=== PATIENT | male | born 1980 | race Caucasian/White ===

== ENCOUNTER 2019-04-23 23:32 | Inpatient (IN) | payer MEDICARE ==
[~2019-04-23] VITALS: Ht 177.8 cm; Wt 60.8 kg
[2019-04-24 01:35] VITALS: BP 115/77
--- NOTE | 2019-04-24 01:35 | NUR ---
NURSE NOTES: Transferred from [facility], under Dr. Ibarra with diagnosis of colitis. Received report on the phone from LYNN Mirza. Patient complains of abdominal pain 11/14. No N/V at this time. Alert, awake, oriented x4, ambulatory. VSS. 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 Dr Ibarra will be called for admitting orders. Patient oriented to room, fall precaution in place, bed locked, in low position, side rails up x2, call light within reach. Patient instructed to call as needed for assistance. Belongings sheet signed, refused to send valuables for safekeeping. Patient also has medication with him which will be turned over to pharmacy.
[2019-04-24] MEDS ORDERED: REMICADE INFUSION (02:44)
[2019-04-24] MEDS ORDERED: OXYCODONE HCL5 MG ORAL (02:44)
[2019-04-24] MEDS ORDERED: OXYCONTIN20 MG ORAL (02:44)
[2019-04-24] MEDS ORDERED: CYMBALTA60 MG ORAL (02:44)
[2019-04-24] MEDS ORDERED: IMMURAN PO (02:44)
--- NOTE | 2019-04-24 02:50 | NUR ---
NURSE NOTES: Placed phone call to Dr Ibarra for admitting orders and pain medication.
--- NOTE | 2019-04-24 03:56 | NUR ---
NURSE NOTES: Received admitting orders from Dr Ibarra at this time. States he will see the patient in the morning.
[2019-04-24 04:00] VITALS: BP 115/79
[2019-04-24] MEDS ORDERED: Hydromorphone 0.5mg/0.5ml inj IVP PRN (04:00)
[2019-04-24] MEDS ORDERED: HYDROmorphone 1mg/ml Carpuject IVP PRN (04:00)
--- NOTE | 2019-04-24 04:20 | NUR ---
NURSE NOTES: Collected MRSA, VRE, CRE specimens due to hospital admission within the last month.
[2019-04-24] MEDS ORDERED: Zoysn 3.37gm in NS 100ML IVPB SCH (04:45)
--- NOTE | 2019-04-24 07:38 | NUR ---
HAND-OFF: Report given to LYNN Lara. Notified of new orders recently received from Dr Ibarra for labs and IVF.
--- NOTE | 2019-04-24 07:41 | NUR ---
NURSE NOTES: Pt awake and orientated stated that he remains in pain and is aware that his pain medication is q6 hours. Breakfast is at the bedside. Follow up will be made with MD in regards to intervals of pain mediation
[2019-04-24 08:00] VITALS: BP 122/74
[2019-04-24] MEDS: Solu-MEDROL 40mg Inj IVP SCH ×2 (08:39→16:50)
[2019-04-24] MEDS: HYDROmorphone 1mg/ml Carpuject IVP PRN ×4 (08:40→21:22)
[2019-04-24] MEDS: D5 1/2NS 1,000 ML IV SCH ×2 (08:41→17:45)
[2019-04-24 09:08] LABS: BASOPHILS % (AUTO) 0.8 % (0.0-2.0); EOSINOPHILS % (AUTO) 1.9 % (0.0-3.0); HEMATOCRIT 33.9 % (42.0-52.0); HEMOGLOBIN 11.5 G/DL (14.2-18.0); LYMPHOCYTES % (AUTO) 9.1 % (20.0-45.0); MEAN CORPUSCULAR VOLUME 83 FL (80-99); MONOCYTES % (AUTO) 5.1 % (1.0-10.0); NEUTROPHILS % (AUTO) 83.1 % (45.0-75.0); PLATELET COUNT 493 K/UL (150-450); RED CELL DISTRIBUTION WIDTH 13.8 % (11.6-14.8); WHITE BLOOD COUNT 13.8 K/UL (4.8-10.8)
[2019-04-24 09:40] LABS: ALANINE AMINOTRANSFERASE 13 U/L (12-78); ALBUMIN 3.1 G/DL (3.4-5.0); ALBUMIN/GLOBULIN RATIO 0.8 (1.0-2.7); ALKALINE PHOSPHATASE 77 U/L (46-116); ANION GAP 11 mmol/L (5-15); ASPARTATE AMINO TRANSFERASE 12 U/L (15-37); BILIRUBIN,TOTAL 0.3 MG/DL (0.2-1.0); BLOOD UREA NITROGEN 11 mg/dL (7-18); CALCIUM 8.8 MG/DL (8.5-10.1); CARBON DIOXIDE 24 MMOL/L (21-32); CHLORIDE 109 MMOL/L (98-107); POTASSIUM 3.9 MMOL/L (3.5-5.1); SODIUM 144 MMOL/L (136-145)
[2019-04-24 12:00] VITALS: BP 120/71
[2019-04-24] MEDS: Heparin 5000 units/ml inj SUBQ SCH (12:30)
[2019-04-24] MEDS: Piperacillin/Tazobactam 3.375 GM in NS 110 ML IVPB SCH ×2 (12:34→18:19)
--- NOTE | 2019-04-24 14:21 | Consultation ---
History of Present Illness General Date patient seen: Apr 24, 2019 Present Illness HPI 38-year-old male with history of Crohn disease, who presents to [facility] emergency room with a chief complaint of nausea, vomiting, and abdominal pain two days previously. The patient is transferred to [facility] for insurance purposes. The patient now has right lower quadrant pain and is admitted with acute exacerbation of colitis. Allergies: Coded Allergies: TRAMADOL (Unverified Allergy, Unknown, 04/24/19) seizure Medication History Scheduled Duloxetine Hcl* (Cymbalta*), 60 MG ORAL DAILY, (Reported) Oxycodone Hcl Er* (Oxycontin*), 20 MG ORAL EVERY 8 HOURS, (Reported) Oxycodone Hcl Ir* (Roxicodone Ir*), 10 MG ORAL FOUR TIMES A DAY, (Reported) [Immuran], 150 MG PO DAILY, (Reported) Miscellaneous Medications [remicade infusion], (Reported) Patient History Healthcare decision maker Resuscitation status Full Code Advanced Directive on File Past Medical/Surgical History Past Medical/Surgical History: (1) History of Crohn's disease Review of Systems All Other Systems: negative except mentioned in HPI Physical Exam General Appearance: thin Lines, tubes and drains: peripheral HEENT: normocephalic, anicteric Neck: non-tender, normal alignment Respiratory/Chest: lungs clear Cardiovascular/Chest: normal peripheral pulses Genitourinary/Rectal: normal genital exam Last 24 Hour Vital Signs Date Time Temp Pulse Resp B/P (MAP) Pulse Ox O2 Delivery O2 Flow Rate FiO2 04/24/19 12:00 98.2 92 21 120/71 (87) 04/24/19 09:00 Room Air 04/24/19 08:00 97.7 88 21 122/74 (90) 88 04/24/19 04:00 97.9 87 18 115/79 (91) 98 04/24/19 02:13 Room Air 04/24/19 01:45 Room Air 04/24/19 01:35 98.4 81 18 115/77 (90) 100 Intake and Output 04/23/19 04/24/19 19:00 07:00 Intake Total 120 ml Output Total 400 ml Balance -280 ml Intake Oral 120 ml Output Urine Total 400 ml # Voids 1 Laboratory Tests Test 04/24/19 09:00 White Blood Count 13.8 K/UL (4.8-10.8) H Red Blood Count 4.10 M/UL (4.70-6.10) L Hemoglobin 11.5 G/DL (14.2-18.0) L Hematocrit 33.9 % (42.0-52.0) L Mean Corpuscular Volume 83 FL (80-99) Mean Corpuscular Hemoglobin 28.1 PG (27.0-31.0) Mean Corpuscular Hemoglobin Concent 33.9 G/DL (32.0-36.0) Red Cell Distribution Width 13.8 % (11.6-14.8) Platelet Count 493 K/UL (150-450) H Mean Platelet Volume 5.4 FL (6.5-10.1) L Neutrophils (%) (Auto) 83.1 % (45.0-75.0) H Lymphocytes (%) (Auto) 9.1 % (20.0-45.0) L Monocytes (%) (Auto) 5.1 % (1.0-10.0) Eosinophils (%) (Auto) 1.9 % (0.0-3.0) Basophils (%) (Auto) 0.8 % (0.0-2.0) Erythrocyte Sedimentation Rate 25 MM/HR (0-15) H Sodium Level 144 MMOL/L (136-145) Potassium Level 3.9 MMOL/L (3.5-5.1) Chloride Level 109 MMOL/L (98-107) H Carbon Dioxide Level 24 MMOL/L (21-32) Anion Gap 11 mmol/L (5-15) Blood Urea Nitrogen 11 mg/dL (7-18) Creatinine 1.0 MG/DL (0.55-1.30) Estimat Glomerular Filtration Rate > 60 mL/min (>60) Glucose Level 99 MG/DL (74-106) Calcium Level 8.8 MG/DL (8.5-10.1) Phosphorus Level 4.0 MG/DL (2.5-4.9) Magnesium Level 1.8 MG/DL (1.8-2.4) Total Bilirubin 0.3 MG/DL (0.2-1.0) Aspartate Amino Transf (AST/SGOT) 12 U/L (15-37) L Alanine Aminotransferase (ALT/SGPT) 13 U/L (12-78) Alkaline Phosphatase 77 U/L (46-116) C-Reactive Protein, Quantitative < 0.4 mg/dL (0.00-0.90) Total Protein 7.0 G/DL (6.4-8.2) Albumin 3.1 G/DL (3.4-5.0) L Globulin 3.9 g/dL Albumin/Globulin Ratio 0.8 (1.0-2.7) L Height (Feet): 5 Height (Inches): 10.00 Weight (Pounds): 134 Medications Current Medications Medications (Trade) Dose Ordered Sig/Aguila Route PRN Reason Start Time Stop Time Status Last Admin Dose Admin Acetaminophen (Tylenol) 650 mg Q6H PRN ORAL Mild Pain/Temp > 100 04/24/19 04:00 05/24/19 03:59 Dextrose/Sodium Chloride 1,000 ml @ 100 mls/hr Q10H IV 04/24/19 07:45 05/24/19 07:44 04/24/19 08:41 Heparin Sodium (Porcine) (Heparin 5000 units/ml) 5,000 units DAILY SUBQ 04/24/19 12:30 05/24/19 12:29 Hydromorphone HCl (Dilaudid) 0.5 mg Q6H PRN IVP For Pain 04/24/19 04:00 05/01/19 03:59 Hydromorphone HCl (Dilaudid) 1 mg Q4H PRN IVP For Pain 04/24/19 08:30 05/01/19 08:29 04/24/19 12:34 Methylprednisolone Sodium Succinate (Solu-MEDROL) 40 mg Q8H IVP 04/24/19 09:00 05/24/19 08:59 04/24/19 08:39 Piperacillin Sod/ Tazobactam Sod 3.375 gm/Sodium Chloride 110 ml @ 27.5 mls/hr Q8H IVPB 04/24/19 10:00 05/01/19 09:59 04/24/19 12:34 Assessment/Plan Problem List: (1) Colitis ICD Codes: K52.9 - Noninfective gastroenteritis and colitis, unspecified SNOMED: 90524374 (2) History of Crohn's disease ICD Codes: Z87.19 - Personal history of other diseases of the digestive system SNOMED: 302924097720124 Assessment/Plan: NPO iv fluids pain management GI evaluation f/u inflammatory markers check electrolytes dvt prophylaxis Herrera Alcaraz MD Apr 24, 2019 14:21
[2019-04-24 16:00] VITALS: BP 120/72
--- NOTE | 2019-04-24 16:01 | NUR ---
NURSE NOTES: Pt is comfortable laying down watching television . Call light is in reach. Antibiotics given
--- NOTE | 2019-04-24 20:04 | NUR ---
NURSE NOTES: Pt given pain medication through out shift, states he is use to being in pain. Pleasant bx. Call light in reach
--- NOTE | 2019-04-24 20:04 | NUR ---
HAND-OFF: Report given to Emily BAILEY.
--- NOTE | 2019-04-24 20:08 | History & Physical ---
History and Physical History & Physicial dictated for Int Med-Dr Ibarra no. [id number] Atilio Hardin MD Apr 24, 2019 20:08
--- NOTE | 2019-04-24 20:16 | NUR ---
CASE MANAGEMENT: REVIEW 38 YEAR OLD MALE TRANSFERRED FROM [facility] CC: Hx CROHN'S DISEASE SI: COLITIS T 98.4 HR 81 RR 18 BP 115/77 SAT 100% ROOM AIR WBC 13.8 AST 12 ALBUMIN 3.1 IS: DILAUDID 1MG IV X1 ZOSYN IV X1 CLEAR LIQUID DIET PATIENT ADMITTED TO MED/SURG UNIT 04/24/2019 DCP: PATIENT IS FROM HOME
--- NOTE | 2019-04-24 20:51 | NUR ---
NURSES NOTE: Met pt in bed, A/O X4, pt states he has pain in abdominal region and would like next dose of Dilaudid as soon as its due. No outward s/s of distress noted. Breathing is even and unlabored on room air. IV,WESLEY, intact, patent. Fluids infusing according to eMAR. All due meds will be given. Call light within reach, bed at lowest level. Pt will continue to be monitored.
[2019-04-25] VITALS: BP 116/76
--- NOTE | 2019-04-25 00:30 | History and Physical Report ---
DATE OF ADMISSION: 04/24/2019 CHIEF COMPLAINT: The patient is a 38-year-old male with history of Crohn disease, who presents with a chief complaint of nausea, vomiting, and abdominal pain. HISTORY OF PRESENT ILLNESS: The patient has a history of Crohn disease. The patient began to experience nausea and vomiting two days previously. The patient now has right lower quadrant pain. The patient initially presented to [facility] emergency room. The patient is transferred to [facility] for insurance purposes. The patient was admitted with acute exacerbation of colitis. REVIEW OF SYSTEMS: CONSTITUTIONAL: The patient denies weight loss or weight gain. The patient denies fevers or chills. HEENT: The patient denies ear or throat pain. The patient denies headache. CARDIOVASCULAR: The patient denies palpitations or chest pain. CHEST: The patient denies wheeze or shortness of breath. ABDOMINAL: The patient denies constipation. The patient complains of nausea and vomiting as above. The patient complains of right lower quadrant pain as above. The patient denies diarrhea. GENITOURINARY: The patient denies dysuria or increased frequency of urination. NEUROMUSCULAR: The patient denies seizures or generalized weakness. PAST MEDICAL HISTORY: Significant for Crohn's disease. PAST SURGICAL HISTORY: Significant for, 1. Colon resection. 2. Perianal fistula. CURRENT MEDICATIONS: 1. Cymbalta 60 mg p.o. daily. 2. Oxycodone 20 mg p.o. q.8 hours p.r.n.. 3. Imuran 150 mg p.o. daily. 4. Remicade last dose 6 months ago. ALLERGIES: Tramadol. SOCIAL HISTORY: The patient is single. The patient denies tobacco or alcohol use. PHYSICAL EXAMINATION: VITAL SIGNS: Temperature 98.5, respirations 20, pulse 138, and blood pressure 118/75. GENERAL: The patient is well-developed and well-nourished thin-appearing male, in no apparent distress. HEENT: Eyes, pupils are equal and responsive to light and accommodation. Extraocular movements are intact. NECK: Supple without lymphadenopathy. CHEST: Lungs are clear to auscultation bilaterally without wheezes or rales. CARDIOVASCULAR: Regular rhythm and rate. S1, S2 are normal without murmurs, rubs, or gallops. ABDOMEN: Soft and tender to palpation in all 4 quadrants. No rebound or guarding. EXTREMITIES: Negative for clubbing, cyanosis, or edema. RECTAL/GENITAL: Not performed. NEUROLOGIC: Cranial nerves II through XII are grossly intact without focal deficits. Motor strength is 5/5 bilaterally. Deep tendon reflexes are 2+ plantar. LABORATORY AND DIAGNOSTIC DATA: A CT scan of the abdomen revealed thickening of the wall of the colon at the hepatic flexure and thickening of the rectosigmoid consistent with Crohn's disease. WBC 15.8, hemoglobin 11.5, hematocrit 36.2, and platelets 591,000. Sodium 144, potassium 5.0, chloride 106, CO2 25, BUN 13, and creatinine 0.89. ASSESSMENT: This is a 38-year-old male. 1. Colitis. 2. Nausea with vomiting. 3. Right lower quadrant abdominal pain. 4. Crohn's disease. TREATMENT: 1. Nausea/vomiting/Crohn's disease. A Gastroenterology consultation has been obtained with Dr. Romeo Valentine. The patient has been started empirically on intravenous Zosyn. We will follow recommendations of Gastroenterology. The patient has also been started on intravenous Solu-Medrol. 2. History of Crohn's disease. Continue Imuran as above. 3. Abdominal pain. The patient is currently receiving Dilaudid intravenously. Atilio Hardin M.D. DR: FIORDALIZA JOB#: [id number] CC:
[2019-04-25] MEDS: Solu-MEDROL 40mg Inj IVP SCH ×3 (01:24→17:40)
[2019-04-25] MEDS: HYDROmorphone 1mg/ml Carpuject IVP PRN ×3 (01:25→09:37)
[2019-04-25] MEDS: Piperacillin/Tazobactam 3.375 GM in NS 110 ML IVPB SCH ×3 (03:00→17:43)
[2019-04-25] MEDS: D5 1/2NS 1,000 ML IV SCH ×3 (03:10→23:55)
[2019-04-25 04:00] VITALS: BP 120/70
[2019-04-25 07:08] LABS: HEMATOCRIT 34.9 % (42.0-52.0); HEMOGLOBIN 12.1 G/DL (14.2-18.0); MEAN CORPUSCULAR VOLUME 82 FL (80-99); PLATELET COUNT 569 K/UL (150-450); RED BLOOD COUNT 4.23 M/UL (4.70-6.10); RED CELL DISTRIBUTION WIDTH 13.4 % (11.6-14.8); WHITE BLOOD COUNT 15.7 K/UL (4.8-10.8)
--- NOTE | 2019-04-25 07:15 | NUR ---
HAND OFF: Report given to Flor. Stalin angela.
[2019-04-25 07:19] LABS: ALANINE AMINOTRANSFERASE 14 U/L (12-78); ALBUMIN 3.4 G/DL (3.4-5.0); ALBUMIN/GLOBULIN RATIO 0.8 (1.0-2.7); ALKALINE PHOSPHATASE 84 U/L (46-116); ANION GAP 12 mmol/L (5-15); ASPARTATE AMINO TRANSFERASE 11 U/L (15-37); BILIRUBIN,TOTAL 0.4 MG/DL (0.2-1.0); BLOOD UREA NITROGEN 7 mg/dL (7-18); CALCIUM 9.4 MG/DL (8.5-10.1); CARBON DIOXIDE 25 MMOL/L (21-32); CHLORIDE 106 MMOL/L (98-107); CREATININE 0.9 MG/DL (0.55-1.30); PHOSPHORUS 5.3 MG/DL (2.5-4.9); POTASSIUM 3.9 MMOL/L (3.5-5.1); SODIUM 143 MMOL/L (136-145)
--- NOTE | 2019-04-25 07:41 | NUR ---
NURSE NOTES: AWAKE/ALERT.PAIN SCALE 8/10. IN NO DISTRESS.
[2019-04-25 08:00] VITALS: BP 121/78
[2019-04-25] MEDS: Heparin 5000 units/ml inj SUBQ SCH (08:27)
--- NOTE | 2019-04-25 11:29 | GI Initial Consult Note ---
History of Present Illness General Date patient seen: Apr 25, 2019 Time patient seen: 11:23 Reason for Hospitalization: CROHNS FLARE Referring physician: SALMA BRANNON Reason for Consultation: CROHNS Present Illness HPI The patient is a 38-year-old male with history of Crohn disease, who presents with a chief complaint of nausea, vomiting, and abdominal pain. The patient began to experience nausea and vomiting two days previously. The patient now has right lower quadrant pain. The patient initially presented to [facility] emergency room. The patient is transferred to [facility] for insurance purposes. The patient was admitted with acute exacerbation of colitis. GI consulted for reported Crohn's flare. Patient seen, awake alert oriented x4 no apparent distress. At the time of evaluation the patient presents no nausea vomiting but has complaint of severe abdominal generalized abdominal pain. The abdomen is soft, tenderness to all quadrants, nondistended with no rebounding nor peritoneal signs noted. 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 The patient states his last colonoscopy was approximately 1 year ago. Laboratory review noted most significant for WBC 15.7, hemoglobin 12.1, hematocrit 34.9, platelet count 569, ESR 56, C-reactive protein less than 0.4. Home Meds Reported Medications [remicade infusion] No Conflict Check, for given 6 months ago 04/24/19 Duloxetine Hcl* (CYMBALTA*) 60 Mg Capsule.dr, 60 MG ORAL DAILY for depression, CAP 04/24/19 Oxycodone Hcl Ir* (ROXICODONE IR*) 5 Mg Tablet, 10 MG ORAL FOUR TIMES A DAY for breakthrough pain, #10 TAB 0 Refills 04/24/19 Oxycodone Hcl Er* (OXYCONTIN*) 20 Mg Tab.er.12h, 20 MG ORAL EVERY 8 HOURS for pain, #10 TAB 0 Refills 04/24/19 [Immuran] No Conflict Check, 150 MG PO DAILY 04/24/19 Med list reviewed/reconciled: Yes Allergies: Coded Allergies: TRAMADOL (Unverified Allergy, Unknown, 04/24/19) seizure Patient History History Provided By: Patient, Medical Record Social History: Denies: smoking, alcohol use, drug use, other Review of Systems All Other Systems: negative except mentioned in HPI Physical Exam Vital Signs Date Time Temp Pulse Resp B/P (MAP) Pulse Ox O2 Delivery O2 Flow Rate FiO2 04/24/19 01:35 98.4 81 18 115/77 (90) 100 04/24/19 01:45 Room Air Sp02 EP Interpretation: reviewed, normal Labs Laboratory Tests Test 04/25/19 06:10 White Blood Count 15.7 K/UL (4.8-10.8) H Red Blood Count 4.23 M/UL (4.70-6.10) L Hemoglobin 12.1 G/DL (14.2-18.0) L Hematocrit 34.9 % (42.0-52.0) L Mean Corpuscular Volume 82 FL (80-99) Mean Corpuscular Hemoglobin 28.5 PG (27.0-31.0) Mean Corpuscular Hemoglobin Concent 34.6 G/DL (32.0-36.0) Red Cell Distribution Width 13.4 % (11.6-14.8) Platelet Count 569 K/UL (150-450) H Mean Platelet Volume 5.4 FL (6.5-10.1) L Neutrophils (%) (Auto) % (45.0-75.0) Lymphocytes (%) (Auto) % (20.0-45.0) Monocytes (%) (Auto) % (1.0-10.0) Eosinophils (%) (Auto) % (0.0-3.0) Basophils (%) (Auto) % (0.0-2.0) Differential Total Cells Counted 100 Neutrophils % (Manual) 90 % (45-75) H Lymphocytes % (Manual) 7 % (20-45) L Monocytes % (Manual) 3 % (1-10) Eosinophils % (Manual) 0 % (0-3) Basophils % (Manual) 0 % (0-2) Band Neutrophils 0 % (0-8) Platelet Estimate Increased H Platelet Morphology Normal Red Blood Cell Morphology Normal Erythrocyte Sedimentation Rate 46 MM/HR (0-15) H Sodium Level 143 MMOL/L (136-145) Potassium Level 3.9 MMOL/L (3.5-5.1) Chloride Level 106 MMOL/L (98-107) Carbon Dioxide Level 25 MMOL/L (21-32) Anion Gap 12 mmol/L (5-15) Blood Urea Nitrogen 7 mg/dL (7-18) Creatinine 0.9 MG/DL (0.55-1.30) Estimat Glomerular Filtration Rate > 60 mL/min (>60) Glucose Level 119 MG/DL (74-106) H Calcium Level 9.4 MG/DL (8.5-10.1) Phosphorus Level 5.3 MG/DL (2.5-4.9) H Magnesium Level 1.8 MG/DL (1.8-2.4) Total Bilirubin 0.4 MG/DL (0.2-1.0) Aspartate Amino Transf (AST/SGOT) 11 U/L (15-37) L Alanine Aminotransferase (ALT/SGPT) 14 U/L (12-78) Alkaline Phosphatase 84 U/L (46-116) C-Reactive Protein, Quantitative < 0.4 mg/dL (0.00-0.90) Total Protein 7.7 G/DL (6.4-8.2) Albumin 3.4 G/DL (3.4-5.0) Globulin 4.3 g/dL Albumin/Globulin Ratio 0.8 (1.0-2.7) L General Appearance: well appearing, no apparent distress, alert Head: normocephalic EENT: PERRL/EOMI, normal ENT inspection Neck: supple Respiratory: normal breath sounds, no respiratory distress Cardiovascular: normal rate Gastrointestinal: normal inspection, non tender, soft, normal bowel sounds, non -distended Rectal: deferred Genitourinary: deferred Musculoskeletal: normal inspection, back normal Neurologic: alert, oriented x3, responsive, normal inspection Psychiatric: normal inspection, judgement/insight normal, memory normal Skin: normal inspection, normal color, no rash, warm/dry, palpation normal, well hydrated Lymphatic: normal inspection, no adenopathy Current Medications Current Medications Medications (Trade) Dose Ordered Sig/Aguila Route PRN Reason Start Time Stop Time Status Last Admin Dose Admin Acetaminophen (Tylenol) 650 mg Q6H PRN ORAL Mild Pain/Temp > 100 04/24/19 04:00 05/24/19 03:59 Dextrose/Sodium Chloride 1,000 ml @ 100 mls/hr Q10H IV 04/24/19 07:45 05/24/19 07:44 04/25/19 03:10 Heparin Sodium (Porcine) (Heparin 5000 units/ml) 5,000 units DAILY SUBQ 04/24/19 12:30 05/24/19 12:29 Hydromorphone HCl (Dilaudid) 0.5 mg Q6H PRN IVP For Pain 04/24/19 04:00 05/01/19 03:59 Hydromorphone HCl (Dilaudid) 1 mg Q4H PRN IVP For Pain 04/24/19 08:30 05/01/19 08:29 04/25/19 09:37 Methylprednisolone Sodium Succinate (Solu-MEDROL) 40 mg Q8H IVP 04/24/19 09:00 05/24/19 08:59 04/25/19 08:26 Ondansetron HCl (Zofran) 4 mg Q6H PRN IVP Nausea & Vomiting 04/24/19 14:30 05/24/19 14:29 Piperacillin Sod/ Tazobactam Sod 3.375 gm/Sodium Chloride 110 ml @ 27.5 mls/hr Q8H IVPB 04/24/19 10:00 05/01/19 09:59 04/25/19 09:37 Temazepam (RestoriL) 7.5 mg HSPRN PRN ORAL Insomnia 04/24/19 14:30 05/01/19 14:29 GI: Plan Problems: (1) Colitis (2) History of Crohn's disease Plan Crohn's flare, elevated ESR and white count CT scan of the abdomen revealed thickening of the wall of the colon at the hepatic flexure and thickening of the rectosigmoid consistent with Crohn's disease. Bowel rest Clear liquid diet, advance as tolerated Pain management Continue Zosyn PPI Continue IV Solu-Medrol We will follow on a daily basis with any additional recommendations Discussed with Dr. Valentine. Thank you for this patient referral, we will follow. The patient was seen and examined at bedside and all new and available data was reviewed in the patients chart. I agree with the above findings, impression and plan. (Patient seen earlier today. Signature stamp does not reflect patient encounter time.). - MD Sandra Lamas,[facility] Apr 25, 2019 11:29
--- NOTE | 2019-04-25 11:57 | Consultation ---
History of Present Illness General Date patient seen: Apr 25, 2019 Referring physician: SALMA BRANNON Reason for Consultation: CROHNS Present Illness HPI 38 y/o M wtih hx of Crohn's disease (diagnosed as a teen) s/p colon resection on Imuran (previously on Remicade but held for ~1yr due to infection), perianal fistula, bacteremia early 2018 presented to ED on 04/24 with 2 weeks of nausea, vomiting, RLQ abd pain and bloody purulent output thru fistula. Symptoms worsened in the last 4 days. His GI and colorectal sx care is at [facility]. Denied fever, chills, headache, chest pain, dysuria, sick contacts. Allergies: Coded Allergies: TRAMADOL (Unverified Allergy, Unknown, 04/24/19) seizure Medication History Scheduled Duloxetine Hcl* (Cymbalta*), 60 MG ORAL DAILY, (Reported) Oxycodone Hcl Er* (Oxycontin*), 20 MG ORAL EVERY 8 HOURS, (Reported) Oxycodone Hcl Ir* (Roxicodone Ir*), 10 MG ORAL FOUR TIMES A DAY, (Reported) [Immuran], 150 MG PO DAILY, (Reported) Miscellaneous Medications [remicade infusion], (Reported) Patient History Healthcare decision maker Resuscitation status Full Code Advanced Directive on File Patient History Narrative Pmhx: as above Shx: The patient is single. The patient denies tobacco or alcohol use. Fhx: non contributory Review of Systems All Other Systems: negative except mentioned in HPI Physical Exam Physical Exam Narrative GENERAL: The patient is well-developed and well-nourished thin-appearing male, in no apparent distress. HEENT: Eyes, pupils are equal and responsive to light and accommodation. Extraocular movements are intact. NECK: Supple without lymphadenopathy. CHEST: Lungs are clear to auscultation bilaterally without wheezes or rales. CARDIOVASCULAR: Regular rhythm and rate. S1, S2 are normal without murmurs, rubs, or gallops. ABDOMEN: Soft and tender to palpation in all 4 quadrants. No rebound or guarding. EXTREMITIES: Negative for clubbing, cyanosis, or edema. Last 24 Hour Vital Signs Date Time Temp Pulse Resp B/P (MAP) Pulse Ox O2 Delivery O2 Flow Rate FiO2 04/25/19 10:07 98.0 2/19/20 09:00 Room Air 04/25/19 08:00 98.0 83 20 121/78 (92) 99 04/25/19 04:00 98.1 73 17 120/70 (87) 97 73 04/25/19 00:00 98.3 77 16 116/76 (89) 96 04/24/19 21:00 Room Air 04/24/19 16:00 97.1 20 120/72 (88) 98 04/24/19 12:00 98.2 92 21 120/71 (87) Intake and Output 04/24/19 04/25/19 19:00 07:00 Intake Total 890.0 ml 1360 ml Output Total 600 ml 800 ml Balance 290.0 ml 560 ml Intake Oral 480 ml 1260 ml IV Total 410.0 ml 100 ml Output Urine Total 600 ml 800 ml # Voids 1 4 Laboratory Tests Test 04/25/19 06:10 White Blood Count 15.7 K/UL (4.8-10.8) H Red Blood Count 4.23 M/UL (4.70-6.10) L Hemoglobin 12.1 G/DL (14.2-18.0) L Hematocrit 34.9 % (42.0-52.0) L Mean Corpuscular Volume 82 FL (80-99) Mean Corpuscular Hemoglobin 28.5 PG (27.0-31.0) Mean Corpuscular Hemoglobin Concent 34.6 G/DL (32.0-36.0) Red Cell Distribution Width 13.4 % (11.6-14.8) Platelet Count 569 K/UL (150-450) H Mean Platelet Volume 5.4 FL (6.5-10.1) L Neutrophils (%) (Auto) % (45.0-75.0) Lymphocytes (%) (Auto) % (20.0-45.0) Monocytes (%) (Auto) % (1.0-10.0) Eosinophils (%) (Auto) % (0.0-3.0) Basophils (%) (Auto) % (0.0-2.0) Differential Total Cells Counted 100 Neutrophils % (Manual) 90 % (45-75) H Lymphocytes % (Manual) 7 % (20-45) L Monocytes % (Manual) 3 % (1-10) Eosinophils % (Manual) 0 % (0-3) Basophils % (Manual) 0 % (0-2) Band Neutrophils 0 % (0-8) Platelet Estimate Increased H Platelet Morphology Normal Red Blood Cell Morphology Normal Erythrocyte Sedimentation Rate 46 MM/HR (0-15) H Sodium Level 143 MMOL/L (136-145) Potassium Level 3.9 MMOL/L (3.5-5.1) Chloride Level 106 MMOL/L (98-107) Carbon Dioxide Level 25 MMOL/L (21-32) Anion Gap 12 mmol/L (5-15) Blood Urea Nitrogen 7 mg/dL (7-18) Creatinine 0.9 MG/DL (0.55-1.30) Estimat Glomerular Filtration Rate > 60 mL/min (>60) Glucose Level 119 MG/DL (74-106) H Calcium Level 9.4 MG/DL (8.5-10.1) Phosphorus Level 5.3 MG/DL (2.5-4.9) H Magnesium Level 1.8 MG/DL (1.8-2.4) Total Bilirubin 0.4 MG/DL (0.2-1.0) Aspartate Amino Transf (AST/SGOT) 11 U/L (15-37) L Alanine Aminotransferase (ALT/SGPT) 14 U/L (12-78) Alkaline Phosphatase 84 U/L (46-116) C-Reactive Protein, Quantitative < 0.4 mg/dL (0.00-0.90) Total Protein 7.7 G/DL (6.4-8.2) Albumin 3.4 G/DL (3.4-5.0) Globulin 4.3 g/dL Albumin/Globulin Ratio 0.8 (1.0-2.7) L Height (Feet): 5 Height (Inches): 10.00 Weight (Pounds): 134 Medications Current Medications Medications (Trade) Dose Ordered Sig/Aguila Route PRN Reason Start Time Stop Time Status Last Admin Dose Admin Acetaminophen (Tylenol) 650 mg Q6H PRN ORAL Mild Pain/Temp > 100 04/24/19 04:00 05/24/19 03:59 Dextrose/Sodium Chloride 1,000 ml @ 100 mls/hr Q10H IV 04/24/19 07:45 05/24/19 07:44 04/25/19 03:10 Heparin Sodium (Porcine) (Heparin 5000 units/ml) 5,000 units DAILY SUBQ 2/18/20 12:30 05/24/19 12:29 Hydromorphone HCl (Dilaudid) 0.5 mg Q6H PRN IVP For Pain 04/24/19 04:00 05/01/19 03:59 Hydromorphone HCl (Dilaudid) 1 mg Q4H PRN IVP For Pain 04/24/19 08:30 05/01/19 08:29 04/25/19 09:37 Methylprednisolone Sodium Succinate (Solu-MEDROL) 20 mg Q8H IVP 04/25/19 17:00 05/24/19 08:59 Ondansetron HCl (Zofran) 4 mg Q6H PRN IVP Nausea & Vomiting 04/24/19 14:30 05/24/19 14:29 Piperacillin Sod/ Tazobactam Sod 3.375 gm/Sodium Chloride 110 ml @ 27.5 mls/hr Q8H IVPB 04/24/19 10:00 05/01/19 09:59 04/25/19 09:37 Temazepam (RestoriL) 7.5 mg HSPRN PRN ORAL Insomnia 04/24/19 14:30 05/01/19 14:29 Assessment/Plan Assessment/Plan: Abx: Zosyn 04/24- Assessment: Chron's flare Afebrile Leukocytosis, increased (on steroids) Crohn's disease (diagnosed as a teen) - s/p colon resection on Imuran -previously on Remicade but held for ~1yr due bacteremia -hx of perianal fistula -hx of bacteremia early 2018 Plan: -Continue Zosyn #2 -f/u cx -Monitor CBC/CMP, temperatures -GI f/u Thank you for this consultation. Will continue to follow along with you. Discussed with Rena Cooper M.D. Apr 25, 2019 11:57
[2019-04-25 12:00] VITALS: BP 114/71
--- NOTE | 2019-04-25 12:43 | Pulmonology Progress Note ---
Assessment/Plan Problems: (1) Colitis (2) History of Crohn's disease Assessment/Plan NPO iv fluids pain management, increase Dilaudid to 2 mg, pt is tolerant to lower doses b/o long standing pain management. GI evaluation f/u inflammatory markers check electrolytes dvt prophylaxis Subjective ROS Limited/Unobtainable: No Constitutional: Reports: no symptoms HEENT: Repors: no symptoms Allergies: Coded Allergies: TRAMADOL (Unverified Allergy, Unknown, 04/24/19) seizure Objective Last 24 Hour Vital Signs Date Time Temp Pulse Resp B/P (MAP) Pulse Ox O2 Delivery O2 Flow Rate FiO2 04/25/19 10:07 98.0 04/25/19 09:00 Room Air 04/25/19 08:00 98.0 83 20 121/78 (92) 99 04/25/19 04:00 98.1 73 17 120/70 (87) 97 73 04/25/19 00:00 98.3 77 16 116/76 (89) 96 04/24/19 21:00 Room Air 04/24/19 16:00 97.1 20 120/72 (88) 98 Intake and Output 04/24/19 04/25/19 19:00 07:00 Intake Total 890.0 ml 1360 ml Output Total 600 ml 800 ml Balance 290.0 ml 560 ml Intake Oral 480 ml 1260 ml IV Total 410.0 ml 100 ml Output Urine Total 600 ml 800 ml # Voids 1 4 General Appearance: WD/WN HEENT: normocephalic, atraumatic Respiratory/Chest: chest wall non-tender, lungs clear Cardiovascular: normal peripheral pulses, regular rhythm Abdomen: normal bowel sounds, soft, non tender Extremities: no cyanosis, no clubbing Skin: no rash Laboratory Tests 04/25/19 06:10: White Blood Count 15.7H, Red Blood Count 4.23L, Hemoglobin 12.1L, Hematocrit 34.9L, Mean Corpuscular Volume 82, Mean Corpuscular Hemoglobin 28.5, Mean Corpuscular Hemoglobin Concent 34.6, Red Cell Distribution Width 13.4, Platelet Count 569H, Mean Platelet Volume 5.4L, Neutrophils (%) (Auto) , Lymphocytes (%) (Auto) , Monocytes (%) (Auto) , Eosinophils (%) (Auto) , Basophils (%) (Auto) , Differential Total Cells Counted 100, Neutrophils % (Manual) 90H, Lymphocytes % (Manual) 7L, Monocytes % (Manual) 3, Eosinophils % (Manual) 0, Basophils % ( Manual) 0, Band Neutrophils 0, Platelet Estimate IncreasedH, Platelet Morphology Normal, Red Blood Cell Morphology Normal, Erythrocyte Sedimentation Rate 46H, Sodium Level 143, Potassium Level 3.9, Chloride Level 106, Carbon Dioxide Level 25, Anion Gap 12, Blood Urea Nitrogen 7, Creatinine 0.9, Estimat Glomerular Filtration Rate > 60, Glucose Level 119H, Calcium Level 9.4, Phosphorus Level 5.3H, Magnesium Level 1.8, Total Bilirubin 0.4, Aspartate Amino Transf (AST/SGOT) 11L, Alanine Aminotransferase (ALT/SGPT) 14, Alkaline Phosphatase 84, C-Reactive Protein, Quantitative < 0.4, Total Protein 7.7, Albumin 3.4, Globulin 4.3, Albumin/Globulin Ratio 0.8L Current Medications Medications (Trade) Dose Ordered Sig/Aguila Route PRN Reason Start Time Stop Time Status Last Admin Dose Admin Acetaminophen (Tylenol) 650 mg Q6H PRN ORAL Mild Pain/Temp > 100 04/24/19 04:00 05/24/19 03:59 Dextrose/Sodium Chloride 1,000 ml @ 100 mls/hr Q10H IV 04/24/19 07:45 05/24/19 07:44 04/25/19 03:10 Heparin Sodium (Porcine) (Heparin 5000 units/ml) 5,000 units DAILY SUBQ 04/24/19 12:30 05/24/19 12:29 Hydromorphone HCl (Dilaudid) 0.5 mg Q6H PRN IVP For Pain 04/24/19 04:00 05/01/19 03:59 Hydromorphone HCl (Dilaudid) 1 mg Q4H PRN IVP For Pain 04/24/19 08:30 05/01/19 08:29 04/25/19 09:37 Methylprednisolone Sodium Succinate (Solu-MEDROL) 20 mg Q8H IVP 04/25/19 17:00 05/24/19 08:59 Ondansetron HCl (Zofran) 4 mg Q6H PRN IVP Nausea & Vomiting 04/24/19 14:30 05/24/19 14:29 Piperacillin Sod/ Tazobactam Sod 3.375 gm/Sodium Chloride 110 ml @ 27.5 mls/hr Q8H IVPB 04/24/19 10:00 05/01/19 09:59 04/25/19 09:37 Temazepam (RestoriL) 7.5 mg HSPRN PRN ORAL Insomnia 04/24/19 14:30 05/01/19 14:29 Herrera Alcaraz MD Apr 25, 2019 12:43
[2019-04-25 16:00] VITALS: BP 124/67
--- NOTE | 2019-04-25 19:00 | NUR ---
NURSE NOTES: RESTING. IN NO ACUTE DISTRESS.
--- NOTE | 2019-04-25 19:31 | Internal Med Progress Note ---
Subjective Date of Service: Apr 25, 2019 Physician Name LahsawnAtilio Attending Physician Genaro Ibarra MD Current Medications Medications (Trade) Dose Ordered Sig/Aguila Route PRN Reason Start Time Stop Time Status Last Admin Dose Admin Acetaminophen (Tylenol) 650 mg Q6H PRN ORAL Mild Pain/Temp > 100 04/24/19 04:00 05/24/19 03:59 Dextrose/Sodium Chloride 1,000 ml @ 100 mls/hr Q10H IV 04/24/19 07:45 05/24/19 07:44 04/25/19 03:10 Heparin Sodium (Porcine) (Heparin 5000 units/ml) 5,000 units DAILY SUBQ 04/24/19 12:30 05/24/19 12:29 Hydromorphone HCl (Dilaudid) 0.5 mg Q6H PRN IVP For Pain 04/24/19 04:00 05/01/19 03:59 Hydromorphone HCl (Dilaudid) 2 mg Q3H PRN IVP For severe Pain 7-10 04/25/19 12:45 05/02/19 12:44 04/25/19 17:38 Methylprednisolone Sodium Succinate (Solu-MEDROL) 20 mg Q8H IVP 04/25/19 17:00 05/24/19 08:59 04/25/19 17:40 Ondansetron HCl (Zofran) 4 mg Q6H PRN IVP Nausea & Vomiting 04/24/19 14:30 05/24/19 14:29 Piperacillin Sod/ Tazobactam Sod 3.375 gm/Sodium Chloride 110 ml @ 27.5 mls/hr Q8H IVPB 04/24/19 10:00 05/01/19 09:59 04/25/19 17:43 Temazepam (RestoriL) 7.5 mg HSPRN PRN ORAL Insomnia 04/24/19 14:30 05/01/19 14:29 Allergies: Coded Allergies: TRAMADOL (Unverified Allergy, Unknown, 04/24/19) seizure ROS Limited/Unobtainable: No Constitutional: Reports: no symptoms HEENT: Reports: no symptoms Cardiovascular: Reports: no symptoms Respiratory: Reports: no symptoms Gastrointestinal/Abdominal: Reports: abdominal pain Genitourinary: Reports: no symptoms Neurologic/Psychiatric: Reports: no symptoms Subjective 38 YO M admitted with abdominal pain. Now crohn's colitis flare. Cover for Int Joshua-DR Ibarra Objective Last Vital Signs Date Time Temp Pulse Resp B/P (MAP) Pulse Ox O2 Delivery O2 Flow Rate FiO2 04/25/19 18:08 98.0 04/25/19 16:00 77 20 124/67 (86) 97 04/25/19 09:00 Room Air Laboratory Tests Test 04/25/19 06:10 White Blood Count 15.7 K/UL (4.8-10.8) H Red Blood Count 4.23 M/UL (4.70-6.10) L Hemoglobin 12.1 G/DL (14.2-18.0) L Hematocrit 34.9 % (42.0-52.0) L Mean Corpuscular Volume 82 FL (80-99) Mean Corpuscular Hemoglobin 28.5 PG (27.0-31.0) Mean Corpuscular Hemoglobin Concent 34.6 G/DL (32.0-36.0) Red Cell Distribution Width 13.4 % (11.6-14.8) Platelet Count 569 K/UL (150-450) H Mean Platelet Volume 5.4 FL (6.5-10.1) L Neutrophils (%) (Auto) % (45.0-75.0) Lymphocytes (%) (Auto) % (20.0-45.0) Monocytes (%) (Auto) % (1.0-10.0) Eosinophils (%) (Auto) % (0.0-3.0) Basophils (%) (Auto) % (0.0-2.0) Differential Total Cells Counted 100 Neutrophils % (Manual) 90 % (45-75) H Lymphocytes % (Manual) 7 % (20-45) L Monocytes % (Manual) 3 % (1-10) Eosinophils % (Manual) 0 % (0-3) Basophils % (Manual) 0 % (0-2) Band Neutrophils 0 % (0-8) Platelet Estimate Increased H Platelet Morphology Normal Red Blood Cell Morphology Normal Erythrocyte Sedimentation Rate 46 MM/HR (0-15) H Sodium Level 143 MMOL/L (136-145) Potassium Level 3.9 MMOL/L (3.5-5.1) Chloride Level 106 MMOL/L (98-107) Carbon Dioxide Level 25 MMOL/L (21-32) Anion Gap 12 mmol/L (5-15) Blood Urea Nitrogen 7 mg/dL (7-18) Creatinine 0.9 MG/DL (0.55-1.30) Estimat Glomerular Filtration Rate > 60 mL/min (>60) Glucose Level 119 MG/DL (74-106) H Calcium Level 9.4 MG/DL (8.5-10.1) Phosphorus Level 5.3 MG/DL (2.5-4.9) H Magnesium Level 1.8 MG/DL (1.8-2.4) Total Bilirubin 0.4 MG/DL (0.2-1.0) Aspartate Amino Transf (AST/SGOT) 11 U/L (15-37) L Alanine Aminotransferase (ALT/SGPT) 14 U/L (12-78) Alkaline Phosphatase 84 U/L (46-116) C-Reactive Protein, Quantitative < 0.4 mg/dL (0.00-0.90) Total Protein 7.7 G/DL (6.4-8.2) Albumin 3.4 G/DL (3.4-5.0) Globulin 4.3 g/dL Albumin/Globulin Ratio 0.8 (1.0-2.7) L Intake and Output 04/24/19 04/25/19 19:00 07:00 Intake Total 890.0 ml 1360 ml Output Total 600 ml 800 ml Balance 290.0 ml 560 ml Intake Oral 480 ml 1260 ml IV Total 410.0 ml 100 ml Output Urine Total 600 ml 800 ml # Voids 1 4 Objective PHYSICAL EXAMINATION: GENERAL: The patient is well-developed and well-nourished thin-appearing male, in no apparent distress. HEENT: Eyes, pupils are equal and responsive to light and accommodation. Extraocular movements are intact. NECK: Supple without lymphadenopathy. CHEST: Lungs are clear to auscultation bilaterally without wheezes or rales. CARDIOVASCULAR: Regular rhythm and rate. S1, S2 are normal without murmurs, rubs, or gallops. ABDOMEN: Soft and tender to palpation in all 4 quadrants. No rebound or guarding. EXTREMITIES: Negative for clubbing, cyanosis, or edema. RECTAL/GENITAL: Not performed. NEUROLOGIC: Cranial nerves II through XII are grossly intact without focal deficits. Motor strength is 5/5 bilaterally. Deep tendon reflexes are 2+ plantar. Assessment/Plan Assessment/Plan ASSESSMENT: This is a 38-year-old male. 1. Colitis. 2. Nausea with vomiting. 3. Right lower quadrant abdominal pain. 4. Crohn's disease flare. TREATMENT: 1. Nausea/vomiting/Crohn's disease. A Gastroenterology consultation has been obtained with Dr. Romeo Valentine. The patient has been started empirically on intravenous Zosyn. We will follow recommendations of Gastroenterology. The patient has also been started on intravenous Solu-Medrol. 2. History of Crohn's disease. Continue Imuran as above. 3. Abdominal pain. The patient is currently receiving Dilaudid intravenously. 4. Clear liquid diet Atilio Hardin MD Apr 25, 2019 19:31
--- NOTE | 2019-04-25 19:47 | NUR ---
HAND-OFF: Report given to Basia MOJICA RN.
--- NOTE | 2019-04-25 19:48 | NUR ---
NURSE NOTES: Received report & pt from LYNN Caldwell. Pt lying in bed, a&ox4, in room air. No s/s of acute distress & c/o 8/10 pain. IV site intact with IVF running as ordered. Bed in lowest position, call light within reach. Plan of care discussed. Will continue to monitor.
[2019-04-25 20:00] VITALS: BP 118/76
[2019-04-26] VITALS: BP 116/88
[2019-04-26] MEDS: Solu-MEDROL 40mg Inj IVP SCH ×3 (01:17→16:54)
[2019-04-26] MEDS: Piperacillin/Tazobactam 3.375 GM in NS 110 ML IVPB SCH ×3 (01:18→17:36)
[2019-04-26 04:00] VITALS: BP 115/69
[2019-04-26 06:38] LABS: HEMATOCRIT 33.8 % (42.0-52.0); HEMOGLOBIN 11.7 G/DL (14.2-18.0); MEAN CORPUSCULAR VOLUME 83 FL (80-99); PLATELET COUNT 507 K/UL (150-450); RED BLOOD COUNT 4.07 M/UL (4.70-6.10); RED CELL DISTRIBUTION WIDTH 13.5 % (11.6-14.8); WHITE BLOOD COUNT 14.2 K/UL (4.8-10.8)
[2019-04-26 07:14] LABS: ALANINE AMINOTRANSFERASE 12 U/L (12-78); ALBUMIN 3.2 G/DL (3.4-5.0); ALBUMIN/GLOBULIN RATIO 0.8 (1.0-2.7); ALKALINE PHOSPHATASE 76 U/L (46-116); ANION GAP 11 mmol/L (5-15); ASPARTATE AMINO TRANSFERASE 9 U/L (15-37); BILIRUBIN,TOTAL 0.3 MG/DL (0.2-1.0); BLOOD UREA NITROGEN 13 mg/dL (7-18); CALCIUM 9.1 MG/DL (8.5-10.1); CARBON DIOXIDE 27 MMOL/L (21-32); CHLORIDE 104 MMOL/L (98-107); CREATININE 1.1 MG/DL (0.55-1.30); POTASSIUM 3.9 MMOL/L (3.5-5.1); SODIUM 142 MMOL/L (136-145)
--- NOTE | 2019-04-26 07:20 | NUR ---
HAND-OFF: Report given to LYNN Caldwell. Pt in stable condition.
--- NOTE | 2019-04-26 07:24 | NUR ---
NURSE NOTES: AWAKE/ALERT.SITTING AT BEDSIDE EATING BREAKFAST. NO C/O HEADACHE. IN NO DISTRESS.
--- NOTE | 2019-04-26 07:34 | NUR ---
NURSE NOTES: AWAKE/ALERT. PAIN SCALE 7/10. NO DIARRHEA AT THIS TIME. IN NO DISTRESS.
[2019-04-26 08:00] VITALS: BP 117/69
[2019-04-26 08:05] LABS: PHOSPHORUS 4.1 MG/DL (2.5-4.9)
[2019-04-26] MEDS: Heparin 5000 units/ml inj SUBQ SCH (08:56)
[2019-04-26] MEDS: D5 1/2NS 1,000 ML IV SCH ×2 (09:45→13:54)
--- NOTE | 2019-04-26 10:35 | Infectious Diseases Prog Note ---
Assessment/Plan Assessment/Plan Abx: Zosyn 04/24- Assessment: Chron's flare Afebrile Leukocytosis, increased (on steroids), now improving -Cdiff neg Crohn's disease (diagnosed as a teen) - s/p colon resection on Imuran -previously on Remicade but held for ~1yr due bacteremia -hx of perianal fistula -hx of bacteremia early 2018 Plan: -Continue Zosyn #3 -f/u cx -Monitor CBC/CMP, temperatures -GI f/u Thank you for this consultation. Will continue to follow along with you. Discussed with RN Subjective Allergies: Coded Allergies: TRAMADOL (Unverified Allergy, Unknown, 04/24/19) seizure Subjective afebrile wbc improving Objective Vital Signs Last 24 Hour Vital Signs Date Time Temp Pulse Resp B/P (MAP) Pulse Ox O2 Delivery O2 Flow Rate FiO2 04/26/19 08:00 98.4 62 18 117/69 (85) 99 04/26/19 04:00 97.6 75 19 115/69 (84) 98 04/26/19 00:00 97.6 76 19 116/88 (97) 96 04/25/19 21:00 Room Air 04/25/19 20:00 97.9 77 20 118/76 (90) 97 04/25/19 18:08 98.0 04/25/19 16:00 98.0 77 20 124/67 (86) 97 04/25/19 12:00 98.0 87 20 114/71 (85) 97 Height (Feet): 5 Height (Inches): 10.00 Weight (Pounds): 134 Objective GENERAL: The patient is well-developed and well-nourished thin-appearing male, in no apparent distress. HEENT: Eyes, pupils are equal and responsive to light and accommodation. Extraocular movements are intact. NECK: Supple without lymphadenopathy. CHEST: Lungs are clear to auscultation bilaterally without wheezes or rales. CARDIOVASCULAR: Regular rhythm and rate. S1, S2 are normal without murmurs, rubs, or gallops. ABDOMEN: Soft and tender to palpation in all 4 quadrants. No rebound or guarding. EXTREMITIES: Negative for clubbing, cyanosis, or edema. Microbiology Date/Time Source Procedure Growth Status 04/25/19 13:40 Stool Clostridium difficile Toxin Assay - Final Complete 04/24/19 04:25 Rectal Mucosa VRE Culture - Final NO VANCOMYCIN RESISTANT ENTEROCOCCUS ... Complete 04/24/19 04:25 Rectal Mucosa - Final NO CARBAPENEM-RESISTANT ENTEROBACTERI... Complete Laboratory Tests Test 04/26/19 06:00 White Blood Count 14.2 K/UL (4.8-10.8) H Red Blood Count 4.07 M/UL (4.70-6.10) L Hemoglobin 11.7 G/DL (14.2-18.0) L Hematocrit 33.8 % (42.0-52.0) L Mean Corpuscular Volume 83 FL (80-99) Mean Corpuscular Hemoglobin 28.7 PG (27.0-31.0) Mean Corpuscular Hemoglobin Concent 34.6 G/DL (32.0-36.0) Red Cell Distribution Width 13.5 % (11.6-14.8) Platelet Count 507 K/UL (150-450) H Mean Platelet Volume 5.6 FL (6.5-10.1) L Neutrophils (%) (Auto) % (45.0-75.0) Lymphocytes (%) (Auto) % (20.0-45.0) Monocytes (%) (Auto) % (1.0-10.0) Eosinophils (%) (Auto) % (0.0-3.0) Basophils (%) (Auto) % (0.0-2.0) Differential Total Cells Counted 100 Neutrophils % (Manual) 91 % (45-75) H Lymphocytes % (Manual) 7 % (20-45) L Monocytes % (Manual) 2 % (1-10) Eosinophils % (Manual) 0 % (0-3) Basophils % (Manual) 0 % (0-2) Band Neutrophils 0 % (0-8) Platelet Estimate Adequate Platelet Morphology Normal Hypochromasia Erythrocyte Sedimentation Rate 42 MM/HR (0-15) H Sodium Level 142 MMOL/L (136-145) Potassium Level 3.9 MMOL/L (3.5-5.1) Chloride Level 104 MMOL/L (98-107) Carbon Dioxide Level 27 MMOL/L (21-32) Anion Gap 11 mmol/L (5-15) Blood Urea Nitrogen 13 mg/dL (7-18) Creatinine 1.1 MG/DL (0.55-1.30) Estimat Glomerular Filtration Rate > 60 mL/min (>60) Glucose Level 137 MG/DL (74-106) H Calcium Level 9.1 MG/DL (8.5-10.1) Phosphorus Level 4.1 MG/DL (2.5-4.9) Magnesium Level 1.9 MG/DL (1.8-2.4) Total Bilirubin 0.3 MG/DL (0.2-1.0) Aspartate Amino Transf (AST/SGOT) 9 U/L (15-37) L Alanine Aminotransferase (ALT/SGPT) 12 U/L (12-78) Alkaline Phosphatase 76 U/L (46-116) C-Reactive Protein, Quantitative < 0.4 mg/dL (0.00-0.90) Total Protein 7.3 G/DL (6.4-8.2) Albumin 3.2 G/DL (3.4-5.0) L Globulin 4.1 g/dL Albumin/Globulin Ratio 0.8 (1.0-2.7) L Cytomegalovirus IgG Antibody Pending Current Medications Medications (Trade) Dose Ordered Sig/Aguila Route PRN Reason Start Time Stop Time Status Last Admin Dose Admin Acetaminophen (Tylenol) 650 mg Q6H PRN ORAL Mild Pain/Temp > 100 04/24/19 04:00 05/24/19 03:59 Dextrose/Sodium Chloride 1,000 ml @ 100 mls/hr Q10H IV 04/24/19 07:45 05/24/19 07:44 04/25/19 23:55 Heparin Sodium (Porcine) (Heparin 5000 units/ml) 5,000 units DAILY SUBQ 04/24/19 12:30 05/24/19 12:29 Hydromorphone HCl (Dilaudid) 0.5 mg Q6H PRN IVP For Pain 04/24/19 04:00 05/01/19 03:59 Hydromorphone HCl (Dilaudid) 2 mg Q3H PRN IVP For severe Pain 7-10 04/25/19 12:45 05/02/19 12:44 04/26/19 09:46 Methylprednisolone Sodium Succinate (Solu-MEDROL) 20 mg Q8H IVP 04/25/19 17:00 05/24/19 08:59 04/26/19 08:54 Ondansetron HCl (Zofran) 4 mg Q6H PRN IVP Nausea & Vomiting 04/24/19 14:30 05/24/19 14:29 Piperacillin Sod/ Tazobactam Sod 3.375 gm/Sodium Chloride 110 ml @ 27.5 mls/hr Q8H IVPB 04/24/19 10:00 05/01/19 09:59 04/26/19 10:05 Temazepam (RestoriL) 7.5 mg HSPRN PRN ORAL Insomnia 04/24/19 14:30 05/01/19 14:29 Rena Wylie M.D. Apr 26, 2019 10:35
--- NOTE | 2019-04-26 10:45 | GI Progress Note ---
Assessment/Plan Problems: (1) History of Crohn's disease ICD Codes: Z87.19 - Personal history of other diseases of the digestive system SNOMED: 800638997396123 (2) Colitis ICD Codes: K52.9 - Noninfective gastroenteritis and colitis, unspecified SNOMED: 75087235 Status: stable, progressing Status Narrative Discussed with Dr. Valentine. Assessment/Plan Crohn's flare, elevated ESR and white count CT scan of the abdomen revealed thickening of the wall of the colon at the hepatic flexure and thickening of the rectosigmoid consistent with Crohn's disease. Bowel rest Clear liquid diet, advance as tolerated Pain management Continue Zosyn PPI Continue IV Solu-Medrol cdiff to r/o infectious colitis >> negative follow up CMV We will follow on a daily basis with any additional recommendations The patient was seen and examined at bedside and all new and available data was reviewed in the patients chart. I agree with the above findings, impression and plan. (Patient seen earlier today. Signature stamp does not reflect patient encounter time.). - Romeo Valentine MD Subjective Subjective abdominal pain still present, but improved no diarrhea Objective Last 24 Hour Vital Signs Date Time Temp Pulse Resp B/P (MAP) Pulse Ox O2 Delivery O2 Flow Rate FiO2 04/26/19 10:16 97.6 04/26/19 09:00 Room Air 04/26/19 08:00 98.4 62 18 117/69 (85) 99 04/26/19 04:00 97.6 75 19 115/69 (84) 98 04/26/19 00:00 97.6 76 19 116/88 (97) 96 04/25/19 21:00 Room Air 04/25/19 20:00 97.9 77 20 118/76 (90) 97 04/25/19 16:00 98.0 77 20 124/67 (86) 97 04/25/19 12:00 98.0 87 20 114/71 (85) 97 Intake and Output 04/25/19 04/26/19 19:00 07:00 Intake Total 1390 ml 600 ml Output Total 1000 ml Balance 1390 ml -400 ml Intake Oral 780 ml IV Total 610 ml 600 ml Output Urine Total 1000 ml # Voids 3 # Bowel Movements 1 2 Laboratory Tests Test 04/26/19 06:00 White Blood Count 14.2 K/UL (4.8-10.8) H Red Blood Count 4.07 M/UL (4.70-6.10) L Hemoglobin 11.7 G/DL (14.2-18.0) L Hematocrit 33.8 % (42.0-52.0) L Mean Corpuscular Volume 83 FL (80-99) Mean Corpuscular Hemoglobin 28.7 PG (27.0-31.0) Mean Corpuscular Hemoglobin Concent 34.6 G/DL (32.0-36.0) Red Cell Distribution Width 13.5 % (11.6-14.8) Platelet Count 507 K/UL (150-450) H Mean Platelet Volume 5.6 FL (6.5-10.1) L Neutrophils (%) (Auto) % (45.0-75.0) Lymphocytes (%) (Auto) % (20.0-45.0) Monocytes (%) (Auto) % (1.0-10.0) Eosinophils (%) (Auto) % (0.0-3.0) Basophils (%) (Auto) % (0.0-2.0) Differential Total Cells Counted 100 Neutrophils % (Manual) 91 % (45-75) H Lymphocytes % (Manual) 7 % (20-45) L Monocytes % (Manual) 2 % (1-10) Eosinophils % (Manual) 0 % (0-3) Basophils % (Manual) 0 % (0-2) Band Neutrophils 0 % (0-8) Platelet Estimate Adequate Platelet Morphology Normal Hypochromasia Erythrocyte Sedimentation Rate 42 MM/HR (0-15) H Sodium Level 142 MMOL/L (136-145) Potassium Level 3.9 MMOL/L (3.5-5.1) Chloride Level 104 MMOL/L (98-107) Carbon Dioxide Level 27 MMOL/L (21-32) Anion Gap 11 mmol/L (5-15) Blood Urea Nitrogen 13 mg/dL (7-18) Creatinine 1.1 MG/DL (0.55-1.30) Estimat Glomerular Filtration Rate > 60 mL/min (>60) Glucose Level 137 MG/DL (74-106) H Calcium Level 9.1 MG/DL (8.5-10.1) Phosphorus Level 4.1 MG/DL (2.5-4.9) Magnesium Level 1.9 MG/DL (1.8-2.4) Total Bilirubin 0.3 MG/DL (0.2-1.0) Aspartate Amino Transf (AST/SGOT) 9 U/L (15-37) L Alanine Aminotransferase (ALT/SGPT) 12 U/L (12-78) Alkaline Phosphatase 76 U/L (46-116) C-Reactive Protein, Quantitative < 0.4 mg/dL (0.00-0.90) Total Protein 7.3 G/DL (6.4-8.2) Albumin 3.2 G/DL (3.4-5.0) L Globulin 4.1 g/dL Albumin/Globulin Ratio 0.8 (1.0-2.7) L Cytomegalovirus IgG Antibody Pending Microbiology Date/Time Source Procedure Growth Status 04/25/19 13:40 Stool Clostridium difficile Toxin Assay - Final Complete Height (Feet): 5 Height (Inches): 10.00 Weight (Pounds): 134 General Appearance: WD/WN, no apparent distress, alert Cardiovascular: normal rate Respiratory/Chest: normal breath sounds, no respiratory distress Abdominal Exam: normal bowel sounds, non tender, soft Extremities: normal range of motion, non-tender Catalino Flores [facility] Apr 26, 2019 10:45
[2019-04-26 12:00] VITALS: BP 110/65
--- NOTE | 2019-04-26 12:33 | Pulmonology Progress Note ---
Assessment/Plan Problems: (1) Colitis (2) History of Crohn's disease Assessment/Plan clear liquid improving iv fluids pain management, increase Dilaudid to 2 mg, pt is tolerant to lower doses b/o long standing pain management. GI evaluation f/u inflammatory markers check electrolytes dvt prophylaxis Subjective ROS Limited/Unobtainable: No Constitutional: Reports: no symptoms HEENT: Repors: no symptoms Respiratory: Reports: no symptoms Allergies: Coded Allergies: TRAMADOL (Unverified Allergy, Unknown, 04/24/19) seizure Objective Last 24 Hour Vital Signs Date Time Temp Pulse Resp B/P (MAP) Pulse Ox O2 Delivery O2 Flow Rate FiO2 04/26/19 10:16 97.6 04/26/19 09:00 Room Air 04/26/19 08:00 98.4 62 18 117/69 (85) 99 04/26/19 04:00 97.6 75 19 115/69 (84) 98 04/26/19 00:00 97.6 76 19 116/88 (97) 96 04/25/19 21:00 Room Air 04/25/19 20:00 97.9 77 20 118/76 (90) 97 04/25/19 16:00 98.0 77 20 124/67 (86) 97 Intake and Output 04/25/19 04/26/19 19:00 07:00 Intake Total 1390 ml 600 ml Output Total 1000 ml Balance 1390 ml -400 ml Intake Oral 780 ml IV Total 610 ml 600 ml Output Urine Total 1000 ml # Voids 3 # Bowel Movements 1 2 General Appearance: WD/WN HEENT: normocephalic, atraumatic Respiratory/Chest: chest wall non-tender Cardiovascular: normal peripheral pulses, normal rate Abdomen: normal bowel sounds, soft, non tender Genitourinary: normal external genitalia Extremities: no clubbing Skin: no rash Neurologic/Psychiatric: hot braider II-XII grossly normal Lymphatic: no neck adenopathy Microbiology Date/Time Source Procedure Growth Status 04/24/19 04:25 Nasal Nares MRSA Culture - Final NO METHICILLIN RESISTANT STAPH AUREUS... Complete 04/25/19 13:40 Stool Clostridium difficile Toxin Assay - Final Complete 04/24/19 04:25 Rectal Mucosa VRE Culture - Final NO VANCOMYCIN RESISTANT ENTEROCOCCUS ... Complete 04/24/19 04:25 Rectal Mucosa - Final NO CARBAPENEM-RESISTANT ENTEROBACTERI... Complete Laboratory Tests 04/26/19 06:00: White Blood Count 14.2H, Red Blood Count 4.07L, Hemoglobin 11.7L, Hematocrit 33.8L, Mean Corpuscular Volume 83, Mean Corpuscular Hemoglobin 28.7, Mean Corpuscular Hemoglobin Concent 34.6, Red Cell Distribution Width 13.5, Platelet Count 507H, Mean Platelet Volume 5.6L, Neutrophils (%) (Auto) , Lymphocytes (%) (Auto) , Monocytes (%) (Auto) , Eosinophils (%) (Auto) , Basophils (%) (Auto) , Differential Total Cells Counted 100, Neutrophils % (Manual) 91H, Lymphocytes % (Manual) 7L, Monocytes % (Manual) 2, Eosinophils % (Manual) 0, Basophils % ( Manual) 0, Band Neutrophils 0, Platelet Estimate Adequate, Platelet Morphology Normal, Hypochromasia , Erythrocyte Sedimentation Rate 42H, Sodium Level 142, Potassium Level 3.9, Chloride Level 104, Carbon Dioxide Level 27, Anion Gap 11, Blood Urea Nitrogen 13, Creatinine 1.1, Estimat Glomerular Filtration Rate > 60 , Glucose Level 137H, Calcium Level 9.1, Phosphorus Level 4.1, Magnesium Level 1.9, Total Bilirubin 0.3, Aspartate Amino Transf (AST/SGOT) 9L, Alanine Aminotransferase (ALT/SGPT) 12, Alkaline Phosphatase 76, C-Reactive Protein, Quantitative < 0.4, Total Protein 7.3, Albumin 3.2L, Globulin 4.1, Albumin/ Globulin Ratio 0.8L, Cytomegalovirus IgG Antibody [Pending] Current Medications Medications (Trade) Dose Ordered Sig/Aguila Route PRN Reason Start Time Stop Time Status Last Admin Dose Admin Acetaminophen (Tylenol) 650 mg Q6H PRN ORAL Mild Pain/Temp > 100 04/24/19 04:00 05/24/19 03:59 Dextrose/Sodium Chloride 1,000 ml @ 100 mls/hr Q10H IV 04/24/19 07:45 05/24/19 07:44 04/25/19 23:55 Heparin Sodium (Porcine) (Heparin 5000 units/ml) 5,000 units DAILY SUBQ 04/24/19 12:30 05/24/19 12:29 Hydromorphone HCl (Dilaudid) 0.5 mg Q6H PRN IVP For Pain 04/24/19 04:00 05/01/19 03:59 Hydromorphone HCl (Dilaudid) 2 mg Q3H PRN IVP For severe Pain 7-10 04/25/19 12:45 05/02/19 12:44 04/26/19 09:46 Methylprednisolone Sodium Succinate (Solu-MEDROL) 20 mg Q8H IVP 04/25/19 17:00 05/24/19 08:59 04/26/19 08:54 Ondansetron HCl (Zofran) 4 mg Q6H PRN IVP Nausea & Vomiting 04/24/19 14:30 05/24/19 14:29 Piperacillin Sod/ Tazobactam Sod 3.375 gm/Sodium Chloride 110 ml @ 27.5 mls/hr Q8H IVPB 04/24/19 10:00 05/01/19 09:59 04/26/19 10:05 Temazepam (RestoriL) 7.5 mg HSPRN PRN ORAL Insomnia 04/24/19 14:30 05/01/19 14:29 Herrera Alcaraz MD Apr 26, 2019 12:33
[2019-04-26 16:00] VITALS: BP 121/75
--- NOTE | 2019-04-26 18:56 | NUR ---
NURSE NOTES: RESTING. IN NO ACUTE DISTRESS.
--- NOTE | 2019-04-26 19:10 | NUR ---
NURSE NOTES: Received report from Paulette RN, pt laying in bed , A/OX4 calm, no s/s distress on RA breaths even regular and unlabored .pt c/o pain level of 7/10, will provide medication as order pain. Denies any SOB or any NV. Pt has WESLEY 20G with i.v fluids running , patent and asymptomatic , pt able to verbalize needs . Call light with in reach, bed in low locked position, will continue to monitor.
--- NOTE | 2019-04-26 19:14 | NUR ---
HAND-OFF: Report given to Azar LEAHY RN.
--- NOTE | 2019-04-26 19:15 | Internal Med Progress Note ---
Subjective Date of Service: Apr 26, 2019 Physician Name LashawnAtilio Attending Physician Genaro Ibarra MD Current Medications Medications (Trade) Dose Ordered Sig/Aguila Route PRN Reason Start Time Stop Time Status Last Admin Dose Admin Acetaminophen (Tylenol) 650 mg Q6H PRN ORAL Mild Pain/Temp > 100 04/24/19 04:00 05/24/19 03:59 Dextrose/Sodium Chloride 1,000 ml @ 100 mls/hr Q10H IV 04/24/19 07:45 05/24/19 07:44 04/26/19 13:54 Heparin Sodium (Porcine) (Heparin 5000 units/ml) 5,000 units DAILY SUBQ 04/24/19 12:30 05/24/19 12:29 Hydromorphone HCl (Dilaudid) 0.5 mg Q6H PRN IVP For Pain 04/24/19 04:00 05/01/19 03:59 Hydromorphone HCl (Dilaudid) 2 mg Q3H PRN IVP For severe Pain 7-10 04/25/19 12:45 05/02/19 12:44 04/26/19 17:36 Methylprednisolone Sodium Succinate (Solu-MEDROL) 20 mg Q8H IVP 04/25/19 17:00 05/24/19 08:59 04/26/19 16:54 Ondansetron HCl (Zofran) 4 mg Q6H PRN IVP Nausea & Vomiting 04/24/19 14:30 05/24/19 14:29 Piperacillin Sod/ Tazobactam Sod 3.375 gm/Sodium Chloride 110 ml @ 27.5 mls/hr Q8H IVPB 04/24/19 10:00 05/01/19 09:59 04/26/19 17:36 Temazepam (RestoriL) 7.5 mg HSPRN PRN ORAL Insomnia 04/24/19 14:30 05/01/19 14:29 Allergies: Coded Allergies: TRAMADOL (Unverified Allergy, Unknown, 04/24/19) seizure ROS Limited/Unobtainable: No Constitutional: Reports: no symptoms HEENT: Reports: no symptoms Cardiovascular: Reports: no symptoms Respiratory: Reports: no symptoms Gastrointestinal/Abdominal: Reports: no symptoms Genitourinary: Reports: no symptoms Neurologic/Psychiatric: Reports: no symptoms Subjective 38 YO M admitted with abdominal pain. Now crohn's colitis flare. Cover for Int Joshua-DR Ibarra Objective Last Vital Signs Date Time Temp Pulse Resp B/P (MAP) Pulse Ox O2 Delivery O2 Flow Rate FiO2 04/26/19 18:06 98.7 04/26/19 16:00 63 17 121/75 (90) 99 04/26/19 09:00 Room Air Laboratory Tests Test 04/26/19 06:00 White Blood Count 14.2 K/UL (4.8-10.8) H Red Blood Count 4.07 M/UL (4.70-6.10) L Hemoglobin 11.7 G/DL (14.2-18.0) L Hematocrit 33.8 % (42.0-52.0) L Mean Corpuscular Volume 83 FL (80-99) Mean Corpuscular Hemoglobin 28.7 PG (27.0-31.0) Mean Corpuscular Hemoglobin Concent 34.6 G/DL (32.0-36.0) Red Cell Distribution Width 13.5 % (11.6-14.8) Platelet Count 507 K/UL (150-450) H Mean Platelet Volume 5.6 FL (6.5-10.1) L Neutrophils (%) (Auto) % (45.0-75.0) Lymphocytes (%) (Auto) % (20.0-45.0) Monocytes (%) (Auto) % (1.0-10.0) Eosinophils (%) (Auto) % (0.0-3.0) Basophils (%) (Auto) % (0.0-2.0) Differential Total Cells Counted 100 Neutrophils % (Manual) 91 % (45-75) H Lymphocytes % (Manual) 7 % (20-45) L Monocytes % (Manual) 2 % (1-10) Eosinophils % (Manual) 0 % (0-3) Basophils % (Manual) 0 % (0-2) Band Neutrophils 0 % (0-8) Platelet Estimate Adequate Platelet Morphology Normal Hypochromasia Erythrocyte Sedimentation Rate 42 MM/HR (0-15) H Sodium Level 142 MMOL/L (136-145) Potassium Level 3.9 MMOL/L (3.5-5.1) Chloride Level 104 MMOL/L (98-107) Carbon Dioxide Level 27 MMOL/L (21-32) Anion Gap 11 mmol/L (5-15) Blood Urea Nitrogen 13 mg/dL (7-18) Creatinine 1.1 MG/DL (0.55-1.30) Estimat Glomerular Filtration Rate > 60 mL/min (>60) Glucose Level 137 MG/DL (74-106) H Calcium Level 9.1 MG/DL (8.5-10.1) Phosphorus Level 4.1 MG/DL (2.5-4.9) Magnesium Level 1.9 MG/DL (1.8-2.4) Total Bilirubin 0.3 MG/DL (0.2-1.0) Aspartate Amino Transf (AST/SGOT) 9 U/L (15-37) L Alanine Aminotransferase (ALT/SGPT) 12 U/L (12-78) Alkaline Phosphatase 76 U/L (46-116) C-Reactive Protein, Quantitative < 0.4 mg/dL (0.00-0.90) Total Protein 7.3 G/DL (6.4-8.2) Albumin 3.2 G/DL (3.4-5.0) L Globulin 4.1 g/dL Albumin/Globulin Ratio 0.8 (1.0-2.7) L Cytomegalovirus IgG Antibody Pending Microbiology Date/Time Source Procedure Growth Status 04/24/19 04:25 Nasal Nares MRSA Culture - Final NO METHICILLIN RESISTANT STAPH AUREUS... Complete 04/25/19 13:40 Stool Clostridium difficile Toxin Assay - Final Complete 04/24/19 04:25 Rectal Mucosa VRE Culture - Final NO VANCOMYCIN RESISTANT ENTEROCOCCUS ... Complete 04/24/19 04:25 Rectal Mucosa - Final NO CARBAPENEM-RESISTANT ENTEROBACTERI... Complete Intake and Output 04/25/19 04/26/19 19:00 07:00 Intake Total 1390 ml 600 ml Output Total 1000 ml Balance 1390 ml -400 ml Intake Oral 780 ml IV Total 610 ml 600 ml Output Urine Total 1000 ml # Voids 3 # Bowel Movements 1 2 Objective PHYSICAL EXAMINATION: GENERAL: The patient is well-developed and well-nourished thin-appearing male, in no apparent distress. HEENT: Eyes, pupils are equal and responsive to light and accommodation. Extraocular movements are intact. NECK: Supple without lymphadenopathy. CHEST: Lungs are clear to auscultation bilaterally without wheezes or rales. CARDIOVASCULAR: Regular rhythm and rate. S1, S2 are normal without murmurs, rubs, or gallops. ABDOMEN: Soft and tender to palpation in all 4 quadrants. No rebound or guarding. EXTREMITIES: Negative for clubbing, cyanosis, or edema. RECTAL/GENITAL: Not performed. NEUROLOGIC: Cranial nerves II through XII are grossly intact without focal deficits. Motor strength is 5/5 bilaterally. Deep tendon reflexes are 2+ plantar. Assessment/Plan Assessment/Plan ASSESSMENT: This is a 38-year-old male. 1. Colitis. 2. Nausea with vomiting. 3. Right lower quadrant abdominal pain. 4. Crohn's disease flare. TREATMENT: 1. Nausea/vomiting/Crohn's disease. A Gastroenterology consultation has been obtained with Dr. Romeo Valentine. ABX= Zosyn. We will follow recommendations of Gastroenterology. Continue intravenous Solu- Medrol. 2. History of Crohn's disease. Continue Imuran as above. 3. Abdominal pain. The patient is currently receiving Dilaudid intravenously. 4. Clear liquid diet 5. ID=Atilio Casanova MD Apr 26, 2019 19:15
[2019-04-26 20:00] VITALS: BP 115/73
[2019-04-27] VITALS: BP 118/76
[2019-04-27] MEDS: D5 1/2NS 1,000 ML IV SCH ×5 (00:49→20:38)
[2019-04-27] MEDS: Solu-MEDROL 40mg Inj IVP SCH ×2 (00:50→08:47)
[2019-04-27] MEDS: Piperacillin/Tazobactam 3.375 GM in NS 110 ML IVPB SCH ×3 (02:27→17:25)
[2019-04-27 04:00] VITALS: BP 123/74
--- NOTE | 2019-04-27 07:08 | NUR ---
HAND-OFF: Report given to LYNN briones
[2019-04-27 07:11] LABS: HEMATOCRIT 36.2 % (42.0-52.0); HEMOGLOBIN 12.2 G/DL (14.2-18.0); MEAN CORPUSCULAR VOLUME 84 FL (80-99); PLATELET COUNT 446 K/UL (150-450); RED CELL DISTRIBUTION WIDTH 13.8 % (11.6-14.8); WHITE BLOOD COUNT 10.9 K/UL (4.8-10.8)
--- NOTE | 2019-04-27 07:25 | NUR ---
NURSE NOTES: AWAKE/ALERT. PAIN SCALE 7/10. IN NO ACUTE DISTRESS.
[2019-04-27 08:00] VITALS: BP 122/77
[2019-04-27 08:05] LABS: ANION GAP 17 mmol/L (5-15); BLOOD UREA NITROGEN 13 mg/dL (7-18); CALCIUM 9.2 MG/DL (8.5-10.1); CARBON DIOXIDE 22 MMOL/L (21-32); CHLORIDE 105 MMOL/L (98-107); POTASSIUM 3.7 MMOL/L (3.5-5.1); SODIUM 143 MMOL/L (136-145)
[2019-04-27] MEDS: Heparin 5000 units/ml inj SUBQ SCH (08:48)
--- NOTE | 2019-04-27 10:38 | NUR ---
RD ASSESSMENT & RECOMMENDATIONS SEE CARE ACTIVITY FOR COMPLETE ASSESSMENT DAILY ESTIMATED NEEDS: Needs based on GI 60.9 25-35 kcals/kg 6052-5083 total kcals 1-1.5 g protein/kg 61-91 g total protein 25-30 mL/kg 9498-5242 total fluid mLs NUTRITION DIAGNOSIS: Altered GI fxn r/t Crohn's as evidenced by pt adm w/ colitis flare up, adm w/ N/V, on CLD now day 3. CURRENT DIET: CLD PO DIET RECOMMENDATIONS: Advance as tolerated to Low Fiber/ Low Residue diet ADDITIONAL RECOMMENDATIONS: 1) Obtain a standing scale wt 2) Ensure Clear TID w/ meals 3) Monitor BG on solumedrol, need for niss 4) Monitor lytes w/ active diarrhea
--- NOTE | 2019-04-27 10:46 | GI Progress Note ---
Assessment/Plan Problems: (1) History of Crohn's disease ICD Codes: Z87.19 - Personal history of other diseases of the digestive system SNOMED: [id number] (2) Colitis ICD Codes: K52.9 - Noninfective gastroenteritis and colitis, unspecified SNOMED: [id number] Status: stable, progressing Status Narrative Discussed with Dr. Valentine. Assessment/Plan Crohn's flare, elevated ESR and white count CT scan of the abdomen revealed thickening of the wall of the colon at the hepatic flexure and thickening of the rectosigmoid consistent with Crohn's disease. white count normalizing Bowel rest advance to soft GI diet today Pain management Continue Zosyn PPI dc IV Solu-Medrol, start prednisone 40mg PO daily with 5mg weekly taper. cdiff to r/o infectious colitis >> negative follow up CMV We will follow on a daily basis with any additional recommendations The patient was seen and examined at bedside and all new and available data was reviewed in the patients chart. I agree with the above findings, impression and plan. (Patient seen earlier today. Signature stamp does not reflect patient encounter time.). - Romeo Valentine MD Subjective Subjective abdominal pain still present, but improved no diarrhea Objective Last 24 Hour Vital Signs Date Time Temp Pulse Resp B/P (MAP) Pulse Ox O2 Delivery O2 Flow Rate FiO2 04/27/19 09:30 Room Air 04/27/19 09:18 98.0 04/27/19 08:00 98.0 69 20 122/77 (92) 04/27/19 04:00 97.8 58 16 123/74 (90) 97 04/27/19 00:00 97.5 59 17 118/76 (90) 99 04/26/19 21:00 Room Air 04/26/19 20:00 98.1 65 18 115/73 (87) 99 04/26/19 16:00 98.7 63 17 121/75 (90) 99 04/26/19 12:00 98.6 62 17 110/65 (80) 92 Intake and Output 04/26/19 04/27/19 19:00 07:00 Intake Total 2470 ml 1545.2 ml Output Total 450 ml 1030 ml Balance 2020 ml 515.2 ml Intake Oral 1260 ml 237 ml IV Total 1210 ml 1308.2 ml Output Urine Total 450 ml 1030 ml # Voids 1 3 Laboratory Tests Test 04/27/19 05:35 White Blood Count 10.9 K/UL (4.8-10.8) H Red Blood Count 4.30 M/UL (4.70-6.10) L Hemoglobin 12.2 G/DL (14.2-18.0) L Hematocrit 36.2 % (42.0-52.0) L Mean Corpuscular Volume 84 FL (80-99) Mean Corpuscular Hemoglobin 28.3 PG (27.0-31.0) Mean Corpuscular Hemoglobin Concent 33.6 G/DL (32.0-36.0) Red Cell Distribution Width 13.8 % (11.6-14.8) Platelet Count 446 K/UL (150-450) Mean Platelet Volume 5.3 FL (6.5-10.1) L Neutrophils (%) (Auto) % (45.0-75.0) Lymphocytes (%) (Auto) % (20.0-45.0) Monocytes (%) (Auto) % (1.0-10.0) Eosinophils (%) (Auto) % (0.0-3.0) Basophils (%) (Auto) % (0.0-2.0) Differential Total Cells Counted 100 Neutrophils % (Manual) 94 % (45-75) H Lymphocytes % (Manual) 4 % (20-45) L Monocytes % (Manual) 2 % (1-10) Eosinophils % (Manual) 0 % (0-3) Basophils % (Manual) 0 % (0-2) Band Neutrophils 0 % (0-8) Platelet Estimate Adequate Platelet Morphology Normal Red Blood Cell Morphology Normal Sodium Level 143 MMOL/L (136-145) Potassium Level 3.7 MMOL/L (3.5-5.1) Chloride Level 105 MMOL/L (98-107) Carbon Dioxide Level 22 MMOL/L (21-32) Anion Gap 17 mmol/L (5-15) H Blood Urea Nitrogen 13 mg/dL (7-18) Creatinine 1.0 MG/DL (0.55-1.30) Estimat Glomerular Filtration Rate > 60 mL/min (>60) Glucose Level 158 MG/DL (74-106) H Calcium Level 9.2 MG/DL (8.5-10.1) Height (Feet): 5 Height (Inches): 10.00 Weight (Pounds): 134 General Appearance: WD/WN, no apparent distress, alert Cardiovascular: normal rate Respiratory/Chest: normal breath sounds, no respiratory distress Abdominal Exam: normal bowel sounds, non tender, soft Extremities: normal range of motion, non-tender Catalino Flores NP Apr 27, 2019 10:46
[2019-04-27 12:00] VITALS: BP 119/76
--- NOTE | 2019-04-27 12:05 | Infectious Diseases Prog Note ---
Assessment/Plan Assessment/Plan Abx: Zosyn 04/24- Assessment: Chron's flare -CT abd/p (OSH): thickening of the wall of the colon at the hepatic flexure and thickening of the rectosigmoid consistent with Crohn's disease. Afebrile Leukocytosis, increased (on steroids), now improving -Cdiff neg Crohn's disease (diagnosed as a teen) - s/p colon resection on Imuran -previously on Remicade but held for ~1yr due bacteremia -hx of perianal fistula -hx of bacteremia early 2018 Plan: -Continue Zosyn #4/7 -f/u cx -Monitor CBC/CMP, temperatures -GI f/u Thank you for this consultation. Will continue to follow along with you. Discussed with RN Subjective Allergies: Coded Allergies: TRAMADOL (Unverified Allergy, Unknown, 04/24/19) seizure Subjective afebrile wbc improving diet advanced to soft Objective Vital Signs Last 24 Hour Vital Signs Date Time Temp Pulse Resp B/P (MAP) Pulse Ox O2 Delivery O2 Flow Rate FiO2 04/27/19 09:30 Room Air 04/27/19 09:18 98.0 04/27/19 08:00 98.0 69 20 122/77 (92) 04/27/19 04:00 97.8 58 16 123/74 (90) 97 04/27/19 00:00 97.5 59 17 118/76 (90) 99 04/26/19 21:00 Room Air 04/26/19 20:00 98.1 65 18 115/73 (87) 99 04/26/19 16:00 98.7 63 17 121/75 (90) 99 Height (Feet): 5 Height (Inches): 10.00 Weight (Pounds): 134 Objective GENERAL: no apparent distress. HEENT: Eyes, pupils are equal and responsive to light and accommodation. Extraocular movements are intact. NECK: Supple CHEST: Lungs are clear to auscultation bilaterally without wheezes or rales. CARDIOVASCULAR: Regular rhythm and rate. S1, S2 are normal without murmurs, rubs, or gallops. ABDOMEN: Soft and tender to palpation in all 4 quadrants. No rebound or guarding. EXTREMITIES: Negative for clubbing, cyanosis, or edema. Microbiology Date/Time Source Procedure Growth Status 04/25/19 13:40 Stool Clostridium difficile Toxin Assay - Final Complete Laboratory Tests Test 04/27/19 05:35 White Blood Count 10.9 K/UL (4.8-10.8) H Red Blood Count 4.30 M/UL (4.70-6.10) L Hemoglobin 12.2 G/DL (14.2-18.0) L Hematocrit 36.2 % (42.0-52.0) L Mean Corpuscular Volume 84 FL (80-99) Mean Corpuscular Hemoglobin 28.3 PG (27.0-31.0) Mean Corpuscular Hemoglobin Concent 33.6 G/DL (32.0-36.0) Red Cell Distribution Width 13.8 % (11.6-14.8) Platelet Count 446 K/UL (150-450) Mean Platelet Volume 5.3 FL (6.5-10.1) L Neutrophils (%) (Auto) % (45.0-75.0) Lymphocytes (%) (Auto) % (20.0-45.0) Monocytes (%) (Auto) % (1.0-10.0) Eosinophils (%) (Auto) % (0.0-3.0) Basophils (%) (Auto) % (0.0-2.0) Differential Total Cells Counted 100 Neutrophils % (Manual) 94 % (45-75) H Lymphocytes % (Manual) 4 % (20-45) L Monocytes % (Manual) 2 % (1-10) Eosinophils % (Manual) 0 % (0-3) Basophils % (Manual) 0 % (0-2) Band Neutrophils 0 % (0-8) Platelet Estimate Adequate Platelet Morphology Normal Red Blood Cell Morphology Normal Sodium Level 143 MMOL/L (136-145) Potassium Level 3.7 MMOL/L (3.5-5.1) Chloride Level 105 MMOL/L (98-107) Carbon Dioxide Level 22 MMOL/L (21-32) Anion Gap 17 mmol/L (5-15) H Blood Urea Nitrogen 13 mg/dL (7-18) Creatinine 1.0 MG/DL (0.55-1.30) Estimat Glomerular Filtration Rate > 60 mL/min (>60) Glucose Level 158 MG/DL (74-106) H Calcium Level 9.2 MG/DL (8.5-10.1) Current Medications Medications (Trade) Dose Ordered Sig/Aguila Route PRN Reason Start Time Stop Time Status Last Admin Dose Admin Acetaminophen (Tylenol) 650 mg Q6H PRN ORAL Mild Pain/Temp > 100 04/24/19 04:00 05/24/19 03:59 Dextrose/Sodium Chloride 1,000 ml @ 100 mls/hr Q10H IV 04/24/19 07:45 05/24/19 07:44 04/27/19 09:44 Heparin Sodium (Porcine) (Heparin 5000 units/ml) 5,000 units DAILY SUBQ 04/24/19 12:30 05/24/19 12:29 Hydromorphone HCl (Dilaudid) 0.5 mg Q6H PRN IVP For Pain 04/24/19 04:00 05/01/19 03:59 Hydromorphone HCl (Dilaudid) 2 mg Q3H PRN IVP For severe Pain 7-10 04/25/19 12:45 05/02/19 12:44 04/27/19 08:48 Ondansetron HCl (Zofran) 4 mg Q6H PRN IVP Nausea & Vomiting 04/24/19 14:30 05/24/19 14:29 Piperacillin Sod/ Tazobactam Sod 3.375 gm/Sodium Chloride 110 ml @ 27.5 mls/hr Q8H IVPB 04/24/19 10:00 05/01/19 09:59 04/27/19 09:42 Prednisone (predniSONE) 40 mg DAILY ORAL 04/28/19 09:00 05/28/19 08:59 Temazepam (RestoriL) 7.5 mg HSPRN PRN ORAL Insomnia 04/24/19 14:30 05/01/19 14:29 Rena Wylie M.D. Apr 27, 2019 12:05
--- NOTE | 2019-04-27 14:40 | Pulmonology Progress Note ---
Assessment/Plan Problems: (1) Colitis (2) History of Crohn's disease Assessment/Plan advance diet as tolerated improving iv fluids pain management, increase Dilaudid to 2 mg, pt is tolerant to lower doses b/o long standing pain management. GI evaluation and f/u appreciated f/u inflammatory markers check electrolytes dvt prophylaxis Subjective ROS Limited/Unobtainable: No Constitutional: Reports: no symptoms HEENT: Repors: no symptoms Respiratory: Reports: no symptoms Allergies: Coded Allergies: TRAMADOL (Unverified Allergy, Unknown, 04/24/19) seizure Objective Last 24 Hour Vital Signs Date Time Temp Pulse Resp B/P (MAP) Pulse Ox O2 Delivery O2 Flow Rate FiO2 04/27/19 13:16 98.0 04/27/19 12:00 97.8 58 18 119/76 (90) 98 04/27/19 09:30 Room Air 04/27/19 08:00 98.0 69 20 122/77 (92) 99 04/27/19 04:00 97.8 58 16 123/74 (90) 97 04/27/19 00:00 97.5 59 17 118/76 (90) 99 04/26/19 21:00 Room Air 04/26/19 20:00 98.1 65 18 115/73 (87) 99 04/26/19 16:00 98.7 63 17 121/75 (90) 99 Intake and Output 04/26/19 04/27/19 19:00 07:00 Intake Total 2470 ml 1545.2 ml Output Total 450 ml 1030 ml Balance 2020 ml 515.2 ml Intake Oral 1260 ml 237 ml IV Total 1210 ml 1308.2 ml Output Urine Total 450 ml 1030 ml # Voids 1 3 General Appearance: WD/WN HEENT: normocephalic, atraumatic Cardiovascular: normal peripheral pulses, normal rate, no JVD Abdomen: soft, non tender, no scars Extremities: no clubbing Skin: no lesions Microbiology Date/Time Source Procedure Growth Status 04/25/19 13:40 Stool Clostridium difficile Toxin Assay - Final Complete Laboratory Tests 04/27/19 05:35: White Blood Count 10.9H, Red Blood Count 4.30L, Hemoglobin 12.2L, Hematocrit 36.2L, Mean Corpuscular Volume 84, Mean Corpuscular Hemoglobin 28.3, Mean Corpuscular Hemoglobin Concent 33.6, Red Cell Distribution Width 13.8, Platelet Count 446, Mean Platelet Volume 5.3L, Neutrophils (%) (Auto) , Lymphocytes (%) ( Auto) , Monocytes (%) (Auto) , Eosinophils (%) (Auto) , Basophils (%) (Auto) , Differential Total Cells Counted 100, Neutrophils % (Manual) 94H, Lymphocytes % (Manual) 4L, Monocytes % (Manual) 2, Eosinophils % (Manual) 0, Basophils % ( Manual) 0, Band Neutrophils 0, Platelet Estimate Adequate, Platelet Morphology Normal, Red Blood Cell Morphology Normal, Sodium Level 143, Potassium Level 3.7 , Chloride Level 105, Carbon Dioxide Level 22, Anion Gap 17H, Blood Urea Nitrogen 13, Creatinine 1.0, Estimat Glomerular Filtration Rate > 60, Glucose Level 158H, Calcium Level 9.2 Current Medications Medications (Trade) Dose Ordered Sig/Aguila Route PRN Reason Start Time Stop Time Status Last Admin Dose Admin Acetaminophen (Tylenol) 650 mg Q6H PRN ORAL Mild Pain/Temp > 100 04/24/19 04:00 05/24/19 03:59 Dextrose/Sodium Chloride 1,000 ml @ 100 mls/hr Q10H IV 04/24/19 07:45 05/24/19 07:44 04/27/19 09:44 Heparin Sodium (Porcine) (Heparin 5000 units/ml) 5,000 units DAILY SUBQ 04/24/19 12:30 05/24/19 12:29 Hydromorphone HCl (Dilaudid) 0.5 mg Q6H PRN IVP For Pain 04/24/19 04:00 05/01/19 03:59 Hydromorphone HCl (Dilaudid) 2 mg Q3H PRN IVP For severe Pain 7-10 04/25/19 12:45 05/02/19 12:44 04/27/19 12:46 Ondansetron HCl (Zofran) 4 mg Q6H PRN IVP Nausea & Vomiting 04/24/19 14:30 05/24/19 14:29 Piperacillin Sod/ Tazobactam Sod 3.375 gm/Sodium Chloride 110 ml @ 27.5 mls/hr Q8H IVPB 04/24/19 10:00 05/01/19 09:59 04/27/19 09:42 Prednisone (predniSONE) 40 mg DAILY ORAL 04/28/19 09:00 05/28/19 08:59 Temazepam (RestoriL) 7.5 mg HSPRN PRN ORAL Insomnia 04/24/19 14:30 05/01/19 14:29 Herrera Alcaraz MD Apr 27, 2019 14:39
[2019-04-27 16:00] VITALS: BP 122/75
--- NOTE | 2019-04-27 16:14 | NUR ---
CASE MANAGEMENT: REVIEW 04/27/19 SI: COLITIS 97.7 58 18 119/76 98% ROOM AIR WBC 10.9 H/H 12.2/36.2 BG 158 ANION GAP 17 IS: IV ZOSYN TID IV DILAUDID Q3HR/PRN \: 3E MED/SURG UNIT DCP: PATIENT IS FROM HOME PLAN: POSS DC IN AM PAIN CONTROL IMPROVING
[2019-04-27] MEDS ORDERED: D5 1/2NS 1000ml IV ONE (18:33)
--- NOTE | 2019-04-27 19:00 | NUR ---
NURSE NOTES: resting. in no distress.
--- NOTE | 2019-04-27 19:20 | Internal Med Progress Note ---
Subjective Date of Service: Apr 27, 2019 Physician Name Atilio Hardin Attending Physician Genaro Ibarra MD Current Medications Medications (Trade) Dose Ordered Sig/Aguila Route PRN Reason Start Time Stop Time Status Last Admin Dose Admin Acetaminophen (Tylenol) 650 mg Q6H PRN ORAL Mild Pain/Temp > 100 04/24/19 04:00 05/24/19 03:59 Dextrose/Sodium Chloride 1,000 ml @ 100 mls/hr Q10H IV 04/24/19 07:45 05/24/19 07:44 04/27/19 09:44 Heparin Sodium (Porcine) (Heparin 5000 units/ml) 5,000 units DAILY SUBQ 04/24/19 12:30 05/24/19 12:29 Hydromorphone HCl (Dilaudid) 0.5 mg Q6H PRN IVP For Pain 04/24/19 04:00 05/01/19 03:59 Hydromorphone HCl (Dilaudid) 2 mg Q3H PRN IVP For severe Pain 7-10 04/25/19 12:45 05/02/19 12:44 04/27/19 16:52 Ondansetron HCl (Zofran) 4 mg Q6H PRN IVP Nausea & Vomiting 04/24/19 14:30 05/24/19 14:29 Piperacillin Sod/ Tazobactam Sod 3.375 gm/Sodium Chloride 110 ml @ 27.5 mls/hr Q8H IVPB 04/24/19 10:00 05/01/19 09:59 04/27/19 17:25 Prednisone (predniSONE) 40 mg DAILY ORAL 04/28/19 09:00 05/28/19 08:59 Temazepam (RestoriL) 7.5 mg HSPRN PRN ORAL Insomnia 04/24/19 14:30 05/01/19 14:29 Allergies: Coded Allergies: TRAMADOL (Unverified Allergy, Unknown, 04/24/19) seizure ROS Limited/Unobtainable: No Constitutional: Reports: no symptoms HEENT: Reports: no symptoms Cardiovascular: Reports: no symptoms Respiratory: Reports: no symptoms Gastrointestinal/Abdominal: Reports: abdominal pain Genitourinary: Reports: no symptoms Neurologic/Psychiatric: Reports: no symptoms Subjective 38 YO M admitted with abdominal pain. Now crohn's colitis flare. Cover for Int Med-DR Ibarra Objective Last Vital Signs Date Time Temp Pulse Resp B/P (MAP) Pulse Ox O2 Delivery O2 Flow Rate FiO2 04/27/19 17:22 98.0 04/27/19 16:00 63 20 122/75 (91) 99 04/27/19 09:30 Room Air Laboratory Tests Test 04/27/19 05:35 White Blood Count 10.9 K/UL (4.8-10.8) H Red Blood Count 4.30 M/UL (4.70-6.10) L Hemoglobin 12.2 G/DL (14.2-18.0) L Hematocrit 36.2 % (42.0-52.0) L Mean Corpuscular Volume 84 FL (80-99) Mean Corpuscular Hemoglobin 28.3 PG (27.0-31.0) Mean Corpuscular Hemoglobin Concent 33.6 G/DL (32.0-36.0) Red Cell Distribution Width 13.8 % (11.6-14.8) Platelet Count 446 K/UL (150-450) Mean Platelet Volume 5.3 FL (6.5-10.1) L Neutrophils (%) (Auto) % (45.0-75.0) Lymphocytes (%) (Auto) % (20.0-45.0) Monocytes (%) (Auto) % (1.0-10.0) Eosinophils (%) (Auto) % (0.0-3.0) Basophils (%) (Auto) % (0.0-2.0) Differential Total Cells Counted 100 Neutrophils % (Manual) 94 % (45-75) H Lymphocytes % (Manual) 4 % (20-45) L Monocytes % (Manual) 2 % (1-10) Eosinophils % (Manual) 0 % (0-3) Basophils % (Manual) 0 % (0-2) Band Neutrophils 0 % (0-8) Platelet Estimate Adequate Platelet Morphology Normal Red Blood Cell Morphology Normal Sodium Level 143 MMOL/L (136-145) Potassium Level 3.7 MMOL/L (3.5-5.1) Chloride Level 105 MMOL/L (98-107) Carbon Dioxide Level 22 MMOL/L (21-32) Anion Gap 17 mmol/L (5-15) H Blood Urea Nitrogen 13 mg/dL (7-18) Creatinine 1.0 MG/DL (0.55-1.30) Estimat Glomerular Filtration Rate > 60 mL/min (>60) Glucose Level 158 MG/DL (74-106) H Calcium Level 9.2 MG/DL (8.5-10.1) Microbiology Date/Time Source Procedure Growth Status 04/25/19 13:40 Stool Clostridium difficile Toxin Assay - Final Complete Intake and Output 04/26/19 04/27/19 19:00 07:00 Intake Total 2470 ml 1545.2 ml Output Total 450 ml 1030 ml Balance 2020 ml 515.2 ml Intake Oral 1260 ml 237 ml IV Total 1210 ml 1308.2 ml Output Urine Total 450 ml 1030 ml # Voids 1 3 Objective PHYSICAL EXAMINATION: GENERAL: The patient is well-developed and well-nourished thin-appearing male, in no apparent distress. HEENT: Eyes, pupils are equal and responsive to light and accommodation. Extraocular movements are intact. NECK: Supple without lymphadenopathy. CHEST: Lungs are clear to auscultation bilaterally without wheezes or rales. CARDIOVASCULAR: Regular rhythm and rate. S1, S2 are normal without murmurs, rubs, or gallops. ABDOMEN: Soft and tender to palpation in all 4 quadrants. No rebound or guarding. EXTREMITIES: Negative for clubbing, cyanosis, or edema. RECTAL/GENITAL: Not performed. NEUROLOGIC: Cranial nerves II through XII are grossly intact without focal deficits. Motor strength is 5/5 bilaterally. Deep tendon reflexes are 2+ plantar. Assessment/Plan Assessment/Plan ASSESSMENT: This is a 38-year-old male. 1. Colitis. 2. Nausea with vomiting. 3. Right lower quadrant abdominal pain. 4. Crohn's disease flare. TREATMENT: 1. Nausea/vomiting/Crohn's disease. A Gastroenterology consultation has been obtained with Dr. Romeo Valentine. ABX= Zosyn. We will follow recommendations of Gastroenterology. Continue intravenous Solu- Medrol. 2. History of Crohn's disease. Continue Imuran as above. 3. Abdominal pain. The patient is currently receiving Dilaudid intravenously. 4. Soft diet 5. ID=Atilio Casanova MD Apr 27, 2019 19:20
--- NOTE | 2019-04-27 19:32 | NUR ---
HAND-OFF: Report given to angela diggs rn.
--- NOTE | 2019-04-27 19:43 | NUR ---
NURSE NOTES: Received report from Paulette RN, pt laying in bed , A/OX4 calm, no s/s distress on RA breaths even regular and unlabored .pt c/o pain level of 6/10, will provide medication as ordered when due . Denies any SOB or any NV. Pt has WESLEY 20G with i.v fluids running , patent and asymptomatic , pt able to verbalize needs, pt continues i.v atb with no adverse effects . Call light with in reach, bed in low locked position, will continue to monitor.
[2019-04-27 20:00] VITALS: BP 121/71
[2019-04-28] VITALS: BP 115/65
[2019-04-28] MEDS: Piperacillin/Tazobactam 3.375 GM in NS 110 ML IVPB SCH ×3 (02:42→17:08)
[2019-04-28 04:00] VITALS: BP 109/79
[2019-04-28 06:07] LABS: BASOPHILS % (AUTO) 1.4 % (0.0-2.0); EOSINOPHILS % (AUTO) 1.8 % (0.0-3.0); HEMATOCRIT 36.1 % (42.0-52.0); HEMOGLOBIN 12.4 G/DL (14.2-18.0); LYMPHOCYTES % (AUTO) 20.2 % (20.0-45.0); MEAN CORPUSCULAR VOLUME 83 FL (80-99); MONOCYTES % (AUTO) 12.4 % (1.0-10.0); NEUTROPHILS % (AUTO) 64.3 % (45.0-75.0); PLATELET COUNT 490 K/UL (150-450); RED BLOOD COUNT 4.32 M/UL (4.70-6.10); RED CELL DISTRIBUTION WIDTH 13.4 % (11.6-14.8); WHITE BLOOD COUNT 9.9 K/UL (4.8-10.8)
[2019-04-28 06:37] LABS: ANION GAP 12 mmol/L (5-15); BLOOD UREA NITROGEN 14 mg/dL (7-18); CALCIUM 8.6 MG/DL (8.5-10.1); CARBON DIOXIDE 26 MMOL/L (21-32); CHLORIDE 106 MMOL/L (98-107); POTASSIUM 3.1 MMOL/L (3.5-5.1); SODIUM 144 MMOL/L (136-145)
--- NOTE | 2019-04-28 07:04 | General Progress Note ---
Assessment/Plan Problem List: (1) Colitis ICD Codes: K52.9 - Noninfective gastroenteritis and colitis, unspecified SNOMED: 74241942 (2) History of Crohn's disease ICD Codes: Z87.19 - Personal history of other diseases of the digestive system SNOMED: 772447286880068 Status: stable, progressing Assessment/Plan: on prednisone po 40 mg add Asacol fu labs needs out patient fu for Teresa Subjective ROS Limited/Unobtainable: Yes Allergies: Coded Allergies: TRAMADOL (Unverified Allergy, Unknown, 04/24/19) seizure Objective Last 24 Hour Vital Signs Date Time Temp Pulse Resp B/P (MAP) Pulse Ox O2 Delivery O2 Flow Rate FiO2 04/28/19 04:00 98.3 69 16 109/79 (89) 99 04/28/19 00:00 97.9 79 16 115/65 (82) 98 04/27/19 21:00 Room Air 04/27/19 20:00 97.9 67 17 121/71 (88) 98 04/27/19 17:22 98.0 04/27/19 16:00 98.0 63 20 122/75 (91) 99 04/27/19 12:00 97.8 58 18 119/76 (90) 98 04/27/19 09:30 Room Air 04/27/19 08:00 98.0 69 20 122/77 (92) 99 Intake and Output 04/27/19 04/28/19 19:00 07:00 Intake Total 2265 ml 900 ml Output Total 700 ml 1100 ml Balance 1565 ml -200 ml Intake Oral 1165 ml IV Total 1100 ml 900 ml Output Urine Total 700 ml 1100 ml # Voids 1 Laboratory Tests 04/28/19 04:35: White Blood Count 9.9, Red Blood Count 4.32L, Hemoglobin 12.4L, Hematocrit 36.1L , Mean Corpuscular Volume 83, Mean Corpuscular Hemoglobin 28.6, Mean Corpuscular Hemoglobin Concent 34.3, Red Cell Distribution Width 13.4, Platelet Count 490H, Mean Platelet Volume 5.9L, Neutrophils (%) (Auto) 64.3, Lymphocytes (%) (Auto) 20.2, Monocytes (%) (Auto) 12.4H, Eosinophils (%) (Auto) 1.8, Basophils (%) (Auto) 1.4, Sodium Level 144, Potassium Level 3.1L, Chloride Level 106, Carbon Dioxide Level 26, Anion Gap 12, Blood Urea Nitrogen 14, Creatinine 1.0, Estimat Glomerular Filtration Rate > 60, Glucose Level 79, Calcium Level 8.6 Height (Feet): 5 Height (Inches): 10.00 Weight (Pounds): 134 General Appearance: alert EENT: normal ENT inspection Neck: supple Cardiovascular: normal rate Respiratory/Chest: lungs clear Abdomen: normal bowel sounds, non tender, soft Extremities: non-tender Romeo Valentine MD Apr 28, 2019 07:04
--- NOTE | 2019-04-28 07:30 | NUR ---
HAND-OFF: Report given to Leonidas BAILEY.
--- NOTE | 2019-04-28 07:34 | NUR ---
NURSE NOTES: Received patient in bed awake. No SOB or acute distress. IV line intact and patent. HOB elevated. Bed locked in lowest position. Call light within reach. Will continue plan of care.
[2019-04-28] MEDS: D5 1/2NS 1,000 ML IV SCH ×2 (07:37→20:05)
[2019-04-28 08:00] VITALS: BP 121/72
[2019-04-28] MEDS: Mesalamine 400mg cap ORAL SCH ×3 (08:39→17:08)
[2019-04-28] MEDS: Heparin 5000 units/ml inj SUBQ SCH (08:40)
--- NOTE | 2019-04-28 09:03 | NUR ---
NURSE NOTES: Patient feeling abdominal discomfort and mild nausea with current soft diet, requesting to be placed on previous clear liquid diet. Dr Ibarra made aware, awaiting orders.
--- NOTE | 2019-04-28 11:05 | Infectious Diseases Prog Note ---
Assessment/Plan Assessment/Plan Abx: Zosyn 04/24- Assessment: Chron's flare -CT abd/p (OSH): thickening of the wall of the colon at the hepatic flexure and thickening of the rectosigmoid consistent with Crohn's disease. Afebrile Leukocytosis, increased (on steroids), now improving -Cdiff neg Crohn's disease (diagnosed as a teen) - s/p colon resection on Imuran -previously on Remicade but held for ~1yr due bacteremia -hx of perianal fistula -hx of bacteremia early 2018 Plan: -Continue Zosyn #5/7 -f/u cx -Monitor CBC/CMP, temperatures -GI f/u Thank you for this consultation. Will continue to follow along with you. Discussed with RN Subjective Allergies: Coded Allergies: TRAMADOL (Unverified Allergy, Unknown, 04/24/19) seizure Subjective Afebrile RA No Leukocytosis Objective Vital Signs Last 24 Hour Vital Signs Date Time Temp Pulse Resp B/P (MAP) Pulse Ox O2 Delivery O2 Flow Rate FiO2 04/28/19 09:00 Room Air 04/28/19 08:00 97.9 74 22 121/72 (88) 98 04/28/19 04:00 98.3 69 16 109/79 (89) 99 04/28/19 00:00 97.9 79 16 115/65 (82) 98 04/27/19 21:00 Room Air 04/27/19 20:00 97.9 67 17 121/71 (88) 98 04/27/19 17:22 98.0 04/27/19 16:00 98.0 63 20 122/75 (91) 99 04/27/19 12:00 97.8 58 18 119/76 (90) 98 Height (Feet): 5 Height (Inches): 10.00 Weight (Pounds): 134 Objective GENERAL: no apparent distress. HEENT: Eyes, pupils are equal and responsive to light and accommodation. Extraocular movements are intact. CHEST: Lungs are clear to auscultation bilaterally without wheezes or rales. CARDIOVASCULAR: Regular rhythm and rate. S1, S2 are normal ABDOMEN: Soft and tender to palpation in all 4 quadrants. Microbiology Date/Time Source Procedure Growth Status 04/25/19 13:40 Stool Clostridium difficile Toxin Assay - Final Complete Laboratory Tests Test 04/28/19 04:35 White Blood Count 9.9 K/UL (4.8-10.8) Red Blood Count 4.32 M/UL (4.70-6.10) L Hemoglobin 12.4 G/DL (14.2-18.0) L Hematocrit 36.1 % (42.0-52.0) L Mean Corpuscular Volume 83 FL (80-99) Mean Corpuscular Hemoglobin 28.6 PG (27.0-31.0) Mean Corpuscular Hemoglobin Concent 34.3 G/DL (32.0-36.0) Red Cell Distribution Width 13.4 % (11.6-14.8) Platelet Count 490 K/UL (150-450) H Mean Platelet Volume 5.9 FL (6.5-10.1) L Neutrophils (%) (Auto) 64.3 % (45.0-75.0) Lymphocytes (%) (Auto) 20.2 % (20.0-45.0) Monocytes (%) (Auto) 12.4 % (1.0-10.0) H Eosinophils (%) (Auto) 1.8 % (0.0-3.0) Basophils (%) (Auto) 1.4 % (0.0-2.0) Sodium Level 144 MMOL/L (136-145) Potassium Level 3.1 MMOL/L (3.5-5.1) L Chloride Level 106 MMOL/L (98-107) Carbon Dioxide Level 26 MMOL/L (21-32) Anion Gap 12 mmol/L (5-15) Blood Urea Nitrogen 14 mg/dL (7-18) Creatinine 1.0 MG/DL (0.55-1.30) Estimat Glomerular Filtration Rate > 60 mL/min (>60) Glucose Level 79 MG/DL (74-106) Calcium Level 8.6 MG/DL (8.5-10.1) Current Medications Medications (Trade) Dose Ordered Sig/Aguila Route PRN Reason Start Time Stop Time Status Last Admin Dose Admin Acetaminophen (Tylenol) 650 mg Q6H PRN ORAL Mild Pain/Temp > 100 04/24/19 04:00 05/24/19 03:59 Dextrose/Sodium Chloride 1,000 ml @ 100 mls/hr Q10H IV 04/24/19 07:45 05/24/19 07:44 04/28/19 07:37 Heparin Sodium (Porcine) (Heparin 5000 units/ml) 5,000 units DAILY SUBQ 04/24/19 12:30 05/24/19 12:29 Hydromorphone HCl (Dilaudid) 0.5 mg Q6H PRN IVP For Pain 04/24/19 04:00 05/01/19 03:59 Hydromorphone HCl (Dilaudid) 2 mg Q3H PRN IVP For severe Pain 7-10 04/25/19 12:45 05/02/19 12:44 04/28/19 08:39 Mesalamine (Asacol) 800 mg THREE TIMES A DAY ORAL 04/28/19 09:00 05/28/19 08:59 04/28/19 08:39 Ondansetron HCl (Zofran) 4 mg Q6H PRN IVP Nausea & Vomiting 04/24/19 14:30 05/24/19 14:29 Piperacillin Sod/ Tazobactam Sod 3.375 gm/Sodium Chloride 110 ml @ 27.5 mls/hr Q8H IVPB 04/24/19 10:00 05/01/19 09:59 04/28/19 02:42 Prednisone (predniSONE) 40 mg DAILY ORAL 04/28/19 09:00 05/28/19 08:59 04/28/19 08:39 Temazepam (RestoriL) 7.5 mg HSPRN PRN ORAL Insomnia 04/24/19 14:30 05/01/19 14:29 Earle Melchor MD Apr 28, 2019 11:05
--- NOTE | 2019-04-28 11:57 | NUR ---
NURSE NOTES: Diet changed to clear liquid as per Dr Valentine
[2019-04-28 12:00] VITALS: BP 119/75
--- NOTE | 2019-04-28 12:04 | Pulmonology Progress Note ---
Assessment/Plan Assessment/Plan ASSESSMENT Crohn disease flare Colitis Protein calorie malnutrition Leukocytosis Mild anemia History of perianal fistula PLAN of CARE MS floor IVF, CL diet and advance as tolerated steroids changed to p.o. Asacol added as per Gi DVT and GI prophylaxis empiric antibiotic/Zosyn stool C. difficile negative fup with CMV monitor H&H with goal to keep Hgb > 7 credit analyst recommendation implemented in plan of care per GI need outpt fup to start Humira case discussed and evaluated by supervising physician Subjective Allergies: Coded Allergies: TRAMADOL (Unverified Allergy, Unknown, 04/24/19) seizure Subjective leuk resolved afebrile still c/o R sided abd pain nausea, tolerates CL diet Objective Last 24 Hour Vital Signs Date Time Temp Pulse Resp B/P (MAP) Pulse Ox O2 Delivery O2 Flow Rate FiO2 04/28/19 09:00 Room Air 04/28/19 08:00 97.9 74 22 121/72 (88) 98 04/28/19 04:00 98.3 69 16 109/79 (89) 99 04/28/19 00:00 97.9 79 16 115/65 (82) 98 04/27/19 21:00 Room Air 04/27/19 20:00 97.9 67 17 121/71 (88) 98 04/27/19 17:22 98.0 04/27/19 16:00 98.0 63 20 122/75 (91) 99 04/27/19 12:00 97.8 58 18 119/76 (90) 98 Intake and Output 04/27/19 04/28/19 19:00 07:00 Intake Total 2265 ml 900 ml Output Total 700 ml 1100 ml Balance 1565 ml -200 ml Intake Oral 1165 ml IV Total 1100 ml 900 ml Output Urine Total 700 ml 1100 ml # Voids 1 General Appearance: no acute distress HEENT: normocephalic, atraumatic, anicteric, mucous membranes moist Respiratory/Chest: chest wall non-tender, lungs clear, normal breath sounds, no respiratory distress, no accessory muscle use Cardiovascular: normal peripheral pulses, normal rate, regular rhythm Abdomen: normal bowel sounds, non distended, other - abdomen soft, some diffuse tenderness R side, no rebound, no guarding Extremities: no edema, pedal pulses normal Neurologic/Psychiatric: sub acute care nurse II-XII grossly normal, no motor/sensory deficits, alert, oriented x 3, responsive Musculoskeletal: normal muscle bulk Microbiology Date/Time Source Procedure Growth Status 04/25/19 13:40 Stool Clostridium difficile Toxin Assay - Final Complete Laboratory Tests 04/28/19 04:35: White Blood Count 9.9, Red Blood Count 4.32L, Hemoglobin 12.4L, Hematocrit 36.1L , Mean Corpuscular Volume 83, Mean Corpuscular Hemoglobin 28.6, Mean Corpuscular Hemoglobin Concent 34.3, Red Cell Distribution Width 13.4, Platelet Count 490H, Mean Platelet Volume 5.9L, Neutrophils (%) (Auto) 64.3, Lymphocytes (%) (Auto) 20.2, Monocytes (%) (Auto) 12.4H, Eosinophils (%) (Auto) 1.8, Basophils (%) (Auto) 1.4, Sodium Level 144, Potassium Level 3.1L, Chloride Level 106, Carbon Dioxide Level 26, Anion Gap 12, Blood Urea Nitrogen 14, Creatinine 1.0, Estimat Glomerular Filtration Rate > 60, Glucose Level 79, Calcium Level 8.6 Current Medications Medications (Trade) Dose Ordered Sig/Aguila Route PRN Reason Start Time Stop Time Status Last Admin Dose Admin Acetaminophen (Tylenol) 650 mg Q6H PRN ORAL Mild Pain/Temp > 100 04/24/19 04:00 05/24/19 03:59 Dextrose/Sodium Chloride 1,000 ml @ 100 mls/hr Q10H IV 04/24/19 07:45 05/24/19 07:44 04/28/19 07:37 Heparin Sodium (Porcine) (Heparin 5000 units/ml) 5,000 units DAILY SUBQ 04/24/19 12:30 05/24/19 12:29 Hydromorphone HCl (Dilaudid) 0.5 mg Q6H PRN IVP For Pain 04/24/19 04:00 05/01/19 03:59 Hydromorphone HCl (Dilaudid) 2 mg Q3H PRN IVP For severe Pain 7-10 04/25/19 12:45 05/02/19 12:44 04/28/19 08:39 Mesalamine (Asacol) 800 mg THREE TIMES A DAY ORAL 04/28/19 09:00 05/28/19 08:59 04/28/19 08:39 Ondansetron HCl (Zofran) 4 mg Q6H PRN IVP Nausea & Vomiting 04/24/19 14:30 05/24/19 14:29 Piperacillin Sod/ Tazobactam Sod 3.375 gm/Sodium Chloride 110 ml @ 27.5 mls/hr Q8H IVPB 04/24/19 10:00 05/01/19 09:59 04/28/19 11:05 Prednisone (predniSONE) 40 mg DAILY ORAL 04/28/19 09:00 05/28/19 08:59 04/28/19 08:39 Temazepam (RestoriL) 7.5 mg HSPRN PRN ORAL Insomnia 04/24/19 14:30 05/01/19 14:29 Susan Easley MUSHROOM PICKER Apr 28, 2019 12:04
--- NOTE | 2019-04-28 14:46 | Internal Med Progress Note ---
Subjective Date of Service: Apr 28, 2019 Physician Name LashawnAtilio Attending Physician Genaro Ibarra MD Current Medications Medications (Trade) Dose Ordered Sig/Aguila Route PRN Reason Start Time Stop Time Status Last Admin Dose Admin Acetaminophen (Tylenol) 650 mg Q6H PRN ORAL Mild Pain/Temp > 100 04/24/19 04:00 05/24/19 03:59 Dextrose/Sodium Chloride 1,000 ml @ 100 mls/hr Q10H IV 04/24/19 07:45 05/24/19 07:44 04/28/19 07:37 Heparin Sodium (Porcine) (Heparin 5000 units/ml) 5,000 units DAILY SUBQ 04/24/19 12:30 05/24/19 12:29 Hydromorphone HCl (Dilaudid) 0.5 mg Q6H PRN IVP For Pain 04/24/19 04:00 05/01/19 03:59 Hydromorphone HCl (Dilaudid) 2 mg Q3H PRN IVP For severe Pain 7-10 04/25/19 12:45 05/02/19 12:44 04/28/19 12:17 Mesalamine (Asacol) 800 mg THREE TIMES A DAY ORAL 04/28/19 09:00 05/28/19 08:59 04/28/19 12:17 Ondansetron HCl (Zofran) 4 mg Q6H PRN IVP Nausea & Vomiting 04/24/19 14:30 05/24/19 14:29 Piperacillin Sod/ Tazobactam Sod 3.375 gm/Sodium Chloride 110 ml @ 27.5 mls/hr Q8H IVPB 04/24/19 10:00 05/01/19 09:59 04/28/19 11:05 Prednisone (predniSONE) 40 mg DAILY ORAL 04/28/19 09:00 05/28/19 08:59 04/28/19 08:39 Temazepam (RestoriL) 7.5 mg HSPRN PRN ORAL Insomnia 04/24/19 14:30 05/01/19 14:29 Allergies: Coded Allergies: TRAMADOL (Unverified Allergy, Unknown, 04/24/19) seizure ROS Limited/Unobtainable: No Constitutional: Reports: no symptoms HEENT: Reports: no symptoms Cardiovascular: Reports: no symptoms Respiratory: Reports: no symptoms Gastrointestinal/Abdominal: Reports: no symptoms Genitourinary: Reports: no symptoms Neurologic/Psychiatric: Reports: no symptoms Subjective 38 YO M admitted with abdominal pain. Now crohn's colitis flare. Cover for Int Joshua-DR Ibarra Objective Last Vital Signs Date Time Temp Pulse Resp B/P (MAP) Pulse Ox O2 Delivery O2 Flow Rate FiO2 04/28/19 09:00 Room Air 04/28/19 08:00 97.9 74 22 121/72 (88) 98 Laboratory Tests Test 04/28/19 04:35 White Blood Count 9.9 K/UL (4.8-10.8) Red Blood Count 4.32 M/UL (4.70-6.10) L Hemoglobin 12.4 G/DL (14.2-18.0) L Hematocrit 36.1 % (42.0-52.0) L Mean Corpuscular Volume 83 FL (80-99) Mean Corpuscular Hemoglobin 28.6 PG (27.0-31.0) Mean Corpuscular Hemoglobin Concent 34.3 G/DL (32.0-36.0) Red Cell Distribution Width 13.4 % (11.6-14.8) Platelet Count 490 K/UL (150-450) H Mean Platelet Volume 5.9 FL (6.5-10.1) L Neutrophils (%) (Auto) 64.3 % (45.0-75.0) Lymphocytes (%) (Auto) 20.2 % (20.0-45.0) Monocytes (%) (Auto) 12.4 % (1.0-10.0) H Eosinophils (%) (Auto) 1.8 % (0.0-3.0) Basophils (%) (Auto) 1.4 % (0.0-2.0) Sodium Level 144 MMOL/L (136-145) Potassium Level 3.1 MMOL/L (3.5-5.1) L Chloride Level 106 MMOL/L (98-107) Carbon Dioxide Level 26 MMOL/L (21-32) Anion Gap 12 mmol/L (5-15) Blood Urea Nitrogen 14 mg/dL (7-18) Creatinine 1.0 MG/DL (0.55-1.30) Estimat Glomerular Filtration Rate > 60 mL/min (>60) Glucose Level 79 MG/DL (74-106) Calcium Level 8.6 MG/DL (8.5-10.1) Intake and Output 04/27/19 04/28/19 19:00 07:00 Intake Total 2265 ml 900 ml Output Total 700 ml 1100 ml Balance 1565 ml -200 ml Intake Oral 1165 ml IV Total 1100 ml 900 ml Output Urine Total 700 ml 1100 ml # Voids 1 Objective PHYSICAL EXAMINATION: GENERAL: The patient is well-developed and well-nourished thin-appearing male, in no apparent distress. HEENT: Eyes, pupils are equal and responsive to light and accommodation. Extraocular movements are intact. NECK: Supple without lymphadenopathy. CHEST: Lungs are clear to auscultation bilaterally without wheezes or rales. CARDIOVASCULAR: Regular rhythm and rate. S1, S2 are normal without murmurs, rubs, or gallops. ABDOMEN: Soft and tender to palpation in all 4 quadrants. No rebound or guarding. EXTREMITIES: Negative for clubbing, cyanosis, or edema. RECTAL/GENITAL: Not performed. NEUROLOGIC: Cranial nerves II through XII are grossly intact without focal deficits. Motor strength is 5/5 bilaterally. Deep tendon reflexes are 2+ plantar. Assessment/Plan Assessment/Plan ASSESSMENT: This is a 38-year-old male. 1. Colitis/gastroenteritis 2. Nausea with vomiting. 3. Right lower quadrant abdominal pain. 4. Crohn's disease flare. TREATMENT: 1. Nausea/vomiting/Crohn's disease. A Gastroenterology consultation has been obtained with Dr. Romeo Valentnie. ABX= Zosyn. We will follow recommendations of Gastroenterology. Continue intravenous Solu- Medrol. 2. History of Crohn's disease. Continue Imuran as above. 3. Abdominal pain. The patient is currently receiving Dilaudid intravenously. 4. Clear liquid diet 5. ID=Atilio Casanova MD Apr 28, 2019 14:46
[2019-04-28] MEDS ORDERED: NS 275ml ONE (15:04)
[2019-04-28] MEDS ORDERED: D5 1/2NS 1000ml IV ONE ×2 (15:04→16:01)
[2019-04-28 16:00] VITALS: BP 121/77
--- NOTE | 2019-04-28 19:15 | NUR ---
NURSE NOTES: Received report from Leonidas RN, pt laying in bed , A/OX4 calm, no s/s distress on RA breaths even regular and unlabored .pt c/o pain level of 7/10, will provide medication as ordered when due . Denies any SOB or any NV. Pt has WESLEY 20G with i.v fluids running , patent and asymptomatic , pt able to verbalize needs, pt continues i.v atb with no adverse effects . Call light with in reach, bed in low locked position, will continue to monitor.
--- NOTE | 2019-04-28 19:47 | NUR ---
HAND-OFF: Report given to tommie.
[2019-04-28 20:00] VITALS: BP 122/75
[2019-04-29] VITALS: BP 123/77
[2019-04-29] MEDS: Piperacillin/Tazobactam 3.375 GM in NS 110 ML IVPB SCH ×3 (02:51→17:26)
[2019-04-29 04:00] VITALS: BP 120/63
--- NOTE | 2019-04-29 06:34 | General Progress Note ---
Assessment/Plan Problem List: (1) Colitis ICD Codes: K52.9 - Noninfective gastroenteritis and colitis, unspecified SNOMED: [id number] (2) History of Crohn's disease ICD Codes: Z87.19 - Personal history of other diseases of the digestive system SNOMED: 835274959138499 Status: stable, progressing Assessment/Plan: IBD flair per patient not getting better C.Diff neg CMV neg change prednisone back to IV Asacol fu labs plan colonoscopy for tomorrow needs out patient fu for Humira Subjective ROS Limited/Unobtainable: Yes Allergies: Coded Allergies: TRAMADOL (Unverified Allergy, Unknown, 04/24/19) seizure Objective Last 24 Hour Vital Signs Date Time Temp Pulse Resp B/P (MAP) Pulse Ox O2 Delivery O2 Flow Rate FiO2 04/29/19 04:00 97.7 63 16 120/63 (82) 98 04/29/19 00:00 98.5 77 16 123/77 (92) 99 04/28/19 21:00 Room Air 04/28/19 20:00 98.0 72 17 122/75 (91) 99 04/28/19 16:00 98.1 77 20 121/77 (92) 99 04/28/19 12:00 98.3 65 20 119/75 (90) 99 04/28/19 09:00 Room Air 04/28/19 08:00 97.9 74 22 121/72 (88) 98 Intake and Output 04/28/19 04/29/19 19:00 07:00 Intake Total 1137.5 ml Output Total 900 ml Balance 237.5 ml IV Total 1137.5 ml Output Urine Total 900 ml Height (Feet): 5 Height (Inches): 10.00 Weight (Pounds): 134 General Appearance: alert EENT: normal ENT inspection Neck: supple Cardiovascular: normal rate Respiratory/Chest: lungs clear Abdomen: normal bowel sounds, non tender, soft Extremities: non-tender Romeo Valentine MD Apr 29, 2019 06:34
[2019-04-29] MEDS: D5 1/2NS 1,000 ML IV SCH (07:04)
--- NOTE | 2019-04-29 07:30 | NUR ---
HAND-OFF: Report given to LYNN Rader
--- NOTE | 2019-04-29 07:39 | NUR ---
NURSE NOTES: AWAKE/ALERT. PAIN SCALE 8/10. IN NO ACUTE DISTRESS.
[2019-04-29 08:00] VITALS: BP 102/67
[2019-04-29] MEDS: Mesalamine 400mg cap ORAL SCH ×3 (08:23→17:25)
[2019-04-29] MEDS: Heparin 5000 units/ml inj SUBQ SCH (08:23)
[2019-04-29 10:49] LABS: BASOPHILS % (AUTO) 2.3 % (0.0-2.0); EOSINOPHILS % (AUTO) 1.4 % (0.0-3.0); HEMATOCRIT 36.4 % (42.0-52.0); HEMOGLOBIN 12.1 G/DL (14.2-18.0); LYMPHOCYTES % (AUTO) 17.4 % (20.0-45.0); MEAN CORPUSCULAR VOLUME 83 FL (80-99); MONOCYTES % (AUTO) 9.1 % (1.0-10.0); NEUTROPHILS % (AUTO) 69.8 % (45.0-75.0); PLATELET COUNT 494 K/UL (150-450); RED BLOOD COUNT 4.39 M/UL (4.70-6.10); WHITE BLOOD COUNT 9.8 K/UL (4.8-10.8)
--- NOTE | 2019-04-29 11:14 | Pulmonology Progress Note ---
Assessment/Plan Assessment/Plan ASSESSMENT Crohn disease flare Colitis Protein calorie malnutrition Leukocytosis Mild anemia History of perianal fistula PLAN of CARE [facility] floor IVF, made NPO by GI colonoscopy in am steroids now back to IV Asacol added as per GI pain management DVT and GI prophylaxis empiric antibiotic/Zosyn stool C. 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 implemented in plan of care per GI need outpt fup to start Humira case discussed and evaluated by supervising physician Subjective Allergies: Coded Allergies: TRAMADOL (Unverified Allergy, Unknown, 04/24/19) seizure Subjective leuk resolved afebrile R sided abd pain worse seen earlier by GI nausea, Objective Last 24 Hour Vital Signs Date Time Temp Pulse Resp B/P (MAP) Pulse Ox O2 Delivery O2 Flow Rate FiO2 04/29/19 10:21 97.9 04/29/19 10:08 Room Air 04/29/19 08:00 97.9 60 20 102/67 (79) 98 04/29/19 04:00 97.7 63 16 120/63 (82) 98 04/29/19 00:00 98.5 77 16 123/77 (92) 99 04/28/19 21:00 Room Air 04/28/19 20:00 98.0 72 17 122/75 (91) 99 04/28/19 16:00 98.1 77 20 121/77 (92) 99 04/28/19 12:00 98.3 65 20 119/75 (90) 99 Intake and Output 04/28/19 04/29/19 19:00 07:00 Intake Total 1137.5 ml Output Total 900 ml 1700 ml Balance 237.5 ml -1700 ml IV Total 1137.5 ml Output Urine Total 900 ml 1700 ml Objective General Appearance: no acute distress HEENT: normocephalic, atraumatic, anicteric, mucous membranes moist Respiratory/Chest: chest wall non-tender, lungs clear, normal breath sounds, no respiratory distress, no accessory muscle use Cardiovascular: normal peripheral pulses, normal rate, regular rhythm Abdomen: normal bowel sounds, non distended, other - abdomen soft, some diffuse tenderness R side, no rebound, no guarding Extremities: no edema, pedal pulses normal 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 grossly normal, no motor/sensory deficits, alert, oriented x 3, responsive Musculoskeletal: normal muscle bulk Laboratory Tests 04/29/19 10:25: White Blood Count 9.8, Red Blood Count 4.39L, Hemoglobin 12.1L, Hematocrit 36.4L , Mean Corpuscular Volume 83, Mean Corpuscular Hemoglobin 27.6, Mean Corpuscular Hemoglobin Concent 33.3, Red Cell Distribution Width 15.0H, Platelet Count 494H, Mean Platelet Volume 6.6, Neutrophils (%) (Auto) 69.8, Lymphocytes (%) (Auto) 17.4L, Monocytes (%) (Auto) 9.1, Eosinophils (%) (Auto) 1.4, Basophils (%) (Auto) 2.3H, Erythrocyte Sedimentation Rate [Pending], Sodium Level [Pending], Potassium Level [Pending], Chloride Level [Pending], Carbon Dioxide Level [Pending], Blood Urea Nitrogen [Pending], Creatinine [ Pending], Estimat Glomerular Filtration Rate [Pending], Glucose Level [Pending] , Calcium Level [Pending], Magnesium Level 2.0, C-Reactive Protein, Quantitative [Pending] Current Medications Medications (Trade) Dose Ordered Sig/Aguila Route PRN Reason Start Time Stop Time Status Last Admin Dose Admin Acetaminophen (Tylenol) 650 mg Q6H PRN ORAL Mild Pain/Temp > 100 04/24/19 04:00 05/24/19 03:59 Dextrose/ Electrolytes 1,000 ml @ 75 mls/hr [id number] IV 04/29/19 16:00 05/29/19 15:59 Dextrose/Sodium Chloride 1,000 ml @ 100 mls/hr Q10H IV 04/24/19 07:45 05/24/19 07:44 04/29/19 07:04 Heparin Sodium (Porcine) (Heparin 5000 units/ml) 5,000 units DAILY SUBQ 04/24/19 12:30 05/24/19 12:29 Hydromorphone HCl (Dilaudid) 0.5 mg Q6H PRN IVP For Pain 04/24/19 04:00 05/01/19 03:59 Hydromorphone HCl (Dilaudid) 2 mg Q3H PRN IVP For severe Pain 7-10 04/25/19 12:45 05/02/19 12:44 04/29/19 09:51 Mesalamine (Asacol) 800 mg THREE TIMES A DAY ORAL 04/28/19 09:00 05/28/19 08:59 04/29/19 08:23 Methylprednisolone Sodium Succinate (Solu-MEDROL) 20 mg EVERY 8 HOURS IVP 04/29/19 14:00 05/29/19 13:59 Ondansetron HCl (Zofran) 4 mg Q6H PRN IVP Nausea & Vomiting 04/24/19 14:30 05/24/19 14:29 Piperacillin Sod/ Tazobactam Sod 3.375 gm/Sodium Chloride 110 ml @ 27.5 mls/hr Q8H IVPB 04/24/19 10:00 05/01/19 09:59 04/29/19 09:52 Polyethylene Glycol/ Electrolytes (Nulytely) 4,000 ml ONCE ORAL 04/29/19 14:00 04/29/19 23:59 Temazepam (RestoriL) 7.5 mg HSPRN PRN ORAL Insomnia 04/24/19 14:30 05/01/19 14:29 Susan Easley TRAVEL REGISTERED NURSE ONCOLOGY Apr 29, 2019 11:14
[2019-04-29 11:26] LABS: ANION GAP 11 mmol/L (5-15); BLOOD UREA NITROGEN 12 mg/dL (7-18); CALCIUM 8.7 MG/DL (8.5-10.1); CARBON DIOXIDE 25 MMOL/L (21-32); CHLORIDE 107 MMOL/L (98-107); CREATININE 0.8 MG/DL (0.55-1.30); POTASSIUM 3.6 MMOL/L (3.5-5.1); SODIUM 143 MMOL/L (136-145)
[2019-04-29 12:00] VITALS: BP 110/68
[2019-04-29] MEDS ORDERED: Tubing IV Secondary IV ONE (13:53)
[2019-04-29] MEDS ORDERED: NS 275ml ONE (13:53)
[2019-04-29] MEDS ORDERED: Nulytely 4L ORAL SCH (14:00)
[2019-04-29] MEDS: Solu-MEDROL 40mg Inj IVP SCH ×2 (14:12→22:04)
--- NOTE | 2019-04-29 14:48 | Internal Med Progress Note ---
Subjective Date of Service: Apr 29, 2019 Physician Name Atilio Hardin Attending Physician Genaro Ibarra MD Current Medications Medications (Trade) Dose Ordered Sig/Aguila Route PRN Reason Start Time Stop Time Status Last Admin Dose Admin Acetaminophen (Tylenol) 650 mg Q6H PRN ORAL Mild Pain/Temp > 100 04/24/19 04:00 05/24/19 03:59 Dextrose/ Electrolytes 1,000 ml @ 75 mls/hr [id number] IV 04/29/19 16:00 05/29/19 15:59 Dextrose/Sodium Chloride 1,000 ml @ 100 mls/hr Q10H IV 04/24/19 07:45 05/24/19 07:44 04/29/19 07:04 Heparin Sodium (Porcine) (Heparin 5000 units/ml) 5,000 units DAILY SUBQ 04/24/19 12:30 05/24/19 12:29 Hydromorphone HCl (Dilaudid) 0.5 mg Q6H PRN IVP For Pain 04/24/19 04:00 05/01/19 03:59 Hydromorphone HCl (Dilaudid) 2 mg Q3H PRN IVP For severe Pain 7-10 04/25/19 12:45 05/02/19 12:44 04/29/19 12:59 Mesalamine (Asacol) 800 mg THREE TIMES A DAY ORAL 04/28/19 09:00 05/28/19 08:59 04/29/19 12:59 Methylprednisolone Sodium Succinate (Solu-MEDROL) 20 mg EVERY 8 HOURS IVP 04/29/19 14:00 05/29/19 13:59 04/29/19 14:12 Ondansetron HCl (Zofran) 4 mg Q6H PRN IVP Nausea & Vomiting 04/24/19 14:30 05/24/19 14:29 Piperacillin Sod/ Tazobactam Sod 3.375 gm/Sodium Chloride 110 ml @ 27.5 mls/hr Q8H IVPB 04/24/19 10:00 05/01/19 09:59 04/29/19 09:52 Polyethylene Glycol/ Electrolytes (Nulytely) 4,000 ml ONCE ORAL 04/29/19 14:00 04/29/19 23:59 04/29/19 14:14 Temazepam (RestoriL) 7.5 mg HSPRN PRN ORAL Insomnia 04/24/19 14:30 05/01/19 14:29 Allergies: Coded Allergies: TRAMADOL (Unverified Allergy, Unknown, 04/24/19) seizure ROS Limited/Unobtainable: No Constitutional: Reports: no symptoms HEENT: Reports: no symptoms Cardiovascular: Reports: no symptoms Respiratory: Reports: no symptoms Gastrointestinal/Abdominal: Reports: abdominal pain Genitourinary: Reports: no symptoms Neurologic/Psychiatric: Reports: no symptoms Subjective 38 YO M admitted with abdominal pain. Now crohn's colitis flare. Cover for Int Med-DR Ibarra. Colonoscopy scheduled for 04/30/19. Objective Last Vital Signs Date Time Temp Pulse Resp B/P (MAP) Pulse Ox O2 Delivery O2 Flow Rate FiO2 04/29/19 13:29 97.8 04/29/19 12:00 68 20 110/68 (82) 98 04/29/19 10:08 Room Air Laboratory Tests Test 04/29/19 10:25 White Blood Count 9.8 K/UL (4.8-10.8) Red Blood Count 4.39 M/UL (4.70-6.10) L Hemoglobin 12.1 G/DL (14.2-18.0) L Hematocrit 36.4 % (42.0-52.0) L Mean Corpuscular Volume 83 FL (80-99) Mean Corpuscular Hemoglobin 27.6 PG (27.0-31.0) Mean Corpuscular Hemoglobin Concent 33.3 G/DL (32.0-36.0) Red Cell Distribution Width 15.0 % (11.6-14.8) H Platelet Count 494 K/UL (150-450) H Mean Platelet Volume 6.6 FL (6.5-10.1) Neutrophils (%) (Auto) 69.8 % (45.0-75.0) Lymphocytes (%) (Auto) 17.4 % (20.0-45.0) L Monocytes (%) (Auto) 9.1 % (1.0-10.0) Eosinophils (%) (Auto) 1.4 % (0.0-3.0) Basophils (%) (Auto) 2.3 % (0.0-2.0) H Erythrocyte Sedimentation Rate 11 MM/HR (0-15) Sodium Level 143 MMOL/L (136-145) Potassium Level 3.6 MMOL/L (3.5-5.1) Chloride Level 107 MMOL/L (98-107) Carbon Dioxide Level 25 MMOL/L (21-32) Anion Gap 11 mmol/L (5-15) Blood Urea Nitrogen 12 mg/dL (7-18) Creatinine 0.8 MG/DL (0.55-1.30) Estimat Glomerular Filtration Rate > 60 mL/min (>60) Glucose Level 75 MG/DL (74-106) Calcium Level 8.7 MG/DL (8.5-10.1) Magnesium Level 2.0 MG/DL (1.8-2.4) C-Reactive Protein, Quantitative < 0.4 mg/dL (0.00-0.90) Intake and Output 04/28/19 04/29/19 19:00 07:00 Intake Total 1137.5 ml Output Total 900 ml 1700 ml Balance 237.5 ml -1700 ml IV Total 1137.5 ml Output Urine Total 900 ml 1700 ml Objective PHYSICAL EXAMINATION: GENERAL: The patient is well-developed and well-nourished thin-appearing male, in no apparent distress. HEENT: Eyes, pupils are equal and responsive to light and accommodation. Extraocular movements are intact. NECK: Supple without lymphadenopathy. CHEST: Lungs are clear to auscultation bilaterally without wheezes or rales. CARDIOVASCULAR: Regular rhythm and rate. S1, S2 are normal without murmurs, rubs, or gallops. ABDOMEN: Soft and tender to palpation in all 4 quadrants. No rebound or guarding. EXTREMITIES: Negative for clubbing, cyanosis, or edema. RECTAL/GENITAL: Not performed. NEUROLOGIC: Cranial nerves II through XII are grossly intact without focal deficits. Motor strength is 5/5 bilaterally. Deep tendon reflexes are 2+ plantar. Assessment/Plan Assessment/Plan ASSESSMENT: This is a 38-year-old male. 1. Colitis/gastroenteritis 2. Nausea with vomiting. 3. Right lower quadrant abdominal pain. 4. Crohn's disease flare. TREATMENT: 1. Nausea/vomiting/Crohn's disease. A Gastroenterology consultation has been obtained with Dr. Romeo Valentine. ABX= Zosyn. Colonoscopy scheduled on 04/30/19. Continue intravenous Solu-Medrol. 2. History of Crohn's disease. Continue Imuran as above. 3. Abdominal pain. The patient is currently receiving Dilaudid intravenously. 4. Clear liquid diet 5. ID=Atilio Casanova MD Apr 29, 2019 14:48
[2019-04-29] MEDS: D5 1/2NS w/KCl 20mEq 1,000 ML IV SCH (15:59)
[2019-04-29 16:00] VITALS: BP 110/68
--- NOTE | 2019-04-29 19:00 | NUR ---
NURSE NOTES: AWAKE/IN NO ACUTE DISTRESS.
--- NOTE | 2019-04-29 19:39 | NUR ---
HAND-OFF: Report given to S MANDA RN.
--- NOTE | 2019-04-29 19:41 | NUR ---
NURSE NOTES: Received report from Paulette BAILEY. Rounding is done. Patient is in bed, awake, and a/o x4. Patient got pain medication at 1900. Will continue to monitor. No SOB noted. IV line is intact and patient. IV fluid is running. Bed is on alarm, locked, and lowest position. Call light within reach. Will continue to monitor.
[2019-04-29 20:00] VITALS: BP 117/75
[2019-04-30] VITALS (10 sets, daily range): BP systolic 102–131; BP diastolic 68–88
[2019-04-30] MEDS: Piperacillin/Tazobactam 3.375 GM in NS 110 ML IVPB SCH ×2 (01:03→11:58)
[2019-04-30] MEDS: D5 1/2NS w/KCl 20mEq 1,000 ML IV SCH ×2 (06:05→18:23)
[2019-04-30] MEDS: Solu-MEDROL 40mg Inj IVP SCH (06:05)
[2019-04-30 07:17] LABS: HEMATOCRIT 36.3 % (42.0-52.0); HEMOGLOBIN 12.9 G/DL (14.2-18.0); MEAN CORPUSCULAR VOLUME 81 FL (80-99); PLATELET COUNT 543 K/UL (150-450); RED CELL DISTRIBUTION WIDTH 13.6 % (11.6-14.8); WHITE BLOOD COUNT 10.4 K/UL (4.8-10.8)
[2019-04-30 07:33] LABS: ANION GAP 11 mmol/L (5-15); BLOOD UREA NITROGEN 11 mg/dL (7-18); CALCIUM 9.2 MG/DL (8.5-10.1); CARBON DIOXIDE 26 MMOL/L (21-32); CHLORIDE 106 MMOL/L (98-107); CREATININE 0.9 MG/DL (0.55-1.30); POTASSIUM 4.3 MMOL/L (3.5-5.1); SODIUM 143 MMOL/L (136-145)
--- NOTE | 2019-04-30 07:45 | NUR ---
NURSE NOTES: Pt lying in bed w/bed in lowest position and call light within reach. Pt A&Ox4, VSS, and in no apparent distress. IV site intact/asymptomatic w/IVF infusing and skin intact. Pt scheduled to go down for colonoscopy today; pt aware and is NPO in preparation for procedure. Will continue to monitor.
--- NOTE | 2019-04-30 07:52 | NUR ---
HAND-OFF: Report given to Ramiro BAILEY. Patient in stable condition.
[2019-04-30] MEDS: Heparin 5000 units/ml inj SUBQ SCH (09:00)
[2019-04-30] MEDS: Mesalamine 400mg cap ORAL SCH ×4 (09:00→18:23)
--- NOTE | 2019-04-30 09:00 | NUR ---
NURSE NOTES: Per LEORA Garzon, will hold Heparin SQ for this morning's colonoscopy. Will continue to monitor.
[2019-04-30] MEDS ORDERED: LR 1000ml 1,000 ML IVLG SCH (09:28)
--- NOTE | 2019-04-30 09:28 | Anethesia Preoperative Eval ---
Anesthesia Pre-op PMH/ROS General Date of Evaluation: Apr 30, 2019 Anesthesiologist: Lyndon ASA Score: ASA 2 Mallampati Score Class I : Soft palate, uvula, fauces, pillars visible Class II: Soft palate, uvula, fauces visible Class III: Soft palate, base of uvula visible Class IV: Only hard plate visible Mallampati Classification: Class II Surgeon: Meme Diagnosis: Colitis Surgical Procedure: Cololnoscopy Anesthesia History: none Family History: no anesthesia problems Allergies: Coded Allergies: TRAMADOL (Unverified Allergy, Unknown, 04/24/19) seizure Medications: see eMAR Patient NPO?: Yes NPO Date: Apr 30, 2019 NPO Time: 00:00 Past Medical History Cardiovascular: Denies: HTN, CAD, NC, valve dz, arrhythmia, other Pulmonary: Denies: asthma, COPD, ELVIS, other Gastrointestinal/Genitourinary: Reports: other - c hrons, colitis; Denies: GERD, CRI, ESRD Neurologic/Psychiatric: Reports: depression/anxiety, other - chronic pain- seeing pain management; Denies: dementia, CVA, TIA Endocrine: Denies: DM, hypothyroidism, steroids, other HEENT: Denies: cataract (L), cataract (R), glaucoma, [place] (L), [place] (R), other Hematology/Immune: Denies: anemia, DVT, bleeding disorder, other Musculoskeletal/Integumentary: Denies: OA, RA, DJD, DDD, edema, other PSxH Narrative: lap appy, bowel resection Anesthesia Pre-op Phys. Exam Physician Exam Last Vital Signs Date Time Temp Pulse Resp B/P (MAP) Pulse Ox O2 Delivery O2 Flow Rate FiO2 04/30/19 08:00 97.8 65 18 113/73 (86) 98 04/29/19 21:00 Room Air Constitutional: NAD, other - requesting pain meds Cardiovascular: RRR Respiratory: CTA Airway Exam Mallampati Score: Class II MO: full ROM: full Anesthesia Pre-op A/P Labs Hematology Test 04/29/19 10:25 04/30/19 05:25 White Blood Count 9.8 K/UL (4.8-10.8) 10.4 K/UL (4.8-10.8) Red Blood Count 4.39 M/UL (4.70-6.10) L 4.50 M/UL (4.70-6.10) L Hemoglobin 12.1 G/DL (14.2-18.0) L 12.9 G/DL (14.2-18.0) L Hematocrit 36.4 % (42.0-52.0) L 36.3 % (42.0-52.0) L Mean Corpuscular Volume 83 FL (80-99) 81 FL (80-99) Mean Corpuscular Hemoglobin 27.6 PG (27.0-31.0) 28.5 PG (27.0-31.0) Mean Corpuscular Hemoglobin Concent 33.3 G/DL (32.0-36.0) 35.4 G/DL (32.0-36.0) Red Cell Distribution Width 15.0 % (11.6-14.8) H 13.6 % (11.6-14.8) Platelet Count 494 K/UL (150-450) H 543 K/UL (150-450) H Mean Platelet Volume 6.6 FL (6.5-10.1) 5.7 FL (6.5-10.1) L Neutrophils (%) (Auto) 69.8 % (45.0-75.0) % (45.0-75.0) Lymphocytes (%) (Auto) 17.4 % (20.0-45.0) L % (20.0-45.0) Monocytes (%) (Auto) 9.1 % (1.0-10.0) % (1.0-10.0) Eosinophils (%) (Auto) 1.4 % (0.0-3.0) % (0.0-3.0) Basophils (%) (Auto) 2.3 % (0.0-2.0) H % (0.0-2.0) Erythrocyte Sedimentation Rate 11 MM/HR (0-15) Neutrophils % (Manual) Pending Lymphocytes % (Manual) Pending Platelet Estimate Pending Platelet Morphology Pending Chemistry Test 04/29/19 10:25 04/30/19 05:25 Sodium Level 143 MMOL/L (136-145) 143 MMOL/L (136-145) Potassium Level 3.6 MMOL/L (3.5-5.1) 4.3 MMOL/L (3.5-5.1) Chloride Level 107 MMOL/L (98-107) 106 MMOL/L (98-107) Carbon Dioxide Level 25 MMOL/L (21-32) 26 MMOL/L (21-32) Anion Gap 11 mmol/L (5-15) 11 mmol/L (5-15) Blood Urea Nitrogen 12 mg/dL (7-18) 11 mg/dL (7-18) Creatinine 0.8 MG/DL (0.55-1.30) 0.9 MG/DL (0.55-1.30) Estimat Glomerular Filtration Rate > 60 mL/min (>60) > 60 mL/min (>60) Glucose Level 75 MG/DL (74-106) 101 MG/DL (74-106) Calcium Level 8.7 MG/DL (8.5-10.1) 9.2 MG/DL (8.5-10.1) Magnesium Level 2.0 MG/DL (1.8-2.4) C-Reactive Protein, Quantitative < 0.4 mg/dL (0.00-0.90) Studies Pre-op Studies: EKG - sr Risk Assessment & Plan Assessment: ASA II Plan: MAC Status Change Before Surgery: No Pre-Antibiotics Drug: N/A Tia Vora MD Apr 30, 2019 09:28
--- NOTE | 2019-04-30 09:29 | NUR ---
NURSE NOTES: Pt taken down to GI lab for colonoscopy. Pt requesting pain med but Dilaudid 2 mg not yet due; offered to give 0.5 mg breakthrough pain med but pt refused.
[2019-04-30] MEDS ORDERED: DiphenhydrAMINE 50mg/ml Inj IVP PRN (09:30)
--- NOTE | 2019-04-30 09:34 | Pre-Procedure Note/Attestation ---
Pre-Procedure Note/Attestation Complete Prior to Procedure Planned Procedure: not applicable Procedure Narrative: colonoscopy Indications for Procedure Pre-Operative Diagnosis: colitis Attestation I attest that I discussed the nature of the procedure; its benefits; risks and complications; and alternatives (and the risks and benefits of such alternatives ), prior to the procedure, with the patient (or the patient's legal risk control representative). I attest that, if there was a reasonable possibility of needing a blood transfusion, the patient (or the patient's legal risk control representative) was given the [facility] standardized written summary, pursuant to the Trell Swati Blood Safety Act ([place] Health and Safety Code # 1645, as amended). I attest that I re-evaluated the patient just prior to the surgery and that there has been no change in the patient's H&P, except as documented below: Romeo Valentine MD Apr 30, 2019 09:34
[2019-04-30] MEDS ORDERED: Propofol 200mg/20ml IV ONE (11:00)
[2019-04-30] MEDS ORDERED: LR 1000ml ONE (11:00)
[2019-04-30] MEDS ORDERED: Lidocaine 1% MPF 10mg/ml 5ml ONE (11:00)
--- NOTE | 2019-04-30 11:13 | Endoscopy Procedure Note ---
Endoscopy Procedure Note General Indication for Procedure: colitis Procedures Performed: colonoscopy Operative Findings/Diagnosis: normal Specimen: none Pt Tolerated Procedure Well: Yes Estimated Blood Loss: none Anesthesia Anesthesiologist: kristina Anesthesia: MAC Inserted Devices Implant(s) used?: No GI Core Measures 50 yrs or older w/o bx or poly: Not Applicable 10yrs. F/U recommended: Not Applicable Romeo Valentine MD Apr 30, 2019 11:13
--- NOTE | 2019-04-30 11:18 | Immediate Post-Op Evaluation ---
Immediate Post-Op Evalulation Immediate Post-Op Evalulation Procedure: Colonoscopy Date of Evaluation: Apr 30, 2019 Time of Evaluation: 11:21 IV Fluids: 400 Blood Products: 0 Estimated Blood Loss: 0 Urinary Output: 0 Blood Pressure Systolic: 112 Blood Pressure Diastolic: 75 Pulse Rate: 88 Respiratory Rate: 16 O2 Sat by Pulse Oximetry: 100 Temperature (Fahrenheit): 97.2 Pain Score (1-10): 0 Nausea: No Vomiting: No Complications 0 Patient Status: awake, patent, none Hydration Status: adequate Drug: N/A Tia Vora MD Apr 30, 2019 11:18
--- NOTE | 2019-04-30 11:20 | 48 Hour Post Anesthesia Eval ---
Post Anesthesia Evaluation Procedure: Colonoscopy Date of Evaluation: Apr 30, 2019 Airway: patent Nausea: No Vomiting: No Pain Intensity: 0 Hydration Status: adequate Cardiopulmonary Status: at baseline Mental Status/LOC: patient returned to baseline Post-Anesthesia Complications: 0 Follow-up care needed: ready to discharge Tia Vora MD Apr 30, 2019 11:20
--- NOTE | 2019-04-30 13:12 | Pulmonology Progress Note ---
Assessment/Plan Problems: (1) Colitis (2) History of Crohn's disease Assessment/Plan had colonoscopy, results peding advance diet as tolerated improving iv fluids GI evaluation and f/u appreciated f/u inflammatory markers check electrolytes dvt prophylaxis Subjective ROS Limited/Unobtainable: No Constitutional: Reports: no symptoms HEENT: Repors: no symptoms Respiratory: Reports: no symptoms Allergies: Coded Allergies: TRAMADOL (Unverified Allergy, Unknown, 04/24/19) seizure Objective Last 24 Hour Vital Signs Date Time Temp Pulse Resp B/P (MAP) Pulse Ox O2 Delivery O2 Flow Rate FiO2 04/30/19 12:00 97.8 88 18 116/82 (93) 98 04/30/19 11:35 97.3 88 16 102/72 100 Room Air 04/30/19 11:25 88 16 111/73 100 Room Air 04/30/19 11:20 88 16 110/68 100 Room Air 04/30/19 11:18 88 16 100 04/30/19 11:16 97.3 88 16 112/75 100 Nasal Cannula 3 04/30/19 09:00 Room Air 04/30/19 08:00 97.8 65 18 113/73 (86) 98 04/30/19 04:00 97.7 73 18 120/78 (92) 97 04/30/19 00:00 97.9 77 18 131/88 (102) 97 04/29/19 21:00 Room Air 04/29/19 20:00 98.1 67 16 117/75 (89) 97 04/29/19 19:30 97.8 04/29/19 16:00 97.8 68 20 110/68 (82) 98 Intake and Output 04/29/19 04/30/19 19:00 07:00 Intake Total 4465 ml 675 ml Output Total 700 ml 550 ml Balance 3765 ml 125 ml Intake Oral 3330 ml IV Total 1135 ml 675 ml Output Urine Total 700 ml 550 ml # Voids 1 3 # Bowel Movements 3 General Appearance: WD/WN HEENT: normocephalic Respiratory/Chest: chest wall non-tender, lungs clear, normal breath sounds Cardiovascular: normal peripheral pulses, regular rhythm, no JVD Abdomen: normal bowel sounds, soft, non tender Genitourinary: normal external genitalia Skin: no rash Laboratory Tests 04/30/19 05:25: White Blood Count 10.4, Red Blood Count 4.50L, Hemoglobin 12.9L, Hematocrit 36.3L, Mean Corpuscular Volume 81, Mean Corpuscular Hemoglobin 28.5, Mean Corpuscular Hemoglobin Concent 35.4, Red Cell Distribution Width 13.6, Platelet Count 543H, Mean Platelet Volume 5.7L, Neutrophils (%) (Auto) , Lymphocytes (%) (Auto) , Monocytes (%) (Auto) , Eosinophils (%) (Auto) , Basophils (%) (Auto) , Differential Total Cells Counted 100, Neutrophils % (Manual) 84H, Lymphocytes % (Manual) 12L, Monocytes % (Manual) 4, Eosinophils % (Manual) 0, Basophils % ( Manual) 0, Band Neutrophils 0, Platelet Estimate Adequate, Platelet Morphology Normal, Red Blood Cell Morphology Normal, Sodium Level 143, Potassium Level 4.3 , Chloride Level 106, Carbon Dioxide Level 26, Anion Gap 11, Blood Urea Nitrogen 11, Creatinine 0.9, Estimat Glomerular Filtration Rate > 60, Glucose Level 101, Calcium Level 9.2 Current Medications Medications (Trade) Dose Ordered Sig/Aguila Route PRN Reason Start Time Stop Time Status Last Admin Dose Admin Acetaminophen (Tylenol) 650 mg Q4H PRN ORAL Mild Pain (Pain Scale 1-3) 04/30/19 09:30 04/30/19 20:00 Acetaminophen (Tylenol) 650 mg Q6H PRN ORAL Mild Pain/Temp > 100 04/24/19 04:00 05/24/19 03:59 Dextrose/ Electrolytes 1,000 ml @ 75 mls/hr [id number] IV 04/29/19 16:00 05/29/19 15:59 04/30/19 06:05 Diphenhydramine HCl (Benadryl) 25 mg Q15M PRN IVP Itching 04/30/19 09:30 04/30/19 20:00 Heparin Sodium (Porcine) (Heparin 5000 units/ml) 5,000 units DAILY SUBQ 04/24/19 12:30 05/24/19 12:29 Hydralazine HCl (Apresoline) 5 mg Q30M PRN IV SBP>160 OR___/DBP>90 OR___ 04/30/19 09:30 04/30/19 20:00 Hydromorphone HCl (Dilaudid) 0.5 mg Q6H PRN IVP For Pain 04/24/19 04:00 05/01/19 03:59 Hydromorphone HCl (Dilaudid) 2 mg Q3H PRN IVP For severe Pain 7-10 04/25/19 12:45 05/02/19 12:44 04/30/19 11:58 Lactated Ringer's 1,000 ml @ 10 mls/hr Q24H IVLG 04/30/19 09:28 04/30/19 20:00 Mesalamine (Asacol) 800 mg THREE TIMES A DAY ORAL 04/28/19 09:00 05/28/19 08:59 04/29/19 17:25 Ondansetron HCl (Zofran) 4 mg Q1H PRN IVP Nausea & Vomiting 04/30/19 09:30 04/30/19 20:00 Ondansetron HCl (Zofran) 4 mg Q6H PRN IVP Nausea & Vomiting 04/24/19 14:30 05/24/19 14:29 Piperacillin Sod/ Tazobactam Sod 3.375 gm/Sodium Chloride 110 ml @ 27.5 mls/hr Q8H IVPB 04/24/19 10:00 05/01/19 09:59 04/30/19 11:58 Temazepam (RestoriL) 7.5 mg HSPRN PRN ORAL Insomnia 04/24/19 14:30 05/01/19 14:29 Herrera Alcaraz MD Apr 30, 2019 13:11
--- NOTE | 2019-04-30 14:38 | Infectious Diseases Prog Note ---
Assessment/Plan Assessment/Plan Abx: Zosyn 04/24- Assessment: Crohn's flare -CT abd/p (OSH): thickening of the wall of the colon at the hepatic flexure and thickening of the rectosigmoid consistent with Crohn's disease. Afebrile Leukocytosis, SP (SP steroids) -Cdiff neg Crohn's disease (diagnosed as a teen) - s/p colon resection on Imuran -previously on Remicade but held for ~1yr due bacteremia -hx of perianal fistula -hx of bacteremia early 2018 Plan: -DC Zosyn # 7 -f/u cx -Monitor CBC/CMP, temperatures -GI f/u Thank you for this consultation. Will continue to follow along with you. Discussed with RN Subjective Allergies: Coded Allergies: TRAMADOL (Unverified Allergy, Unknown, 04/24/19) seizure Subjective afebrile nl WBC IV solu- medrol was DCed Objective Vital Signs Last 24 Hour Vital Signs Date Time Temp Pulse Resp B/P (MAP) Pulse Ox O2 Delivery O2 Flow Rate FiO2 04/30/19 12:00 97.8 88 18 116/82 (93) 98 04/30/19 11:35 97.3 88 16 102/72 100 Room Air 04/30/19 11:25 88 16 111/73 100 Room Air 04/30/19 11:20 88 16 110/68 100 Room Air 04/30/19 11:18 88 16 100 04/30/19 11:16 97.3 88 16 112/75 100 Nasal Cannula 3 04/30/19 09:00 Room Air 04/30/19 08:00 97.8 65 18 113/73 (86) 98 04/30/19 04:00 97.7 73 18 120/78 (92) 97 04/30/19 00:00 97.9 77 18 131/88 (102) 97 04/29/19 21:00 Room Air 04/29/19 20:00 98.1 67 16 117/75 (89) 97 04/29/19 19:30 97.8 04/29/19 16:00 97.8 68 20 110/68 (82) 98 Height (Feet): 5 Height (Inches): 10.00 Weight (Pounds): 134 Respiratory/Chest: lungs clear Cardiovascular: regular rhythm Abdomen: non distended Laboratory Tests Test 04/30/19 05:25 White Blood Count 10.4 K/UL (4.8-10.8) Red Blood Count 4.50 M/UL (4.70-6.10) L Hemoglobin 12.9 G/DL (14.2-18.0) L Hematocrit 36.3 % (42.0-52.0) L Mean Corpuscular Volume 81 FL (80-99) Mean Corpuscular Hemoglobin 28.5 PG (27.0-31.0) Mean Corpuscular Hemoglobin Concent 35.4 G/DL (32.0-36.0) Red Cell Distribution Width 13.6 % (11.6-14.8) Platelet Count 543 K/UL (150-450) H Mean Platelet Volume 5.7 FL (6.5-10.1) L Neutrophils (%) (Auto) % (45.0-75.0) Lymphocytes (%) (Auto) % (20.0-45.0) Monocytes (%) (Auto) % (1.0-10.0) Eosinophils (%) (Auto) % (0.0-3.0) Basophils (%) (Auto) % (0.0-2.0) Differential Total Cells Counted 100 Neutrophils % (Manual) 84 % (45-75) H Lymphocytes % (Manual) 12 % (20-45) L Monocytes % (Manual) 4 % (1-10) Eosinophils % (Manual) 0 % (0-3) Basophils % (Manual) 0 % (0-2) Band Neutrophils 0 % (0-8) Platelet Estimate Adequate Platelet Morphology Normal Red Blood Cell Morphology Normal Sodium Level 143 MMOL/L (136-145) Potassium Level 4.3 MMOL/L (3.5-5.1) Chloride Level 106 MMOL/L (98-107) Carbon Dioxide Level 26 MMOL/L (21-32) Anion Gap 11 mmol/L (5-15) Blood Urea Nitrogen 11 mg/dL (7-18) Creatinine 0.9 MG/DL (0.55-1.30) Estimat Glomerular Filtration Rate > 60 mL/min (>60) Glucose Level 101 MG/DL (74-106) Calcium Level 9.2 MG/DL (8.5-10.1) Current Medications Medications (Trade) Dose Ordered Sig/Aguila Route PRN Reason Start Time Stop Time Status Last Admin Dose Admin Acetaminophen (Tylenol) 650 mg Q4H PRN ORAL Mild Pain (Pain Scale 1-3) 04/30/19 09:30 04/30/19 20:00 Acetaminophen (Tylenol) 650 mg Q6H PRN ORAL Mild Pain/Temp > 100 04/24/19 04:00 05/24/19 03:59 Dextrose/ Electrolytes 1,000 ml @ 75 mls/hr [id number] IV 04/29/19 16:00 05/29/19 15:59 04/30/19 06:05 Diphenhydramine HCl (Benadryl) 25 mg Q15M PRN IVP Itching 04/30/19 09:30 04/30/19 20:00 Heparin Sodium (Porcine) (Heparin 5000 units/ml) 5,000 units DAILY SUBQ 04/24/19 12:30 05/24/19 12:29 Hydralazine HCl (Apresoline) 5 mg Q30M PRN IV SBP>160 OR___/DBP>90 OR___ 04/30/19 09:30 04/30/19 20:00 Hydromorphone HCl (Dilaudid) 0.5 mg Q6H PRN IVP For Pain 04/24/19 04:00 05/01/19 03:59 Hydromorphone HCl (Dilaudid) 2 mg Q3H PRN IVP For severe Pain 7-10 04/25/19 12:45 05/02/19 12:44 04/30/19 11:58 Lactated Ringer's 1,000 ml @ 10 mls/hr Q24H IVLG 04/30/19 09:28 04/30/19 20:00 Mesalamine (Asacol) 800 mg THREE TIMES A DAY ORAL 04/28/19 09:00 05/28/19 08:59 04/30/19 13:23 Ondansetron HCl (Zofran) 4 mg Q1H PRN IVP Nausea & Vomiting 04/30/19 09:30 04/30/19 20:00 Ondansetron HCl (Zofran) 4 mg Q6H PRN IVP Nausea & Vomiting 04/24/19 14:30 05/24/19 14:29 Piperacillin Sod/ Tazobactam Sod 3.375 gm/Sodium Chloride 110 ml @ 27.5 mls/hr Q8H IVPB 04/24/19 10:00 05/01/19 09:59 04/30/19 11:58 Temazepam (RestoriL) 7.5 mg HSPRN PRN ORAL Insomnia 04/24/19 14:30 05/01/19 14:29 Shemar Harding MD Apr 30, 2019 14:38
--- NOTE | 2019-04-30 16:47 | NUR ---
CASE MANAGEMENT: REVIEW 04/30/19 SI: COLITIS 98.1 91 20 108/73 96% ROOM AIR H/H 12.9/36.3 PLT 543 IS: IV D5@75ML/HR IV DILAUDID Q3HR/PRN ASACOL PO TID \: 3E MED/SURG UNIT DCP: PATIENT IS FROM HOME PLAN: COLONOSCOPY TODAY PAIN CONTROL IMPROVING
--- NOTE | 2019-04-30 18:45 | Procedure Note ---
DATE OF PROCEDURE: 04/30/2019 SURGEON: Romeo Valentine M.D. ANESTHESIOLOGIST: Michele Haney. PROCEDURE: Colonoscopy. INSTRUMENT: Olympus adult flexible colonoscope. INDICATION: Colitis. REASON FOR PROCEDURE: The procedure, risks, benefits, and possible consequences, including hemorrhage, aspiration, perforation and infection, and alternative treatments, were explained to the patient/legal guardian by Dr. Romeo Valentine and the patient/legal guardian understood and accepted these risks. DESCRIPTION OF PROCEDURE: After informed consent was obtained and the patient was adequately sedated, first rectal examination was performed, which was positive for internal hemorrhoids. Then, the scope was advanced from rectum into the anastomosis and then subsequently terminal ileum. There was no evidence of any active colitis in this endoscopic examination. Also, the terminal ileum and small intestine anastomosis looked clear. There is no evidence of any ulceration or bleeding. No active colitis in the colon. No diverticulosis. No polyp, no mass was seen. Retroflexion of rectum showed evidence of internal hemorrhoids. SUMMARY OF FINDINGS: The patient had partial colectomy, most probably right hemicolectomy with ileocolonic anastomosis without any active flare at this time. PLAN: We are going to taper off his steroids, taper of his pain medication. I am not sure exactly why the patient has pain at this time, most probably pain medication seeking behavior. We will recommend discharge and follow-up with his GI doctor as an outpatient. Romeo Valentine M.D. DR: Gardenia JOB#: [id number] CC:
--- NOTE | 2019-04-30 19:11 | NUR ---
HAND-OFF: Report given to LYNN Holbrook.
--- NOTE | 2019-04-30 19:40 | Internal Med Progress Note ---
Subjective Date of Service: Apr 30, 2019 Physician Name Atilio Hardin Attending Physician Genaro Ibarra MD Current Medications Medications (Trade) Dose Ordered Sig/Aguila Route PRN Reason Start Time Stop Time Status Last Admin Dose Admin Acetaminophen (Tylenol) 650 mg Q4H PRN ORAL Mild Pain (Pain Scale 1-3) 04/30/19 09:30 04/30/19 20:00 Acetaminophen (Tylenol) 650 mg Q6H PRN ORAL Mild Pain/Temp > 100 04/24/19 04:00 05/24/19 03:59 Dextrose/ Electrolytes 1,000 ml @ 75 mls/hr [id number] IV 04/29/19 16:00 05/29/19 15:59 04/30/19 18:23 Diphenhydramine HCl (Benadryl) 25 mg Q15M PRN IVP Itching 04/30/19 09:30 04/30/19 20:00 Heparin Sodium (Porcine) (Heparin 5000 units/ml) 5,000 units DAILY SUBQ 04/24/19 12:30 05/24/19 12:29 Hydralazine HCl (Apresoline) 5 mg Q30M PRN IV SBP>160 OR___/DBP>90 OR___ 04/30/19 09:30 04/30/19 20:00 Hydromorphone HCl (Dilaudid) 0.5 mg Q6H PRN IVP For Pain 04/24/19 04:00 05/01/19 03:59 Hydromorphone HCl (Dilaudid) 2 mg Q3H PRN IVP For severe Pain 7-10 04/25/19 12:45 05/02/19 12:44 04/30/19 18:23 Lactated Ringer's 1,000 ml @ 10 mls/hr Q24H IVLG 04/30/19 09:28 04/30/19 20:00 Mesalamine (Asacol) 800 mg THREE TIMES A DAY ORAL 04/28/19 09:00 05/28/19 08:59 04/30/19 18:23 Ondansetron HCl (Zofran) 4 mg Q1H PRN IVP Nausea & Vomiting 04/30/19 09:30 04/30/19 20:00 Ondansetron HCl (Zofran) 4 mg Q6H PRN IVP Nausea & Vomiting 04/24/19 14:30 05/24/19 14:29 Temazepam (RestoriL) 7.5 mg HSPRN PRN ORAL Insomnia 04/24/19 14:30 05/01/19 14:29 Allergies: Coded Allergies: TRAMADOL (Unverified Allergy, Unknown, 04/24/19) seizure ROS Limited/Unobtainable: No Constitutional: Reports: no symptoms HEENT: Reports: no symptoms Cardiovascular: Reports: no symptoms Respiratory: Reports: no symptoms Gastrointestinal/Abdominal: Reports: abdominal pain Genitourinary: Reports: no symptoms Neurologic/Psychiatric: Reports: no symptoms Subjective 38 YO M admitted with abdominal pain. Now crohn's colitis flare. Cover for Int Med-DR Ibarra. S/P Colonoscopy 04/30/19. Objective Last Vital Signs Date Time Temp Pulse Resp B/P (MAP) Pulse Ox O2 Delivery O2 Flow Rate FiO2 04/30/19 15:55 98.1 91 20 108/73 (85) 96 04/30/19 11:35 Room Air 04/30/19 11:16 3 Laboratory Tests Test 04/30/19 05:25 White Blood Count 10.4 K/UL (4.8-10.8) Red Blood Count 4.50 M/UL (4.70-6.10) L Hemoglobin 12.9 G/DL (14.2-18.0) L Hematocrit 36.3 % (42.0-52.0) L Mean Corpuscular Volume 81 FL (80-99) Mean Corpuscular Hemoglobin 28.5 PG (27.0-31.0) Mean Corpuscular Hemoglobin Concent 35.4 G/DL (32.0-36.0) Red Cell Distribution Width 13.6 % (11.6-14.8) Platelet Count 543 K/UL (150-450) H Mean Platelet Volume 5.7 FL (6.5-10.1) L Neutrophils (%) (Auto) % (45.0-75.0) Lymphocytes (%) (Auto) % (20.0-45.0) Monocytes (%) (Auto) % (1.0-10.0) Eosinophils (%) (Auto) % (0.0-3.0) Basophils (%) (Auto) % (0.0-2.0) Differential Total Cells Counted 100 Neutrophils % (Manual) 84 % (45-75) H Lymphocytes % (Manual) 12 % (20-45) L Monocytes % (Manual) 4 % (1-10) Eosinophils % (Manual) 0 % (0-3) Basophils % (Manual) 0 % (0-2) Band Neutrophils 0 % (0-8) Platelet Estimate Adequate Platelet Morphology Normal Red Blood Cell Morphology Normal Sodium Level 143 MMOL/L (136-145) Potassium Level 4.3 MMOL/L (3.5-5.1) Chloride Level 106 MMOL/L (98-107) Carbon Dioxide Level 26 MMOL/L (21-32) Anion Gap 11 mmol/L (5-15) Blood Urea Nitrogen 11 mg/dL (7-18) Creatinine 0.9 MG/DL (0.55-1.30) Estimat Glomerular Filtration Rate > 60 mL/min (>60) Glucose Level 101 MG/DL (74-106) Calcium Level 9.2 MG/DL (8.5-10.1) Intake and Output 04/29/19 04/30/19 19:00 07:00 Intake Total 4465 ml 675 ml Output Total 700 ml 550 ml Balance 3765 ml 125 ml Intake Oral 3330 ml IV Total 1135 ml 675 ml Output Urine Total 700 ml 550 ml # Voids 1 3 # Bowel Movements 3 Objective PHYSICAL EXAMINATION: GENERAL: The patient is well-developed and well-nourished thin-appearing male, in no apparent distress. HEENT: Eyes, pupils are equal and responsive to light and accommodation. Extraocular movements are intact. NECK: Supple without lymphadenopathy. CHEST: Lungs are clear to auscultation bilaterally without wheezes or rales. CARDIOVASCULAR: Regular rhythm and rate. S1, S2 are normal without murmurs, rubs, or gallops. ABDOMEN: Soft and tender to palpation in all 4 quadrants. No rebound or guarding. EXTREMITIES: Negative for clubbing, cyanosis, or edema. RECTAL/GENITAL: Not performed. NEUROLOGIC: Cranial nerves II through XII are grossly intact without focal deficits. Motor strength is 5/5 bilaterally. Deep tendon reflexes are 2+ plantar. Assessment/Plan Assessment/Plan ASSESSMENT: This is a 38-year-old male. 1. Colitis/gastroenteritis 2. Nausea with vomiting. 3. Right lower quadrant abdominal pain. 4. Crohn's disease flare. TREATMENT: 1. Nausea/vomiting/Crohn's disease. A Gastroenterology consultation has been obtained with Dr. Romeo Valentine. ABX= Zosyn. S/P Colonoscopy on 04/30/19=normal. Continue intravenous Solu-Medrol. 2. History of Crohn's disease. Continue Imuran as above. 3. Abdominal pain. The patient is currently receiving Dilaudid intravenously. 4. Clear liquid diet 5. ID=Atilio Casanova MD Apr 30, 2019 19:40
--- NOTE | 2019-04-30 20:32 | NUR ---
NURSE NOTES: Received report from Ramiro BAILEY. Rounding is done. Patient is in bed, and a/o x4. C/o pain 8/10 and will give medication as ordered and will continue to monitor. IV site is intact and iv fluid is running. Bed is on alarm, locked, and lowest position. Call light within reach. Will continue to monitor.
[2019-05-01] VITALS: BP 133/78
[2019-05-01 04:00] VITALS: BP 120/78
[2019-05-01] MEDS: D5 1/2NS w/KCl 20mEq 1,000 ML IV SCH (06:33)
--- NOTE | 2019-05-01 07:29 | NUR ---
HAND-OFF: Report given to Ramiro BAILEY. Patient in stable condition.
[2019-05-01 07:40] LABS: ANION GAP 8 mmol/L (5-15); BLOOD UREA NITROGEN 20 mg/dL (7-18); CALCIUM 8.6 MG/DL (8.5-10.1); CARBON DIOXIDE 29 MMOL/L (21-32); CHLORIDE 107 MMOL/L (98-107); CREATININE 0.9 MG/DL (0.55-1.30); POTASSIUM 3.6 MMOL/L (3.5-5.1); SODIUM 144 MMOL/L (136-145)
[2019-05-01 07:44] LABS: BASOPHILS % (AUTO) 1.1 % (0.0-2.0); HEMATOCRIT 36.7 % (42.0-52.0); HEMOGLOBIN 12.7 G/DL (14.2-18.0); LYMPHOCYTES % (AUTO) 19.1 % (20.0-45.0); MEAN CORPUSCULAR VOLUME 81 FL (80-99); MONOCYTES % (AUTO) 10.9 % (1.0-10.0); NEUTROPHILS % (AUTO) 66.9 % (45.0-75.0); PLATELET COUNT 524 K/UL (150-450); RED BLOOD COUNT 4.55 M/UL (4.70-6.10); WHITE BLOOD COUNT 10.8 K/UL (4.8-10.8)
--- NOTE | 2019-05-01 07:45 | NUR ---
NURSE NOTES: Pt lying in bed w/bed in lowest position and call light within reach. Pt A&Ox4, VSS, and in no apparent distress; pt c/o severe abdominal pain even after pain med given earlier by finance clerk RN. IV site intact/asymptomatic w/IVF infusing and skin intact. Pt has no other concerns or complaints at this time. Will continue to monitor.
[2019-05-01 08:00] VITALS: BP 125/76
[2019-05-01] MEDS: Heparin 5000 units/ml inj SUBQ SCH (09:00)
[2019-05-01] MEDS: Mesalamine 400mg cap ORAL SCH ×3 (09:26→18:35)
--- NOTE | 2019-05-01 10:41 | GI Progress Note ---
Assessment/Plan Problems: (1) History of Crohn's disease ICD Codes: Z87.19 - Personal history of other diseases of the digestive system SNOMED: [id number] (2) Colitis ICD Codes: K52.9 - Noninfective gastroenteritis and colitis, unspecified SNOMED: 88643366 Status: unchanged Status Narrative Discussed with Dr. Valentine. Assessment/Plan Crohn's flare, elevated ESR and white count CT scan of the abdomen revealed thickening of the wall of the colon at the hepatic flexure and thickening of the rectosigmoid consistent with Crohn's disease. white count normalizing cdiff to r/o infectious colitis >> negative follow up CMV >> negative s/p colonoscopy SUMMARY OF FINDINGS: The patient had partial colectomy, most probably right hemicolectomy with ileocolonic anastomosis without any active flare at this time. PLAN: dc planning advance to soft GI diet today Pain management PPI dc IV Solu-Medrol, start prednisone 40mg PO daily with 5mg weekly taper. patient to f/u with his GI doctor The patient was seen and examined at bedside and all new and available data was reviewed in the patients chart. I agree with the above findings, impression and plan. (Patient seen earlier today. Signature stamp does not reflect patient encounter time.). - Romeo Valentine MD Subjective Subjective abdominal pain still present, but improved no diarrhea Objective Last 24 Hour Vital Signs Date Time Temp Pulse Resp B/P (MAP) Pulse Ox O2 Delivery O2 Flow Rate FiO2 05/01/19 09:00 Room Air 05/01/19 08:00 98.0 104 18 125/76 (92) 97 05/01/19 04:00 98.0 91 18 120/78 (92) 98 05/01/19 00:00 98.0 84 18 133/78 (96) 98 04/30/19 21:00 Room Air 04/30/19 20:00 98.2 83 20 108/84 (92) 98 04/30/19 15:55 98.1 91 20 108/73 (85) 96 04/30/19 12:00 97.8 88 18 116/82 (93) 98 04/30/19 11:35 97.3 88 16 102/72 100 Room Air 04/30/19 11:25 88 16 111/73 100 Room Air 2/24/20 11:20 88 16 110/68 100 Room Air 04/30/19 11:18 88 16 100 04/30/19 11:16 97.3 88 16 112/75 100 Nasal Cannula 3 Intake and Output 04/30/19 05/01/19 19:00 07:00 Intake Total 1497.5 ml 925 ml Output Total 450 ml Balance 1497.5 ml 475 ml Intake Oral 500 ml 100 ml IV Total 997.5 ml 825 ml Output Urine Total 450 ml # Voids 2 1 Laboratory Tests Test 05/01/19 05:30 White Blood Count 10.8 K/UL (4.8-10.8) Red Blood Count 4.55 M/UL (4.70-6.10) L Hemoglobin 12.7 G/DL (14.2-18.0) L Hematocrit 36.7 % (42.0-52.0) L Mean Corpuscular Volume 81 FL (80-99) Mean Corpuscular Hemoglobin 28.0 PG (27.0-31.0) Mean Corpuscular Hemoglobin Concent 34.7 G/DL (32.0-36.0) Red Cell Distribution Width 14.0 % (11.6-14.8) Platelet Count 524 K/UL (150-450) H Mean Platelet Volume 6.1 FL (6.5-10.1) L Neutrophils (%) (Auto) 66.9 % (45.0-75.0) Lymphocytes (%) (Auto) 19.1 % (20.0-45.0) L Monocytes (%) (Auto) 10.9 % (1.0-10.0) H Eosinophils (%) (Auto) 2.0 % (0.0-3.0) Basophils (%) (Auto) 1.1 % (0.0-2.0) Sodium Level 144 MMOL/L (136-145) Potassium Level 3.6 MMOL/L (3.5-5.1) Chloride Level 107 MMOL/L (98-107) Carbon Dioxide Level 29 MMOL/L (21-32) Anion Gap 8 mmol/L (5-15) Blood Urea Nitrogen 20 mg/dL (7-18) H Creatinine 0.9 MG/DL (0.55-1.30) Estimat Glomerular Filtration Rate > 60 mL/min (>60) Glucose Level 74 MG/DL (74-106) Calcium Level 8.6 MG/DL (8.5-10.1) Height (Feet): 5 Height (Inches): 10.00 Weight (Pounds): 134 General Appearance: WD/WN, no apparent distress, alert Cardiovascular: normal rate Respiratory/Chest: normal breath sounds, no respiratory distress Abdominal Exam: normal bowel sounds, non tender, soft Extremities: normal range of motion, non-tender Catalino Flores MANAGER PRIMARY May 01, 2019 10:41
[2019-05-01 12:00] VITALS: BP 122/80
--- NOTE | 2019-05-01 12:01 | NUR ---
RD ASSESSMENT & RECOMMENDATIONS SEE CARE ACTIVITY FOR COMPLETE ASSESSMENT DAILY ESTIMATED NEEDS: Needs based on GI 60.9 25-35 kcals/kg 2110-6304 total kcals 1-1.5 g protein/kg 61-91 g total protein 25-30 mL/kg 0996-1645 total fluid mLs NUTRITION DIAGNOSIS: Altered GI fxn r/t Crohns as evidenced by pt adm w/ colitis flare up, adm w/ N/V, diet now advanced to soft. CURRENT DIET:regular/soft PO DIET RECOMMENDATIONS: SOFT diet ADDITIONAL RECOMMENDATIONS: 1) Obtain a standing scale wt 2) Ensure Enlive BID w/ meals 3) Monitor PO tolerance
--- NOTE | 2019-05-01 13:11 | Pulmonology Progress Note ---
Assessment/Plan Problems: (1) Intractable nausea and vomiting (2) Colitis (3) History of Crohn's disease Assessment/Plan had colonoscopy, results were negative down grade the diet since pt didn't tolerate regular diet improving dc iv fluids GI evaluation and f/u appreciated f/u inflammatory markers check electrolytes dvt prophylaxis Subjective ROS Limited/Unobtainable: No Interval Events: vomitted this morning Allergies: Coded Allergies: TRAMADOL (Unverified Allergy, Unknown, 04/24/19) seizure Objective Last 24 Hour Vital Signs Date Time Temp Pulse Resp B/P (MAP) Pulse Ox O2 Delivery O2 Flow Rate FiO2 05/01/19 12:00 98.7 96 18 122/80 (94) 95 05/01/19 09:00 Room Air 05/01/19 08:00 98.0 104 18 125/76 (92) 97 05/01/19 04:00 98.0 91 18 120/78 (92) 98 05/01/19 00:00 98.0 84 18 133/78 (96) 98 04/30/19 21:00 Room Air 04/30/19 20:00 98.2 83 20 108/84 (92) 98 04/30/19 15:55 98.1 91 20 108/73 (85) 96 Intake and Output 04/30/19 05/01/19 19:00 07:00 Intake Total 1497.5 ml 925 ml Output Total 450 ml Balance 1497.5 ml 475 ml Intake Oral 500 ml 100 ml IV Total 997.5 ml 825 ml Output Urine Total 450 ml # Voids 2 1 General Appearance: WD/WN HEENT: normocephalic, atraumatic Respiratory/Chest: chest wall non-tender, lungs clear Abdomen: normal bowel sounds, soft, non tender Genitourinary: normal external genitalia Laboratory Tests 05/01/19 05:30: White Blood Count 10.8, Red Blood Count 4.55L, Hemoglobin 12.7L, Hematocrit 36.7L, Mean Corpuscular Volume 81, Mean Corpuscular Hemoglobin 28.0, Mean Corpuscular Hemoglobin Concent 34.7, Red Cell Distribution Width 14.0, Platelet Count 524H, Mean Platelet Volume 6.1L, Neutrophils (%) (Auto) 66.9, Lymphocytes (%) (Auto) 19.1L, Monocytes (%) (Auto) 10.9H, Eosinophils (%) (Auto) 2.0, Basophils (%) (Auto) 1.1, Sodium Level 144, Potassium Level 3.6, Chloride Level 107, Carbon Dioxide Level 29, Anion Gap 8, Blood Urea Nitrogen 20H, Creatinine 0.9, Estimat Glomerular Filtration Rate > 60, Glucose Level 74, Calcium Level 8.6 Current Medications Medications (Trade) Dose Ordered Sig/Aguila Route PRN Reason Start Time Stop Time Status Last Admin Dose Admin Acetaminophen (Tylenol) 650 mg Q6H PRN ORAL Mild Pain/Temp > 100 04/24/19 04:00 05/24/19 03:59 Dextrose/ Electrolytes 1,000 ml @ 75 mls/hr [id number] IV 04/29/19 16:00 05/29/19 15:59 05/01/19 06:33 Heparin Sodium (Porcine) (Heparin 5000 units/ml) 5,000 units DAILY SUBQ 04/24/19 12:30 05/24/19 12:29 Hydromorphone HCl (Dilaudid) 2 mg Q3H PRN IVP For severe Pain 7-10 04/25/19 12:45 05/02/19 12:44 05/01/19 12:32 Mesalamine (Asacol) 800 mg THREE TIMES A DAY ORAL 04/28/19 09:00 05/28/19 08:59 05/01/19 12:33 Ondansetron HCl (Zofran) 4 mg Q6H PRN IVP Nausea & Vomiting 04/24/19 14:30 05/24/19 14:29 Temazepam (RestoriL) 7.5 mg HSPRN PRN ORAL Insomnia 04/24/19 14:30 05/01/19 14:29 Herrera Alcaraz MD May 01, 2019 13:11
[2019-05-01 16:00] VITALS: BP 117/80
--- NOTE | 2019-05-01 16:37 | Infectious Diseases Prog Note ---
Assessment/Plan Assessment/Plan Abx: Zosyn 04/24- Assessment: Crohn's flare -CT abd/p (OSH): thickening of the wall of the colon at the hepatic flexure and thickening of the rectosigmoid consistent with Crohn's disease. Afebrile Leukocytosis, SP (SP steroids) -Cdiff neg Crohn's disease (diagnosed as a teen) - s/p colon resection on Imuran -previously on Remicade but held for ~1yr due bacteremia -hx of perianal fistula -hx of bacteremia early 2018 Plan: cont to monitor pt off of AB Rx - 04/30 Sp Zosyn # 7 -f/u cx -Monitor CBC/CMP, temperatures -GI f/u advance to soft GI diet today Thank you for this consultation. Will continue to follow along with you. Discussed with RN Subjective Allergies: Coded Allergies: TRAMADOL (Unverified Allergy, Unknown, 04/24/19) seizure Subjective advanced diet today afebrile no acute event Objective Vital Signs Last 24 Hour Vital Signs Date Time Temp Pulse Resp B/P (MAP) Pulse Ox O2 Delivery O2 Flow Rate FiO2 05/01/19 16:00 98.5 99 20 117/80 (92) 97 05/01/19 12:00 98.7 96 18 122/80 (94) 95 05/01/19 09:00 Room Air 05/01/19 08:00 98.0 104 18 125/76 (92) 97 05/01/19 04:00 98.0 91 18 120/78 (92) 98 05/01/19 00:00 98.0 84 18 133/78 (96) 98 04/30/19 21:00 Room Air 04/30/19 20:00 98.2 83 20 108/84 (92) 98 Height (Feet): 5 Height (Inches): 10.00 Weight (Pounds): 134 Respiratory/Chest: no respiratory distress Cardiovascular: regular rhythm Abdomen: soft, non tender Laboratory Tests Test 05/01/19 05:30 White Blood Count 10.8 K/UL (4.8-10.8) Red Blood Count 4.55 M/UL (4.70-6.10) L Hemoglobin 12.7 G/DL (14.2-18.0) L Hematocrit 36.7 % (42.0-52.0) L Mean Corpuscular Volume 81 FL (80-99) Mean Corpuscular Hemoglobin 28.0 PG (27.0-31.0) Mean Corpuscular Hemoglobin Concent 34.7 G/DL (32.0-36.0) Red Cell Distribution Width 14.0 % (11.6-14.8) Platelet Count 524 K/UL (150-450) H Mean Platelet Volume 6.1 FL (6.5-10.1) L Neutrophils (%) (Auto) 66.9 % (45.0-75.0) Lymphocytes (%) (Auto) 19.1 % (20.0-45.0) L Monocytes (%) (Auto) 10.9 % (1.0-10.0) H Eosinophils (%) (Auto) 2.0 % (0.0-3.0) Basophils (%) (Auto) 1.1 % (0.0-2.0) Sodium Level 144 MMOL/L (136-145) Potassium Level 3.6 MMOL/L (3.5-5.1) Chloride Level 107 MMOL/L (98-107) Carbon Dioxide Level 29 MMOL/L (21-32) Anion Gap 8 mmol/L (5-15) Blood Urea Nitrogen 20 mg/dL (7-18) H Creatinine 0.9 MG/DL (0.55-1.30) Estimat Glomerular Filtration Rate > 60 mL/min (>60) Glucose Level 74 MG/DL (74-106) Calcium Level 8.6 MG/DL (8.5-10.1) Current Medications Medications (Trade) Dose Ordered Sig/Aguila Route PRN Reason Start Time Stop Time Status Last Admin Dose Admin Acetaminophen (Tylenol) 650 mg Q6H PRN ORAL Mild Pain/Temp > 100 04/24/19 04:00 05/24/19 03:59 Heparin Sodium (Porcine) (Heparin 5000 units/ml) 5,000 units DAILY SUBQ 04/24/19 12:30 05/24/19 12:29 Hydromorphone HCl (Dilaudid) 2 mg Q3H PRN IVP For severe Pain 7-10 04/25/19 12:45 05/02/19 12:44 05/01/19 15:37 Mesalamine (Asacol) 800 mg THREE TIMES A DAY ORAL 04/28/19 09:00 05/28/19 08:59 05/01/19 12:33 Ondansetron HCl (Zofran) 4 mg Q6H PRN IVP Nausea & Vomiting 04/24/19 14:30 05/24/19 14:29 Shemar Harding MD May 01, 2019 16:37
--- NOTE | 2019-05-01 17:57 | Internal Med Progress Note ---
Subjective Date of Service: May 01, 2019 Physician Name Atilio Hardin Attending Physician Genaro Ibarra MD Current Medications Medications (Trade) Dose Ordered Sig/Aguila Route PRN Reason Start Time Stop Time Status Last Admin Dose Admin Acetaminophen (Tylenol) 650 mg Q6H PRN ORAL Mild Pain/Temp > 100 04/24/19 04:00 05/24/19 03:59 Heparin Sodium (Porcine) (Heparin 5000 units/ml) 5,000 units DAILY SUBQ 04/24/19 12:30 05/24/19 12:29 Hydromorphone HCl (Dilaudid) 2 mg Q3H PRN IVP For severe Pain 7-10 04/25/19 12:45 05/02/19 12:44 05/01/19 15:37 Mesalamine (Asacol) 800 mg THREE TIMES A DAY ORAL 04/28/19 09:00 05/28/19 08:59 05/01/19 12:33 Ondansetron HCl (Zofran) 4 mg Q6H PRN IVP Nausea & Vomiting 04/24/19 14:30 05/24/19 14:29 Allergies: Coded Allergies: TRAMADOL (Unverified Allergy, Unknown, 04/24/19) seizure ROS Limited/Unobtainable: No Constitutional: Reports: no symptoms HEENT: Reports: no symptoms Cardiovascular: Reports: no symptoms Respiratory: Reports: no symptoms Gastrointestinal/Abdominal: Reports: abdominal pain Genitourinary: Reports: no symptoms Neurologic/Psychiatric: Reports: no symptoms Subjective 38 YO M admitted with abdominal pain. Now crohn's colitis flare. Cover for Int Med-DR Ibarra. S/P Colonoscopy 04/30/19. Objective Last Vital Signs Date Time Temp Pulse Resp B/P (MAP) Pulse Ox O2 Delivery O2 Flow Rate FiO2 05/01/19 16:00 98.5 99 20 117/80 (92) 97 05/01/19 09:00 Room Air 04/30/19 11:16 3 Laboratory Tests Test 05/01/19 05:30 White Blood Count 10.8 K/UL (4.8-10.8) Red Blood Count 4.55 M/UL (4.70-6.10) L Hemoglobin 12.7 G/DL (14.2-18.0) L Hematocrit 36.7 % (42.0-52.0) L Mean Corpuscular Volume 81 FL (80-99) Mean Corpuscular Hemoglobin 28.0 PG (27.0-31.0) Mean Corpuscular Hemoglobin Concent 34.7 G/DL (32.0-36.0) Red Cell Distribution Width 14.0 % (11.6-14.8) Platelet Count 524 K/UL (150-450) H Mean Platelet Volume 6.1 FL (6.5-10.1) L Neutrophils (%) (Auto) 66.9 % (45.0-75.0) Lymphocytes (%) (Auto) 19.1 % (20.0-45.0) L Monocytes (%) (Auto) 10.9 % (1.0-10.0) H Eosinophils (%) (Auto) 2.0 % (0.0-3.0) Basophils (%) (Auto) 1.1 % (0.0-2.0) Sodium Level 144 MMOL/L (136-145) Potassium Level 3.6 MMOL/L (3.5-5.1) Chloride Level 107 MMOL/L (98-107) Carbon Dioxide Level 29 MMOL/L (21-32) Anion Gap 8 mmol/L (5-15) Blood Urea Nitrogen 20 mg/dL (7-18) H Creatinine 0.9 MG/DL (0.55-1.30) Estimat Glomerular Filtration Rate > 60 mL/min (>60) Glucose Level 74 MG/DL (74-106) Calcium Level 8.6 MG/DL (8.5-10.1) Intake and Output 04/30/19 05/01/19 19:00 07:00 Intake Total 1497.5 ml 925 ml Output Total 450 ml Balance 1497.5 ml 475 ml Intake Oral 500 ml 100 ml IV Total 997.5 ml 825 ml Output Urine Total 450 ml # Voids 2 1 Objective PHYSICAL EXAMINATION: GENERAL: The patient is well-developed and well-nourished thin-appearing male, in no apparent distress. HEENT: Eyes, pupils are equal and responsive to light and accommodation. Extraocular movements are intact. NECK: Supple without lymphadenopathy. CHEST: Lungs are clear to auscultation bilaterally without wheezes or rales. CARDIOVASCULAR: Regular rhythm and rate. S1, S2 are normal without murmurs, rubs, or gallops. ABDOMEN: Soft and tender to palpation in all 4 quadrants. No rebound or guarding. EXTREMITIES: Negative for clubbing, cyanosis, or edema. RECTAL/GENITAL: Not performed. NEUROLOGIC: Cranial nerves II through XII are grossly intact without focal deficits. Motor strength is 5/5 bilaterally. Deep tendon reflexes are 2+ plantar. Assessment/Plan Assessment/Plan ASSESSMENT: This is a 38-year-old male. 1. Colitis/gastroenteritis 2. Nausea with vomiting. 3. Right lower quadrant abdominal pain. 4. Crohn's disease flare. TREATMENT: 1. Nausea/vomiting/Crohn's disease. A Gastroenterology consultation has been obtained with Dr. Romeo Valentine. ABX= Zosyn. S/P Colonoscopy on 04/30/19=normal. Continue intravenous Solu-Medrol. 2. History of Crohn's disease. Continue Imuran as above. 3. Abdominal pain. The patient is currently receiving Dilaudid intravenously. 4. Clear liquid diet 5. ID=Dr Wylie 6. Discharge planning possible 05/02/19 Atilio Hardin MD May 01, 2019 17:57
[2019-05-01] MEDS ORDERED: Mesalamine ORAL (18:13)
--- NOTE | 2019-05-01 19:31 | NUR ---
HAND-OFF: Report given to LYNN Simental.
--- NOTE | 2019-05-01 19:48 | NUR ---
NURSES NOTE: Pt in bed, A/OX4, no outward s/s of distress noted. Breathing pattern is even and unlabored on RA. Denies pain at this moment, however would like Dilaudid ATC for abdominal pain management. WESLEY IV line, 22 gauge, is intact, no S/S of infection. Fluids now D/C. All due meds will be given. Bed at lowest level, call light within reach. Pt will continue to be monitored.
[2019-05-01 20:00] VITALS: BP 109/76
[2019-05-02] VITALS: BP 114/68
[2019-05-02 04:00] VITALS: BP 125/72
--- NOTE | 2019-05-02 07:10 | NUR ---
HAND OFF: Report given to LYNN Caldwell. Patient stable.
--- NOTE | 2019-05-02 07:58 | NUR ---
NURSE NOTES: AWAKE/ALERT. PAIN SCALE 7/10. IN NO ACUTE DISTRESS.
[2019-05-02 08:00] VITALS: BP 108/74
--- NOTE | 2019-05-02 08:28 | Consultation ---
History of Present Illness General Date patient seen: May 02, 2019 Time patient seen: 07:30 - am Chief Complaint: Abdominal pian Referring physician: Lissa Reason for Consultation: Pain Management Present Illness HPI Patient is a 38 y/o male who has been admitted under the care of Dr. Ibarra due to abdominal pain with h/o Crohn's Disease. He has had chronic abdominal pain for the 3 years which has been constant and describes his pain as a severe 9/10 sharp pain increased with eating and reduced with medication. As an out patient had been seeing a pain management physician in [place] where he has been prescribed Oxycontin and Oxycodone. Now is on Dilaudid 2mg Iv Q4H PRN severe pain and it has been adequately reducing his pain. He is unable to change to oral medication due to nausea at this time. We were consulted so patient has adequate pain control while here in the hospital. Allergies: Coded Allergies: TRAMADOL (Unverified Allergy, Unknown, 04/24/19) seizure Medication History Scheduled Duloxetine Hcl* (Cymbalta*), 60 MG ORAL DAILY, (Reported) [Immuran], 150 MG PO DAILY, (Reported) [Mesalamine], 800 MG ORAL THREE TIMES A DAY Miscellaneous Medications [remicade infusion], (Reported) Discontinued Medications Oxycodone Hcl Er* (Oxycontin*), 20 MG ORAL EVERY 8 HOURS, (Reported) Discontinued Reason: Medication dose changed Oxycodone Hcl Ir* (Roxicodone Ir*), 10 MG ORAL FOUR TIMES A DAY, (Reported) Discontinued Reason: Medication dose changed Patient History Healthcare decision maker Resuscitation status Full Code Advanced Directive on File No Past Medical/Surgical History Past Medical/Surgical History: (1) History of Crohn's disease Review of Systems Constitutional: Reports: no symptoms Eye: Reports: no symptoms ENT: Reports: no symptoms Respiratory: Reports: no symptoms Cardiovascular: Reports: no symptoms Gastrointestinal: Reports: abdominal pain, nausea Genitourinary: Reports: no symptoms Musculoskeletal: Reports: no symptoms Skin: Reports: no symptoms Psychiatric: Reports: no symptoms Neurological: Reports: no symptoms Endocrine: Reports: no symptoms Hematologic/Lymphatic: Reports: no symptoms Physical Exam General Appearance: no apparent distress, alert HEENT: PERRL Neck: non-tender, normal alignment Respiratory/Chest: lungs clear, normal breath sounds Cardiovascular/Chest: normal rate, regular rhythm Abdomen: tender Neurologic: alert, oriented x 3 Last 24 Hour Vital Signs Date Time Temp Pulse Resp B/P (MAP) Pulse Ox O2 Delivery O2 Flow Rate FiO2 05/02/19 07:45 98.1 05/02/19 04:00 98.1 75 16 125/72 (89) 75 05/02/19 00:00 97.8 82 18 114/68 (83) 98 05/01/19 21:00 Room Air 05/01/19 20:00 98.1 86 20 109/76 (87) 98 05/01/19 16:00 98.5 99 20 117/80 (92) 97 05/01/19 12:00 98.7 96 18 122/80 (94) 95 05/01/19 09:00 Room Air Intake and Output 05/01/19 05/02/19 19:00 07:00 Intake Total 1485 ml 480 ml Output Total 800 ml Balance 685 ml 480 ml Intake Oral 960 ml 480 ml IV Total 525 ml Output Urine Total 800 ml # Voids 2 3 # Bowel Movements 1 Height (Feet): 5 Height (Inches): 10.00 Weight (Pounds): 134 Medications Current Medications Medications (Trade) Dose Ordered Sig/Aguila Route PRN Reason Start Time Stop Time Status Last Admin Dose Admin Acetaminophen (Tylenol) 650 mg Q6H PRN ORAL Mild Pain/Temp > 100 04/24/19 04:00 05/24/19 03:59 Heparin Sodium (Porcine) (Heparin 5000 units/ml) 5,000 units DAILY SUBQ 04/24/19 12:30 05/24/19 12:29 Hydromorphone HCl (Dilaudid) 2 mg Q3H PRN IVP For severe Pain 7-10 05/02/19 01:00 05/09/19 00:59 05/02/19 07:15 Mesalamine (Asacol) 800 mg THREE TIMES A DAY ORAL 04/28/19 09:00 05/28/19 08:59 05/01/19 18:35 Ondansetron HCl (Zofran) 4 mg Q6H PRN IVP Nausea & Vomiting 04/24/19 14:30 05/24/19 14:29 Assessment/Plan Assessment/Plan: (1) Abdominal pain (2) Crohn's Disease (3) Neuropathic pain Patient will be continued on the Dilaudid D/w Dr. Daily and he concurred. Thank you for consult. Gagandeep Saleem May 02, 2019 08:28
[2019-05-02] MEDS: Mesalamine 400mg cap ORAL SCH ×3 (08:55→17:34)
[2019-05-02] MEDS: Heparin 5000 units/ml inj SUBQ SCH (08:56)
[2019-05-02 08:59] LABS: ANION GAP 14 mmol/L (5-15); BLOOD UREA NITROGEN 14 mg/dL (7-18); CALCIUM 9.2 MG/DL (8.5-10.1); CARBON DIOXIDE 27 MMOL/L (21-32); CHLORIDE 103 MMOL/L (98-107); CREATININE 0.9 MG/DL (0.55-1.30); POTASSIUM 3.9 MMOL/L (3.5-5.1); SODIUM 144 MMOL/L (136-145)
[2019-05-02 09:14] LABS: BASOPHILS % (AUTO) 1.8 % (0.0-2.0); EOSINOPHILS % (AUTO) 3.2 % (0.0-3.0); HEMATOCRIT 43.6 % (42.0-52.0); HEMOGLOBIN 14.7 G/DL (14.2-18.0); LYMPHOCYTES % (AUTO) 19.2 % (20.0-45.0); MEAN CORPUSCULAR VOLUME 82 FL (80-99); MONOCYTES % (AUTO) 7.8 % (1.0-10.0); NEUTROPHILS % (AUTO) 67.9 % (45.0-75.0); PLATELET COUNT 602 K/UL (150-450); RED BLOOD COUNT 5.32 M/UL (4.70-6.10); RED CELL DISTRIBUTION WIDTH 13.6 % (11.6-14.8); WHITE BLOOD COUNT 11.9 K/UL (4.8-10.8)
--- NOTE | 2019-05-02 10:07 | GI Progress Note ---
Assessment/Plan Problems: (1) History of Crohn's disease ICD Codes: Z87.19 - Personal history of other diseases of the digestive system SNOMED: [id number] (2) Colitis ICD Codes: K52.9 - Noninfective gastroenteritis and colitis, unspecified SNOMED: 85890213 Status: stable Status Narrative Discussed with Dr. Valentine. Assessment/Plan Crohn's flare, elevated ESR and white count CT scan of the abdomen revealed thickening of the wall of the colon at the hepatic flexure and thickening of the rectosigmoid consistent with Crohn's disease. white count normalizing cdiff to r/o infectious colitis >> negative follow up CMV >> negative s/p colonoscopy SUMMARY OF FINDINGS: The patient had partial colectomy, most probably right hemicolectomy with ileocolonic anastomosis without any active flare at this time. PLAN: dc planning advance to soft GI diet today Pain management PPI dc IV Solu-Medrol, start prednisone 40mg PO daily with 5mg weekly taper. patient to f/u with his GI doctor The patient was seen and examined at bedside and all new and available data was reviewed in the patients chart. I agree with the above findings, impression and plan. (Patient seen earlier today. Signature stamp does not reflect patient encounter time.). - Romeo Valentine MD Subjective Subjective abdominal pain still present, but improved no diarrhea Objective Last 24 Hour Vital Signs Date Time Temp Pulse Resp B/P (MAP) Pulse Ox O2 Delivery O2 Flow Rate FiO2 05/02/19 09:42 Room Air 05/02/19 08:00 98.7 87 20 108/74 (85) 98 05/02/19 07:45 98.1 05/02/19 04:00 98.1 75 16 125/72 (89) 75 05/02/19 00:00 97.8 82 18 114/68 (83) 98 05/01/19 21:00 Room Air 05/01/19 20:00 98.1 86 20 109/76 (87) 98 05/01/19 16:00 98.5 99 20 117/80 (92) 97 05/01/19 12:00 98.7 96 18 122/80 (94) 95 Intake and Output 05/01/19 05/02/19 19:00 07:00 Intake Total 1485 ml 480 ml Output Total 800 ml Balance 685 ml 480 ml Intake Oral 960 ml 480 ml IV Total 525 ml Output Urine Total 800 ml # Voids 2 3 # Bowel Movements 1 Laboratory Tests Test 05/02/19 08:00 White Blood Count 11.9 K/UL (4.8-10.8) H Red Blood Count 5.32 M/UL (4.70-6.10) Hemoglobin 14.7 G/DL (14.2-18.0) Hematocrit 43.6 % (42.0-52.0) Mean Corpuscular Volume 82 FL (80-99) Mean Corpuscular Hemoglobin 27.7 PG (27.0-31.0) Mean Corpuscular Hemoglobin Concent 33.8 G/DL (32.0-36.0) Red Cell Distribution Width 13.6 % (11.6-14.8) Platelet Count 602 K/UL (150-450) H Mean Platelet Volume 6.4 FL (6.5-10.1) L Neutrophils (%) (Auto) 67.9 % (45.0-75.0) Lymphocytes (%) (Auto) 19.2 % (20.0-45.0) L Monocytes (%) (Auto) 7.8 % (1.0-10.0) Eosinophils (%) (Auto) 3.2 % (0.0-3.0) H Basophils (%) (Auto) 1.8 % (0.0-2.0) Sodium Level 144 MMOL/L (136-145) Potassium Level 3.9 MMOL/L (3.5-5.1) Chloride Level 103 MMOL/L (98-107) Carbon Dioxide Level 27 MMOL/L (21-32) Anion Gap 14 mmol/L (5-15) Blood Urea Nitrogen 14 mg/dL (7-18) Creatinine 0.9 MG/DL (0.55-1.30) Estimat Glomerular Filtration Rate > 60 mL/min (>60) Glucose Level 108 MG/DL (74-106) H Calcium Level 9.2 MG/DL (8.5-10.1) Height (Feet): 5 Height (Inches): 10.00 Weight (Pounds): 134 General Appearance: WD/WN, no apparent distress, alert Cardiovascular: normal rate Respiratory/Chest: normal breath sounds, no respiratory distress Abdominal Exam: normal bowel sounds, non tender, soft Extremities: normal range of motion, non-tender Catalino Flores NP May 02, 2019 10:07
--- NOTE | 2019-05-02 10:55 | Infectious Diseases Prog Note ---
Assessment/Plan Assessment/Plan Assessment: Crohn's flare -CT abd/p (OSH): thickening of the wall of the colon at the hepatic flexure and thickening of the rectosigmoid consistent with Crohn's disease. Afebrile Leukocytosis, mild ( 2/2 steroids) -Cdiff neg Crohn's disease (diagnosed as a teen) - s/p colon resection on Imuran -previously on Remicade but held for ~1yr due bacteremia -hx of perianal fistula -hx of bacteremia early 2018 Plan: cont to monitor pt off of AB Rx - 04/30 Sp Deysisyn # 7 -Monitor CBC/CMP, temperatures -GI f/u Thank you for this consultation. Will continue to follow along with you. Subjective Allergies: Coded Allergies: TRAMADOL (Unverified Allergy, Unknown, 04/24/19) seizure Subjective afebrile no new complain t Objective Vital Signs Last 24 Hour Vital Signs Date Time Temp Pulse Resp B/P (MAP) Pulse Ox O2 Delivery O2 Flow Rate FiO2 05/02/19 09:42 Room Air 05/02/19 08:00 98.7 87 20 108/74 (85) 98 05/02/19 07:45 98.1 05/02/19 04:00 98.1 75 16 125/72 (89) 75 05/02/19 00:00 97.8 82 18 114/68 (83) 98 05/01/19 21:00 Room Air 05/01/19 20:00 98.1 86 20 109/76 (87) 98 05/01/19 16:00 98.5 99 20 117/80 (92) 97 05/01/19 12:00 98.7 96 18 122/80 (94) 95 Height (Feet): 5 Height (Inches): 10.00 Weight (Pounds): 134 Respiratory/Chest: lungs clear Cardiovascular: normal rate Abdomen: no organomegaly, non distended, no mass Skin: no rash Laboratory Tests Test 05/02/19 08:00 White Blood Count 11.9 K/UL (4.8-10.8) H Red Blood Count 5.32 M/UL (4.70-6.10) Hemoglobin 14.7 G/DL (14.2-18.0) Hematocrit 43.6 % (42.0-52.0) Mean Corpuscular Volume 82 FL (80-99) Mean Corpuscular Hemoglobin 27.7 PG (27.0-31.0) Mean Corpuscular Hemoglobin Concent 33.8 G/DL (32.0-36.0) Red Cell Distribution Width 13.6 % (11.6-14.8) Platelet Count 602 K/UL (150-450) H Mean Platelet Volume 6.4 FL (6.5-10.1) L Neutrophils (%) (Auto) 67.9 % (45.0-75.0) Lymphocytes (%) (Auto) 19.2 % (20.0-45.0) L Monocytes (%) (Auto) 7.8 % (1.0-10.0) Eosinophils (%) (Auto) 3.2 % (0.0-3.0) H Basophils (%) (Auto) 1.8 % (0.0-2.0) Sodium Level 144 MMOL/L (136-145) Potassium Level 3.9 MMOL/L (3.5-5.1) Chloride Level 103 MMOL/L (98-107) Carbon Dioxide Level 27 MMOL/L (21-32) Anion Gap 14 mmol/L (5-15) Blood Urea Nitrogen 14 mg/dL (7-18) Creatinine 0.9 MG/DL (0.55-1.30) Estimat Glomerular Filtration Rate > 60 mL/min (>60) Glucose Level 108 MG/DL (74-106) H Calcium Level 9.2 MG/DL (8.5-10.1) Current Medications Medications (Trade) Dose Ordered Sig/Aguila Route PRN Reason Start Time Stop Time Status Last Admin Dose Admin Acetaminophen (Tylenol) 650 mg Q6H PRN ORAL Mild Pain/Temp > 100 04/24/19 04:00 05/24/19 03:59 Heparin Sodium (Porcine) (Heparin 5000 units/ml) 5,000 units DAILY SUBQ 04/24/19 12:30 05/24/19 12:29 Hydromorphone HCl (Dilaudid) 2 mg Q3H PRN IVP For severe Pain 7-10 05/02/19 01:00 05/09/19 00:59 05/02/19 10:08 Mesalamine (Asacol) 800 mg THREE TIMES A DAY ORAL 04/28/19 09:00 05/28/19 08:59 05/02/19 08:55 Ondansetron HCl (Zofran) 4 mg Q6H PRN IVP Nausea & Vomiting 04/24/19 14:30 05/24/19 14:29 Shemar Harding MD May 02, 2019 10:55
--- NOTE | 2019-05-02 11:20 | NUR ---
NURSE NOTES: DR MCCORMICK CALLED RE PT WANTS TO GO HOME TOMORROW. STATES STILL HAVING PAINS AND NOT TOLERATING DIET. PT STILL REQUESTING FOR HIS PAIN MEDICINES ON REGULAR BASIS. DR MCCORMICK CALLED. STATES WILL COME TO SEE PT.
[2019-05-02 12:00] VITALS: BP 110/77
--- NOTE | 2019-05-02 13:05 | Pulmonology Progress Note ---
Assessment/Plan Problems: (1) Intractable nausea and vomiting (2) Colitis (3) History of Crohn's disease Assessment/Plan still c/o nausea. improving dc iv fluids GI evaluation and f/u appreciated f/u inflammatory markers check electrolytes dvt prophylaxis Subjective ROS Limited/Unobtainable: No Constitutional: Reports: no symptoms HEENT: Repors: no symptoms Respiratory: Reports: no symptoms Allergies: Coded Allergies: TRAMADOL (Unverified Allergy, Unknown, 04/24/19) seizure Objective Last 24 Hour Vital Signs Date Time Temp Pulse Resp B/P (MAP) Pulse Ox O2 Delivery O2 Flow Rate FiO2 05/02/19 12:00 98.0 89 18 110/77 (88) 96 05/02/19 10:38 98.7 05/02/19 09:42 Room Air 05/02/19 08:00 98.7 87 20 108/74 (85) 98 05/02/19 04:00 98.1 75 16 125/72 (89) 75 05/02/19 00:00 97.8 82 18 114/68 (83) 98 05/01/19 21:00 Room Air 05/01/19 20:00 98.1 86 20 109/76 (87) 98 05/01/19 16:00 98.5 99 20 117/80 (92) 97 Intake and Output 05/01/19 05/02/19 19:00 07:00 Intake Total 1485 ml 480 ml Output Total 800 ml Balance 685 ml 480 ml Intake Oral 960 ml 480 ml IV Total 525 ml Output Urine Total 800 ml # Voids 2 3 # Bowel Movements 1 HEENT: normocephalic, anicteric Respiratory/Chest: chest wall non-tender, lungs clear Cardiovascular: normal peripheral pulses, normal rate Abdomen: normal bowel sounds, soft, non tender Genitourinary: normal external genitalia Extremities: no cyanosis 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 Laboratory Tests 05/02/19 08:00: White Blood Count 11.9H, Red Blood Count 5.32, Hemoglobin 14.7, Hematocrit 43.6 , Mean Corpuscular Volume 82, Mean Corpuscular Hemoglobin 27.7, Mean Corpuscular Hemoglobin Concent 33.8, Red Cell Distribution Width 13.6, Platelet Count 602H, Mean Platelet Volume 6.4L, Neutrophils (%) (Auto) 67.9, Lymphocytes (%) (Auto) 19.2L, Monocytes (%) (Auto) 7.8, Eosinophils (%) (Auto) 3.2H, Basophils (%) (Auto) 1.8, Sodium Level 144, Potassium Level 3.9, Chloride Level 103, Carbon Dioxide Level 27, Anion Gap 14, Blood Urea Nitrogen 14, Creatinine 0.9, Estimat Glomerular Filtration Rate > 60, Glucose Level 108H, Calcium Level 9.2 Current Medications Medications (Trade) Dose Ordered Sig/Aguila Route PRN Reason Start Time Stop Time Status Last Admin Dose Admin Acetaminophen (Tylenol) 650 mg Q6H PRN ORAL Mild Pain/Temp > 100 04/24/19 04:00 05/24/19 03:59 Heparin Sodium (Porcine) (Heparin 5000 units/ml) 5,000 units DAILY SUBQ 04/24/19 12:30 05/24/19 12:29 Hydromorphone HCl (Dilaudid) 2 mg Q4H PRN IVP Severe Pain (Pain Scale 7-10) 05/02/19 14:00 05/09/19 13:59 Mesalamine (Asacol) 800 mg THREE TIMES A DAY ORAL 04/28/19 09:00 05/28/19 08:59 05/02/19 12:46 Ondansetron HCl (Zofran) 4 mg Q6H PRN IVP Nausea & Vomiting 04/24/19 14:30 05/24/19 14:29 Herrera Alcaraz MD May 02, 2019 13:05
--- NOTE | 2019-05-02 13:09 | Internal Med Progress Note ---
Subjective Date of Service: May 02, 2019 Physician Name Atilio Hardin Attending Physician Genaro Ibarra MD Current Medications Medications (Trade) Dose Ordered Sig/Aguila Route PRN Reason Start Time Stop Time Status Last Admin Dose Admin Acetaminophen (Tylenol) 650 mg Q6H PRN ORAL Mild Pain/Temp > 100 04/24/19 04:00 05/24/19 03:59 Heparin Sodium (Porcine) (Heparin 5000 units/ml) 5,000 units DAILY SUBQ 04/24/19 12:30 05/24/19 12:29 Hydromorphone HCl (Dilaudid) 2 mg Q4H PRN IVP Severe Pain (Pain Scale 7-10) 05/02/19 14:00 05/09/19 13:59 Mesalamine (Asacol) 800 mg THREE TIMES A DAY ORAL 04/28/19 09:00 05/28/19 08:59 05/02/19 12:46 Ondansetron HCl (Zofran) 4 mg Q6H PRN IVP Nausea & Vomiting 04/24/19 14:30 05/24/19 14:29 Allergies: Coded Allergies: TRAMADOL (Unverified Allergy, Unknown, 04/24/19) seizure ROS Limited/Unobtainable: No Constitutional: Reports: no symptoms HEENT: Reports: no symptoms Cardiovascular: Reports: no symptoms Respiratory: Reports: no symptoms Gastrointestinal/Abdominal: Reports: abdominal pain Genitourinary: Reports: no symptoms Neurologic/Psychiatric: Reports: no symptoms Subjective 38 YO M admitted with abdominal pain. Now crohn's colitis flare. Cover for Int Med-DR Ibarra. S/P Colonoscopy 04/30/19. Refusing discharge today; wants to leave tomorrow Objective Last Vital Signs Date Time Temp Pulse Resp B/P (MAP) Pulse Ox O2 Delivery O2 Flow Rate FiO2 05/02/19 12:00 98.0 89 18 110/77 (88) 96 05/02/19 09:42 Room Air 04/30/19 11:16 3 Laboratory Tests Test 05/02/19 08:00 White Blood Count 11.9 K/UL (4.8-10.8) H Red Blood Count 5.32 M/UL (4.70-6.10) Hemoglobin 14.7 G/DL (14.2-18.0) Hematocrit 43.6 % (42.0-52.0) Mean Corpuscular Volume 82 FL (80-99) Mean Corpuscular Hemoglobin 27.7 PG (27.0-31.0) Mean Corpuscular Hemoglobin Concent 33.8 G/DL (32.0-36.0) Red Cell Distribution Width 13.6 % (11.6-14.8) Platelet Count 602 K/UL (150-450) H Mean Platelet Volume 6.4 FL (6.5-10.1) L Neutrophils (%) (Auto) 67.9 % (45.0-75.0) Lymphocytes (%) (Auto) 19.2 % (20.0-45.0) L Monocytes (%) (Auto) 7.8 % (1.0-10.0) Eosinophils (%) (Auto) 3.2 % (0.0-3.0) H Basophils (%) (Auto) 1.8 % (0.0-2.0) Sodium Level 144 MMOL/L (136-145) Potassium Level 3.9 MMOL/L (3.5-5.1) Chloride Level 103 MMOL/L (98-107) Carbon Dioxide Level 27 MMOL/L (21-32) Anion Gap 14 mmol/L (5-15) Blood Urea Nitrogen 14 mg/dL (7-18) Creatinine 0.9 MG/DL (0.55-1.30) Estimat Glomerular Filtration Rate > 60 mL/min (>60) Glucose Level 108 MG/DL (74-106) H Calcium Level 9.2 MG/DL (8.5-10.1) Intake and Output 05/01/19 05/02/19 19:00 07:00 Intake Total 1485 ml 480 ml Output Total 800 ml Balance 685 ml 480 ml Intake Oral 960 ml 480 ml IV Total 525 ml Output Urine Total 800 ml # Voids 2 3 # Bowel Movements 1 Objective PHYSICAL EXAMINATION: GENERAL: The patient is well-developed and well-nourished thin-appearing male, in no apparent distress. HEENT: Eyes, pupils are equal and responsive to light and accommodation. Extraocular movements are intact. NECK: Supple without lymphadenopathy. CHEST: Lungs are clear to auscultation bilaterally without wheezes or rales. CARDIOVASCULAR: Regular rhythm and rate. S1, S2 are normal without murmurs, rubs, or gallops. ABDOMEN: Soft and tender to palpation in all 4 quadrants. No rebound or guarding. EXTREMITIES: Negative for clubbing, cyanosis, or edema. RECTAL/GENITAL: Not performed. NEUROLOGIC: Cranial nerves II through XII are grossly intact without focal deficits. Motor strength is 5/5 bilaterally. Deep tendon reflexes are 2+ plantar. Assessment/Plan Assessment/Plan ASSESSMENT: This is a 38-year-old male. 1. Colitis/gastroenteritis 2. Nausea with vomiting. 3. Right lower quadrant abdominal pain. 4. Crohn's disease flare. TREATMENT: 1. Nausea/vomiting/Crohn's disease. A Gastroenterology consultation has been obtained with Dr. Romeo Valentine. ABX= Zosyn. S/P Colonoscopy on 04/30/19=normal. Continue intravenous Solu-Medrol. 2. History of Crohn's disease. Continue Imuran as above. 3. Abdominal pain. The patient is currently receiving Dilaudid intravenously. 4. Clear liquid diet 5. ID=Dr Wylie 6. Discharge home 05/03/19; med reconciliation completed; discharge prescriptions in chart Atilio Hardin MD May 02, 2019 13:09
[2019-05-02 16:00] VITALS: BP 128/80
--- NOTE | 2019-05-02 16:50 | NUR ---
CASE MANAGEMENT: REVIEW 05/02/19 SI: COLITIS 97.9 114 20 128/80 98% ROOM AIR WBC 11.9 PLT 602 BG 108 IS:IV DILAUDID Q3HR/PRN ASACOL PO TID \: 3E MED/SURG UNIT DCP: PATIENT IS FROM HOME PLAN: CONTROL NAUSEA C-DIFF (-) POSS DC IN AM
--- NOTE | 2019-05-02 18:55 | NUR ---
NURSE NOTES: resting. in no acute distress.
--- NOTE | 2019-05-02 19:18 | NUR ---
HAND-OFF: Report given to Cary DUBON RN.
[2019-05-02 20:00] VITALS: BP 128/81
--- NOTE | 2019-05-02 20:11 | NUR ---
NURSES NOTE: Pt A/OX4, requests pain medications ATC for abdominal pain. No acute distress noted. Breathing is even and unlabored on RA. Possible D/C tmrw. Iv patent, WESLEY, flushing without incident. All due meds will be given. Call light within reach. Bed at lowest level. Dr. Hardin to see patient tonight.
[2019-05-03 04:00] VITALS: BP 113/77
[2019-05-03 08:00] VITALS: BP 115/73
--- NOTE | 2019-05-03 08:05 | NUR ---
NURSE NOTES: Report received from Chandrika BAILEY, rounds made. Patient resting in high fowlers position in bed. AOX4, calm, no distress on RA. Pain 8/10 (right upper abdominal), will medicate as ordered. No SOB, NV. RAC heplock intact, site asymptomatic. Call light in reach, bed in lowest position, will continue to monitor.
--- NOTE | 2019-05-03 08:17 | NUR ---
HAND OFF: Report given to LYNN Albarran. Made aware of possible d/c today and to call Dr. Hardin for clarification and order.
[2019-05-03] MEDS: Heparin 5000 units/ml inj SUBQ SCH (09:00)
--- NOTE | 2019-05-03 09:19 | General Progress Note ---
Assessment/Plan Assessment/Plan: (1) Abdominal pain (2) Crohn's Disease (3) Neuropathic pain Patient will be continued on the Dilaudid D/w Dr. Daily and he concurred. Subjective Date patient seen: May 03, 2019 Time patient seen: 08:00 - am Allergies: Coded Allergies: TRAMADOL (Unverified Allergy, Unknown, 04/24/19) seizure Subjective Constitutional: Reports: no symptoms Eye: Reports: no symptoms ENT: Reports: no symptoms Respiratory: Reports: no symptoms Cardiovascular: Reports: no symptoms Gastrointestinal: Reports: abdominal pain, nausea Genitourinary: Reports: no symptoms Musculoskeletal: Reports: no symptoms Skin: Reports: no symptoms Psychiatric: Reports: no symptoms Neurological: Reports: no symptoms Endocrine: Reports: no symptoms Hematologic/Lymphatic: Reports: no symptoms Subjective Patient is in bed and continues to c/o severe pain which is worse with eating, has been tolerating the pain on the Dilaudid using 5 doses in the last 24hrs. He has no new complaints at this time and was advised to get out of bed and ambulate. Objective Last 24 Hour Vital Signs Date Time Temp Pulse Resp B/P (MAP) Pulse Ox O2 Delivery O2 Flow Rate FiO2 05/03/19 04:00 97.6 105 18 113/77 (89) 99 05/02/19 21:00 Room Air 05/02/19 20:00 97.9 110 19 128/81 (97) 97 05/02/19 18:43 97.9 05/02/19 16:00 97.9 114 20 128/80 (96) 98 05/02/19 12:00 98.0 89 18 110/77 (88) 96 05/02/19 10:38 98.7 05/02/19 09:42 Room Air Intake and Output 05/02/19 05/03/19 19:00 07:00 Intake Total 712 ml 1200 ml Balance 712 ml 1200 ml Intake Oral 712 ml 1200 ml # Voids 1 4 # Bowel Movements 1 1 Height (Feet): 5 Height (Inches): 10.00 Weight (Pounds): 134 Objective General Appearance: no apparent distress, alert HEENT: PERRL Neck: non-tender, normal alignment Respiratory/Chest: lungs clear, normal breath sounds Cardiovascular/Chest: normal rate, regular rhythm Abdomen: tender Neurologic: alert, oriented x 3 Zedner,Gagandeep N. PA May 03, 2019 09:18
[2019-05-03 10:16] LABS: BASOPHILS % (AUTO) 2.4 % (0.0-2.0); EOSINOPHILS % (AUTO) 3.5 % (0.0-3.0); HEMOGLOBIN 14.8 G/DL (14.2-18.0); LYMPHOCYTES % (AUTO) 14.8 % (20.0-45.0); MEAN CORPUSCULAR VOLUME 83 FL (80-99); MONOCYTES % (AUTO) 7.7 % (1.0-10.0); NEUTROPHILS % (AUTO) 71.7 % (45.0-75.0); PLATELET COUNT 609 K/UL (150-450); RED BLOOD COUNT 5.42 M/UL (4.70-6.10); WHITE BLOOD COUNT 11.6 K/UL (4.8-10.8)
[2019-05-03 10:19] LABS: ANION GAP 12 mmol/L (5-15); BLOOD UREA NITROGEN 21 mg/dL (7-18); CALCIUM 9.7 MG/DL (8.5-10.1); CARBON DIOXIDE 27 MMOL/L (21-32); CHLORIDE 103 MMOL/L (98-107); CREATININE 0.8 MG/DL (0.55-1.30); SODIUM 142 MMOL/L (136-145)
[2019-05-03] MEDS: Mesalamine 400mg cap ORAL SCH ×3 (10:21→18:54)
[2019-05-03 12:00] VITALS: BP 107/76
--- NOTE | 2019-05-03 14:48 | Pulmonology Progress Note ---
Assessment/Plan Problems: (1) Intractable nausea and vomiting (2) Colitis (3) History of Crohn's disease Assessment/Plan improving slowly dc iv fluids GI evaluation and f/u appreciated f/u inflammatory markers, they are all negative check electrolytes dvt prophylaxis Subjective ROS Limited/Unobtainable: No Constitutional: Reports: no symptoms HEENT: Repors: no symptoms Allergies: Coded Allergies: TRAMADOL (Unverified Allergy, Unknown, 04/24/19) seizure Objective Last 24 Hour Vital Signs Date Time Temp Pulse Resp B/P (MAP) Pulse Ox O2 Delivery O2 Flow Rate FiO2 05/03/19 12:00 98.1 82 20 107/76 (86) 98 05/03/19 09:00 Room Air 05/03/19 08:00 98.0 99 22 115/73 (87) 98 05/03/19 04:00 97.6 105 18 113/77 (89) 99 05/02/19 21:00 Room Air 05/02/19 20:00 97.9 110 19 128/81 (97) 97 05/02/19 18:43 97.9 05/02/19 16:00 97.9 114 20 128/80 (96) 98 Intake and Output 05/02/19 05/03/19 19:00 07:00 Intake Total 712 ml 1200 ml Balance 712 ml 1200 ml Intake Oral 712 ml 1200 ml # Voids 1 4 # Bowel Movements 1 1 General Appearance: WD/WN HEENT: normocephalic, atraumatic Respiratory/Chest: chest wall non-tender, lungs clear Cardiovascular: normal peripheral pulses, normal rate Genitourinary: normal external genitalia Extremities: no clubbing Neurologic/Psychiatric: oil mixer II-XII grossly normal Laboratory Tests 05/03/19 09:50: White Blood Count 11.6H, Red Blood Count 5.42, Hemoglobin 14.8, Hematocrit 45.0 , Mean Corpuscular Volume 83, Mean Corpuscular Hemoglobin 27.3, Mean Corpuscular Hemoglobin Concent 33.0, Red Cell Distribution Width 15.0H, Platelet Count 609H, Mean Platelet Volume 6.8, Neutrophils (%) (Auto) 71.7, Lymphocytes (%) (Auto) 14.8L, Monocytes (%) (Auto) 7.7, Eosinophils (%) (Auto) 3.5H, Basophils (%) (Auto) 2.4H, Sodium Level 142, Potassium Level 4.0, Chloride Level 103, Carbon Dioxide Level 27, Anion Gap 12, Blood Urea Nitrogen 21H, Creatinine 0.8, Estimat Glomerular Filtration Rate > 60, Glucose Level 101 , Calcium Level 9.7 Current Medications Medications (Trade) Dose Ordered Sig/Aguila Route PRN Reason Start Time Stop Time Status Last Admin Dose Admin Acetaminophen (Tylenol) 650 mg Q6H PRN ORAL Mild Pain/Temp > 100 04/24/19 04:00 05/24/19 03:59 Heparin Sodium (Porcine) (Heparin 5000 units/ml) 5,000 units DAILY SUBQ 04/24/19 12:30 05/24/19 12:29 Hydromorphone HCl (Dilaudid) 2 mg Q4H PRN IVP Severe Pain (Pain Scale 7-10) 05/02/19 14:00 05/09/19 13:59 05/03/19 10:38 Mesalamine (Asacol) 800 mg THREE TIMES A DAY ORAL 04/28/19 09:00 05/28/19 08:59 05/03/19 14:30 Ondansetron HCl (Zofran) 4 mg Q6H PRN IVP Nausea & Vomiting 04/24/19 14:30 05/24/19 14:29 Herrera Alcaraz MD May 03, 2019 14:48
--- NOTE | 2019-05-03 15:15 | Infectious Diseases Prog Note ---
Assessment/Plan Assessment/Plan Assessment: Crohn's flare -CT abd/p (OSH): thickening of the wall of the colon at the hepatic flexure and thickening of the rectosigmoid consistent with Crohn's disease. Afebrile Leukocytosis, mild -Cdiff neg Crohn's disease (diagnosed as a teen) - s/p colon resection on Imuran -previously on Remicade but held for ~1yr due bacteremia -hx of perianal fistula -hx of bacteremia early 2018 Plan: will monitor WBC cont to monitor pt off of AB Rx - 04/30 Sp Deysisyn # 7 -Monitor CBC/CMP, temperatures -GI f/u Thank you for this consultation. Will continue to follow along with you. Subjective Allergies: Coded Allergies: TRAMADOL (Unverified Allergy, Unknown, 04/24/19) seizure Subjective afebrile mild abd [pain Objective Vital Signs Last 24 Hour Vital Signs Date Time Temp Pulse Resp B/P (MAP) Pulse Ox O2 Delivery O2 Flow Rate FiO2 05/03/19 12:00 98.1 82 20 107/76 (86) 98 05/03/19 09:00 Room Air 05/03/19 08:00 98.0 99 22 115/73 (87) 98 05/03/19 04:00 97.6 105 18 113/77 (89) 99 05/02/19 21:00 Room Air 05/02/19 20:00 97.9 110 19 128/81 (97) 97 05/02/19 18:43 97.9 05/02/19 16:00 97.9 114 20 128/80 (96) 98 Height (Feet): 5 Height (Inches): 10.00 Weight (Pounds): 134 Respiratory/Chest: normal breath sounds Cardiovascular: normal rate Abdomen: normal bowel sounds, non distended Laboratory Tests Test 05/03/19 09:50 White Blood Count 11.6 K/UL (4.8-10.8) H Red Blood Count 5.42 M/UL (4.70-6.10) Hemoglobin 14.8 G/DL (14.2-18.0) Hematocrit 45.0 % (42.0-52.0) Mean Corpuscular Volume 83 FL (80-99) Mean Corpuscular Hemoglobin 27.3 PG (27.0-31.0) Mean Corpuscular Hemoglobin Concent 33.0 G/DL (32.0-36.0) Red Cell Distribution Width 15.0 % (11.6-14.8) H Platelet Count 609 K/UL (150-450) H Mean Platelet Volume 6.8 FL (6.5-10.1) Neutrophils (%) (Auto) 71.7 % (45.0-75.0) Lymphocytes (%) (Auto) 14.8 % (20.0-45.0) L Monocytes (%) (Auto) 7.7 % (1.0-10.0) Eosinophils (%) (Auto) 3.5 % (0.0-3.0) H Basophils (%) (Auto) 2.4 % (0.0-2.0) H Sodium Level 142 MMOL/L (136-145) Potassium Level 4.0 MMOL/L (3.5-5.1) Chloride Level 103 MMOL/L (98-107) Carbon Dioxide Level 27 MMOL/L (21-32) Anion Gap 12 mmol/L (5-15) Blood Urea Nitrogen 21 mg/dL (7-18) H Creatinine 0.8 MG/DL (0.55-1.30) Estimat Glomerular Filtration Rate > 60 mL/min (>60) Glucose Level 101 MG/DL (74-106) Calcium Level 9.7 MG/DL (8.5-10.1) Current Medications Medications (Trade) Dose Ordered Sig/Aguila Route PRN Reason Start Time Stop Time Status Last Admin Dose Admin Acetaminophen (Tylenol) 650 mg Q6H PRN ORAL Mild Pain/Temp > 100 04/24/19 04:00 05/24/19 03:59 Heparin Sodium (Porcine) (Heparin 5000 units/ml) 5,000 units DAILY SUBQ 04/24/19 12:30 05/24/19 12:29 Hydromorphone HCl (Dilaudid) 2 mg Q4H PRN IVP Severe Pain (Pain Scale 7-10) 05/02/19 14:00 05/09/19 13:59 05/03/19 15:07 Mesalamine (Asacol) 800 mg THREE TIMES A DAY ORAL 04/28/19 09:00 05/28/19 08:59 05/03/19 14:30 Ondansetron HCl (Zofran) 4 mg Q6H PRN IVP Nausea & Vomiting 04/24/19 14:30 05/24/19 14:29 Shemar Harding MD May 03, 2019 15:15
[2019-05-03 16:00] VITALS: BP 109/68
--- NOTE | 2019-05-03 17:52 | NUR ---
NURSE NOTES: Spoke to regarding discharge and ok to discharge patient today. Order noted and carried out.
--- NOTE | 2019-05-03 18:37 | Internal Med Progress Note ---
Subjective Date of Service: May 03, 2019 Physician Name Atilio Hardin Attending Physician Genaro Ibarra MD Current Medications Medications (Trade) Dose Ordered Sig/Aguila Route PRN Reason Start Time Stop Time Status Last Admin Dose Admin Acetaminophen (Tylenol) 650 mg Q6H PRN ORAL Mild Pain/Temp > 100 04/24/19 04:00 05/24/19 03:59 Heparin Sodium (Porcine) (Heparin 5000 units/ml) 5,000 units DAILY SUBQ 04/24/19 12:30 05/24/19 12:29 Hydromorphone HCl (Dilaudid) 2 mg Q4H PRN IVP Severe Pain (Pain Scale 7-10) 05/02/19 14:00 05/09/19 13:59 05/03/19 15:07 Mesalamine (Asacol) 800 mg THREE TIMES A DAY ORAL 04/28/19 09:00 05/28/19 08:59 05/03/19 14:30 Ondansetron HCl (Zofran) 4 mg Q6H PRN IVP Nausea & Vomiting 04/24/19 14:30 05/24/19 14:29 Allergies: Coded Allergies: TRAMADOL (Unverified Allergy, Unknown, 04/24/19) seizure ROS Limited/Unobtainable: No Constitutional: Reports: no symptoms HEENT: Reports: no symptoms Cardiovascular: Reports: no symptoms Respiratory: Reports: no symptoms Gastrointestinal/Abdominal: Reports: abdominal pain Genitourinary: Reports: no symptoms Neurologic/Psychiatric: Reports: no symptoms Subjective 38 YO M admitted with abdominal pain. Now crohn's colitis flare. Cover for Int Med-DR Ibarra. S/P Colonoscopy 04/30/19. Objective Last Vital Signs Date Time Temp Pulse Resp B/P (MAP) Pulse Ox O2 Delivery O2 Flow Rate FiO2 05/03/19 12:00 98.1 82 20 107/76 (86) 98 05/03/19 09:00 Room Air 04/30/19 11:16 3 Laboratory Tests Test 05/03/19 09:50 White Blood Count 11.6 K/UL (4.8-10.8) H Red Blood Count 5.42 M/UL (4.70-6.10) Hemoglobin 14.8 G/DL (14.2-18.0) Hematocrit 45.0 % (42.0-52.0) Mean Corpuscular Volume 83 FL (80-99) Mean Corpuscular Hemoglobin 27.3 PG (27.0-31.0) Mean Corpuscular Hemoglobin Concent 33.0 G/DL (32.0-36.0) Red Cell Distribution Width 15.0 % (11.6-14.8) H Platelet Count 609 K/UL (150-450) H Mean Platelet Volume 6.8 FL (6.5-10.1) Neutrophils (%) (Auto) 71.7 % (45.0-75.0) Lymphocytes (%) (Auto) 14.8 % (20.0-45.0) L Monocytes (%) (Auto) 7.7 % (1.0-10.0) Eosinophils (%) (Auto) 3.5 % (0.0-3.0) H Basophils (%) (Auto) 2.4 % (0.0-2.0) H Sodium Level 142 MMOL/L (136-145) Potassium Level 4.0 MMOL/L (3.5-5.1) Chloride Level 103 MMOL/L (98-107) Carbon Dioxide Level 27 MMOL/L (21-32) Anion Gap 12 mmol/L (5-15) Blood Urea Nitrogen 21 mg/dL (7-18) H Creatinine 0.8 MG/DL (0.55-1.30) Estimat Glomerular Filtration Rate > 60 mL/min (>60) Glucose Level 101 MG/DL (74-106) Calcium Level 9.7 MG/DL (8.5-10.1) Intake and Output 05/02/19 05/03/19 19:00 07:00 Intake Total 712 ml 1200 ml Balance 712 ml 1200 ml Intake Oral 712 ml 1200 ml # Voids 1 4 # Bowel Movements 1 1 Objective PHYSICAL EXAMINATION: GENERAL: The patient is well-developed and well-nourished thin-appearing male, in no apparent distress. HEENT: Eyes, pupils are equal and responsive to light and accommodation. Extraocular movements are intact. NECK: Supple without lymphadenopathy. CHEST: Lungs are clear to auscultation bilaterally without wheezes or rales. CARDIOVASCULAR: Regular rhythm and rate. S1, S2 are normal without murmurs, rubs, or gallops. ABDOMEN: Soft and tender to palpation in all 4 quadrants. No rebound or guarding. EXTREMITIES: Negative for clubbing, cyanosis, or edema. RECTAL/GENITAL: Not performed. NEUROLOGIC: Cranial nerves II through XII are grossly intact without focal deficits. Motor strength is 5/5 bilaterally. Deep tendon reflexes are 2+ plantar. Assessment/Plan Assessment/Plan ASSESSMENT: This is a 38-year-old male. 1. Colitis/gastroenteritis 2. Nausea with vomiting. 3. Right lower quadrant abdominal pain. 4. Crohn's disease flare. TREATMENT: 1. Nausea/vomiting/Crohn's disease. A Gastroenterology consultation has been obtained with Dr. Romeo Valentine. ABX= Zosyn. S/P Colonoscopy on 04/30/19=normal. Continue intravenous Solu-Medrol. 2. History of Crohn's disease. Continue Imuran as above. 3. Abdominal pain. The patient is currently receiving Dilaudid intravenously. 4. Clear liquid diet 5. ID=Dr Wylie 6. Discharge home 05/03/19; med reconciliation completed; discharge prescriptions in chart Atilio Hardin MD May 03, 2019 18:37
--- NOTE | 2019-05-03 19:23 | NUR ---
HAND-OFF: Report given to Meliza RN, rounds made. Endorsed discharge planning for tomorrow AM per patient request.
--- NOTE | 2019-05-03 19:24 | NUR ---
NURSE NOTES: Received report & pt from LYNN Albarran. Pt lying in bed, a&ox4, in room air. No s/s of acute distress & c/o 7/10 pain. IV site intact & S/L'd. Bed in lowest position, call light within reach. Plan of care discussed. Pt to be d/c'd home tomorrow at around 0900, will be picked up by friend. Will continue to monitor.
[2019-05-03 20:00] VITALS: BP 123/73
[2019-05-04] VITALS: BP 120/74
[2019-05-04 04:00] VITALS: BP 110/82
--- NOTE | 2019-05-04 07:22 | NUR ---
HAND-OFF: Written report given to AM charge nurse for LYNN Albarran.
[2019-05-04 08:00] VITALS: BP 133/83
--- NOTE | 2019-05-04 08:10 | NUR ---
NURSE NOTES: Written report received, rounds made. Patient resting in semi-fowlers position in bed. No distress on RA. No SOB, NV. Abdominal pain 08/14. WESLEY heplock intact. Call light in reach, bed in lowest position, will continue to monitor.
--- NOTE | 2019-05-04 08:51 | General Progress Note ---
Assessment/Plan Problem List: (1) Colitis ICD Codes: K52.9 - Noninfective gastroenteritis and colitis, unspecified SNOMED: 33021657 (2) History of Crohn's disease ICD Codes: Z87.19 - Personal history of other diseases of the digestive system SNOMED: 317573853073246 Assessment/Plan: IAssessment/Plan Problems: (1) History of Crohn's disease ICD Codes: Z87.19 - Personal history of other diseases of the digestive system SNOMED: 869193295590086 (2) Colitis ICD Codes: K52.9 - Noninfective gastroenteritis and colitis, unspecified SNOMED: 89571472 Status: stable Status Narrative Discussed with Dr. Valentine. Assessment/Plan Crohn's flare, elevated ESR and white count CT scan of the abdomen revealed thickening of the wall of the colon at the hepatic flexure and thickening of the rectosigmoid consistent with Crohn's disease. white count normalizing cdiff to r/o infectious colitis >> negative follow up CMV >> negative s/p colonoscopy SUMMARY OF FINDINGS: The patient had partial colectomy, most probably right hemicolectomy with ileocolonic anastomosis without any active flare at this time. PLAN: dc planning GI diet today Pain management PPI dc IV Solu-Medrol, start prednisone 40mg PO daily with 5mg weekly taper. patient to f/u with his GI doctor Subjective ROS Limited/Unobtainable: Yes Allergies: Coded Allergies: TRAMADOL (Unverified Allergy, Unknown, 04/24/19) seizure Objective Last 24 Hour Vital Signs Date Time Temp Pulse Resp B/P (MAP) Pulse Ox O2 Delivery O2 Flow Rate FiO2 05/04/19 04:00 98.1 105 18 110/82 (91) 97 05/04/19 00:00 97.9 88 17 120/74 (89) 97 05/03/19 21:00 Room Air 05/03/19 20:00 98.0 94 18 123/73 (90) 98 05/03/19 16:00 98.5 78 22 109/68 (82) 98 05/03/19 12:00 98.1 82 20 107/76 (86) 98 05/03/19 09:00 Room Air Intake and Output 05/03/19 05/04/19 19:00 07:00 Intake Total 620 ml Balance 620 ml Intake Oral 620 ml # Voids 3 Laboratory Tests 2/27/20 09:50: White Blood Count 11.6H, Red Blood Count 5.42, Hemoglobin 14.8, Hematocrit 45.0 , Mean Corpuscular Volume 83, Mean Corpuscular Hemoglobin 27.3, Mean Corpuscular Hemoglobin Concent 33.0, Red Cell Distribution Width 15.0H, Platelet Count 609H, Mean Platelet Volume 6.8, Neutrophils (%) (Auto) 71.7, Lymphocytes (%) (Auto) 14.8L, Monocytes (%) (Auto) 7.7, Eosinophils (%) (Auto) 3.5H, Basophils (%) (Auto) 2.4H, Sodium Level 142, Potassium Level 4.0, Chloride Level 103, Carbon Dioxide Level 27, Anion Gap 12, Blood Urea Nitrogen 21H, Creatinine 0.8, Estimat Glomerular Filtration Rate > 60, Glucose Level 101 , Calcium Level 9.7 Height (Feet): 5 Height (Inches): 10.00 Weight (Pounds): 134 General Appearance: alert EENT: normal ENT inspection Neck: supple Cardiovascular: normal rate Respiratory/Chest: decreased breath sounds Abdomen: normal bowel sounds, non tender, soft Extremities: non-tender Romeo Valentine MD May 04, 2019 08:51
[2019-05-04] MEDS: Heparin 5000 units/ml inj SUBQ SCH (09:00)
--- NOTE | 2019-05-04 09:00 | General Progress Note ---
Assessment/Plan Assessment/Plan: (1) Abdominal pain (2) Crohn's Disease (3) Neuropathic pain Patient will be continued on the Dilaudid D/w Dr. Daily and he concurred. Subjective Date patient seen: May 04, 2019 Time patient seen: 08:00 - am Allergies: Coded Allergies: TRAMADOL (Unverified Allergy, Unknown, 04/24/19) seizure Subjective Constitutional: Reports: no symptoms Eye: Reports: no symptoms ENT: Reports: no symptoms Respiratory: Reports: no symptoms Cardiovascular: Reports: no symptoms Gastrointestinal: Reports: abdominal pain, nausea Genitourinary: Reports: no symptoms Musculoskeletal: Reports: no symptoms Skin: Reports: no symptoms Psychiatric: Reports: no symptoms Neurological: Reports: no symptoms Endocrine: Reports: no symptoms Hematologic/Lymphatic: Reports: no symptoms Subjective Patient reports that he is feeling better and pain has been reducing 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 He has no new complaints at this time. Objective Last 24 Hour Vital Signs Date Time Temp Pulse Resp B/P (MAP) Pulse Ox O2 Delivery O2 Flow Rate FiO2 05/04/19 04:00 98.1 105 18 110/82 (91) 97 05/04/19 00:00 97.9 88 17 120/74 (89) 97 05/03/19 21:00 Room Air 05/03/19 20:00 98.0 94 18 123/73 (90) 98 05/03/19 16:00 98.5 78 22 109/68 (82) 98 05/03/19 12:00 98.1 82 20 107/76 (86) 98 05/03/19 09:00 Room Air Intake and Output 05/03/19 05/04/19 19:00 07:00 Intake Total 620 ml Balance 620 ml Intake Oral 620 ml # Voids 3 Laboratory Tests 05/03/19 09:50: White Blood Count 11.6H, Red Blood Count 5.42, Hemoglobin 14.8, Hematocrit 45.0 , Mean Corpuscular Volume 83, Mean Corpuscular Hemoglobin 27.3, Mean Corpuscular Hemoglobin Concent 33.0, Red Cell Distribution Width 15.0H, Platelet Count 609H, Mean Platelet Volume 6.8, Neutrophils (%) (Auto) 71.7, Lymphocytes (%) (Auto) 14.8L, Monocytes (%) (Auto) 7.7, Eosinophils (%) (Auto) 3.5H, Basophils (%) (Auto) 2.4H, Sodium Level 142, Potassium Level 4.0, Chloride Level 103, Carbon Dioxide Level 27, Anion Gap 12, Blood Urea Nitrogen 21H, Creatinine 0.8, Estimat Glomerular Filtration Rate > 60, Glucose Level 101 , Calcium Level 9.7 Height (Feet): 5 Height (Inches): 10.00 Weight (Pounds): 134 Objective General Appearance: no apparent distress, alert HEENT: PERRL Neck: non-tender, normal alignment Respiratory/Chest: lungs clear, normal breath sounds Cardiovascular/Chest: normal rate, regular rhythm Abdomen: tender Neurologic: alert, oriented x 3 Gagandeep Saleem May 04, 2019 09:00
[2019-05-04] MEDS: Mesalamine 400mg cap ORAL SCH ×2 (09:43→13:38)
--- NOTE | 2019-05-04 11:18 | Infectious Diseases Prog Note ---
Assessment/Plan Assessment/Plan Assessment: Crohn's flare -CT abd/p (OSH): thickening of the wall of the colon at the hepatic flexure and thickening of the rectosigmoid consistent with Crohn's disease. Afebrile Leukocytosis, mild -Cdiff neg Crohn's disease (diagnosed as a teen) - s/p colon resection on Imuran -previously on Remicade but held for ~1yr due bacteremia -hx of perianal fistula -hx of bacteremia early 2018 Plan: will monitor WBC cont to monitor pt off of AB Rx - 04/30 Sp Zosyn # 7 -Monitor CBC/CMP, temperatures -GI f/u Thank you for this consultation. Will continue to follow along with you. Subjective Allergies: Coded Allergies: TRAMADOL (Unverified Allergy, Unknown, 04/24/19) seizure Subjective afebrile possible DC today Objective Vital Signs Last 24 Hour Vital Signs Date Time Temp Pulse Resp B/P (MAP) Pulse Ox O2 Delivery O2 Flow Rate FiO2 05/04/19 08:00 97.8 98 18 133/83 (100) 98 05/04/19 04:00 98.1 105 18 110/82 (91) 97 05/04/19 00:00 97.9 88 17 120/74 (89) 97 05/03/19 21:00 Room Air 05/03/19 20:00 98.0 94 18 123/73 (90) 98 05/03/19 16:00 98.5 78 22 109/68 (82) 98 05/03/19 12:00 98.1 82 20 107/76 (86) 98 Height (Feet): 5 Height (Inches): 10.00 Weight (Pounds): 134 HEENT: anicteric Respiratory/Chest: normal breath sounds Cardiovascular: regular rhythm Abdomen: normal bowel sounds, no organomegaly, non distended, no mass Current Medications Medications (Trade) Dose Ordered Sig/Aguila Route PRN Reason Start Time Stop Time Status Last Admin Dose Admin Acetaminophen (Tylenol) 650 mg Q6H PRN ORAL Mild Pain/Temp > 100 04/24/19 04:00 05/24/19 03:59 Heparin Sodium (Porcine) (Heparin 5000 units/ml) 5,000 units DAILY SUBQ 04/24/19 12:30 05/24/19 12:29 Hydromorphone HCl (Dilaudid) 2 mg Q4H PRN IVP Severe Pain (Pain Scale 7-10) 05/02/19 14:00 05/09/19 13:59 05/04/19 07:00 Mesalamine (Asacol) 800 mg THREE TIMES A DAY ORAL 04/28/19 09:00 05/28/19 08:59 05/04/19 09:43 Ondansetron HCl (Zofran) 4 mg Q6H PRN IVP Nausea & Vomiting 04/24/19 14:30 05/24/19 14:29 Shemar Harding MD May 04, 2019 11:17
[2019-05-04 12:00] VITALS: BP 114/73
--- NOTE | 2019-05-04 14:40 | Pulmonology Progress Note ---
Assessment/Plan Problems: (1) Intractable nausea and vomiting (2) Colitis (3) History of Crohn's disease Assessment/Plan wants to go home d/w pharmacy about changing the medication GI evaluation and f/u appreciated f/u inflammatory markers, they are all negative Subjective ROS Limited/Unobtainable: No Constitutional: Reports: no symptoms HEENT: Repors: no symptoms Respiratory: Reports: no symptoms Allergies: Coded Allergies: TRAMADOL (Unverified Allergy, Unknown, 04/24/19) seizure Objective Last 24 Hour Vital Signs Date Time Temp Pulse Resp B/P (MAP) Pulse Ox O2 Delivery O2 Flow Rate FiO2 05/04/19 08:00 97.8 98 18 133/83 (100) 98 05/04/19 04:00 98.1 105 18 110/82 (91) 97 05/04/19 00:00 97.9 88 17 120/74 (89) 97 05/03/19 21:00 Room Air 05/03/19 20:00 98.0 94 18 123/73 (90) 98 05/03/19 16:00 98.5 78 22 109/68 (82) 98 Intake and Output 05/03/19 05/04/19 19:00 07:00 Intake Total 620 ml Balance 620 ml Intake Oral 620 ml # Voids 3 General Appearance: WD/WN Respiratory/Chest: chest wall non-tender, lungs clear Cardiovascular: normal peripheral pulses, normal rate Abdomen: normal bowel sounds, soft, non tender, no organomegaly Current Medications Medications (Trade) Dose Ordered Sig/Aguila Route PRN Reason Start Time Stop Time Status Last Admin Dose Admin Acetaminophen (Tylenol) 650 mg Q6H PRN ORAL Mild Pain/Temp > 100 04/24/19 04:00 05/24/19 03:59 Heparin Sodium (Porcine) (Heparin 5000 units/ml) 5,000 units DAILY SUBQ 04/24/19 12:30 05/24/19 12:29 Hydromorphone HCl (Dilaudid) 2 mg Q4H PRN IVP Severe Pain (Pain Scale 7-10) 05/02/19 14:00 05/09/19 13:59 05/04/19 11:35 Mesalamine (Asacol) 800 mg THREE TIMES A DAY ORAL 04/28/19 09:00 05/28/19 08:59 05/04/19 13:38 Ondansetron HCl (Zofran) 4 mg Q6H PRN IVP Nausea & Vomiting 04/24/19 14:30 05/24/19 14:29 Herrera Alcaraz MD May 04, 2019 14:40
--- NOTE | 2019-05-04 15:15 | NUR ---
NURSE NOTES: Discharge instructions reviewed with patient, verbalized understanding. Prescriptions filled and delivered from [facility] pharmacy, and home medication in pharmacy security given directly to patient. WESLEY IV discontinued, no active bleeding. Patient showered. All belongings, discharge instructions and medications given to patient. Ambulated down to [facility] with Misty OSORIO, in stable condition. Discharged home at 1515.
--- NOTE | 2019-05-06 17:16 | Discharge Summary ---
Discharge Summary Discharge Summary _ DATE OF ADMISSION: 04/24/2019 DATE OF DISCHARGE: 05/04/2019 DISCHARGED BY: Dr. Atilio Hardin CONSULTANTS: Dr. Herrera Daily BRIEF HOSPITAL COURSE: Patient is a 38-year-old male with history of Crohn's disease, presented with chief complaint of nausea, vomiting and abdominal pain x2 days. Patient initially presented to [facility] emergency room. Patient was transferred to [facility] for insurance purposes. He was admitted with acute exacerbation of colitis. He was started empirically on Zosyn. He was continued on Imuran. He was given IV Solu-Medrol. He was initially placed on bowel rest. Advanced on clear liquid diet. He was given pain management. He was given IV hydration. Initial ESR and white count elevated. CAT scan of the abdomen showed thickening of the wall of the colon at the hepatic flexure and thickening of the rectosigmoid consistent with Crohn's disease. Diet was advanced. IV Solu-Medrol discontinued and patient was given prednisone 40 mg daily with 5 mg weekly taper. C. difficile was negative. She was given Asacol. On 04/30/2019, he underwent colonoscopy. There was no evidence of active colitis in the endoscopic examination. Steroids were tapered. Pain medications were tapered. CMV negative. He was taken off antibiotics. Inflammatory markers negative. He was eventually cleared for discharge home. FINAL DIAGNOSES: Intractable nausea and vomiting, presumed to be secondary to colitis Crohn's disease with flare Abdominal pain Neuropathic pain DISPOSITION: Patient was discharged home. DISCHARGE MEDICATIONS: Refer to Discharge Medication List. DISCHARGE INSTRUCTIONS: Follow-up in a week. I have been assigned to complete a discharge summary on this account, I was not involved with the patient's management.--Hakeem Sellers NP 09/22/2019 Lisa Sellers NP May 06, 2019 17:16
== END 2019-05-04 15:35 | disposition home or self-care (01) | DRG 386 ==
LOC: 3E 04-24 01:21 → SDSOVERFLO 05-03 10:04 → 3E 05-03 10:05 → SDSOVERFLO 05-03 10:28 → 3E 05-03 10:29 → SDSOVERFLO 05-03 10:30 → 3E 05-03 10:32
PROC: 0DJD8ZZ Inspection of Lower Intestinal Tract, Via Natural or Artificial Opening Endoscopic (ICD-10-PCS; principal; 2019-04-30 11:03)
DX: K50.90 Crohn's disease, unspecified, without complications (principal); E46 Unspecified protein-calorie malnutrition; Z68.1 Body mass index [BMI] 19.9 or less, adult; Z88.6 Allergy status to analgesic agent; K52.9 Noninfective gastroenteritis and colitis, unspecified; D64.9 Anemia, unspecified; G62.9 Polyneuropathy, unspecified
CPT/HCPCS: 36415; 80048; 80053; 83735; 84100; 85007; 85025; 85651; 86140; 86644; 87081; 87324; 94003; 94150; J8499

== ENCOUNTER 2019-05-19 22:02 | Inpatient (IN) | payer MEDICARE ==
[~2019-05-19] VITALS: Ht 180.3 cm; Wt 68.0 kg
[~2019-05-19 22:02] MED LIST: CYMBALTA60 MG ORAL; IMMURAN PO; Mesalamine ORAL; OXYCODONE HCL5 MG ORAL; OXYCONTIN20 MG ORAL; REMICADE INFUSION
--- NOTE | 2019-05-19 22:30 | NUR ---
ED Nurse Note: Recieved pt from home, c/o having rectal bleeding, pt had rectal surgery done about 2 weeks ago in [place], states having severe pain and bleeding from rectum at 9/10, pt denies cp, no sob or labored breahting, pt has not had f/u from surgery, pt gowned and placed on cardiac monitoring, pt has many echymotic areas on both arms, appears to have many IV sticks, arms are very bruised, will resume care of pt as ordered and closely monitor.
[2019-05-19] MEDS ORDERED: HYDROmorphone 1mg/ml Carpuject IVP ONE (23:00)
[2019-05-19 23:31] LABS: BASOPHILS % (AUTO) 1.5 % (0.0-2.0); EOSINOPHILS % (AUTO) 1.7 % (0.0-3.0); HEMATOCRIT 36.7 % (42.0-52.0); HEMOGLOBIN 13.1 G/DL (14.2-18.0); LYMPHOCYTES % (AUTO) 13.7 % (20.0-45.0); MEAN CORPUSCULAR VOLUME 81 FL (80-99); MONOCYTES % (AUTO) 6.1 % (1.0-10.0); PLATELET COUNT 397 K/UL (150-450); RED BLOOD COUNT 4.55 M/UL (4.70-6.10); RED CELL DISTRIBUTION WIDTH 13.3 % (11.6-14.8); WHITE BLOOD COUNT 15.3 K/UL (4.8-10.8)
[2019-05-19 23:40] LABS: ANION GAP 18 mmol/L (5-15); BLOOD UREA NITROGEN 28 mg/dL (7-18); CALCIUM 9.2 MG/DL (8.5-10.1); CARBON DIOXIDE 21 MMOL/L (21-32); CHLORIDE 100 MMOL/L (98-107); CREATININE 1.1 MG/DL (0.55-1.30); POTASSIUM 4.1 MMOL/L (3.5-5.1); SODIUM 139 MMOL/L (136-145)
[2019-05-19 23:46] LABS: ALANINE AMINOTRANSFERASE 42 U/L (12-78); ALKALINE PHOSPHATASE 106 U/L (46-116); ASPARTATE AMINO TRANSFERASE 24 U/L (15-37); BILIRUBIN,TOTAL 0.2 MG/DL (0.2-1.0)
[2019-05-20] VITALS (8 sets, daily range): BP systolic 112–139; BP diastolic 71–91
[2019-05-20] MEDS ORDERED: Miralax 17gm pkt ORAL PRN
[2019-05-20] MEDS ORDERED: Nitroglycerin Subl 0.4mg tab SL PRN
[2019-05-20] MEDS ORDERED: DiphenhydrAMINE 25mg Tab ORAL PRN
[2019-05-20] MEDS ORDERED: HYDROmorphone 1mg/ml Carpuject IVP ONE
[2019-05-20] MEDS ORDERED: Piperacillin/Tazobactam 3.375 GM in NS 110 ML IVPB ONE (00:45)
--- NOTE | 2019-05-20 01:00 | NUR ---
ED Nurse Note: Pt continues to rest in bed, awake and alert, pt states meds not effective, also stating he needs a 4mg dose or higher due to his tolerance, MD informed and pt also that he will not be recieving that dose, pt in bed with hand tremors and restless agitation, pt is polite, IV site patent, v/s stable, will continue to monitor while waiting for room for admission.
[2019-05-20] MEDS ORDERED: OXYCONTIN10 MG ORAL (01:09)
[2019-05-20] MEDS ORDERED: CYMBALTA30 MG ORAL (01:09)
[2019-05-20] MEDS ORDERED: OXYCODONE IR15 MG ORAL (01:09)
[2019-05-20] MEDS: HYDROmorphone 2 MG in NS 50 ML IVPB PRN ×3 (01:15→08:54)
[2019-05-20 02:04] LABS: APPEARANCE,URINE CLEAR; BILIRUBIN, URINE NEGATIVE (NEGATIVE); COLOR,URINE PALE YELLOW; GLUCOSE, URINE (UA) NEGATIVE (NEGATIVE); KETONES,URINE NEGATIVE (NEGATIVE); LEUKOCYTE ESTERASE ,URINE NEGATIVE (NEGATIVE); NITRITE,URINE NEGATIVE (NEGATIVE); PH,URINE 7 (4.5-8.0); PROTEIN,URINE NEGATIVE (NEGATIVE); UROBILINOGEN,URINE NORMAL MG/DL (0.0-1.0)
--- NOTE | 2019-05-20 03:00 | NUR ---
ED Nurse Note: Pt continues to constantly ask for dilaudid pain medication, states his rectal pain is at 9/10, pt denies cp, sob, or any other complaints, pt given pain meds via IVPB and states it is less effective that way, informed that is MD order and can not give more, pt continues to rest quietly, no s/s of adverse reaction noted from antibiotics given, will continue to closely monitor.
--- NOTE | 2019-05-20 03:08 | Emergency Room Report ---
History of Present Illness General Chief Complaint: Gastrointestinal Bleed Source: Patient Present Illness HPI 38-year-old male presents ED for evaluation of rectal pain and bleeding. History of Crohn's disease. States that this week he had a seton drain and repair of a mariann-anal fistula. Repaired in [place]. States that he is here for work. States he was having starting today increased pain and some bleeding. Pain is dull, 10 out of 10, nonradiating. Denies fevers or chills. Denies any drainage or discharge. No other aggravating relieving factors. Denies any other associated symptoms COVID-19 risk:Travel to affect: No Allergies: Coded Allergies: TRAMADOL (Unverified Allergy, Unknown, 04/24/19) seizure Patient History Past Medical History: other - crohns Past Surgical History: other - seton drain Pertinent Family History: none Social History: Denies: smoking, alcohol use, drug use Immunizations: UTD Reviewed Nursing Documentation: PMH: Agreed; PSxH: Agreed Nursing Documentation-PMH Hx Cardiac Problems: No Hx Cancer: No Hx Gastrointestinal Problems: Yes - Crohns Hx Neurological Problems: No Review of Systems All Other Systems: negative except mentioned in HPI Physical Exam Vital Signs Date Time Temp Pulse Resp B/P (MAP) Pulse Ox O2 Delivery O2 Flow Rate FiO2 05/19/19 22:07 98.4 144 18 120/82 (95) 98 Room Air Sp02 EP Interpretation: reviewed, normal General Appearance: alert, GCS 15, non-toxic, mild distress Head: normocephalic, atraumatic Eyes: bilateral eye normal inspection, bilateral eye PERRL ENT: hearing grossly normal, normal pharynx, no angioedema, normal voice Neck: full range of motion, supple/symm/no masses Respiratory: chest non-tender, lungs clear, normal breath sounds, speaking full sentences Cardiovascular #1: regular rate, rhythm, no edema Cardiovascular #2: 2+ carotid (R), 2+ carotid (L), 2+ radial (R), 2+ radial (L) , 2+ dorsalis pedis (R), 2+ dorsalis pedis (L) Gastrointestinal: normal bowel sounds, non tender, soft, non-distended, no guarding, no rebound Rectal: other - seton drain intact, surrounding erythema. no discharge. no fluctuance Genitourinary: normal inspection, no CVA tenderness Musculoskeletal: back normal, normal range of motion, gait/station normal, non- tender Neurologic: alert, motor strength/tone normal, oriented x3, sensory intact, responsive, speech normal Psychiatric: judgement/insight normal, memory normal, mood/affect normal, no suicidal/homicidal ideation Reflexes: 3+ bicep (R), 3+ bicep (L), 3+ tricep (R), 3+ tricep (L), 3+ knee (R) , 3+ knee (L) Lymphatic: no adenopathy Procedures Critical Care Time Critical Care Time i. I feel this is a highly complex case requiring extensive working including EKG/Rhythm strip, Xray/CT/US, Blood/urine lab work, repeat exams while in ED, and administration of strong opiates/narcotics for pain control, admission to hospital or close patient follow up. Total time: 30 min bedside evaluation and treatment excludes procedures (EKG). Reason for critical care: tachycardia Possible complications: hypotension, hypertension, WI, shock, arrhythmias, metabolic acidosis, end organ damage, respiratory failure. Interventions: labs, IVFS, discussion with surgery, broad spectrum abx Course: Presenting with rectal pain. Status post seton drain and mariann-anal fistula repair. No bleeding. Seton drain intact. Erythema noted. Patient tachycardic. Patient has poor IV access. Full EJ line placed. Leukocytosis noted. Given multiple rounds of pain meds without improvement. Given 30 cc/kg fluid bolus. Given broad-spectrum antibiotics. Tachycardia resolved Consultations: nursing staff, EMS, family Performed by: Dr Walls Tolerated well condition = serious j. because of unstable vital signs this patient had a condition that could potentially threaten life or limb. I feel this is a critical patient who required my full attention while patient was considered critical. Total Critical Care Time excluding procedures was greater than 35 minutes Medical Decision Making Diagnostic Impression: Primary Impression: History of Crohn's disease Additional Impression: Postoperative pain ER Course Hospital Course 38-year-old male presents with rectal pain status post seton drain and perianal fistula repair Differential diagnoses include: wound dehiscence, sepsis, abscess Clinical course Patient placed on stretcher. On potline monitor with tachyardia. After initial history exam reveals male in mild distress. On rectal exam there is a seton drain intact. No discharge or drainage. Surrounding erythema. Patient notes intense pain on palpation. I ordered labs, IV fluids, pain meds patient has poor IV access. Peripheral EJ line placed Labs -noted leukocytosis. Hemoglobin/hematocrit stable, electrolytes okay Discussed with Dr. Melendez. Agrees that patient would benefit from observation and surgical reevaluation. patient given 30 cc/kg fluid bolus. Given broad-spectrum Abx. Tachycardia improving. Patient continues to have pain case discussed with Dr Ibarra and they agreed to admit patient to their service for further care and support I feel this is a highly complex case requiring extensive working including EKG/ Rhythm strip, Xray/CT/US, Blood/urine lab work, repeat exams while in ED, and administration of strong opiates/narcotics for pain control, admission to hospital or close patient follow up. Diagnosis - history of crohns disease, postoperative pain Patient admitted to floor in serious condition Labs Test 05/19/19 23:00 05/20/19 01:30 White Blood Count 15.3 K/UL (4.8-10.8) Red Blood Count 4.55 M/UL (4.70-6.10) Hemoglobin 13.1 G/DL (14.2-18.0) Hematocrit 36.7 % (42.0-52.0) Mean Corpuscular Volume 81 FL (80-99) Mean Corpuscular Hemoglobin 28.8 PG (27.0-31.0) Mean Corpuscular Hemoglobin Concent 35.7 G/DL (32.0-36.0) Red Cell Distribution Width 13.3 % (11.6-14.8) Platelet Count 397 K/UL (150-450) Mean Platelet Volume 5.8 FL (6.5-10.1) Neutrophils (%) (Auto) 77.0 % (45.0-75.0) Lymphocytes (%) (Auto) 13.7 % (20.0-45.0) Monocytes (%) (Auto) 6.1 % (1.0-10.0) Eosinophils (%) (Auto) 1.7 % (0.0-3.0) Basophils (%) (Auto) 1.5 % (0.0-2.0) Sodium Level 139 MMOL/L (136-145) Potassium Level 4.1 MMOL/L (3.5-5.1) Chloride Level 100 MMOL/L (98-107) Carbon Dioxide Level 21 MMOL/L (21-32) Anion Gap 18 mmol/L (5-15) Blood Urea Nitrogen 28 mg/dL (7-18) Creatinine 1.1 MG/DL (0.55-1.30) Estimat Glomerular Filtration Rate > 60 mL/min (>60) Glucose Level 101 MG/DL (74-106) Calcium Level 9.2 MG/DL (8.5-10.1) Total Bilirubin 0.2 MG/DL (0.2-1.0) Aspartate Amino Transf (AST/SGOT) 24 U/L (15-37) Alanine Aminotransferase (ALT/SGPT) 42 U/L (12-78) Alkaline Phosphatase 106 U/L (46-116) Total Protein 8.2 G/DL (6.4-8.2) Albumin 4.0 G/DL (3.4-5.0) Globulin 4.2 g/dL Albumin/Globulin Ratio 1.0 (1.0-2.7) Lipase 140 U/L (73-393) Urine Color Pale yellow Urine Appearance Clear Urine pH 7 (4.5-8.0) Urine Specific [place] 1.005 (1.005-1.035) Urine Protein Negative (NEGATIVE) Urine Glucose (UA) Negative (NEGATIVE) Urine Ketones Negative (NEGATIVE) Urine Blood Negative (NEGATIVE) Urine Nitrite Negative (NEGATIVE) Urine Bilirubin Negative (NEGATIVE) Urine Urobilinogen Normal MG/DL (0.0-1.0) Urine Leukocyte Esterase Negative (NEGATIVE) Last Vital Signs Date Time Temp Pulse Resp B/P (MAP) Pulse Ox O2 Delivery O2 Flow Rate FiO2 05/19/19 22:07 98.4 144 18 120/82 (95) 98 Room Air Status: improved Disposition: ADMITTED INPATIENT Condition: Serious Referrals: NOT CHOSEN IPA/,REFERRING (PCP) Pop Walls MD May 20, 2019 03:08
--- NOTE | 2019-05-20 04:00 | NUR ---
NURSE NOTES: Receive a report from LYNN Lopez, from ED.
[2019-05-20] MEDS: D5 1/2NS 1,000 ML IV SCH ×3 (04:11→16:31)
--- NOTE | 2019-05-20 04:25 | NUR ---
NURSE NOTES: Pt admitted from ED via gurney. Pt is awake and alert. Breathing is even and non labored but complain for abdominal pain and anal pain despite pain medication at ED. Pt says that it did not work much. Will check orders for pain medication. IV is running via right jugular vein intact.Given unit orientation and check belongings. Call light within reach. Will continue to monitor. Orders were given by Dr. Alcaraz.
--- NOTE | 2019-05-20 06:15 | NUR ---
NURSE NOTES: Given pain medication but pt says that pain medication did not work. Explain for interval of medication and S/E. Pt aware and verbalizes understanding. Will continue to monitor. No BM noted at this time.
--- NOTE | 2019-05-20 07:30 | NUR ---
NURSE NOTES: WALKING ROUNDS DONE WITH NIGHT RN. PATIENT ASLEEP IN BED BUT AROUSABLE. QUESTIONS ANSWERED NEED SMET. DISCUSSED PLAN OF CARE; VERBALIZED UNDERSTANDING.ASSESSED RECTAL AREA. NOTED "SETON DRAIN" IN PLACE. AREA C/D/I. NO DRAINAGE NOTED. PATIENT STATES AREA IS VERY PAINFUL. CURRENTLY LYING ON LEFT SIDE. BED IN LOW AND LOCKED POSITION. CALL LIGHT WITHIN REACH.
--- NOTE | 2019-05-20 07:45 | NUR ---
HAND-OFF: Report given to LYNN Lacey. Round is done.
--- NOTE | 2019-05-20 08:52 | Consultation ---
History of Present Illness General Date patient seen: May 20, 2019 Time patient seen: 08:00 Chief Complaint: Gastrointestinal Bleed Referring physician: Dr Ibarra Reason for Consultation: in[patient management Present Illness HPI 38 years old male with PMH of Crohn's disease presented to ED with rectal pain and bleeding. This week he had a seton drain and repair of perianal fistula , which was done in [place]. Patient reported increased pain and rectal bleeding. Pain reported as dull, 10 out of 10, nonradiating. He denies fever and chills. He denies drainage or discharge. Upon evaluation patient was tachycardic with heart rate 144. Laboratory work-up revealed WBC 15.3, hemoglobin 13.1, hematocrit 36.7. Platelet count 397. Stable electrolytes. BUN 28, creatinine 1.1. AST 24, ALT 42. Albumin 4.0. Lipase 140. Urinalysis revealed no evidence of urinary tract infection. Surgeon was consulted. Patient s received IV fluids and broad-spectrum antibiotics with improvement in tachycardia. Patient received analgesics and admitted for further management. Allergies: Coded Allergies: TRAMADOL (Unverified Allergy, Unknown, 04/24/19) seizure Medication History Scheduled Duloxetine Hcl* (Cymbalta*), 60 MG ORAL DAILY, (Reported) Duloxetine Hcl* (Cymbalta*), 30 MG ORAL DAILY, (Reported) Oxycodone Hcl Er* (Oxycontin*), 10 MG ORAL EVERY 12 HOURS, (Reported) [Immuran], 150 MG PO DAILY, (Reported) [Mesalamine], 800 MG ORAL THREE TIMES A DAY Scheduled PRN Oxycodone HCl (Oxycodone HCl), 15 MG ORAL Q4H PRN for For Pain, (Reported) Miscellaneous Medications [remicade infusion], (Reported) Patient History Healthcare decision maker Resuscitation status Full Code Advanced Directive on File Review of Systems Eye: Reports: no symptoms ENT: Reports: no symptoms Respiratory: Reports: no symptoms Cardiovascular: Reports: no symptoms Gastrointestinal: Reports: see HPI Genitourinary: Reports: no symptoms Skin: Reports: no symptoms Psychiatric: Reports: no symptoms Neurological: Reports: no symptoms Endocrine: Reports: no symptoms Hematologic/Lymphatic: Reports: no symptoms Physical Exam General Appearance: no apparent distress, alert Lines, tubes and drains: peripheral HEENT: normocephalic, atraumatic, anicteric Neck: non-tender, supple Respiratory/Chest: lungs clear, no respiratory distress, no accessory muscle use Cardiovascular/Chest: normal peripheral pulses, tachycardia Abdomen: normal bowel sounds, soft - diffused tenderness on palpation Genitourinary/Rectal: other - seton drain intact, surrounding erythema. no discharge. 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 grossly normal, alert, oriented x 3, responsive Last 24 Hour Vital Signs Date Time Temp Pulse Resp B/P (MAP) Pulse Ox O2 Delivery O2 Flow Rate FiO2 05/20/19 05:15 Room Air 05/20/19 04:40 98.2 21 124/77 (93) 100 05/20/19 04:00 98.4 81 18 139/79 98 Room Air 05/20/19 01:45 98.4 05/20/19 00:00 98.4 81 18 139/79 98 Room Air 05/19/19 23:31 98.4 05/19/19 23:31 98.4 05/19/19 22:30 144 18 Room Air 05/19/19 22:07 98.4 144 18 120/82 (95) 98 Room Air Intake and Output 05/19/19 05/20/19 19:00 07:00 Intake Total 150 ml Output Total 800 ml Balance -650 ml Intake IV Total 150 ml Output Urine Total 800 ml # Voids 2 Laboratory Tests Test 05/19/19 23:00 05/20/19 01:30 White Blood Count 15.3 K/UL (4.8-10.8) H Red Blood Count 4.55 M/UL (4.70-6.10) L Hemoglobin 13.1 G/DL (14.2-18.0) L Hematocrit 36.7 % (42.0-52.0) L Mean Corpuscular Volume 81 FL (80-99) Mean Corpuscular Hemoglobin 28.8 PG (27.0-31.0) Mean Corpuscular Hemoglobin Concent 35.7 G/DL (32.0-36.0) Red Cell Distribution Width 13.3 % (11.6-14.8) Platelet Count 397 K/UL (150-450) Mean Platelet Volume 5.8 FL (6.5-10.1) L Neutrophils (%) (Auto) 77.0 % (45.0-75.0) H Lymphocytes (%) (Auto) 13.7 % (20.0-45.0) L Monocytes (%) (Auto) 6.1 % (1.0-10.0) Eosinophils (%) (Auto) 1.7 % (0.0-3.0) Basophils (%) (Auto) 1.5 % (0.0-2.0) Sodium Level 139 MMOL/L (136-145) Potassium Level 4.1 MMOL/L (3.5-5.1) Chloride Level 100 MMOL/L (98-107) Carbon Dioxide Level 21 MMOL/L (21-32) Anion Gap 18 mmol/L (5-15) H Blood Urea Nitrogen 28 mg/dL (7-18) H Creatinine 1.1 MG/DL (0.55-1.30) Estimat Glomerular Filtration Rate > 60 mL/min (>60) Glucose Level 101 MG/DL (74-106) Calcium Level 9.2 MG/DL (8.5-10.1) Total Bilirubin 0.2 MG/DL (0.2-1.0) Aspartate Amino Transf (AST/SGOT) 24 U/L (15-37) Alanine Aminotransferase (ALT/SGPT) 42 U/L (12-78) Alkaline Phosphatase 106 U/L (46-116) Total Protein 8.2 G/DL (6.4-8.2) Albumin 4.0 G/DL (3.4-5.0) Globulin 4.2 g/dL Albumin/Globulin Ratio 1.0 (1.0-2.7) Lipase 140 U/L (73-393) Urine Color Pale yellow Urine Appearance Clear Urine pH 7 (4.5-8.0) Urine Specific [place] 1.005 (1.005-1.035) Urine Protein Negative (NEGATIVE) Urine Glucose (UA) Negative (NEGATIVE) Urine Ketones Negative (NEGATIVE) Urine Blood Negative (NEGATIVE) Urine Nitrite Negative (NEGATIVE) Urine Bilirubin Negative (NEGATIVE) Urine Urobilinogen Normal MG/DL (0.0-1.0) Urine Leukocyte Esterase Negative (NEGATIVE) Height (Feet): 5 Height (Inches): 11.00 Weight (Pounds): 150 Medications Current Medications Medications (Trade) Dose Ordered Sig/[place] Route PRN Reason Start Time Stop Time Status Last Admin Dose Admin Acetaminophen (Tylenol) 650 mg Q4H PRN ORAL fever 05/20/19 00:00 06/19/19 00:00 Dextrose (Dextrose 50%) 25 ml Q30M PRN IV Hypoglycemia 05/20/19 00:00 06/19/19 00:00 Dextrose (Dextrose 50%) 50 ml Q30M PRN IV Hypoglycemia 05/20/19 00:00 06/19/19 00:00 Dextrose/Sodium Chloride 1,000 ml @ 75 mls/hr [id number] IV 05/20/19 02:00 06/19/19 01:59 05/20/19 04:11 Diphenhydramine HCl (Benadryl) 25 mg Q6H PRN ORAL Itching/Pruritis 05/20/19 00:00 06/19/19 00:00 Duloxetine HCl (Cymbalta) 60 mg DAILY ORAL 05/20/19 09:00 06/19/19 08:59 Heparin Sodium (Porcine) (Heparin 5000 units/ml) 5,000 units EVERY 12 HOURS SUBQ 05/20/19 09:00 07/04/19 08:59 Hydromorphone HCl 2 mg/Sodium Chloride 51 ml @ 200 mls/hr EVERY 3 HOURS PRN IVPB pain 7-10 05/20/19 00:00 05/27/19 00:00 05/20/19 05:47 Nitroglycerin (Ntg) 0.4 mg Q5M X 3 DOSES PRN SL Prn Chest Pain 05/20/19 00:00 06/19/19 00:00 Ondansetron HCl (Zofran) 4 mg Q6H PRN IVP Nausea & Vomiting 05/20/19 00:00 06/19/19 00:00 Pantoprazole (Protonix) 40 mg DAILY IVP 05/20/19 09:00 06/19/19 08:59 Polyethylene Glycol (Miralax) 17 gm HSPRN PRN ORAL Constipation 05/20/19 00:00 06/19/19 00:00 Temazepam (Restoril) 15 mg HSPRN PRN ORAL Insomnia 05/20/19 00:00 05/27/19 00:00 Assessment/Plan Assessment/Plan: ASSESSMENT leukocytosis perirectal abscess, s/p recent repair of perianal fistula tachycardia Crohn disease rectal bleeding postop pain mild anemia ELIGIO probably due to dehydration PLAN OF CARE MS floor NPO IVF, increase rate to 100 monitor HR surgery , GI and ID eval empiric antibiotic for now pain management DVT/GI prophayxlis monitor HH with goal to keep Hgb above 7 case discussed and evaluated by supervising physician Susan Easley NP May 20, 2019 08:52
[2019-05-20] MEDS: Pantoprazole Inj IVP SCH (08:53)
[2019-05-20] MEDS: DULoxetine 30mg cap ORAL SCH (08:53)
[2019-05-20] MEDS: Heparin 5000 units/ml inj SUBQ SCH ×2 (08:55→20:50)
--- NOTE | 2019-05-20 09:30 | NUR ---
NURSE NOTES: PATIENT STATES PAIN NOT RELIEVED WITH DILAUDID GIVEN IVPB. NOTIFIED; NEW ORDERS RECEIVED. PATIENT AWARE.WILL ADMINISTER ONCE VERIFIED BY PHARMACY.
[2019-05-20] MEDS: Piperacillin/Tazobactam 3.375 GM in NS 110 ML IVPB SCH ×2 (10:11→18:37)
[2019-05-20 10:40] LABS: BASOPHILS % (AUTO) 0.9 % (0.0-2.0); EOSINOPHILS % (AUTO) 3.5 % (0.0-3.0); HEMATOCRIT 32.8 % (42.0-52.0); HEMOGLOBIN 11.3 G/DL (14.2-18.0); LYMPHOCYTES % (AUTO) 14.8 % (20.0-45.0); MEAN CORPUSCULAR VOLUME 82 FL (80-99); MONOCYTES % (AUTO) 6.3 % (1.0-10.0); NEUTROPHILS % (AUTO) 74.5 % (45.0-75.0); PLATELET COUNT 317 K/UL (150-450); RED BLOOD COUNT 4.03 M/UL (4.70-6.10); RED CELL DISTRIBUTION WIDTH 13.3 % (11.6-14.8); WHITE BLOOD COUNT 11.5 K/UL (4.8-10.8)
[2019-05-20 10:46] LABS: ALANINE AMINOTRANSFERASE 34 U/L (12-78); ALBUMIN 3.4 G/DL (3.4-5.0); ALKALINE PHOSPHATASE 94 U/L (46-116); AMYLASE 36 U/L (25-115); ANION GAP 13 mmol/L (5-15); ASPARTATE AMINO TRANSFERASE 23 U/L (15-37); BILIRUBIN,TOTAL 0.2 MG/DL (0.2-1.0); BLOOD UREA NITROGEN 16 mg/dL (7-18); CALCIUM 8.5 MG/DL (8.5-10.1); CARBON DIOXIDE 23 MMOL/L (21-32); CHLORIDE 107 MMOL/L (98-107); CREATININE 0.9 MG/DL (0.55-1.30); POTASSIUM 3.6 MMOL/L (3.5-5.1); SODIUM 143 MMOL/L (136-145)
--- NOTE | 2019-05-20 12:00 | NUR ---
NURSE NOTES: Performed reassessment for his pain after Dilaudid IVP given. Pt states that Dilaudid IVP is more helpful for his pain than Dilaudid IVPB. However Pt wants Q2hr frequency instead of Q3hr.
--- NOTE | 2019-05-20 12:49 | Consultation ---
History of Present Illness General Date patient seen: May 20, 2019 Reason for Hospitalization: Gastrointestinal Bleed Present Illness HPI This is a pleasant 38-year-old male with known history of Crohn's disease who presented to [facility] for evaluation of bleeding from the perirectal area as well as pain and discomfort. Patient had a seton placed for a perianal fistula recently by his surgeon Dr. Griffin in [place] but has since identified some bleeding recently and states he feels more discomfort and therefore came in for evaluation. Noted to have leukocytosis as well as mild oozing from around the fistula site admitted for further care and management. Surgery called to evaluate and assist with care. Patient seen, patient evaluated, chart reviewed. Patient states that he has had this in the past before and does not know that it can it was. He understands his open wound. Patient states that he has been on narcotics for the past 5 years and has a pain management doctor which controls his pain. Currently states pain is 8 out of 10 from the perirectal area. Has been receiving Remicade in the past. Currently on hold given potential infection. Allergies: Coded Allergies: TRAMADOL (Unverified Allergy, Unknown, 04/24/19) seizure Medication History Scheduled Duloxetine Hcl* (Cymbalta*), 60 MG ORAL DAILY, (Reported) Duloxetine Hcl* (Cymbalta*), 30 MG ORAL DAILY, (Reported) Oxycodone Hcl Er* (Oxycontin*), 10 MG ORAL EVERY 12 HOURS, (Reported) [Immuran], 150 MG PO DAILY, (Reported) [Mesalamine], 800 MG ORAL THREE TIMES A DAY Scheduled PRN Oxycodone HCl (Oxycodone HCl), 15 MG ORAL Q4H PRN for For Pain, (Reported) Miscellaneous Medications [remicade infusion], (Reported) Patient History History Provided By: Patient, Medical Record, PMD Healthcare decision maker Resuscitation status Full Code Advanced Directive on File Past Medical/Surgical History Past Medical/Surgical History: (1) Intractable nausea and vomiting (2) Postoperative pain (3) Colitis (4) History of Crohn's disease Review of Systems Review of Symptoms General ROS: no weight loss or fever Psychological ROS: no depression or mood changes, no memory loss Ophthalmic ROS: no visual changes or eye irritation ENT ROS: no nasal congestion, hearing loss, dizziness Allergy and Immunology ROS: no allergic symptoms or urticaria Hematological and Lymphatic ROS: no swollen glands, unusual bleeding or bruising Endocrine ROS: no polyuria, polydipsia, weight changes, temperature intolerance Respiratory ROS: no cough, shortness of breath, or wheezing Cardiovascular ROS: no chest pain or dyspnea on exertion Gastrointestinal ROS: denies abdominal pain, bright red blood in stool. Musculoskeletal ROS: no myalgias or arthralgias Neurological ROS: no TIA or stroke symptoms Dermatological ROS: no new or changing skin lesions, rashes or pruritis Physical Exam Physical Exam General appearance: alert, cooperative, no distress, appears stated age Head: Normocephalic, without obvious abnormality, atraumatic Eyes: conjunctivae/corneas clear. PERRL, EOM's intact. Fundi benign Throat: Lips, mucosa, and tongue normal. Teeth and gums normal Neck: supple, symmetrical, trachea midline, no adenopathy, thyroid: not enlarged, symmetric, no tenderness/mass/nodules, no carotid bruit and no JVD Lungs: clear to auscultation bilaterally Heart: regular rate and rhythm, S1, S2 normal, no murmur, click, rub or gallop Abdomen: soft, non-tender. Bowel sounds normal. No masses, no organomegaly Extremities: extremities normal, atraumatic, no cyanosis or edema Pulses: 2+ and symmetric Skin: Skin color, texture, turgor normal. No rashes or lesions Neurologic: Grossly normal Rectal white plastic seton identified with multiple sutures recently placed no signs of recurrent abscess no purulent drainage no significant erythema or induration mild oozing from open track no active bleeding Last 24 Hour Vital Signs Date Time Temp Pulse Resp B/P (MAP) Pulse Ox O2 Delivery O2 Flow Rate FiO2 05/20/19 11:42 98.2 05/20/19 09:24 98.2 05/20/19 09:00 Room Air 05/20/19 08:00 97.7 100 12 112/71 (85) 98 05/20/19 05:15 Room Air 05/20/19 04:40 98.2 21 124/77 (93) 100 05/20/19 04:00 98.4 81 18 139/79 98 Room Air 05/20/19 00:00 98.4 81 18 139/79 98 Room Air 05/19/19 23:31 98.4 05/19/19 23:31 98.4 05/19/19 22:30 144 18 Room Air 05/19/19 22:07 98.4 144 18 120/82 (95) 98 Room Air Intake and Output 05/19/19 05/20/19 19:00 07:00 Intake Total 150 ml Output Total 800 ml Balance -650 ml Intake IV Total 150 ml Output Urine Total 800 ml # Voids 2 Laboratory Tests Test 05/19/19 23:00 05/20/19 01:30 05/20/19 10:20 White Blood Count 15.3 K/UL (4.8-10.8) H 11.5 K/UL (4.8-10.8) H Red Blood Count 4.55 M/UL (4.70-6.10) L 4.03 M/UL (4.70-6.10) L Hemoglobin 13.1 G/DL (14.2-18.0) L 11.3 G/DL (14.2-18.0) L Hematocrit 36.7 % (42.0-52.0) L 32.8 % (42.0-52.0) L Mean Corpuscular Volume 81 FL (80-99) 82 FL (80-99) Mean Corpuscular Hemoglobin 28.8 PG (27.0-31.0) 28.1 PG (27.0-31.0) Mean Corpuscular Hemoglobin Concent 35.7 G/DL (32.0-36.0) 34.5 G/DL (32.0-36.0) Red Cell Distribution Width 13.3 % (11.6-14.8) 13.3 % (11.6-14.8) Platelet Count 397 K/UL (150-450) 317 K/UL (150-450) Mean Platelet Volume 5.8 FL (6.5-10.1) L 5.8 FL (6.5-10.1) L Neutrophils (%) (Auto) 77.0 % (45.0-75.0) H 74.5 % (45.0-75.0) Lymphocytes (%) (Auto) 13.7 % (20.0-45.0) L 14.8 % (20.0-45.0) L Monocytes (%) (Auto) 6.1 % (1.0-10.0) 6.3 % (1.0-10.0) Eosinophils (%) (Auto) 1.7 % (0.0-3.0) 3.5 % (0.0-3.0) H Basophils (%) (Auto) 1.5 % (0.0-2.0) 0.9 % (0.0-2.0) Sodium Level 139 MMOL/L (136-145) 143 MMOL/L (136-145) Potassium Level 4.1 MMOL/L (3.5-5.1) 3.6 MMOL/L (3.5-5.1) Chloride Level 100 MMOL/L (98-107) 107 MMOL/L (98-107) Carbon Dioxide Level 21 MMOL/L (21-32) 23 MMOL/L (21-32) Anion Gap 18 mmol/L (5-15) H 13 mmol/L (5-15) Blood Urea Nitrogen 28 mg/dL (7-18) H 16 mg/dL (7-18) Creatinine 1.1 MG/DL (0.55-1.30) 0.9 MG/DL (0.55-1.30) Estimat Glomerular Filtration Rate > 60 mL/min (>60) > 60 mL/min (>60) Glucose Level 101 MG/DL (74-106) 98 MG/DL (74-106) Calcium Level 9.2 MG/DL (8.5-10.1) 8.5 MG/DL (8.5-10.1) Total Bilirubin 0.2 MG/DL (0.2-1.0) 0.2 MG/DL (0.2-1.0) Aspartate Amino Transf (AST/SGOT) 24 U/L (15-37) 23 U/L (15-37) Alanine Aminotransferase (ALT/SGPT) 42 U/L (12-78) 34 U/L (12-78) Alkaline Phosphatase 106 U/L (46-116) 94 U/L (46-116) Total Protein 8.2 G/DL (6.4-8.2) 6.9 G/DL (6.4-8.2) Albumin 4.0 G/DL (3.4-5.0) 3.4 G/DL (3.4-5.0) Globulin 4.2 g/dL 3.5 g/dL Albumin/Globulin Ratio 1.0 (1.0-2.7) 1.0 (1.0-2.7) Lipase 140 U/L (73-393) 133 U/L (73-393) Urine Color Pale yellow Urine Appearance Clear Urine pH 7 (4.5-8.0) Urine Specific [place] 1.005 (1.005-1.035) Urine Protein Negative (NEGATIVE) Urine Glucose (UA) Negative (NEGATIVE) Urine Ketones Negative (NEGATIVE) Urine Blood Negative (NEGATIVE) Urine Nitrite Negative (NEGATIVE) Urine Bilirubin Negative (NEGATIVE) Urine Urobilinogen Normal MG/DL (0.0-1.0) Urine Leukocyte Esterase Negative (NEGATIVE) Activated Partial Thromboplast Time 26 SEC (23-33) Amylase Level 36 U/L (25-115) Height (Feet): 5 Height (Inches): 11.00 Weight (Pounds): 150 Medications Current Medications Medications (Trade) Dose Ordered Sig/[place] Route PRN Reason Start Time Stop Time Status Last Admin Dose Admin Acetaminophen (Tylenol) 650 mg Q4H PRN ORAL fever 05/20/19 00:00 06/19/19 00:00 Dextrose (Dextrose 50%) 25 ml Q30M PRN IV Hypoglycemia 05/20/19 00:00 06/19/19 00:00 Dextrose (Dextrose 50%) 50 ml Q30M PRN IV Hypoglycemia 05/20/19 00:00 06/19/19 00:00 Dextrose/Sodium Chloride 1,000 ml @ 75 mls/hr [id number] IV 05/20/19 02:00 06/19/19 01:59 05/20/19 04:11 Diphenhydramine HCl (Benadryl) 25 mg Q6H PRN ORAL Itching/Pruritis 05/20/19 00:00 06/19/19 00:00 Duloxetine HCl (Cymbalta) 60 mg DAILY ORAL 05/20/19 09:00 06/19/19 08:59 05/20/19 08:53 Heparin Sodium (Porcine) (Heparin 5000 units/ml) 5,000 units EVERY 12 HOURS SUBQ 05/20/19 09:00 07/04/19 08:59 05/20/19 08:55 Hydromorphone HCl (Dilaudid) 2 mg Q3H PRN IVP PAIN 4-10 05/20/19 10:30 05/27/19 10:29 05/20/19 11:12 Nitroglycerin (Ntg) 0.4 mg Q5M X 3 DOSES PRN SL Prn Chest Pain 05/20/19 00:00 06/19/19 00:00 Ondansetron HCl (Zofran) 4 mg Q6H PRN IVP Nausea & Vomiting 05/20/19 00:00 06/19/19 00:00 Pantoprazole (Protonix) 40 mg DAILY IVP 05/20/19 09:00 06/19/19 08:59 05/20/19 08:53 Piperacillin Sod/ Tazobactam Sod 3.375 gm/Sodium Chloride 110 ml @ 27.5 mls/hr Q8H IVPB 05/20/19 10:00 05/27/19 09:59 05/20/19 10:11 Polyethylene Glycol (Miralax) 17 gm HSPRN PRN ORAL Constipation 05/20/19 00:00 06/19/19 00:00 Temazepam (Restoril) 15 mg HSPRN PRN ORAL Insomnia 05/20/19 00:00 05/27/19 00:00 Assessment/Plan Problem List: (1) Postoperative pain ICD Codes: G89.18 - Other acute postprocedural pain SNOMED: 006264933 (2) Intractable nausea and vomiting ICD Codes: R11.2 - Nausea with vomiting, unspecified SNOMED: 633748360 (3) Colitis Assessment & Plan: Rectal white plastic seton identified with multiple sutures recently placed no signs of recurrent abscess no purulent drainage no significant erythema or induration mild oozing from open track no active bleeding Known history of Crohn's colitis under management of GI doctor. Known history of fistula and currently with seton placed by his surgeon. No recurrence of abscess fistula or other abnormality identified and currently under good management. Mild oozing normal given open wound. Seton appropriately placed. No acute surgical intervention indicated or necessary at this time. Pain management Antibiotics DC planning We will follow with recommendations thank you for let me participate in patient' s care ICD Codes: K52.9 - Noninfective gastroenteritis and colitis, unspecified SNOMED: 36603873 (4) History of Crohn's disease ICD Codes: Z87.19 - Personal history of other diseases of the digestive system SNOMED: 905315194372137 (5) Rectal bleeding Assessment & Plan: Mild bleeding from the fistula tract and seton in place anticipated given current condition and seton and open wound. No active bleeding noted. No active infection noted. Seton appropriate position. Patient states he is using sitz bath and recommend to continue doing so okay to shower. Dressings for mild oozing. Follow-up with patient's colorectal surgeon outpatient upon discharge. ICD Codes: K62.5 - Hemorrhage of anus and rectum SNOMED: 71090775 Brendan Melendez May 20, 2019 12:49
--- NOTE | 2019-05-20 16:42 | History & Physical ---
History and Physical History & Physicial Dictated for Int Med-DR Ibarra no. [id number] Atilio Hardin MD May 20, 2019 16:42
--- NOTE | 2019-05-20 17:45 | History and Physical Report ---
DATE OF ADMISSION: 05/20/2019 CHIEF COMPLAINT: The patient is a 38-year-old male with history of Crohn disease, status post seton placement for perirectal abscess, who presents with chief complaint of postoperative pain and hemorrhaging from the surgery site. HISTORY OF PRESENT ILLNESS: The patient was admitted to [facility] on April 24, 2019. The history and physical and discharge summary dictated at that time. The patient had surgery in [place] on Wednesday, May 15, 2019 by his surgeon, Dr. Griffin. The patient states the perirectal abscess surgical site has been bleeding. The patient also has had increased pain. The patient states that the pain is 10/10 in intensity. The patient presented to [facility]. The patient is admitted with intractable postop pain and postoperative bleeding at the surgical site. REVIEW OF SYSTEMS: CONSTITUTIONAL: The patient denies weight loss or weight gain. The patient denies fevers or chills. HEENT: The patient denies ear or throat pain. The patient denies headache. CARDIOVASCULAR: The patient denies palpitations or chest pain. CHEST: The patient denies wheeze or shortness of breath. ABDOMINAL: The patient denies nausea, vomiting, diarrhea, or constipation. GENITOURINARY: The patient denies dysuria or increased frequency of urination. NEUROMUSCULAR: The patient denies seizures or generalized weakness. INTEGUMENT: The patient complains of pain and hemorrhage from the perirectal abscess surgical site. PAST MEDICAL HISTORY: Significant for: 1. Crohn disease. 2. Perirectal abscess. PAST SURGICAL HISTORY: Significant for: 1. Colon resection. 2. Perianal fistula. CURRENT MEDICATIONS: 1. Ciprofloxacin 500 mg one tablet p.o. twice daily day #5. 2. Cymbalta 60 mg p.o. daily. 3. Oxycodone 40 mg p.o. q.4 h. ALLERGIES: Allergies to tramadol. SOCIAL HISTORY: The patient is single and lives alone. The patient denies tobacco or alcohol use. PHYSICAL EXAMINATION: VITAL SIGNS: Temperature 98.4 degrees, respirations 18, pulse 144, and blood pressure 120/82. GENERAL: The patient is thin-appearing male in moderate pain. HEENT: Eyes, pupils equal and responsive to light and accommodation. Extraocular movements are intact. NECK: Supple without lymphadenopathy. CHEST: Lungs are clear to auscultation bilaterally without wheezes or rales. CARDIOVASCULAR: Regular rate. S1 and S2 are normal without murmurs, rubs, or gallops. ABDOMEN: Soft, nontender, and nondistended. Positive bowel sounds. No evidence of hepatosplenomegaly. Currently, no rebound or guarding noted. EXTREMITIES: Negative for clubbing, cyanosis, or edema. RECTAL: Not performed. GENITAL: Not performed. NEUROLOGIC: Cranial nerves II through XII are grossly intact without focal deficits. Motor strength is 5/5 bilaterally intact. Deep tendon reflexes are 2+ plantar. LABORATORY STUDIES: WBC 15.3, hemoglobin 13.1, hematocrit 36.7, and platelets 397,000. Sodium 139, potassium 4.1, chloride 100, CO2 21, BUN 20, creatinine 1.1, and glucose 101. ASSESSMENT: This is a 38-year-old male with: 1. Perirectal abscess. 2. Postoperative pain. 3. Postoperative hemorrhage. 4. Crohn disease. TREATMENT: 1. Perirectal abscess/postop pain/postop hemorrhage. A General Surgery consultation has been obtained with Dr. Brendan Melendez. We will follow recommendations of Surgery. The patient has been started empirically on Zosyn for perirectal abscess. A Gastroenterology consultation is pending with Dr. Romeo Valentine. An Infectious Disease consultation was obtained with Dr. Harding. 2. Crohn disease. As above, a Gastroenterology consultation was obtained with Dr. Romeo Valentine. Atilio Hardin M.D. DR: Rachael JOB#: [id number] CC:
[2019-05-20] MEDS: Docusate 100mg cap ORAL SCH (18:00)
--- NOTE | 2019-05-20 18:18 | NUR ---
NURSE NOTES: Dilaudid dosage increased to 4mg IVP PRN Q3hr. Pt tolerated well and states that his pain got better 6/10. No respiration depression noted.
--- NOTE | 2019-05-20 19:09 | NUR ---
HAND-OFF: Report given to Meliza Chow.
--- NOTE | 2019-05-20 19:30 | NUR ---
NURSE NOTES: Received report & pt from LYNN Blount. Pt lying in bed, a&ox4, in room air. No s/s of acute distress & c/o 09/13 pain. Will give PRN pain med when due & pt verbalized understanding. IV site intact with IVF running as ordered. Plan of care discussed.
[2019-05-21] MEDS: D5 1/2NS 1,000 ML IV SCH ×3 (02:02→22:20)
[2019-05-21] MEDS: Piperacillin/Tazobactam 3.375 GM in NS 110 ML IVPB SCH ×3 (02:04→18:07)
[2019-05-21 04:00] VITALS: BP 116/80
[2019-05-21 06:34] LABS: ANION GAP 13 mmol/L (5-15); BLOOD UREA NITROGEN 10 mg/dL (7-18); CALCIUM 9.2 MG/DL (8.5-10.1); CARBON DIOXIDE 24 MMOL/L (21-32); CHLORIDE 106 MMOL/L (98-107); SODIUM 143 MMOL/L (136-145)
[2019-05-21 06:45] LABS: BASOPHILS % (AUTO) 1.3 % (0.0-2.0); EOSINOPHILS % (AUTO) 8.3 % (0.0-3.0); HEMATOCRIT 35.5 % (42.0-52.0); HEMOGLOBIN 12.2 G/DL (14.2-18.0); LYMPHOCYTES % (AUTO) 20.2 % (20.0-45.0); MEAN CORPUSCULAR VOLUME 82 FL (80-99); NEUTROPHILS % (AUTO) 64.2 % (45.0-75.0); PLATELET COUNT 369 K/UL (150-450); RED BLOOD COUNT 4.32 M/UL (4.70-6.10); RED CELL DISTRIBUTION WIDTH 13.5 % (11.6-14.8); WHITE BLOOD COUNT 9.7 K/UL (4.8-10.8)
--- NOTE | 2019-05-21 07:30 | NUR ---
HAND-OFF: Report given to Irvin/LYNN Sun. Rounds done.
--- NOTE | 2019-05-21 07:41 | NUR ---
NURSE NOTES: Handoff received from KIMI RN. Patient is sitting comfortably watching TV, no signs of distress noted. EJ is patent, so signs of infiltration. Bed is in low and locked position, call light within reach. Patient was informed of next pain medicine dose and time.
[2019-05-21 08:00] VITALS: BP 127/88
[2019-05-21] MEDS: Heparin 5000 units/ml inj SUBQ SCH ×2 (08:44→21:10)
[2019-05-21] MEDS: DULoxetine 30mg cap ORAL SCH (08:45)
[2019-05-21] MEDS: Pantoprazole Inj IVP SCH (08:45)
[2019-05-21] MEDS: Docusate 100mg cap ORAL SCH ×2 (09:00→18:00)
--- NOTE | 2019-05-21 09:51 | General Progress Note ---
Assessment/Plan Assessment/Plan: (1) Postoperative pain ICD Codes: G89.18 - Other acute postprocedural pain SNOMED: 021652674 (2) Intractable nausea and vomiting ICD Codes: R11.2 - Nausea with vomiting, unspecified SNOMED: 492246050 (3) Colitis (4) h/o CD s/p recent EGD and colonoscopy at [facility] ? pain med seeking mariann anal care fu surg bowel regimen Subjective ROS Limited/Unobtainable: Yes Allergies: Coded Allergies: TRAMADOL (Unverified Allergy, Unknown, 04/24/19) seizure Objective Last 24 Hour Vital Signs Date Time Temp Pulse Resp B/P (MAP) Pulse Ox O2 Delivery O2 Flow Rate FiO2 05/21/19 09:15 98.3 05/21/19 08:00 98.3 120 18 127/88 (101) 98 05/21/19 04:00 97.6 96 16 116/80 (92) 97 05/20/19 23:49 97.7 101 17 128/77 (94) 100 05/20/19 21:00 Room Air 05/20/19 20:00 98.0 115 16 124/82 (96) 99 05/20/19 15:53 97.7 118 20 124/85 (98) 98 05/20/19 15:00 97.7 100 16 130/91 (104) 98 05/20/19 14:50 97.8 05/20/19 12:00 97.8 120 16 135/91 (106) 98 Intake and Output 05/20/19 05/21/19 19:00 07:00 Intake Total 561.0 ml 2240 ml Output Total 1150 ml 2050 ml Balance -589.0 ml 190 ml Intake Oral 1440 ml IV Total 561.0 ml 800 ml Output Urine Total 1150 ml 2050 ml Laboratory Tests 05/20/19 10:20: White Blood Count 11.5H, Red Blood Count 4.03L, Hemoglobin 11.3L, Hematocrit 32.8L, Mean Corpuscular Volume 82, Mean Corpuscular Hemoglobin 28.1, Mean Corpuscular Hemoglobin Concent 34.5, Red Cell Distribution Width 13.3, Platelet Count 317, Mean Platelet Volume 5.8L, Neutrophils (%) (Auto) 74.5, Lymphocytes ( %) (Auto) 14.8L, Monocytes (%) (Auto) 6.3, Eosinophils (%) (Auto) 3.5H, Basophils (%) (Auto) 0.9, Activated Partial Thromboplast Time 26, Sodium Level 143, Potassium Level 3.6, Chloride Level 107, Carbon Dioxide Level 23, Anion Gap 13, Blood Urea Nitrogen 16, Creatinine 0.9, Estimat Glomerular Filtration Rate > 60, Glucose Level 98, Calcium Level 8.5, Total Bilirubin 0.2, Aspartate Amino Transf (AST/SGOT) 23, Alanine Aminotransferase (ALT/SGPT) 34, Alkaline Phosphatase 94, Total Protein 6.9, Albumin 3.4, Globulin 3.5, Albumin/Globulin Ratio 1.0, Amylase Level 36, Lipase 133 05/21/19 04:55: White Blood Count 9.7, Red Blood Count 4.32L, Hemoglobin 12.2L, Hematocrit 35.5L , Mean Corpuscular Volume 82, Mean Corpuscular Hemoglobin 28.1, Mean Corpuscular Hemoglobin Concent 34.3, Red Cell Distribution Width 13.5, Platelet Count 369, Mean Platelet Volume 5.9L, Neutrophils (%) (Auto) 64.2, Lymphocytes ( %) (Auto) 20.2, Monocytes (%) (Auto) 6.0, Eosinophils (%) (Auto) 8.3H, Basophils (%) (Auto) 1.3, Sodium Level 143, Potassium Level 4.0, Chloride Level 106, Carbon Dioxide Level 24, Anion Gap 13, Blood Urea Nitrogen 10, Creatinine 1.0, Estimat Glomerular Filtration Rate > 60, Glucose Level 97, Calcium Level 9.2 Height (Feet): 5 Height (Inches): 11.00 Weight (Pounds): 150 General Appearance: alert EENT: normal ENT inspection Neck: supple Cardiovascular: normal rate Respiratory/Chest: lungs clear Abdomen: normal bowel sounds, non tender, soft Extremities: non-tender Romeo Valentine MD May 21, 2019 09:51
[2019-05-21 12:00] VITALS: BP 120/82
--- NOTE | 2019-05-21 13:27 | Infectious Diseases Prog Note ---
Subjective Allergies: Coded Allergies: TRAMADOL (Unverified Allergy, Unknown, 04/24/19) seizure Subjective # [id number] Objective Vital Signs Last 24 Hour Vital Signs Date Time Temp Pulse Resp B/P (MAP) Pulse Ox O2 Delivery O2 Flow Rate FiO2 05/21/19 12:15 97.9 05/21/19 12:00 97.9 118 120/82 (95) 05/21/19 08:00 98.3 120 18 127/88 (101) 98 05/21/19 04:00 97.6 96 16 116/80 (92) 97 05/20/19 23:49 97.7 101 17 128/77 (94) 100 05/20/19 21:00 Room Air 05/20/19 20:00 98.0 115 16 124/82 (96) 99 05/20/19 15:53 97.7 118 20 124/85 (98) 98 05/20/19 15:00 97.7 100 16 130/91 (104) 98 05/20/19 14:50 97.8 Height (Feet): 5 Height (Inches): 11.00 Weight (Pounds): 150 Microbiology Date/Time Source Procedure Growth Status 05/19/19 23:05 Blood Blood Culture - Preliminary NO GROWTH AFTER 24 HOURS Resulted 05/19/19 23:00 Blood Blood Culture - Preliminary NO GROWTH AFTER 24 HOURS Resulted Laboratory Tests Test 05/21/19 04:55 White Blood Count 9.7 K/UL (4.8-10.8) Red Blood Count 4.32 M/UL (4.70-6.10) L Hemoglobin 12.2 G/DL (14.2-18.0) L Hematocrit 35.5 % (42.0-52.0) L Mean Corpuscular Volume 82 FL (80-99) Mean Corpuscular Hemoglobin 28.1 PG (27.0-31.0) Mean Corpuscular Hemoglobin Concent 34.3 G/DL (32.0-36.0) Red Cell Distribution Width 13.5 % (11.6-14.8) Platelet Count 369 K/UL (150-450) Mean Platelet Volume 5.9 FL (6.5-10.1) L Neutrophils (%) (Auto) 64.2 % (45.0-75.0) Lymphocytes (%) (Auto) 20.2 % (20.0-45.0) Monocytes (%) (Auto) 6.0 % (1.0-10.0) Eosinophils (%) (Auto) 8.3 % (0.0-3.0) H Basophils (%) (Auto) 1.3 % (0.0-2.0) Sodium Level 143 MMOL/L (136-145) Potassium Level 4.0 MMOL/L (3.5-5.1) Chloride Level 106 MMOL/L (98-107) Carbon Dioxide Level 24 MMOL/L (21-32) Anion Gap 13 mmol/L (5-15) Blood Urea Nitrogen 10 mg/dL (7-18) Creatinine 1.0 MG/DL (0.55-1.30) Estimat Glomerular Filtration Rate > 60 mL/min (>60) Glucose Level 97 MG/DL (74-106) Calcium Level 9.2 MG/DL (8.5-10.1) Current Medications Medications (Trade) Dose Ordered Sig/Aguila Route PRN Reason Start Time Stop Time Status Last Admin Dose Admin Acetaminophen (Tylenol) 650 mg Q4H PRN ORAL fever 05/20/19 00:00 06/19/19 00:00 Dextrose (Dextrose 50%) 25 ml Q30M PRN IV Hypoglycemia 05/20/19 00:00 06/19/19 00:00 Dextrose (Dextrose 50%) 50 ml Q30M PRN IV Hypoglycemia 05/20/19 00:00 06/19/19 00:00 Dextrose/Sodium Chloride 1,000 ml @ 100 mls/hr Q10H IV 05/20/19 16:20 06/19/19 16:19 05/21/19 12:25 Diphenhydramine HCl (Benadryl) 25 mg Q6H PRN ORAL Itching/Pruritis 05/20/19 00:00 06/19/19 00:00 Docusate Sodium (Colace) 100 mg TWICE A DAY ORAL 05/20/19 18:00 06/19/19 17:59 Duloxetine HCl (Cymbalta) 60 mg DAILY ORAL 05/20/19 09:00 06/19/19 08:59 05/21/19 08:45 Heparin Sodium (Porcine) (Heparin 5000 units/ml) 5,000 units EVERY 12 HOURS SUBQ 05/20/19 09:00 07/04/19 08:59 05/21/19 08:44 Hydromorphone HCl (Dilaudid) 2 mg Q3H PRN IVP PAIN 4-10 05/20/19 10:30 05/27/19 10:29 05/20/19 14:12 Hydromorphone HCl (Dilaudid) 4 mg Q3H PRN IVP Severe Pain (Pain Scale 7-10) 05/20/19 16:45 05/27/19 16:44 05/21/19 11:45 Nitroglycerin (Ntg) 0.4 mg Q5M X 3 DOSES PRN SL Prn Chest Pain 05/20/19 00:00 06/19/19 00:00 Ondansetron HCl (Zofran) 4 mg Q6H PRN IVP Nausea & Vomiting 05/20/19 00:00 06/19/19 00:00 Pantoprazole (Protonix) 40 mg DAILY IVP 05/20/19 09:00 06/19/19 08:59 05/21/19 08:45 Piperacillin Sod/ Tazobactam Sod 3.375 gm/Sodium Chloride 110 ml @ 27.5 mls/hr Q8H IVPB 05/20/19 10:00 05/27/19 09:59 05/21/19 10:27 Polyethylene Glycol (Miralax) 17 gm HSPRN PRN ORAL Constipation 05/20/19 00:00 06/19/19 00:00 Temazepam (Restoril) 15 mg HSPRN PRN ORAL Insomnia 05/20/19 00:00 05/27/19 00:00 Shemar Harding MD May 21, 2019 13:27
--- NOTE | 2019-05-21 13:29 | Internal Med Progress Note ---
Subjective Date of Service: May 21, 2019 Physician Name LashawnAtilio Attending Physician Genaro Ibarra MD Current Medications Medications (Trade) Dose Ordered Sig/Aguila Route PRN Reason Start Time Stop Time Status Last Admin Dose Admin Acetaminophen (Tylenol) 650 mg Q4H PRN ORAL fever 05/20/19 00:00 06/19/19 00:00 Dextrose (Dextrose 50%) 25 ml Q30M PRN IV Hypoglycemia 05/20/19 00:00 06/19/19 00:00 Dextrose (Dextrose 50%) 50 ml Q30M PRN IV Hypoglycemia 05/20/19 00:00 06/19/19 00:00 Dextrose/Sodium Chloride 1,000 ml @ 100 mls/hr Q10H IV 05/20/19 16:20 06/19/19 16:19 05/21/19 12:25 Diphenhydramine HCl (Benadryl) 25 mg Q6H PRN ORAL Itching/Pruritis 05/20/19 00:00 06/19/19 00:00 Docusate Sodium (Colace) 100 mg TWICE A DAY ORAL 05/20/19 18:00 06/19/19 17:59 Duloxetine HCl (Cymbalta) 60 mg DAILY ORAL 05/20/19 09:00 06/19/19 08:59 05/21/19 08:45 Heparin Sodium (Porcine) (Heparin 5000 units/ml) 5,000 units EVERY 12 HOURS SUBQ 05/20/19 09:00 07/04/19 08:59 05/21/19 08:44 Hydromorphone HCl (Dilaudid) 2 mg Q3H PRN IVP PAIN 4-10 05/20/19 10:30 05/27/19 10:29 05/20/19 14:12 Hydromorphone HCl (Dilaudid) 4 mg Q3H PRN IVP Severe Pain (Pain Scale 7-10) 05/20/19 16:45 05/27/19 16:44 05/21/19 11:45 Nitroglycerin (Ntg) 0.4 mg Q5M X 3 DOSES PRN SL Prn Chest Pain 05/20/19 00:00 06/19/19 00:00 Ondansetron HCl (Zofran) 4 mg Q6H PRN IVP Nausea & Vomiting 05/20/19 00:00 06/19/19 00:00 Pantoprazole (Protonix) 40 mg DAILY IVP 05/20/19 09:00 06/19/19 08:59 05/21/19 08:45 Piperacillin Sod/ Tazobactam Sod 3.375 gm/Sodium Chloride 110 ml @ 27.5 mls/hr Q8H IVPB 05/20/19 10:00 05/27/19 09:59 05/21/19 10:27 Polyethylene Glycol (Miralax) 17 gm HSPRN PRN ORAL Constipation 05/20/19 00:00 06/19/19 00:00 Temazepam (Restoril) 15 mg HSPRN PRN ORAL Insomnia 05/20/19 00:00 05/27/19 00:00 Allergies: Coded Allergies: TRAMADOL (Unverified Allergy, Unknown, 04/24/19) seizure ROS Limited/Unobtainable: No Constitutional: Reports: no symptoms HEENT: Reports: no symptoms Cardiovascular: Reports: no symptoms Respiratory: Reports: no symptoms Gastrointestinal/Abdominal: Reports: no symptoms Genitourinary: Reports: no symptoms Neurologic/Psychiatric: Reports: no symptoms Subjective 38 YO M admitted with postop hemoorhage from perirectal abscess. Cover for Int Med-DR Ibarra Objective Last Vital Signs Date Time Temp Pulse Resp B/P (MAP) Pulse Ox O2 Delivery O2 Flow Rate FiO2 05/21/19 12:15 97.9 05/21/19 12:00 118 120/82 (95) 05/21/19 08:00 18 98 05/20/19 21:00 Room Air Laboratory Tests Test 05/21/19 04:55 White Blood Count 9.7 K/UL (4.8-10.8) Red Blood Count 4.32 M/UL (4.70-6.10) L Hemoglobin 12.2 G/DL (14.2-18.0) L Hematocrit 35.5 % (42.0-52.0) L Mean Corpuscular Volume 82 FL (80-99) Mean Corpuscular Hemoglobin 28.1 PG (27.0-31.0) Mean Corpuscular Hemoglobin Concent 34.3 G/DL (32.0-36.0) Red Cell Distribution Width 13.5 % (11.6-14.8) Platelet Count 369 K/UL (150-450) Mean Platelet Volume 5.9 FL (6.5-10.1) L Neutrophils (%) (Auto) 64.2 % (45.0-75.0) Lymphocytes (%) (Auto) 20.2 % (20.0-45.0) Monocytes (%) (Auto) 6.0 % (1.0-10.0) Eosinophils (%) (Auto) 8.3 % (0.0-3.0) H Basophils (%) (Auto) 1.3 % (0.0-2.0) Sodium Level 143 MMOL/L (136-145) Potassium Level 4.0 MMOL/L (3.5-5.1) Chloride Level 106 MMOL/L (98-107) Carbon Dioxide Level 24 MMOL/L (21-32) Anion Gap 13 mmol/L (5-15) Blood Urea Nitrogen 10 mg/dL (7-18) Creatinine 1.0 MG/DL (0.55-1.30) Estimat Glomerular Filtration Rate > 60 mL/min (>60) Glucose Level 97 MG/DL (74-106) Calcium Level 9.2 MG/DL (8.5-10.1) Microbiology Date/Time Source Procedure Growth Status 05/19/19 23:05 Blood Blood Culture - Preliminary NO GROWTH AFTER 24 HOURS Resulted 05/19/19 23:00 Blood Blood Culture - Preliminary NO GROWTH AFTER 24 HOURS Resulted Intake and Output 05/20/19 05/21/19 19:00 07:00 Intake Total 561.0 ml 2240 ml Output Total 1150 ml 2050 ml Balance -589.0 ml 190 ml Intake Oral 1440 ml IV Total 561.0 ml 800 ml Output Urine Total 1150 ml 2050 ml Objective PHYSICAL EXAMINATION: GENERAL: The patient is thin-appearing male in moderate pain. HEENT: Eyes, pupils equal and responsive to light and accommodation. Extraocular movements are intact. NECK: Supple without lymphadenopathy. CHEST: Lungs are clear to auscultation bilaterally without wheezes or rales. CARDIOVASCULAR: Regular rate. S1 and S2 are normal without murmurs, rubs, or gallops. ABDOMEN: Soft, nontender, and nondistended. Positive bowel sounds. No evidence of hepatosplenomegaly. Currently, no rebound or guarding noted. EXTREMITIES: Negative for clubbing, cyanosis, or edema. RECTAL: Not performed. GENITAL: Not performed. NEUROLOGIC: Cranial nerves II through XII are grossly intact without focal deficits. Motor strength is 5/5 bilaterally intact. Deep tendon reflexes are 2+ plantar. Assessment/Plan Assessment/Plan ASSESSMENT: This is a 38-year-old male with: 1. Perirectal abscess. 2. Postoperative pain. 3. Postoperative hemorrhage. 4. Crohn disease. TREATMENT: 1. Perirectal abscess/postop pain/postop hemorrhage. A General Surgery consultation has been obtained with Dr. Brendan Melendez. We will follow recommendations of Surgery. The patient has been started empirically on Zosyn for perirectal abscess. A Gastroenterology consultation is pending with Dr. Romeo Valentine. An Infectious Disease consultation was obtained with Dr. Harding. 2. Crohn disease. As above, a Gastroenterology consultation was obtained with Dr. Romeo Valentine. Atilio Hardin MD May 21, 2019 13:29
--- NOTE | 2019-05-21 13:30 | NUR ---
NURSE NOTES: Notified Lissa SIERRA about patient's elevated heart rate. said to continue pain medicine regimen and to "continue to watch him." Will carry out per MD recommendation.
--- NOTE | 2019-05-21 14:09 | Pulmonology Progress Note ---
Assessment/Plan Problems: (1) Rectal bleeding (2) Postoperative pain (3) Intractable nausea and vomiting (4) Colitis (5) History of Crohn's disease Assessment/Plan wound care iv abx pain management zofran for nausea check electrolytes dvt prophylaxis. Subjective ROS Limited/Unobtainable: No Constitutional: Reports: no symptoms HEENT: Repors: no symptoms Respiratory: Reports: no symptoms Allergies: Coded Allergies: TRAMADOL (Unverified Allergy, Unknown, 04/24/19) seizure Objective Last 24 Hour Vital Signs Date Time Temp Pulse Resp B/P (MAP) Pulse Ox O2 Delivery O2 Flow Rate FiO2 05/21/19 12:15 97.9 05/21/19 12:00 97.9 118 120/82 (95) 05/21/19 08:00 98.3 120 18 127/88 (101) 98 05/21/19 04:00 97.6 96 16 116/80 (92) 97 05/20/19 23:49 97.7 101 17 128/77 (94) 100 05/20/19 21:00 Room Air 05/20/19 20:00 98.0 115 16 124/82 (96) 99 05/20/19 15:53 97.7 118 20 124/85 (98) 98 05/20/19 15:00 97.7 100 16 130/91 (104) 98 05/20/19 14:50 97.8 Intake and Output 05/20/19 05/21/19 19:00 07:00 Intake Total 561.0 ml 2240 ml Output Total 1150 ml 2050 ml Balance -589.0 ml 190 ml Intake Oral 1440 ml IV Total 561.0 ml 800 ml Output Urine Total 1150 ml 2050 ml General Appearance: WD/WN HEENT: atraumatic, anicteric Respiratory/Chest: chest wall non-tender, normal breath sounds Cardiovascular: normal peripheral pulses, normal rate Abdomen: normal bowel sounds, soft, non tender Genitourinary: normal external genitalia Extremities: no clubbing Skin: no rash Microbiology Date/Time Source Procedure Growth Status 05/19/19 23:05 Blood Blood Culture - Preliminary NO GROWTH AFTER 24 HOURS Resulted 05/19/19 23:00 Blood Blood Culture - Preliminary NO GROWTH AFTER 24 HOURS Resulted Laboratory Tests 05/21/19 04:55: White Blood Count 9.7, Red Blood Count 4.32L, Hemoglobin 12.2L, Hematocrit 35.5L , Mean Corpuscular Volume 82, Mean Corpuscular Hemoglobin 28.1, Mean Corpuscular Hemoglobin Concent 34.3, Red Cell Distribution Width 13.5, Platelet Count 369, Mean Platelet Volume 5.9L, Neutrophils (%) (Auto) 64.2, Lymphocytes ( %) (Auto) 20.2, Monocytes (%) (Auto) 6.0, Eosinophils (%) (Auto) 8.3H, Basophils (%) (Auto) 1.3, Sodium Level 143, Potassium Level 4.0, Chloride Level 106, Carbon Dioxide Level 24, Anion Gap 13, Blood Urea Nitrogen 10, Creatinine 1.0, Estimat Glomerular Filtration Rate > 60, Glucose Level 97, Calcium Level 9.2 Current Medications Medications (Trade) Dose Ordered Sig/Aguila Route PRN Reason Start Time Stop Time Status Last Admin Dose Admin Acetaminophen (Tylenol) 650 mg Q4H PRN ORAL fever 05/20/19 00:00 06/19/19 00:00 Dextrose (Dextrose 50%) 25 ml Q30M PRN IV Hypoglycemia 05/20/19 00:00 06/19/19 00:00 Dextrose (Dextrose 50%) 50 ml Q30M PRN IV Hypoglycemia 05/20/19 00:00 06/19/19 00:00 Dextrose/Sodium Chloride 1,000 ml @ 100 mls/hr Q10H IV 05/20/19 16:20 06/19/19 16:19 05/21/19 12:25 Diphenhydramine HCl (Benadryl) 25 mg Q6H PRN ORAL Itching/Pruritis 05/20/19 00:00 06/19/19 00:00 Docusate Sodium (Colace) 100 mg TWICE A DAY ORAL 05/20/19 18:00 06/19/19 17:59 Duloxetine HCl (Cymbalta) 60 mg DAILY ORAL 05/20/19 09:00 06/19/19 08:59 05/21/19 08:45 Heparin Sodium (Porcine) (Heparin 5000 units/ml) 5,000 units EVERY 12 HOURS SUBQ 05/20/19 09:00 07/04/19 08:59 05/21/19 08:44 Hydromorphone HCl (Dilaudid) 2 mg Q3H PRN IVP PAIN 4-10 05/20/19 10:30 05/27/19 10:29 05/20/19 14:12 Hydromorphone HCl (Dilaudid) 4 mg Q3H PRN IVP Severe Pain (Pain Scale 7-10) 05/20/19 16:45 05/27/19 16:44 05/21/19 11:45 Nitroglycerin (Ntg) 0.4 mg Q5M X 3 DOSES PRN SL Prn Chest Pain 05/20/19 00:00 06/19/19 00:00 Ondansetron HCl (Zofran) 4 mg Q6H PRN IVP Nausea & Vomiting 05/20/19 00:00 06/19/19 00:00 Pantoprazole (Protonix) 40 mg DAILY IVP 05/20/19 09:00 06/19/19 08:59 05/21/19 08:45 Piperacillin Sod/ Tazobactam Sod 3.375 gm/Sodium Chloride 110 ml @ 27.5 mls/hr Q8H IVPB 05/20/19 10:00 05/27/19 09:59 05/21/19 10:27 Polyethylene Glycol (Miralax) 17 gm HSPRN PRN ORAL Constipation 05/20/19 00:00 06/19/19 00:00 Temazepam (Restoril) 15 mg HSPRN PRN ORAL Insomnia 05/20/19 00:00 05/27/19 00:00 Herrera Alcaraz MD May 21, 2019 14:09
--- NOTE | 2019-05-21 15:16 | NUR ---
CASE MANAGEMENT: INITIAL REVIEW 38YR OLD MALE FROM HOME CC: GASTROINTESTINAL BLEED HX: CROHN'S DISEASE SI: POST OP PAIN/ INTRACTABLE PAIN 98.4 144 18 120/82 98% ON RA WBC 15.3 H/H 13.1/36.7 BUN 28 ANION GAP 18 IS:IV ZOSYN X1 IVF NS BOLUS X2 IV DILAUDID X3 \: 3E MED SURG UNIT CASE MANAGEMENT: REVIEW 05/21/19 SI: POST OP INTRACTABLE PAIN/ HEMORRHAGE . RECTAL BLEEDING . PERIRECTAL ABSCESS 98.3 120 18 127/88 98% ON RA H/H 12.2/35.5 IS:IV ZOSYN TID IV D5@100ML/HR IV PROTONIX QD HEPARIN SQ BID CYMBALTA PO QD IV DILAUDID Q3HR/PRN \: 3E MED SURG UNIT PLAN: WOUND CARE
--- NOTE | 2019-05-21 15:47 | Surgery Progress Note ---
Surgery Progress Note Subjective Symptoms: improved, tolerating diet, voiding well, passing flatus, BM Objective Last 24 Hour Vital Signs Date Time Temp Pulse Resp B/P (MAP) Pulse Ox O2 Delivery O2 Flow Rate FiO2 05/21/19 12:15 97.9 05/21/19 12:00 97.9 118 120/82 (95) 05/21/19 09:00 Room Air 05/21/19 08:00 98.3 120 18 127/88 (101) 98 05/21/19 04:00 97.6 96 16 116/80 (92) 97 05/20/19 23:49 97.7 101 17 128/77 (94) 100 05/20/19 21:00 Room Air 05/20/19 20:00 98.0 115 16 124/82 (96) 99 05/20/19 15:53 97.7 118 20 124/85 (98) 98 I&O Intake and Output 05/20/19 05/21/19 19:00 07:00 Intake Total 561.0 ml 2240 ml Output Total 1150 ml 2050 ml Balance -589.0 ml 190 ml Intake Oral 1440 ml IV Total 561.0 ml 800 ml Output Urine Total 1150 ml 2050 ml Dressing: saturated Wound: clean Drains: other Cardiovascular: RSR Respiratory: clear Abdomen: soft, non-tender, present bowel sounds Extremities: no edema, no tenderness, no cyanosis Laboratory Tests Test 05/21/19 04:55 White Blood Count 9.7 K/UL (4.8-10.8) Red Blood Count 4.32 M/UL (4.70-6.10) L Hemoglobin 12.2 G/DL (14.2-18.0) L Hematocrit 35.5 % (42.0-52.0) L Mean Corpuscular Volume 82 FL (80-99) Mean Corpuscular Hemoglobin 28.1 PG (27.0-31.0) Mean Corpuscular Hemoglobin Concent 34.3 G/DL (32.0-36.0) Red Cell Distribution Width 13.5 % (11.6-14.8) Platelet Count 369 K/UL (150-450) Mean Platelet Volume 5.9 FL (6.5-10.1) L Neutrophils (%) (Auto) 64.2 % (45.0-75.0) Lymphocytes (%) (Auto) 20.2 % (20.0-45.0) Monocytes (%) (Auto) 6.0 % (1.0-10.0) Eosinophils (%) (Auto) 8.3 % (0.0-3.0) H Basophils (%) (Auto) 1.3 % (0.0-2.0) Sodium Level 143 MMOL/L (136-145) Potassium Level 4.0 MMOL/L (3.5-5.1) Chloride Level 106 MMOL/L (98-107) Carbon Dioxide Level 24 MMOL/L (21-32) Anion Gap 13 mmol/L (5-15) Blood Urea Nitrogen 10 mg/dL (7-18) Creatinine 1.0 MG/DL (0.55-1.30) Estimat Glomerular Filtration Rate > 60 mL/min (>60) Glucose Level 97 MG/DL (74-106) Calcium Level 9.2 MG/DL (8.5-10.1) Plan Problems: (1) Postoperative pain (2) Intractable nausea and vomiting (3) Colitis Assessment & Plan: Rectal white plastic seton identified with multiple sutures recently placed no signs of recurrent abscess no purulent drainage no significant erythema or induration mild oozing from open track no active bleeding Known history of Crohn's colitis under management of GI doctor. Known history of fistula and currently with seton placed by his surgeon. No recurrence of abscess fistula or other abnormality identified and currently under good management. Mild oozing normal given open wound. Seton appropriately placed. No acute surgical intervention indicated or necessary at this time. Pain management Antibiotics DC planning We will follow with recommendations thank you for let me participate in patient' s care (4) History of Crohn's disease (5) Rectal bleeding Assessment & Plan: Mild bleeding from the fistula tract and seton in place anticipated given current condition and seton and open wound. No active bleeding noted. No active infection noted. Seton appropriate position. Patient states he is using sitz bath and recommend to continue doing so okay to shower. Dressings for mild oozing. Follow-up with patient's colorectal surgeon outpatient upon discharge. Additional Comments d/c planning Brendan Melendez May 21, 2019 15:47
[2019-05-21 16:00] VITALS: BP 149/85
--- NOTE | 2019-05-21 16:30 | Consultation ---
DATE OF CONSULTATION: 05/21/2019 INFECTIOUS DISEASES CONSULTATION CONSULTING PHYSICIAN: Shemar Harding M.D. REQUESTING PHYSICIAN: Atilio Hardin M.D. REASON FOR CONSULTATION: Evaluation of patient for perianal abscess and antibiotic management. HISTORY OF PRESENT ILLNESS: The patient is a 38-year-old male with multiple medical problems as listed below including history of Crohn disease, status post drain placement for rectal abscesses about a week ago in [place] who came to the hospital with a chief complaint of pain and bleeding from the area. Infectious Diseases consultation has been requested for further evaluation of the patient and antibiotic management. PAST MEDICAL HISTORY: 1. Ulcerative colitis. 2. History of perianal abscess/preanal fistula. 3. Depression. ALLERGIES: No allergies to antibiotics, just tramadol. FAMILY HISTORY: Noncontributory. SOCIAL HISTORY: No history of drug abuse. MEDICATIONS: The patient on IV Zosyn. PHYSICAL EXAMINATION: VITAL SIGNS: Temperature 97.9, blood pressure 120/82, pulse rate , respiratory rate 18. HEENT: No pale conjunctivae. No icterus. NECK: No lymphadenopathy. CHEST: Clear. HEART: S1-S2. ABDOMEN: Soft. In the perianal, the patient has drain placement. It is tender on the left perianal area. NEUROLOGIC: Awake and alert. SKIN: No rash. LABORATORY DATA: WBC is 15 at time of admission, today is 9.7, hemoglobin 12, platelet 369. UA unremarkable. BUN and creatinine are unremarkable. Blood culture is pending. ASSESSMENT: 1. History of ulcerative colitis. 2. Perianal abscess/fistula, status post drain placement. 3. Leukocytosis. 4. Afebrile. PLAN: 1. We will continue patient on IV Zosyn. 2. Monitor CBC. 3. Monitor BMP. 4. Monitor cultures. 5. Follow GI and General surgeon recommendations for perianal care. 6. Based on the patient's clinical course and labs, we will do further recommendations. Thank you, Dr. Hardin, for allowing me to participate in the care of this patient. I will follow the patient with you during this hospitalization. Shemar Harding M.D. DR: Willow JOB#: [id number] CC:
--- NOTE | 2019-05-21 19:32 | NUR ---
HAND-OFF: Report given to Sheron BAILEY.
--- NOTE | 2019-05-21 19:35 | NUR ---
NURSE NOTES: Received report from Renaldo RN. Rounding is done with outgoing nurse. Patient is in bed, A/O X4, and able to known his needs. IV site on EJ is intact and IV fluid is running. C/O pain 7/10 and will give medication as ordered. Bed is on alarm, locked, and lowest position. Call light within reach. Will continue to monitor.
[2019-05-21 20:00] VITALS: BP 137/79
[2019-05-22] VITALS: BP 128/82
[2019-05-22] MEDS: D5 1/2NS 1,000 ML IV SCH ×3 (00:25→18:20)
[2019-05-22] MEDS: Piperacillin/Tazobactam 3.375 GM in NS 110 ML IVPB SCH ×3 (03:12→18:45)
[2019-05-22 04:00] VITALS: BP 131/76
[2019-05-22 06:25] LABS: BASOPHILS % (AUTO) 1.5 % (0.0-2.0); EOSINOPHILS % (AUTO) 8.5 % (0.0-3.0); HEMATOCRIT 35.9 % (42.0-52.0); HEMOGLOBIN 12.5 G/DL (14.2-18.0); LYMPHOCYTES % (AUTO) 17.7 % (20.0-45.0); MEAN CORPUSCULAR VOLUME 81 FL (80-99); MONOCYTES % (AUTO) 7.1 % (1.0-10.0); NEUTROPHILS % (AUTO) 65.2 % (45.0-75.0); PLATELET COUNT 413 K/UL (150-450); RED BLOOD COUNT 4.42 M/UL (4.70-6.10); RED CELL DISTRIBUTION WIDTH 13.2 % (11.6-14.8); WHITE BLOOD COUNT 9.8 K/UL (4.8-10.8)
[2019-05-22 06:52] LABS: ANION GAP 10 mmol/L (5-15); BLOOD UREA NITROGEN 12 mg/dL (7-18); CALCIUM 9.2 MG/DL (8.5-10.1); CARBON DIOXIDE 25 MMOL/L (21-32); CHLORIDE 104 MMOL/L (98-107); SODIUM 138 MMOL/L (136-145)
--- NOTE | 2019-05-22 07:33 | NUR ---
HAND-OFF: Report given to Corinne BAILEY. Patient in stable condition.
--- NOTE | 2019-05-22 07:38 | NUR ---
NURSE NOTES: Received report from BRYANNA BAILEY. Patient is awake, AxO x4, and calm. Breathing is even and unlabored on room air. EJ is patent and asymptomatic. Patient was made aware of the next available dose of PRN pain medicine and verbalized understanding of pain relief regimen. Bed is in low and locked position, call light within reach.
[2019-05-22 08:00] VITALS: BP 117/75
[2019-05-22] MEDS: Docusate 100mg cap ORAL SCH ×2 (09:00→18:00)
--- NOTE | 2019-05-22 09:01 | General Progress Note ---
Assessment/Plan Assessment/Plan: (1) Postoperative pain ICD Codes: G89.18 - Other acute postprocedural pain SNOMED: 678251212 (2) Intractable nausea and vomiting ICD Codes: R11.2 - Nausea with vomiting, unspecified SNOMED: 334890654 (3) Colitis (4) h/o CD s/p recent EGD and colonoscopy at [facility] in last admission ? pain med seeking mariann anal care fu surg bowel regimen Subjective ROS Limited/Unobtainable: Yes Allergies: Coded Allergies: TRAMADOL (Unverified Allergy, Unknown, 04/24/19) seizure Objective Last 24 Hour Vital Signs Date Time Temp Pulse Resp B/P (MAP) Pulse Ox O2 Delivery O2 Flow Rate FiO2 05/22/19 08:00 98.6 109 16 117/75 (89) 98 05/22/19 04:00 98.2 104 18 131/76 (94) 98 05/22/19 00:00 98.4 102 17 128/82 (97) 99 05/21/19 21:00 Room Air 05/21/19 20:00 98.2 108 18 137/79 (98) 98 05/21/19 16:00 97.8 100 18 149/85 (106) 98 05/21/19 15:21 97.9 05/21/19 12:00 97.9 118 18 120/82 (95) 99 Intake and Output 05/21/19 05/22/19 19:00 07:00 Intake Total 1460 ml 1372.5 ml Output Total 1275 ml 1000 ml Balance 185 ml 372.5 ml Intake Oral 750 ml 780 ml IV Total 710 ml 592.5 ml Output Urine Total 1275 ml 1000 ml # Voids 4 Laboratory Tests 05/22/19 05:20: White Blood Count 9.8, Red Blood Count 4.42L, Hemoglobin 12.5L, Hematocrit 35.9L , Mean Corpuscular Volume 81, Mean Corpuscular Hemoglobin 28.2, Mean Corpuscular Hemoglobin Concent 34.7, Red Cell Distribution Width 13.2, Platelet Count 413, Mean Platelet Volume 5.5L, Neutrophils (%) (Auto) 65.2, Lymphocytes ( %) (Auto) 17.7L, Monocytes (%) (Auto) 7.1, Eosinophils (%) (Auto) 8.5H, Basophils (%) (Auto) 1.5, Sodium Level 138, Potassium Level 4.0, Chloride Level 104, Carbon Dioxide Level 25, Anion Gap 10, Blood Urea Nitrogen 12, Creatinine 1.0, Estimat Glomerular Filtration Rate > 60, Glucose Level 87, Calcium Level 9.2 Height (Feet): 5 Height (Inches): 11.00 Weight (Pounds): 150 General Appearance: alert EENT: PERRL/EOMI Neck: supple Cardiovascular: normal rate Respiratory/Chest: accessory muscle use Abdomen: normal bowel sounds, non tender, soft Extremities: non-tender Romeo Valentine MD May 22, 2019 09:01
[2019-05-22] MEDS: Pantoprazole Inj IVP SCH (09:20)
[2019-05-22] MEDS: DULoxetine 30mg cap ORAL SCH (09:20)
[2019-05-22] MEDS: Heparin 5000 units/ml inj SUBQ SCH ×2 (09:21→20:45)
--- NOTE | 2019-05-22 10:42 | Infectious Diseases Prog Note ---
Assessment/Plan Assessment/Plan ASSESSMENT: History of ulcerative colitis. Perianal abscess/fistula, status post drain placement. Leukocytosis. Afebrile. Ulcerative colitis. History of perianal abscess/preanal fistula. Depression. PLAN: continue patient on IV Zosyn # 3 Monitor CBC. Monitor BMP. Monitor cultures. GI and General surgeon recommendations for perianal care. Subjective Allergies: Coded Allergies: TRAMADOL (Unverified Allergy, Unknown, 04/24/19) seizure Subjective feeling better afebrile Objective Vital Signs Last 24 Hour Vital Signs Date Time Temp Pulse Resp B/P (MAP) Pulse Ox O2 Delivery O2 Flow Rate FiO2 05/22/19 09:50 98.6 05/22/19 08:00 98.6 109 16 117/75 (89) 98 05/22/19 04:00 98.2 104 18 131/76 (94) 98 05/22/19 00:00 98.4 102 17 128/82 (97) 99 05/21/19 21:00 Room Air 05/21/19 20:00 98.2 108 18 137/79 (98) 98 05/21/19 16:00 97.8 100 18 149/85 (106) 98 05/21/19 12:00 97.9 118 18 120/82 (95) 99 Height (Feet): 5 Height (Inches): 11.00 Weight (Pounds): 150 Respiratory/Chest: normal breath sounds Cardiovascular: regularly irregular Abdomen: no organomegaly Microbiology Date/Time Source Procedure Growth Status 05/19/19 23:05 Blood Blood Culture - Preliminary NO GROWTH AFTER 48 HOURS Resulted 05/19/19 23:00 Blood Blood Culture - Preliminary NO GROWTH AFTER 48 HOURS Resulted Laboratory Tests Test 05/22/19 05:20 White Blood Count 9.8 K/UL (4.8-10.8) Red Blood Count 4.42 M/UL (4.70-6.10) L Hemoglobin 12.5 G/DL (14.2-18.0) L Hematocrit 35.9 % (42.0-52.0) L Mean Corpuscular Volume 81 FL (80-99) Mean Corpuscular Hemoglobin 28.2 PG (27.0-31.0) Mean Corpuscular Hemoglobin Concent 34.7 G/DL (32.0-36.0) Red Cell Distribution Width 13.2 % (11.6-14.8) Platelet Count 413 K/UL (150-450) Mean Platelet Volume 5.5 FL (6.5-10.1) L Neutrophils (%) (Auto) 65.2 % (45.0-75.0) Lymphocytes (%) (Auto) 17.7 % (20.0-45.0) L Monocytes (%) (Auto) 7.1 % (1.0-10.0) Eosinophils (%) (Auto) 8.5 % (0.0-3.0) H Basophils (%) (Auto) 1.5 % (0.0-2.0) Sodium Level 138 MMOL/L (136-145) Potassium Level 4.0 MMOL/L (3.5-5.1) Chloride Level 104 MMOL/L (98-107) Carbon Dioxide Level 25 MMOL/L (21-32) Anion Gap 10 mmol/L (5-15) Blood Urea Nitrogen 12 mg/dL (7-18) Creatinine 1.0 MG/DL (0.55-1.30) Estimat Glomerular Filtration Rate > 60 mL/min (>60) Glucose Level 87 MG/DL (74-106) Calcium Level 9.2 MG/DL (8.5-10.1) Current Medications Medications (Trade) Dose Ordered Sig/[place] Route PRN Reason Start Time Stop Time Status Last Admin Dose Admin Acetaminophen (Tylenol) 650 mg Q4H PRN ORAL fever 05/20/19 00:00 06/19/19 00:00 Dextrose (Dextrose 50%) 25 ml Q30M PRN IV Hypoglycemia 05/20/19 00:00 06/19/19 00:00 Dextrose (Dextrose 50%) 50 ml Q30M PRN IV Hypoglycemia 05/20/19 00:00 06/19/19 00:00 Dextrose/Sodium Chloride 1,000 ml @ 100 mls/hr Q10H IV 05/20/19 16:20 06/19/19 16:19 05/22/19 09:21 Diphenhydramine HCl (Benadryl) 25 mg Q6H PRN ORAL Itching/Pruritis 05/20/19 00:00 06/19/19 00:00 Docusate Sodium (Colace) 100 mg TWICE A DAY ORAL 05/20/19 18:00 4/14/20 17:59 Duloxetine HCl (Cymbalta) 60 mg DAILY ORAL 05/20/19 09:00 06/19/19 08:59 05/22/19 09:20 Heparin Sodium (Porcine) (Heparin 5000 units/ml) 5,000 units EVERY 12 HOURS SUBQ 05/20/19 09:00 07/04/19 08:59 05/22/19 09:21 Hydromorphone HCl (Dilaudid) 2 mg Q3H PRN IVP PAIN 4-10 05/20/19 10:30 05/27/19 10:29 05/20/19 14:12 Hydromorphone HCl (Dilaudid) 4 mg Q3H PRN IVP Severe Pain (Pain Scale 7-10) 05/20/19 16:45 05/27/19 16:44 05/22/19 09:20 Nitroglycerin (Ntg) 0.4 mg Q5M X 3 DOSES PRN SL Prn Chest Pain 05/20/19 00:00 06/19/19 00:00 Ondansetron HCl (Zofran) 4 mg Q6H PRN IVP Nausea & Vomiting 05/20/19 00:00 06/19/19 00:00 05/22/19 08:15 Pantoprazole (Protonix) 40 mg DAILY IVP 05/20/19 09:00 06/19/19 08:59 05/22/19 09:20 Piperacillin Sod/ Tazobactam Sod 3.375 gm/Sodium Chloride 110 ml @ 27.5 mls/hr Q8H IVPB 05/20/19 10:00 05/27/19 09:59 05/22/19 10:16 Polyethylene Glycol (Miralax) 17 gm HSPRN PRN ORAL Constipation 05/20/19 00:00 06/19/19 00:00 Temazepam (Restoril) 15 mg HSPRN PRN ORAL Insomnia 05/20/19 00:00 05/27/19 00:00 Shemar Hardnig MD May 22, 2019 10:42
[2019-05-22 12:00] VITALS: BP 121/73
--- NOTE | 2019-05-22 13:03 | Surgery Progress Note ---
Surgery Progress Note Subjective Additional Comments no acute events Objective Last 24 Hour Vital Signs Date Time Temp Pulse Resp B/P (MAP) Pulse Ox O2 Delivery O2 Flow Rate FiO2 05/22/19 12:00 98.3 101 16 121/73 (89) 98 05/22/19 09:50 98.6 05/22/19 09:00 Room Air 05/22/19 08:00 98.6 109 16 117/75 (89) 98 05/22/19 04:00 98.2 104 18 131/76 (94) 98 05/22/19 00:00 98.4 102 17 128/82 (97) 99 05/21/19 21:00 Room Air 05/21/19 20:00 98.2 108 18 137/79 (98) 98 05/21/19 16:00 97.8 100 18 149/85 (106) 98 I&O Intake and Output 05/21/19 05/22/19 19:00 07:00 Intake Total 1460 ml 1372.5 ml Output Total 1275 ml 1000 ml Balance 185 ml 372.5 ml Intake Oral 750 ml 780 ml IV Total 710 ml 592.5 ml Output Urine Total 1275 ml 1000 ml # Voids 4 Dressing: saturated Wound: clean Cardiovascular: RSR Respiratory: clear Abdomen: soft, non-tender, present bowel sounds Extremities: no edema, no tenderness, no cyanosis Laboratory Tests Test 05/22/19 05:20 White Blood Count 9.8 K/UL (4.8-10.8) Red Blood Count 4.42 M/UL (4.70-6.10) L Hemoglobin 12.5 G/DL (14.2-18.0) L Hematocrit 35.9 % (42.0-52.0) L Mean Corpuscular Volume 81 FL (80-99) Mean Corpuscular Hemoglobin 28.2 PG (27.0-31.0) Mean Corpuscular Hemoglobin Concent 34.7 G/DL (32.0-36.0) Red Cell Distribution Width 13.2 % (11.6-14.8) Platelet Count 413 K/UL (150-450) Mean Platelet Volume 5.5 FL (6.5-10.1) L Neutrophils (%) (Auto) 65.2 % (45.0-75.0) Lymphocytes (%) (Auto) 17.7 % (20.0-45.0) L Monocytes (%) (Auto) 7.1 % (1.0-10.0) Eosinophils (%) (Auto) 8.5 % (0.0-3.0) H Basophils (%) (Auto) 1.5 % (0.0-2.0) Sodium Level 138 MMOL/L (136-145) Potassium Level 4.0 MMOL/L (3.5-5.1) Chloride Level 104 MMOL/L (98-107) Carbon Dioxide Level 25 MMOL/L (21-32) Anion Gap 10 mmol/L (5-15) Blood Urea Nitrogen 12 mg/dL (7-18) Creatinine 1.0 MG/DL (0.55-1.30) Estimat Glomerular Filtration Rate > 60 mL/min (>60) Glucose Level 87 MG/DL (74-106) Calcium Level 9.2 MG/DL (8.5-10.1) Plan Problems: (1) Postoperative pain (2) Intractable nausea and vomiting (3) Colitis Assessment & Plan: Rectal white plastic seton identified with multiple sutures recently placed no signs of recurrent abscess no purulent drainage no significant erythema or induration mild oozing from open track no active bleeding Known history of Crohn's colitis under management of GI doctor. Known history of fistula and currently with seton placed by his surgeon. No recurrence of abscess fistula or other abnormality identified and currently under good management. Mild oozing normal given open wound. Seton appropriately placed. No acute surgical intervention indicated or necessary at this time. Pain management Antibiotics DC planning We will follow with recommendations thank you for let me participate in patient' s care (4) History of Crohn's disease (5) Rectal bleeding Assessment & Plan: Mild bleeding from the fistula tract and seton in place anticipated given current condition and seton and open wound. No active bleeding noted. No active infection noted. Seton appropriate position. Patient states he is using sitz bath and recommend to continue doing so okay to shower. Dressings for mild oozing. Follow-up with patient's colorectal surgeon outpatient upon discharge. Brendan Melendez May 22, 2019 13:03
[2019-05-22] MEDS ORDERED: Promethazine HCl 25 MG in NS 55 ML IVPB PRN (14:45)
[2019-05-22 16:00] VITALS: BP 117/74
--- NOTE | 2019-05-22 18:29 | Internal Med Progress Note ---
Subjective Date of Service: May 22, 2019 Physician Name Hardin,Atilio Attending Physician Genaro Ibarra MD Current Medications Medications (Trade) Dose Ordered Sig/Aguila Route PRN Reason Start Time Stop Time Status Last Admin Dose Admin Acetaminophen (Tylenol) 650 mg Q4H PRN ORAL fever 05/20/19 00:00 06/19/19 00:00 Dextrose (Dextrose 50%) 25 ml Q30M PRN IV Hypoglycemia 05/20/19 00:00 06/19/19 00:00 Dextrose (Dextrose 50%) 50 ml Q30M PRN IV Hypoglycemia 05/20/19 00:00 06/19/19 00:00 Dextrose/Sodium Chloride 1,000 ml @ 100 mls/hr Q10H IV 05/20/19 16:20 06/19/19 16:19 05/22/19 09:21 Diphenhydramine HCl (Benadryl) 25 mg Q6H PRN ORAL Itching/Pruritis 05/20/19 00:00 06/19/19 00:00 Docusate Sodium (Colace) 100 mg TWICE A DAY ORAL 05/20/19 18:00 06/19/19 17:59 Duloxetine HCl (Cymbalta) 60 mg DAILY ORAL 05/20/19 09:00 06/19/19 08:59 05/22/19 09:20 Heparin Sodium (Porcine) (Heparin 5000 units/ml) 5,000 units EVERY 12 HOURS SUBQ 05/20/19 09:00 07/04/19 08:59 05/22/19 09:21 Hydromorphone HCl (Dilaudid) 2 mg Q3H PRN IVP PAIN 4-10 05/20/19 10:30 05/27/19 10:29 05/20/19 14:12 Hydromorphone HCl (Dilaudid) 4 mg Q3H PRN IVP Severe Pain (Pain Scale 7-10) 05/20/19 16:45 05/27/19 16:44 05/22/19 15:27 Nitroglycerin (Ntg) 0.4 mg Q5M X 3 DOSES PRN SL Prn Chest Pain 05/20/19 00:00 06/19/19 00:00 Ondansetron HCl (Zofran) 4 mg Q6H PRN IVP Nausea & Vomiting 05/20/19 00:00 06/19/19 00:00 05/22/19 08:15 Pantoprazole (Protonix) 40 mg DAILY IVP 05/20/19 09:00 06/19/19 08:59 05/22/19 09:20 Piperacillin Sod/ Tazobactam Sod 3.375 gm/Sodium Chloride 110 ml @ 27.5 mls/hr Q8H IVPB 05/20/19 10:00 05/27/19 09:59 05/22/19 10:16 Polyethylene Glycol (Miralax) 17 gm HSPRN PRN ORAL Constipation 05/20/19 00:00 06/19/19 00:00 Promethazine HCl 25 mg/Sodium Chloride 56 ml @ 112 mls/hr Q6H PRN IVPB nausea 05/22/19 14:45 06/21/19 14:44 Temazepam (Restoril) 15 mg HSPRN PRN ORAL Insomnia 05/20/19 00:00 05/27/19 00:00 Allergies: Coded Allergies: TRAMADOL (Unverified Allergy, Unknown, 04/24/19) seizure ROS Limited/Unobtainable: No Constitutional: Reports: no symptoms HEENT: Reports: no symptoms Cardiovascular: Reports: no symptoms Respiratory: Reports: no symptoms Gastrointestinal/Abdominal: Reports: abdominal pain Genitourinary: Reports: no symptoms Subjective 38 YO M admitted with postop hemoorhage from perirectal abscess. Cover for Int Joshua-DR Ibarra Objective Last Vital Signs Date Time Temp Pulse Resp B/P (MAP) Pulse Ox O2 Delivery O2 Flow Rate FiO2 05/22/19 16:00 97.6 112 20 117/74 (88) 98 05/22/19 09:00 Room Air Laboratory Tests Test 05/22/19 05:20 White Blood Count 9.8 K/UL (4.8-10.8) Red Blood Count 4.42 M/UL (4.70-6.10) L Hemoglobin 12.5 G/DL (14.2-18.0) L Hematocrit 35.9 % (42.0-52.0) L Mean Corpuscular Volume 81 FL (80-99) Mean Corpuscular Hemoglobin 28.2 PG (27.0-31.0) Mean Corpuscular Hemoglobin Concent 34.7 G/DL (32.0-36.0) Red Cell Distribution Width 13.2 % (11.6-14.8) Platelet Count 413 K/UL (150-450) Mean Platelet Volume 5.5 FL (6.5-10.1) L Neutrophils (%) (Auto) 65.2 % (45.0-75.0) Lymphocytes (%) (Auto) 17.7 % (20.0-45.0) L Monocytes (%) (Auto) 7.1 % (1.0-10.0) Eosinophils (%) (Auto) 8.5 % (0.0-3.0) H Basophils (%) (Auto) 1.5 % (0.0-2.0) Sodium Level 138 MMOL/L (136-145) Potassium Level 4.0 MMOL/L (3.5-5.1) Chloride Level 104 MMOL/L (98-107) Carbon Dioxide Level 25 MMOL/L (21-32) Anion Gap 10 mmol/L (5-15) Blood Urea Nitrogen 12 mg/dL (7-18) Creatinine 1.0 MG/DL (0.55-1.30) Estimat Glomerular Filtration Rate > 60 mL/min (>60) Glucose Level 87 MG/DL (74-106) Calcium Level 9.2 MG/DL (8.5-10.1) Microbiology Date/Time Source Procedure Growth Status 05/19/19 23:05 Blood Blood Culture - Preliminary NO GROWTH AFTER 48 HOURS Resulted 05/19/19 23:00 Blood Blood Culture - Preliminary NO GROWTH AFTER 48 HOURS Resulted Intake and Output 05/21/19 05/22/19 19:00 07:00 Intake Total 1460 ml 1372.5 ml Output Total 1275 ml 1000 ml Balance 185 ml 372.5 ml Intake Oral 750 ml 780 ml IV Total 710 ml 592.5 ml Output Urine Total 1275 ml 1000 ml # Voids 4 Objective PHYSICAL EXAMINATION: GENERAL: The patient is thin-appearing male in moderate pain. HEENT: Eyes, pupils equal and responsive to light and accommodation. Extraocular movements are intact. NECK: Supple without lymphadenopathy. CHEST: Lungs are clear to auscultation bilaterally without wheezes or rales. CARDIOVASCULAR: Regular rate. S1 and S2 are normal without murmurs, rubs, or gallops. ABDOMEN: Soft, nontender, and nondistended. Positive bowel sounds. No evidence of hepatosplenomegaly. Currently, no rebound or guarding noted. EXTREMITIES: Negative for clubbing, cyanosis, or edema. RECTAL: Not performed. GENITAL: Not performed. NEUROLOGIC: Cranial nerves II through XII are grossly intact without focal deficits. Motor strength is 5/5 bilaterally intact. Deep tendon reflexes are 2+ plantar. Assessment/Plan Assessment/Plan ASSESSMENT: This is a 38-year-old male with: 1. Perirectal abscess. 2. Postoperative pain. 3. Postoperative hemorrhage. 4. Crohn disease. TREATMENT: 1. Perirectal abscess/postop pain/postop hemorrhage. A General Surgery consultation has been obtained with Dr. Brendan Melendez. We will follow recommendations of Surgery. The patient has been started empirically on Zosyn for perirectal abscess. A Gastroenterology consultation= Dr. Romeo Valentine. An Infectious Disease consultation=with Dr. Harding. 2. Crohn disease. As above, a Gastroenterology consultation was obtained with Dr. Romeo Valentine. No GI procedures planned Atilio Hardin MD May 22, 2019 18:29
--- NOTE | 2019-05-22 19:35 | NUR ---
HAND-OFF: Report given to DONIS BAILEY.
[2019-05-22 20:00] VITALS: BP 116/69
[2019-05-23] VITALS: BP 126/74
[2019-05-23] MEDS: Piperacillin/Tazobactam 3.375 GM in NS 110 ML IVPB SCH ×3 (02:00→18:25)
[2019-05-23 04:00] VITALS: BP 122/71
[2019-05-23] MEDS: D5 1/2NS 1,000 ML IV SCH ×3 (04:20→23:36)
[2019-05-23 06:16] LABS: BASOPHILS % (AUTO) 1.2 % (0.0-2.0); EOSINOPHILS % (AUTO) 6.2 % (0.0-3.0); HEMATOCRIT 36.5 % (42.0-52.0); HEMOGLOBIN 12.7 G/DL (14.2-18.0); MEAN CORPUSCULAR VOLUME 81 FL (80-99); NEUTROPHILS % (AUTO) 70.6 % (45.0-75.0); PLATELET COUNT 443 K/UL (150-450); RED BLOOD COUNT 4.49 M/UL (4.70-6.10); RED CELL DISTRIBUTION WIDTH 12.8 % (11.6-14.8); WHITE BLOOD COUNT 10.8 K/UL (4.8-10.8)
[2019-05-23 06:51] LABS: ANION GAP 9 mmol/L (5-15); BLOOD UREA NITROGEN 14 mg/dL (7-18); CALCIUM 9.5 MG/DL (8.5-10.1); CARBON DIOXIDE 31 MMOL/L (21-32); CHLORIDE 106 MMOL/L (98-107); POTASSIUM 4.2 MMOL/L (3.5-5.1); SODIUM 146 MMOL/L (136-145)
--- NOTE | 2019-05-23 07:15 | NUR ---
HAND-OFF: Report given to LYNN Sun. Pt is awake and in stable condition. Plan of care endorsed.
--- NOTE | 2019-05-23 07:43 | NUR ---
NURSE NOTES: Handoff received from DONIS BAILEY. Patient is resting comfortably in bed, AxO x4, breaths even and unlabored on room air, EJ is patent and asymptomatic. Patient reports 7/10 pain and was reminded of next dose of PRN pain medicine. Call light is within reach, bed is low and locked, side rails up x2.
[2019-05-23 08:00] VITALS: BP 114/70
--- NOTE | 2019-05-23 08:26 | General Progress Note ---
Assessment/Plan Assessment/Plan: (1) Postoperative pain ICD Codes: G89.18 - Other acute postprocedural pain SNOMED: 514131839 (2) Intractable nausea and vomiting ICD Codes: R11.2 - Nausea with vomiting, unspecified SNOMED: 768502832 (3) Colitis (4) h/o CD s/p recent EGD and colonoscopy at [facility] in last admission ? pain med seeking mariann anal care fu surg bowel regimen Subjective ROS Limited/Unobtainable: Yes Allergies: Coded Allergies: TRAMADOL (Unverified Allergy, Unknown, 04/24/19) seizure Objective Last 24 Hour Vital Signs Date Time Temp Pulse Resp B/P (MAP) Pulse Ox O2 Delivery O2 Flow Rate FiO2 05/23/19 04:00 98.6 99 18 122/71 (88) 98 05/23/19 00:00 98.4 95 17 126/74 (91) 97 05/22/19 21:00 Room Air 05/22/19 20:00 97.9 115 16 116/69 (85) 97 05/22/19 19:16 97.6 05/22/19 16:00 97.6 112 20 117/74 (88) 98 05/22/19 12:00 98.3 101 16 121/73 (89) 98 05/22/19 09:00 Room Air Intake and Output 05/22/19 05/23/19 19:00 07:00 Intake Total 610 ml 780 ml Balance 610 ml 780 ml Intake Oral 780 ml IV Total 610 ml # Voids 3 3 Laboratory Tests 05/23/19 05:00: White Blood Count 10.8, Red Blood Count 4.49L, Hemoglobin 12.7L, Hematocrit 36.5L, Mean Corpuscular Volume 81, Mean Corpuscular Hemoglobin 28.3, Mean Corpuscular Hemoglobin Concent 34.8, Red Cell Distribution Width 12.8, Platelet Count 443, Mean Platelet Volume 5.2L, Neutrophils (%) (Auto) 70.6, Lymphocytes ( %) (Auto) 16.0L, Monocytes (%) (Auto) 6.0, Eosinophils (%) (Auto) 6.2H, Basophils (%) (Auto) 1.2, Erythrocyte Sedimentation Rate 24H, Sodium Level 146H , Potassium Level 4.2, Chloride Level 106, Carbon Dioxide Level 31, Anion Gap 9 , Blood Urea Nitrogen 14, Creatinine 1.0, Estimat Glomerular Filtration Rate > 60, Glucose Level 83, Calcium Level 9.5, C-Reactive Protein, Quantitative < 0.4 Height (Feet): 5 Height (Inches): 11.00 Weight (Pounds): 155 General Appearance: alert EENT: PERRL/EOMI Neck: supple Cardiovascular: normal rate Respiratory/Chest: decreased breath sounds Abdomen: normal bowel sounds, non tender, soft Extremities: non-tender Romeo Valentine MD May 23, 2019 08:26
[2019-05-23] MEDS: Docusate 100mg cap ORAL SCH ×2 (09:00→18:00)
[2019-05-23] MEDS: Pantoprazole Inj IVP SCH (09:57)
[2019-05-23] MEDS: DULoxetine 30mg cap ORAL SCH (09:57)
[2019-05-23] MEDS: Heparin 5000 units/ml inj SUBQ SCH ×2 (09:58→20:29)
[2019-05-23 12:00] VITALS: BP 113/78
--- NOTE | 2019-05-23 12:22 | Infectious Diseases Prog Note ---
Assessment/Plan Assessment/Plan ASSESSMENT: History of ulcerative colitis Perianal abscess/fistula, status post drain placement Leukocytosis, Sp Afebrile Ulcerative colitis History of perianal abscess/preanal fistula Depression. PLAN: continue patient on IV Zosyn # 4/10 , upon DC will change to oral Augmentin Monitor CBC. Monitor BMP. Monitor cultures. GI and General surgeon recommendations for perianal care. Subjective Allergies: Coded Allergies: TRAMADOL (Unverified Allergy, Unknown, 04/24/19) seizure Subjective afebrile Objective Vital Signs Last 24 Hour Vital Signs Date Time Temp Pulse Resp B/P (MAP) Pulse Ox O2 Delivery O2 Flow Rate FiO2 05/23/19 09:00 Room Air 05/23/19 08:00 97.1 109 16 114/70 (85) 95 05/23/19 04:00 98.6 99 18 122/71 (88) 98 05/23/19 00:00 98.4 95 17 126/74 (91) 97 05/22/19 21:00 Room Air 05/22/19 20:00 97.9 115 16 116/69 (85) 97 05/22/19 19:16 97.6 05/22/19 16:00 97.6 112 20 117/74 (88) 98 Height (Feet): 5 Height (Inches): 11.00 Weight (Pounds): 155 HEENT: anicteric Respiratory/Chest: no respiratory distress Cardiovascular: regularly irregular Abdomen: non distended Laboratory Tests Test 05/23/19 05:00 White Blood Count 10.8 K/UL (4.8-10.8) Red Blood Count 4.49 M/UL (4.70-6.10) L Hemoglobin 12.7 G/DL (14.2-18.0) L Hematocrit 36.5 % (42.0-52.0) L Mean Corpuscular Volume 81 FL (80-99) Mean Corpuscular Hemoglobin 28.3 PG (27.0-31.0) Mean Corpuscular Hemoglobin Concent 34.8 G/DL (32.0-36.0) Red Cell Distribution Width 12.8 % (11.6-14.8) Platelet Count 443 K/UL (150-450) Mean Platelet Volume 5.2 FL (6.5-10.1) L Neutrophils (%) (Auto) 70.6 % (45.0-75.0) Lymphocytes (%) (Auto) 16.0 % (20.0-45.0) L Monocytes (%) (Auto) 6.0 % (1.0-10.0) Eosinophils (%) (Auto) 6.2 % (0.0-3.0) H Basophils (%) (Auto) 1.2 % (0.0-2.0) Erythrocyte Sedimentation Rate 24 MM/HR (0-15) H Sodium Level 146 MMOL/L (136-145) H Potassium Level 4.2 MMOL/L (3.5-5.1) Chloride Level 106 MMOL/L (98-107) Carbon Dioxide Level 31 MMOL/L (21-32) Anion Gap 9 mmol/L (5-15) Blood Urea Nitrogen 14 mg/dL (7-18) Creatinine 1.0 MG/DL (0.55-1.30) Estimat Glomerular Filtration Rate > 60 mL/min (>60) Glucose Level 83 MG/DL (74-106) Calcium Level 9.5 MG/DL (8.5-10.1) C-Reactive Protein, Quantitative < 0.4 mg/dL (0.00-0.90) Current Medications Medications (Trade) Dose Ordered Sig/[place] Route PRN Reason Start Time Stop Time Status Last Admin Dose Admin Acetaminophen (Tylenol) 650 mg Q4H PRN ORAL fever 05/20/19 00:00 06/19/19 00:00 Dextrose (Dextrose 50%) 25 ml Q30M PRN IV Hypoglycemia 05/20/19 00:00 06/19/19 00:00 Dextrose (Dextrose 50%) 50 ml Q30M PRN IV Hypoglycemia 05/20/19 00:00 06/19/19 00:00 Dextrose/Sodium Chloride 1,000 ml @ 100 mls/hr Q10H IV 05/20/19 16:20 06/19/19 16:19 05/22/19 18:20 Diphenhydramine HCl (Benadryl) 25 mg Q6H PRN ORAL Itching/Pruritis 05/20/19 00:00 06/19/19 00:00 Docusate Sodium (Colace) 100 mg TWICE A DAY ORAL 05/20/19 18:00 06/19/19 17:59 Duloxetine HCl (Cymbalta) 60 mg DAILY ORAL 3/15/20 09:00 06/19/19 08:59 05/23/19 09:57 Heparin Sodium (Porcine) (Heparin 5000 units/ml) 5,000 units EVERY 12 HOURS SUBQ 05/20/19 09:00 07/04/19 08:59 05/23/19 09:58 Hydromorphone HCl (Dilaudid) 2 mg Q3H PRN IVP PAIN 4-10 05/20/19 10:30 05/27/19 10:29 05/20/19 14:12 Hydromorphone HCl (Dilaudid) 4 mg Q3H PRN IVP Severe Pain (Pain Scale 7-10) 05/20/19 16:45 05/27/19 16:44 05/23/19 09:56 Nitroglycerin (Ntg) 0.4 mg Q5M X 3 DOSES PRN SL Prn Chest Pain 05/20/19 00:00 06/19/19 00:00 Ondansetron HCl (Zofran) 4 mg Q6H PRN IVP Nausea & Vomiting 05/20/19 00:00 06/19/19 00:00 05/22/19 08:15 Pantoprazole (Protonix) 40 mg DAILY IVP 05/20/19 09:00 06/19/19 08:59 05/23/19 09:57 Piperacillin Sod/ Tazobactam Sod 3.375 gm/Sodium Chloride 110 ml @ 27.5 mls/hr Q8H IVPB 05/20/19 10:00 05/27/19 09:59 05/23/19 09:57 Polyethylene Glycol (Miralax) 17 gm HSPRN PRN ORAL Constipation 05/20/19 00:00 06/19/19 00:00 Promethazine HCl 25 mg/Sodium Chloride 56 ml @ 112 mls/hr Q6H PRN IVPB nausea 05/22/19 14:45 06/21/19 14:44 Temazepam (Restoril) 15 mg HSPRN PRN ORAL Insomnia 05/20/19 00:00 05/27/19 00:00 Shemar Harding MD May 23, 2019 12:22
--- NOTE | 2019-05-23 13:16 | Surgery Progress Note ---
Surgery Progress Note Subjective Additional Comments Patient seen and examined bedside. No acute events. Resting comfortably. New IV line peripheral placed. The right EJ removed by myself and pressure held no hemostasis noted. Line site okay. Mild infiltration noted will monitor. Still asking for pain medication. Nausea wanting anti-nausea medications with pain medications. Objective Last 24 Hour Vital Signs Date Time Temp Pulse Resp B/P (MAP) Pulse Ox O2 Delivery O2 Flow Rate FiO2 05/23/19 09:00 Room Air 05/23/19 08:00 97.1 109 16 114/70 (85) 95 05/23/19 04:00 98.6 99 18 122/71 (88) 98 05/23/19 00:00 98.4 95 17 126/74 (91) 97 05/22/19 21:00 Room Air 05/22/19 20:00 97.9 115 16 116/69 (85) 97 05/22/19 19:16 97.6 05/22/19 16:00 97.6 112 20 117/74 (88) 98 I&O Intake and Output 05/22/19 05/23/19 19:00 07:00 Intake Total 610 ml 780 ml Balance 610 ml 780 ml Intake Oral 780 ml IV Total 610 ml # Voids 3 3 Cardiovascular: RSR Respiratory: clear Abdomen: soft, flat, non-tender, present bowel sounds, non-distended Extremities: no edema, no tenderness, no cyanosis Laboratory Tests Test 05/23/19 05:00 White Blood Count 10.8 K/UL (4.8-10.8) Red Blood Count 4.49 M/UL (4.70-6.10) L Hemoglobin 12.7 G/DL (14.2-18.0) L Hematocrit 36.5 % (42.0-52.0) L Mean Corpuscular Volume 81 FL (80-99) Mean Corpuscular Hemoglobin 28.3 PG (27.0-31.0) Mean Corpuscular Hemoglobin Concent 34.8 G/DL (32.0-36.0) Red Cell Distribution Width 12.8 % (11.6-14.8) Platelet Count 443 K/UL (150-450) Mean Platelet Volume 5.2 FL (6.5-10.1) L Neutrophils (%) (Auto) 70.6 % (45.0-75.0) Lymphocytes (%) (Auto) 16.0 % (20.0-45.0) L Monocytes (%) (Auto) 6.0 % (1.0-10.0) Eosinophils (%) (Auto) 6.2 % (0.0-3.0) H Basophils (%) (Auto) 1.2 % (0.0-2.0) Erythrocyte Sedimentation Rate 24 MM/HR (0-15) H Sodium Level 146 MMOL/L (136-145) H Potassium Level 4.2 MMOL/L (3.5-5.1) Chloride Level 106 MMOL/L (98-107) Carbon Dioxide Level 31 MMOL/L (21-32) Anion Gap 9 mmol/L (5-15) Blood Urea Nitrogen 14 mg/dL (7-18) Creatinine 1.0 MG/DL (0.55-1.30) Estimat Glomerular Filtration Rate > 60 mL/min (>60) Glucose Level 83 MG/DL (74-106) Calcium Level 9.5 MG/DL (8.5-10.1) C-Reactive Protein, Quantitative < 0.4 mg/dL (0.00-0.90) Additional Comments Rectal exam stable. No bleeding. Mild dressing saturation anticipated. Seton in place. Plan Problems: (1) Postoperative pain (2) Intractable nausea and vomiting (3) Colitis Assessment & Plan: Rectal white plastic seton identified with multiple sutures recently placed no signs of recurrent abscess no purulent drainage no significant erythema or induration mild oozing from open track no active bleeding Known history of Crohn's colitis under management of GI doctor. Known history of fistula and currently with seton placed by his surgeon. No recurrence of abscess fistula or other abnormality identified and currently under good management. Mild oozing normal given open wound. Seton appropriately placed. No acute surgical intervention indicated or necessary at this time. Pain management Antibiotics DC planning We will follow with recommendations thank you for let me participate in patient' s care (4) History of Crohn's disease (5) Rectal bleeding Assessment & Plan: Mild bleeding from the fistula tract and seton in place anticipated given current condition and seton and open wound. No active bleeding noted. No active infection noted. Seton appropriate position. Patient states he is using sitz bath and recommend to continue doing so okay to shower. Dressings for mild oozing. Follow-up with patient's colorectal surgeon outpatient upon discharge. Additional Comments Pain control possible seeking behavior noted discussed with patient and medical teams discharge planning Brendan Melendez May 23, 2019 13:15
--- NOTE | 2019-05-23 14:09 | Pulmonology Progress Note ---
Assessment/Plan Problems: (1) Intractable nausea and vomiting (2) Rectal bleeding (3) Postoperative pain (4) Colitis (5) History of Crohn's disease Assessment/Plan wound care iv abx pain management phenergen for nausea check electrolytes dvt prophylaxis. Subjective ROS Limited/Unobtainable: No HEENT: Repors: no symptoms Respiratory: Reports: no symptoms Allergies: Coded Allergies: TRAMADOL (Unverified Allergy, Unknown, 04/24/19) seizure Objective Last 24 Hour Vital Signs Date Time Temp Pulse Resp B/P (MAP) Pulse Ox O2 Delivery O2 Flow Rate FiO2 05/23/19 13:35 97.1 05/23/19 12:00 97.5 112 18 113/78 (90) 97 05/23/19 09:00 Room Air 05/23/19 08:00 97.1 109 16 114/70 (85) 95 05/23/19 04:00 98.6 99 18 122/71 (88) 98 05/23/19 00:00 98.4 95 17 126/74 (91) 97 05/22/19 21:00 Room Air 05/22/19 20:00 97.9 115 16 116/69 (85) 97 05/22/19 16:00 97.6 112 20 117/74 (88) 98 Intake and Output 05/22/19 05/23/19 19:00 07:00 Intake Total 610 ml 780 ml Balance 610 ml 780 ml Intake Oral 780 ml IV Total 610 ml # Voids 3 3 General Appearance: WD/WN HEENT: normocephalic, atraumatic Respiratory/Chest: chest wall non-tender, lungs clear Cardiovascular: normal peripheral pulses, regular rhythm Abdomen: normal bowel sounds, soft, non tender Genitourinary: normal external genitalia Skin: no rash Laboratory Tests 05/23/19 05:00: White Blood Count 10.8, Red Blood Count 4.49L, Hemoglobin 12.7L, Hematocrit 36.5L, Mean Corpuscular Volume 81, Mean Corpuscular Hemoglobin 28.3, Mean Corpuscular Hemoglobin Concent 34.8, Red Cell Distribution Width 12.8, Platelet Count 443, Mean Platelet Volume 5.2L, Neutrophils (%) (Auto) 70.6, Lymphocytes ( %) (Auto) 16.0L, Monocytes (%) (Auto) 6.0, Eosinophils (%) (Auto) 6.2H, Basophils (%) (Auto) 1.2, Erythrocyte Sedimentation Rate 24H, Sodium Level 146H , Potassium Level 4.2, Chloride Level 106, Carbon Dioxide Level 31, Anion Gap 9 , Blood Urea Nitrogen 14, Creatinine 1.0, Estimat Glomerular Filtration Rate > 60, Glucose Level 83, Calcium Level 9.5, C-Reactive Protein, Quantitative < 0.4 Current Medications Medications (Trade) Dose Ordered Sig/Aguila Route PRN Reason Start Time Stop Time Status Last Admin Dose Admin Acetaminophen (Tylenol) 650 mg Q4H PRN ORAL fever 05/20/19 00:00 06/19/19 00:00 Dextrose (Dextrose 50%) 25 ml Q30M PRN IV Hypoglycemia 05/20/19 00:00 06/19/19 00:00 Dextrose (Dextrose 50%) 50 ml Q30M PRN IV Hypoglycemia 05/20/19 00:00 06/19/19 00:00 Dextrose/Sodium Chloride 1,000 ml @ 100 mls/hr Q10H IV 05/20/19 16:20 06/19/19 16:19 05/22/19 18:20 Diphenhydramine HCl (Benadryl) 25 mg Q6H PRN ORAL Itching/Pruritis 05/20/19 00:00 06/19/19 00:00 Docusate Sodium (Colace) 100 mg TWICE A DAY ORAL 05/20/19 18:00 06/19/19 17:59 Duloxetine HCl (Cymbalta) 60 mg DAILY ORAL 05/20/19 09:00 06/19/19 08:59 05/23/19 09:57 Heparin Sodium (Porcine) (Heparin 5000 units/ml) 5,000 units EVERY 12 HOURS SUBQ 05/20/19 09:00 07/04/19 08:59 05/23/19 09:58 Hydromorphone HCl (Dilaudid) 2 mg Q3H PRN IVP PAIN 4-10 05/20/19 10:30 05/27/19 10:29 05/20/19 14:12 Hydromorphone HCl (Dilaudid) 4 mg Q3H PRN IVP Severe Pain (Pain Scale 7-10) 05/20/19 16:45 05/27/19 16:44 05/23/19 13:05 Nitroglycerin (Ntg) 0.4 mg Q5M X 3 DOSES PRN SL Prn Chest Pain 05/20/19 00:00 06/19/19 00:00 Ondansetron HCl (Zofran) 4 mg Q6H PRN IVP Nausea & Vomiting 05/20/19 00:00 06/19/19 00:00 05/23/19 13:05 Pantoprazole (Protonix) 40 mg DAILY IVP 05/20/19 09:00 06/19/19 08:59 05/23/19 09:57 Piperacillin Sod/ Tazobactam Sod 3.375 gm/Sodium Chloride 110 ml @ 27.5 mls/hr Q8H IVPB 05/20/19 10:00 05/27/19 09:59 05/23/19 09:57 Polyethylene Glycol (Miralax) 17 gm HSPRN PRN ORAL Constipation 05/20/19 00:00 06/19/19 00:00 Promethazine HCl 25 mg/Sodium Chloride 56 ml @ 112 mls/hr Q6H PRN IVPB nausea 05/22/19 14:45 06/21/19 14:44 Temazepam (Restoril) 15 mg HSPRN PRN ORAL Insomnia 05/20/19 00:00 05/27/19 00:00 Herrera Alcaraz MD May 23, 2019 14:09
--- NOTE | 2019-05-23 14:13 | Pulmonology Progress Note ---
Assessment/Plan Problems: (1) Intractable nausea and vomiting (2) Rectal bleeding (3) Postoperative pain (4) Colitis (5) History of Crohn's disease Assessment/Plan wound care iv abx pain management phenergen for nausea check electrolytes dvt prophylaxis. Subjective Interval Events: late note for 05/21 Allergies: Coded Allergies: TRAMADOL (Unverified Allergy, Unknown, 04/24/19) seizure Objective Last 24 Hour Vital Signs Date Time Temp Pulse Resp B/P (MAP) Pulse Ox O2 Delivery O2 Flow Rate FiO2 05/23/19 13:35 97.1 05/23/19 12:00 97.5 112 18 113/78 (90) 97 05/23/19 09:00 Room Air 05/23/19 08:00 97.1 109 16 114/70 (85) 95 05/23/19 04:00 98.6 99 18 122/71 (88) 98 05/23/19 00:00 98.4 95 17 126/74 (91) 97 05/22/19 21:00 Room Air 05/22/19 20:00 97.9 115 16 116/69 (85) 97 05/22/19 16:00 97.6 112 20 117/74 (88) 98 Intake and Output 05/22/19 05/23/19 19:00 07:00 Intake Total 610 ml 780 ml Balance 610 ml 780 ml Intake Oral 780 ml IV Total 610 ml # Voids 3 3 Objective still bleeding slightly from rectum General Appearance: WD/WN HEENT: normocephalic, atraumatic Respiratory/Chest: chest wall non-tender, lungs clear Laboratory Tests 05/23/19 05:00: White Blood Count 10.8, Red Blood Count 4.49L, Hemoglobin 12.7L, Hematocrit 36.5L, Mean Corpuscular Volume 81, Mean Corpuscular Hemoglobin 28.3, Mean Corpuscular Hemoglobin Concent 34.8, Red Cell Distribution Width 12.8, Platelet Count 443, Mean Platelet Volume 5.2L, Neutrophils (%) (Auto) 70.6, Lymphocytes ( %) (Auto) 16.0L, Monocytes (%) (Auto) 6.0, Eosinophils (%) (Auto) 6.2H, Basophils (%) (Auto) 1.2, Erythrocyte Sedimentation Rate 24H, Sodium Level 146H , Potassium Level 4.2, Chloride Level 106, Carbon Dioxide Level 31, Anion Gap 9 , Blood Urea Nitrogen 14, Creatinine 1.0, Estimat Glomerular Filtration Rate > 60, Glucose Level 83, Calcium Level 9.5, C-Reactive Protein, Quantitative < 0.4 Current Medications Medications (Trade) Dose Ordered Sig/Aguila Route PRN Reason Start Time Stop Time Status Last Admin Dose Admin Acetaminophen (Tylenol) 650 mg Q4H PRN ORAL fever 05/20/19 00:00 06/19/19 00:00 Dextrose (Dextrose 50%) 25 ml Q30M PRN IV Hypoglycemia 05/20/19 00:00 06/19/19 00:00 Dextrose (Dextrose 50%) 50 ml Q30M PRN IV Hypoglycemia 05/20/19 00:00 06/19/19 00:00 Dextrose/Sodium Chloride 1,000 ml @ 100 mls/hr Q10H IV 05/20/19 16:20 06/19/19 16:19 05/22/19 18:20 Diphenhydramine HCl (Benadryl) 25 mg Q6H PRN ORAL Itching/Pruritis 05/20/19 00:00 06/19/19 00:00 Docusate Sodium (Colace) 100 mg TWICE A DAY ORAL 05/20/19 18:00 06/19/19 17:59 Duloxetine HCl (Cymbalta) 60 mg DAILY ORAL 05/20/19 09:00 06/19/19 08:59 05/23/19 09:57 Heparin Sodium (Porcine) (Heparin 5000 units/ml) 5,000 units EVERY 12 HOURS SUBQ 05/20/19 09:00 07/04/19 08:59 05/23/19 09:58 Hydromorphone HCl (Dilaudid) 2 mg Q3H PRN IVP PAIN 4-10 05/20/19 10:30 05/27/19 10:29 05/20/19 14:12 Hydromorphone HCl (Dilaudid) 4 mg Q3H PRN IVP Severe Pain (Pain Scale 7-10) 05/20/19 16:45 05/27/19 16:44 05/23/19 13:05 Nitroglycerin (Ntg) 0.4 mg Q5M X 3 DOSES PRN SL Prn Chest Pain 05/20/19 00:00 06/19/19 00:00 Ondansetron HCl (Zofran) 4 mg Q6H PRN IVP Nausea & Vomiting 05/20/19 00:00 06/19/19 00:00 05/23/19 13:05 Pantoprazole (Protonix) 40 mg DAILY IVP 05/20/19 09:00 06/19/19 08:59 05/23/19 09:57 Piperacillin Sod/ Tazobactam Sod 3.375 gm/Sodium Chloride 110 ml @ 27.5 mls/hr Q8H IVPB 05/20/19 10:00 05/27/19 09:59 05/23/19 09:57 Polyethylene Glycol (Miralax) 17 gm HSPRN PRN ORAL Constipation 05/20/19 00:00 06/19/19 00:00 Promethazine HCl 25 mg/Sodium Chloride 56 ml @ 112 mls/hr Q6H PRN IVPB nausea 05/22/19 14:45 06/21/19 14:44 Temazepam (Restoril) 15 mg HSPRN PRN ORAL Insomnia 05/20/19 00:00 05/27/19 00:00 Herrera Alcaraz MD May 23, 2019 14:13
--- NOTE | 2019-05-23 14:54 | NUR ---
CASE MANAGEMENT: REVIEW 05/23/19 SI: POST OP INTRACTABLE PAIN/ HEMORRHAGE . RECTAL BLEEDING . PERIRECTAL ABSCESS 97.5 112 18 113/78 97% ON RA H/H 12.7/36.5 NA+ 146 IS:IV ZOSYN TID IV D5@100ML/HR IV PROTONIX QD HEPARIN SQ BID CYMBALTA PO QD IV DILAUDID Q3HR/PRN \: 3E MED SURG UNIT PLAN: WOUND CARE PATIENT NAUSEATED UNABLE TO DISCHARGE TODAY
--- NOTE | 2019-05-23 15:00 | NUR ---
NURSE NOTES: EJ IV removed by DR CHOUDHARY.
[2019-05-23 16:00] VITALS: BP 119/80
--- NOTE | 2019-05-23 17:26 | Internal Med Progress Note ---
Subjective Date of Service: May 23, 2019 Physician Name Hardin,Atilio Attending Physician Genaro Ibarra MD Current Medications Medications (Trade) Dose Ordered Sig/Aguila Route PRN Reason Start Time Stop Time Status Last Admin Dose Admin Acetaminophen (Tylenol) 650 mg Q4H PRN ORAL fever 05/20/19 00:00 06/19/19 00:00 Dextrose (Dextrose 50%) 25 ml Q30M PRN IV Hypoglycemia 05/20/19 00:00 06/19/19 00:00 Dextrose (Dextrose 50%) 50 ml Q30M PRN IV Hypoglycemia 05/20/19 00:00 06/19/19 00:00 Dextrose/Sodium Chloride 1,000 ml @ 100 mls/hr Q10H IV 05/20/19 16:20 06/19/19 16:19 05/23/19 14:44 Diphenhydramine HCl (Benadryl) 25 mg Q6H PRN ORAL Itching/Pruritis 05/20/19 00:00 06/19/19 00:00 Docusate Sodium (Colace) 100 mg TWICE A DAY ORAL 05/20/19 18:00 06/19/19 17:59 Duloxetine HCl (Cymbalta) 60 mg DAILY ORAL 05/20/19 09:00 06/19/19 08:59 05/23/19 09:57 Heparin Sodium (Porcine) (Heparin 5000 units/ml) 5,000 units EVERY 12 HOURS SUBQ 05/20/19 09:00 07/04/19 08:59 05/23/19 09:58 Hydromorphone HCl (Dilaudid) 2 mg Q3H PRN IVP PAIN 4-10 05/20/19 10:30 05/27/19 10:29 05/20/19 14:12 Hydromorphone HCl (Dilaudid) 4 mg Q3H PRN IVP Severe Pain (Pain Scale 7-10) 05/20/19 16:45 05/27/19 16:44 05/23/19 17:20 Nitroglycerin (Ntg) 0.4 mg Q5M X 3 DOSES PRN SL Prn Chest Pain 05/20/19 00:00 06/19/19 00:00 Ondansetron HCl (Zofran) 4 mg Q6H PRN IVP Nausea & Vomiting 05/20/19 00:00 06/19/19 00:00 05/23/19 13:05 Pantoprazole (Protonix) 40 mg DAILY IVP 05/20/19 09:00 06/19/19 08:59 05/23/19 09:57 Piperacillin Sod/ Tazobactam Sod 3.375 gm/Sodium Chloride 110 ml @ 27.5 mls/hr Q8H IVPB 05/20/19 10:00 05/27/19 09:59 05/23/19 09:57 Polyethylene Glycol (Miralax) 17 gm HSPRN PRN ORAL Constipation 05/20/19 00:00 06/19/19 00:00 Promethazine HCl 25 mg/Sodium Chloride 56 ml @ 112 mls/hr Q6H PRN IVPB nausea 05/22/19 14:45 06/21/19 14:44 05/23/19 14:08 Temazepam (Restoril) 15 mg HSPRN PRN ORAL Insomnia 05/20/19 00:00 05/27/19 00:00 Allergies: Coded Allergies: TRAMADOL (Unverified Allergy, Unknown, 04/24/19) seizure ROS Limited/Unobtainable: No Constitutional: Reports: no symptoms HEENT: Reports: no symptoms Cardiovascular: Reports: no symptoms Respiratory: Reports: no symptoms Gastrointestinal/Abdominal: Reports: nausea Genitourinary: Reports: no symptoms Neurologic/Psychiatric: Reports: no symptoms Subjective 38 YO M admitted with postop hemoorhage from perirectal abscess. Cover for Int Med-DR Ibarra Objective Last Vital Signs Date Time Temp Pulse Resp B/P (MAP) Pulse Ox O2 Delivery O2 Flow Rate FiO2 05/23/19 16:00 97.7 95 20 119/80 (93) 99 05/23/19 09:00 Room Air Laboratory Tests Test 05/23/19 05:00 White Blood Count 10.8 K/UL (4.8-10.8) Red Blood Count 4.49 M/UL (4.70-6.10) L Hemoglobin 12.7 G/DL (14.2-18.0) L Hematocrit 36.5 % (42.0-52.0) L Mean Corpuscular Volume 81 FL (80-99) Mean Corpuscular Hemoglobin 28.3 PG (27.0-31.0) Mean Corpuscular Hemoglobin Concent 34.8 G/DL (32.0-36.0) Red Cell Distribution Width 12.8 % (11.6-14.8) Platelet Count 443 K/UL (150-450) Mean Platelet Volume 5.2 FL (6.5-10.1) L Neutrophils (%) (Auto) 70.6 % (45.0-75.0) Lymphocytes (%) (Auto) 16.0 % (20.0-45.0) L Monocytes (%) (Auto) 6.0 % (1.0-10.0) Eosinophils (%) (Auto) 6.2 % (0.0-3.0) H Basophils (%) (Auto) 1.2 % (0.0-2.0) Erythrocyte Sedimentation Rate 24 MM/HR (0-15) H Sodium Level 146 MMOL/L (136-145) H Potassium Level 4.2 MMOL/L (3.5-5.1) Chloride Level 106 MMOL/L (98-107) Carbon Dioxide Level 31 MMOL/L (21-32) Anion Gap 9 mmol/L (5-15) Blood Urea Nitrogen 14 mg/dL (7-18) Creatinine 1.0 MG/DL (0.55-1.30) Estimat Glomerular Filtration Rate > 60 mL/min (>60) Glucose Level 83 MG/DL (74-106) Calcium Level 9.5 MG/DL (8.5-10.1) C-Reactive Protein, Quantitative < 0.4 mg/dL (0.00-0.90) Intake and Output 05/22/19 05/23/19 19:00 07:00 Intake Total 610 ml 780 ml Balance 610 ml 780 ml Intake Oral 780 ml IV Total 610 ml # Voids 3 3 Objective PHYSICAL EXAMINATION: GENERAL: The patient is thin-appearing male in moderate pain. HEENT: Eyes, pupils equal and responsive to light and accommodation. Extraocular movements are intact. NECK: Supple without lymphadenopathy. CHEST: Lungs are clear to auscultation bilaterally without wheezes or rales. CARDIOVASCULAR: Regular rate. S1 and S2 are normal without murmurs, rubs, or gallops. ABDOMEN: Soft, nontender, and nondistended. Positive bowel sounds. No evidence of hepatosplenomegaly. Currently, no rebound or guarding noted. EXTREMITIES: Negative for clubbing, cyanosis, or edema. RECTAL: Not performed. GENITAL: Not performed. NEUROLOGIC: Cranial nerves II through XII are grossly intact without focal deficits. Motor strength is 5/5 bilaterally intact. Deep tendon reflexes are 2+ plantar. Assessment/Plan Assessment/Plan ASSESSMENT: This is a 38-year-old male with: 1. Perirectal abscess. 2. Postoperative pain. 3. Postoperative hemorrhage. 4. Crohn disease. TREATMENT: 1. Perirectal abscess/postop pain/postop hemorrhage. A General Surgery consultation has been obtained with Dr. Brendan Melendez. We will follow recommendations of Surgery. The patient has been started empirically on Zosyn for perirectal abscess. A Gastroenterology consultation= Dr. Romeo Valentine. An Infectious Disease consultation=with Dr. Harding. 2. Crohn disease. As above, a Gastroenterology consultation was obtained with Dr. Romeo Valentine. No GI procedures planned Atilio Hardin MD May 23, 2019 17:25
--- NOTE | 2019-05-23 19:18 | NUR ---
NURSE NOTES: Received report from LYNN Bryan. Pt is awake, lying high-gaytan's; comfortably resting. No signs of acute distress noted. Pt denies any pain at this time. AOx4; able to make needs known. Checked IV site, line, and rate; patent and running. No erythema, bleeding, or infiltration noted. Bed at lowest position. Brakes on. Siderails up x2. Call light within reach. Will continue to monitor.
--- NOTE | 2019-05-23 19:35 | NUR ---
HAND-OFF: Report given to DONIS BAILEY.
[2019-05-23 20:00] VITALS: BP 116/80
[2019-05-24] VITALS: BP 107/70
[2019-05-24] MEDS: Piperacillin/Tazobactam 3.375 GM in NS 110 ML IVPB SCH ×3 (02:36→17:31)
[2019-05-24 04:00] VITALS: BP 113/64
[2019-05-24 06:28] LABS: BASOPHILS % (AUTO) 2.2 % (0.0-2.0); EOSINOPHILS % (AUTO) 6.8 % (0.0-3.0); HEMATOCRIT 36.3 % (42.0-52.0); HEMOGLOBIN 12.4 G/DL (14.2-18.0); LYMPHOCYTES % (AUTO) 18.6 % (20.0-45.0); MEAN CORPUSCULAR VOLUME 81 FL (80-99); MONOCYTES % (AUTO) 8.2 % (1.0-10.0); NEUTROPHILS % (AUTO) 64.2 % (45.0-75.0); PLATELET COUNT 418 K/UL (150-450); RED BLOOD COUNT 4.45 M/UL (4.70-6.10); RED CELL DISTRIBUTION WIDTH 13.3 % (11.6-14.8); WHITE BLOOD COUNT 8.3 K/UL (4.8-10.8)
[2019-05-24 06:40] LABS: ANION GAP 10 mmol/L (5-15); BLOOD UREA NITROGEN 12 mg/dL (7-18); CALCIUM 9.3 MG/DL (8.5-10.1); CARBON DIOXIDE 30 MMOL/L (21-32); CHLORIDE 107 MMOL/L (98-107); CREATININE 1.1 MG/DL (0.55-1.30); POTASSIUM 4.1 MMOL/L (3.5-5.1); SODIUM 146 MMOL/L (136-145)
--- NOTE | 2019-05-24 07:19 | NUR ---
HAND-OFF: Report given LYNN Cloud. Pt is awake and in stable condition. Plan of care endorsed.
--- NOTE | 2019-05-24 07:30 | NUR ---
NURSE NOTES: Received patient in bed awake. No SOB or acute distress. IV line intact and patent. HOB elevated. Bed locked in lowest position. Call light within reach. Will continue plan of care.
[2019-05-24 08:00] VITALS: BP 113/74
--- NOTE | 2019-05-24 08:24 | General Progress Note ---
Assessment/Plan Assessment/Plan: (1) Postoperative pain ICD Codes: G89.18 - Other acute postprocedural pain SNOMED: 716143464 (2) Intractable nausea and vomiting ICD Codes: R11.2 - Nausea with vomiting, unspecified SNOMED: 077286600 (3) Colitis (4) h/o CD s/p recent EGD and colonoscopy at [place] in last admission ? pain med seeking mariann anal care fu surg bowel regimen dc planning per primary team Subjective ROS Limited/Unobtainable: Yes Allergies: Coded Allergies: TRAMADOL (Unverified Allergy, Unknown, 04/24/19) seizure Objective Last 24 Hour Vital Signs Date Time Temp Pulse Resp B/P (MAP) Pulse Ox O2 Delivery O2 Flow Rate FiO2 05/24/19 08:00 98.4 110 20 113/74 (87) 99 05/24/19 04:00 97.8 99 22 113/64 (80) 96 05/24/19 00:00 97.8 98 22 107/70 (82) 98 05/23/19 21:00 Room Air 05/23/19 20:00 98.5 111 21 116/80 (92) 100 05/23/19 16:00 97.7 95 20 119/80 (93) 99 05/23/19 13:35 97.1 05/23/19 12:00 97.5 112 18 113/78 (90) 97 05/23/19 09:00 Room Air Intake and Output 05/23/19 05/24/19 19:00 07:00 Intake Total 1166 ml Output Total 1100 ml 700 ml Balance 66 ml -700 ml Intake Oral 600 ml IV Total 566 ml Output Urine Total 1100 ml 700 ml Laboratory Tests 05/24/19 04:50: White Blood Count 8.3, Red Blood Count 4.45L, Hemoglobin 12.4L, Hematocrit 36.3L , Mean Corpuscular Volume 81, Mean Corpuscular Hemoglobin 27.8, Mean Corpuscular Hemoglobin Concent 34.1, Red Cell Distribution Width 13.3, Platelet Count 418, Mean Platelet Volume 5.2L, Neutrophils (%) (Auto) 64.2, Lymphocytes ( %) (Auto) 18.6L, Monocytes (%) (Auto) 8.2, Eosinophils (%) (Auto) 6.8H, Basophils (%) (Auto) 2.2H, Sodium Level 146H, Potassium Level 4.1, Chloride Level 107, Carbon Dioxide Level 30, Anion Gap 10, Blood Urea Nitrogen 12, Creatinine 1.1, Estimat Glomerular Filtration Rate > 60, Glucose Level 89, Calcium Level 9.3 Height (Feet): 5 Height (Inches): 11.00 Weight (Pounds): 155 General Appearance: alert EENT: normal ENT inspection Neck: supple Cardiovascular: normal rate Respiratory/Chest: decreased breath sounds Abdomen: normal bowel sounds, non tender, soft Extremities: non-tender Romeo Valentine MD May 24, 2019 08:24
[2019-05-24] MEDS: Pantoprazole Inj IVP SCH (08:27)
[2019-05-24] MEDS: Docusate 100mg cap ORAL SCH ×2 (08:27→17:34)
[2019-05-24] MEDS: DULoxetine 30mg cap ORAL SCH (08:27)
[2019-05-24] MEDS: Heparin 5000 units/ml inj SUBQ SCH ×3 (08:29→21:32)
[2019-05-24] MEDS ORDERED: D5 1/2NS 1000ml IV ONE (09:22)
[2019-05-24] MEDS ORDERED: Tubing IV Secondary IV ONE (09:22)
[2019-05-24] MEDS: D5 1/2NS 1,000 ML IV SCH ×2 (10:41→21:32)
--- NOTE | 2019-05-24 11:53 | Pulmonology Progress Note ---
Assessment/Plan Problems: (1) Intractable nausea and vomiting (2) Rectal bleeding (3) Postoperative pain (4) Colitis (5) History of Crohn's disease Assessment/Plan wound care iv abx, on zosyn pain management phenergen for nausea check electrolytes dvt prophylaxis. Subjective ROS Limited/Unobtainable: No Interval Events: still nauseous Allergies: Coded Allergies: TRAMADOL (Unverified Allergy, Unknown, 04/24/19) seizure Objective Last 24 Hour Vital Signs Date Time Temp Pulse Resp B/P (MAP) Pulse Ox O2 Delivery O2 Flow Rate FiO2 05/24/19 09:00 Room Air 05/24/19 08:00 98.4 110 20 113/74 (87) 99 05/24/19 04:00 97.8 99 22 113/64 (80) 96 05/24/19 00:00 97.8 98 22 107/70 (82) 98 05/23/19 21:00 Room Air 05/23/19 20:00 98.5 111 21 116/80 (92) 100 05/23/19 16:00 97.7 95 20 119/80 (93) 99 05/23/19 13:35 97.1 05/23/19 12:00 97.5 112 18 113/78 (90) 97 Intake and Output 05/23/19 05/24/19 19:00 07:00 Intake Total 1166 ml Output Total 1100 ml 700 ml Balance 66 ml -700 ml Intake Oral 600 ml IV Total 566 ml Output Urine Total 1100 ml 700 ml Objective bleeding less from rectum General Appearance: WD/WN HEENT: normocephalic, atraumatic Respiratory/Chest: chest wall non-tender, lungs clear Cardiovascular: normal peripheral pulses, normal rate Abdomen: normal bowel sounds, soft, non tender Genitourinary: normal external genitalia Extremities: no cyanosis Skin: no rash 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 Lymphatic: no neck adenopathy Laboratory Tests 05/24/19 04:50: White Blood Count 8.3, Red Blood Count 4.45L, Hemoglobin 12.4L, Hematocrit 36.3L , Mean Corpuscular Volume 81, Mean Corpuscular Hemoglobin 27.8, Mean Corpuscular Hemoglobin Concent 34.1, Red Cell Distribution Width 13.3, Platelet Count 418, Mean Platelet Volume 5.2L, Neutrophils (%) (Auto) 64.2, Lymphocytes ( %) (Auto) 18.6L, Monocytes (%) (Auto) 8.2, Eosinophils (%) (Auto) 6.8H, Basophils (%) (Auto) 2.2H, Sodium Level 146H, Potassium Level 4.1, Chloride Level 107, Carbon Dioxide Level 30, Anion Gap 10, Blood Urea Nitrogen 12, Creatinine 1.1, Estimat Glomerular Filtration Rate > 60, Glucose Level 89, Calcium Level 9.3 Current Medications Medications (Trade) Dose Ordered Sig/Aguila Route PRN Reason Start Time Stop Time Status Last Admin Dose Admin Acetaminophen (Tylenol) 650 mg Q4H PRN ORAL fever 05/20/19 00:00 06/19/19 00:00 Dextrose (Dextrose 50%) 25 ml Q30M PRN IV Hypoglycemia 05/20/19 00:00 06/19/19 00:00 Dextrose (Dextrose 50%) 50 ml Q30M PRN IV Hypoglycemia 05/20/19 00:00 06/19/19 00:00 Dextrose/Sodium Chloride 1,000 ml @ 100 mls/hr Q10H IV 05/20/19 16:20 06/19/19 16:19 05/24/19 10:41 Diphenhydramine HCl (Benadryl) 25 mg Q6H PRN ORAL Itching/Pruritis 05/20/19 00:00 06/19/19 00:00 Docusate Sodium (Colace) 100 mg TWICE A DAY ORAL 05/20/19 18:00 06/19/19 17:59 05/24/19 08:27 Duloxetine HCl (Cymbalta) 60 mg DAILY ORAL 05/25/19 09:00 08/23/19 08:59 Heparin Sodium (Porcine) (Heparin 5000 units/ml) 5,000 units EVERY 12 HOURS SUBQ 05/20/19 09:00 07/04/19 08:59 05/23/19 20:29 Hydromorphone HCl (Dilaudid) 2 mg Q3H PRN IVP 4-6 PAIN 05/24/19 09:15 05/27/19 10:29 Hydromorphone HCl (Dilaudid) 4 mg Q3H PRN IVP Severe Pain (Pain Scale 7-10) 05/20/19 16:45 3/22/20 16:44 05/24/19 09:02 Nitroglycerin (Ntg) 0.4 mg Q5M X 3 DOSES PRN SL Prn Chest Pain 05/20/19 00:00 06/19/19 00:00 Ondansetron HCl (Zofran) 4 mg Q6H PRN IVP Nausea & Vomiting 05/20/19 00:00 06/19/19 00:00 05/23/19 13:05 Pantoprazole (Protonix) 40 mg DAILY IVP 05/20/19 09:00 06/19/19 08:59 05/24/19 08:27 Piperacillin Sod/ Tazobactam Sod 3.375 gm/Sodium Chloride 110 ml @ 27.5 mls/hr Q8H IVPB 05/20/19 10:00 05/27/19 09:59 05/24/19 10:41 Polyethylene Glycol (Miralax) 17 gm HSPRN PRN ORAL Constipation 05/20/19 00:00 06/19/19 00:00 Promethazine HCl 25 mg/Sodium Chloride 56 ml @ 112 mls/hr Q6H PRN IVPB nausea 05/22/19 14:45 06/21/19 14:44 05/23/19 14:08 Temazepam (Restoril) 15 mg HSPRN PRN ORAL Insomnia 05/20/19 00:00 05/27/19 00:00 Herrera Alcaraz MD May 24, 2019 11:53
[2019-05-24 12:00] VITALS: BP 115/76
--- NOTE | 2019-05-24 12:19 | Surgery Progress Note ---
Surgery Progress Note Subjective Symptoms: improved, pain same Additional Comments nausea with meals otherwise well Objective Last 24 Hour Vital Signs Date Time Temp Pulse Resp B/P (MAP) Pulse Ox O2 Delivery O2 Flow Rate FiO2 05/24/19 09:00 Room Air 05/24/19 08:00 98.4 110 20 113/74 (87) 99 05/24/19 04:00 97.8 99 22 113/64 (80) 96 05/24/19 00:00 97.8 98 22 107/70 (82) 98 05/23/19 21:00 Room Air 05/23/19 20:00 98.5 111 21 116/80 (92) 100 05/23/19 16:00 97.7 95 20 119/80 (93) 99 05/23/19 13:35 97.1 I&O Intake and Output 05/23/19 05/24/19 19:00 07:00 Intake Total 1166 ml Output Total 1100 ml 700 ml Balance 66 ml -700 ml Intake Oral 600 ml IV Total 566 ml Output Urine Total 1100 ml 700 ml Dressing: dry Wound: clean Cardiovascular: RSR Respiratory: clear Abdomen: soft, non-tender, present bowel sounds Extremities: no edema, no tenderness, no cyanosis Laboratory Tests Test 05/24/19 04:50 White Blood Count 8.3 K/UL (4.8-10.8) Red Blood Count 4.45 M/UL (4.70-6.10) L Hemoglobin 12.4 G/DL (14.2-18.0) L Hematocrit 36.3 % (42.0-52.0) L Mean Corpuscular Volume 81 FL (80-99) Mean Corpuscular Hemoglobin 27.8 PG (27.0-31.0) Mean Corpuscular Hemoglobin Concent 34.1 G/DL (32.0-36.0) Red Cell Distribution Width 13.3 % (11.6-14.8) Platelet Count 418 K/UL (150-450) Mean Platelet Volume 5.2 FL (6.5-10.1) L Neutrophils (%) (Auto) 64.2 % (45.0-75.0) Lymphocytes (%) (Auto) 18.6 % (20.0-45.0) L Monocytes (%) (Auto) 8.2 % (1.0-10.0) Eosinophils (%) (Auto) 6.8 % (0.0-3.0) H Basophils (%) (Auto) 2.2 % (0.0-2.0) H Sodium Level 146 MMOL/L (136-145) H Potassium Level 4.1 MMOL/L (3.5-5.1) Chloride Level 107 MMOL/L (98-107) Carbon Dioxide Level 30 MMOL/L (21-32) Anion Gap 10 mmol/L (5-15) Blood Urea Nitrogen 12 mg/dL (7-18) Creatinine 1.1 MG/DL (0.55-1.30) Estimat Glomerular Filtration Rate > 60 mL/min (>60) Glucose Level 89 MG/DL (74-106) Calcium Level 9.3 MG/DL (8.5-10.1) Plan Problems: (1) Postoperative pain (2) Intractable nausea and vomiting (3) Colitis Assessment & Plan: Rectal white plastic seton identified with multiple sutures recently placed no signs of recurrent abscess no purulent drainage no significant erythema or induration mild oozing from open track no active bleeding Known history of Crohn's colitis under management of GI doctor. Known history of fistula and currently with seton placed by his surgeon. No recurrence of abscess fistula or other abnormality identified and currently under good management. Mild oozing normal given open wound. Seton appropriately placed. No acute surgical intervention indicated or necessary at this time. Pain management Antibiotics DC planning We will follow with recommendations thank you for let me participate in patient' s care (4) History of Crohn's disease (5) Rectal bleeding Assessment & Plan: Mild bleeding from the fistula tract and seton in place anticipated given current condition and seton and open wound. No active bleeding noted. No active infection noted. Seton appropriate position. Patient states he is using sitz bath and recommend to continue doing so okay to shower. Dressings for mild oozing. Follow-up with patient's colorectal surgeon outpatient upon discharge. local care with sitz bath, showers, and dressings prn keep seton in place d/c planning Brendan Melendez May 24, 2019 12:19
--- NOTE | 2019-05-24 13:40 | Consultation ---
History of Present Illness General Date patient seen: May 24, 2019 Time patient seen: 01:30 - pm Chief Complaint: Abdominal and rectal pain Referring physician: Dr Alcaraz Reason for Consultation: Pain Management Present Illness HPI Patient is a known patient from pervious admission and has been admitted under the care of Dr. Ibarra due to abdominal pain and s/p rectal fistula surgery. At this time he has been c/o severe pain which he was started on Dilaudid 2-4mg IV Q3H As needed for mod-severe pain. He has long history of opioid usage and due to this has built a tolerance to opioid and has been requesting the Dilaudid 4mgIV. I d/w him about reducing the medications at this time, however due to the severe level of pain is unable to reduce at this time. Once pain subsides we will try to reduce the Dilaudid. Patient seems to understand. Allergies: Coded Allergies: TRAMADOL (Unverified Allergy, Unknown, 04/24/19) seizure Medication History Scheduled Duloxetine Hcl* (Cymbalta*), 60 MG ORAL DAILY, (Reported) Duloxetine Hcl* (Cymbalta*), 30 MG ORAL DAILY, (Reported) Oxycodone Hcl Er* (Oxycontin*), 10 MG ORAL EVERY 12 HOURS, (Reported) [Immuran], 150 MG PO DAILY, (Reported) [Mesalamine], 800 MG ORAL THREE TIMES A DAY Scheduled PRN Oxycodone HCl (Oxycodone HCl), 15 MG ORAL Q4H PRN for For Pain, (Reported) Miscellaneous Medications [remicade infusion], (Reported) Patient History Healthcare decision maker Resuscitation status Full Code Advanced Directive on File Past Medical/Surgical History Past Medical/Surgical History: (1) History of Crohn's disease (2) Colitis Review of Systems ROS Narrative Constitutional: Reports: no symptoms Eye: Reports: no symptoms ENT: Reports: no symptoms Respiratory: Reports: no symptoms Cardiovascular: Reports: no symptoms Gastrointestinal: Reports: abdominal pain, nausea Genitourinary: Reports: no symptoms Musculoskeletal: Reports: no symptoms Skin: Reports: no symptoms Psychiatric: Reports: no symptoms Neurological: Reports: no symptoms Endocrine: Reports: no symptoms Hematologic/Lymphatic: Reports: no symptoms Physical Exam Physical Exam Narrative General Appearance: no apparent distress, alert HEENT: PERRL Neck: non-tender, normal alignment Respiratory/Chest: lungs clear, normal breath sounds Cardiovascular/Chest: normal rate, regular rhythm Abdomen: tender Neurologic: alert, oriented x 3 Last 24 Hour Vital Signs Date Time Temp Pulse Resp B/P (MAP) Pulse Ox O2 Delivery O2 Flow Rate FiO2 05/24/19 12:00 97.6 106 20 115/76 (89) 97 05/24/19 09:00 Room Air 05/24/19 08:00 98.4 110 20 113/74 (87) 99 05/24/19 04:00 97.8 99 22 113/64 (80) 96 05/24/19 00:00 97.8 98 22 107/70 (82) 98 05/23/19 21:00 Room Air 05/23/19 20:00 98.5 111 21 116/80 (92) 100 05/23/19 16:00 97.7 95 20 119/80 (93) 99 05/23/19 13:35 97.1 Intake and Output 05/23/19 05/24/19 19:00 07:00 Intake Total 1166 ml Output Total 1100 ml 700 ml Balance 66 ml -700 ml Intake Oral 600 ml IV Total 566 ml Output Urine Total 1100 ml 700 ml Laboratory Tests Test 05/24/19 04:50 White Blood Count 8.3 K/UL (4.8-10.8) Red Blood Count 4.45 M/UL (4.70-6.10) L Hemoglobin 12.4 G/DL (14.2-18.0) L Hematocrit 36.3 % (42.0-52.0) L Mean Corpuscular Volume 81 FL (80-99) Mean Corpuscular Hemoglobin 27.8 PG (27.0-31.0) Mean Corpuscular Hemoglobin Concent 34.1 G/DL (32.0-36.0) Red Cell Distribution Width 13.3 % (11.6-14.8) Platelet Count 418 K/UL (150-450) Mean Platelet Volume 5.2 FL (6.5-10.1) L Neutrophils (%) (Auto) 64.2 % (45.0-75.0) Lymphocytes (%) (Auto) 18.6 % (20.0-45.0) L Monocytes (%) (Auto) 8.2 % (1.0-10.0) Eosinophils (%) (Auto) 6.8 % (0.0-3.0) H Basophils (%) (Auto) 2.2 % (0.0-2.0) H Sodium Level 146 MMOL/L (136-145) H Potassium Level 4.1 MMOL/L (3.5-5.1) Chloride Level 107 MMOL/L (98-107) Carbon Dioxide Level 30 MMOL/L (21-32) Anion Gap 10 mmol/L (5-15) Blood Urea Nitrogen 12 mg/dL (7-18) Creatinine 1.1 MG/DL (0.55-1.30) Estimat Glomerular Filtration Rate > 60 mL/min (>60) Glucose Level 89 MG/DL (74-106) Calcium Level 9.3 MG/DL (8.5-10.1) Height (Feet): 5 Height (Inches): 11.00 Weight (Pounds): 155 Medications Current Medications Medications (Trade) Dose Ordered Sig/Aguila Route PRN Reason Start Time Stop Time Status Last Admin Dose Admin Acetaminophen (Tylenol) 650 mg Q4H PRN ORAL fever 05/20/19 00:00 06/19/19 00:00 Dextrose (Dextrose 50%) 25 ml Q30M PRN IV Hypoglycemia 05/20/19 00:00 06/19/19 00:00 Dextrose (Dextrose 50%) 50 ml Q30M PRN IV Hypoglycemia 05/20/19 00:00 06/19/19 00:00 Dextrose/Sodium Chloride 1,000 ml @ 100 mls/hr Q10H IV 05/20/19 16:20 06/19/19 16:19 05/24/19 10:41 Diphenhydramine HCl (Benadryl) 25 mg Q6H PRN ORAL Itching/Pruritis 05/20/19 00:00 06/19/19 00:00 Docusate Sodium (Colace) 100 mg TWICE A DAY ORAL 05/20/19 18:00 06/19/19 17:59 05/24/19 08:27 Duloxetine HCl (Cymbalta) 60 mg DAILY ORAL 05/25/19 09:00 08/23/19 08:59 Heparin Sodium (Porcine) (Heparin 5000 units/ml) 5,000 units EVERY 12 HOURS SUBQ 05/20/19 09:00 07/04/19 08:59 05/23/19 20:29 Hydromorphone HCl (Dilaudid) 2 mg Q3H PRN IVP 4-6 PAIN 05/24/19 09:15 05/27/19 10:29 Hydromorphone HCl (Dilaudid) 4 mg Q3H PRN IVP Severe Pain (Pain Scale 7-10) 05/20/19 16:45 05/27/19 16:44 05/24/19 12:07 Nitroglycerin (Ntg) 0.4 mg Q5M X 3 DOSES PRN SL Prn Chest Pain 05/20/19 00:00 06/19/19 00:00 Ondansetron HCl (Zofran) 4 mg Q6H PRN IVP Nausea & Vomiting 05/20/19 00:00 06/19/19 00:00 05/23/19 13:05 Pantoprazole (Protonix) 40 mg DAILY IVP 05/20/19 09:00 06/19/19 08:59 05/24/19 08:27 Piperacillin Sod/ Tazobactam Sod 3.375 gm/Sodium Chloride 110 ml @ 27.5 mls/hr Q8H IVPB 05/20/19 10:00 05/29/19 09:59 05/24/19 10:41 Polyethylene Glycol (Miralax) 17 gm HSPRN PRN ORAL Constipation 05/20/19 00:00 06/19/19 00:00 Promethazine HCl 25 mg/Sodium Chloride 56 ml @ 112 mls/hr Q6H PRN IVPB nausea 05/22/19 14:45 06/21/19 14:44 05/23/19 14:08 Temazepam (Restoril) 15 mg HSPRN PRN ORAL Insomnia 05/20/19 00:00 05/27/19 00:00 Assessment/Plan Assessment/Plan: (1) Abdominal pain (2) Crohn's Disease (3) Neuropathic pain Patient will be continued on the Dilaudid D/w Dr. Daily and he concurred. Gagandeep Saleem May 24, 2019 13:40
[2019-05-24] MEDS ORDERED: Naloxone 0.4mg/ml Inj IVP PRN (13:45)
--- NOTE | 2019-05-24 14:04 | Infectious Diseases Prog Note ---
Assessment/Plan Assessment/Plan ASSESSMENT: History of ulcerative colitis Perianal abscess/fistula, status post drain placement Leukocytosis, Sp Afebrile Ulcerative colitis History of perianal abscess/preanal fistula Depression. PLAN: continue patient on IV Zosyn # 5/10 , upon DC will change to oral Augmentin Monitor CBC. Monitor BMP. Monitor cultures. GI and General surgeon fup Subjective Allergies: Coded Allergies: TRAMADOL (Unverified Allergy, Unknown, 04/24/19) seizure Subjective mariann-rectal pain + Objective Vital Signs Last 24 Hour Vital Signs Date Time Temp Pulse Resp B/P (MAP) Pulse Ox O2 Delivery O2 Flow Rate FiO2 05/24/19 12:00 97.6 106 20 115/76 (89) 97 05/24/19 09:00 Room Air 05/24/19 08:00 98.4 110 20 113/74 (87) 99 05/24/19 04:00 97.8 99 22 113/64 (80) 96 05/24/19 00:00 97.8 98 22 107/70 (82) 98 05/23/19 21:00 Room Air 05/23/19 20:00 98.5 111 21 116/80 (92) 100 05/23/19 16:00 97.7 95 20 119/80 (93) 99 Height (Feet): 5 Height (Inches): 11.00 Weight (Pounds): 155 HEENT: anicteric Respiratory/Chest: no respiratory distress Cardiovascular: normal rate Abdomen: no organomegaly Laboratory Tests Test 05/24/19 04:50 White Blood Count 8.3 K/UL (4.8-10.8) Red Blood Count 4.45 M/UL (4.70-6.10) L Hemoglobin 12.4 G/DL (14.2-18.0) L Hematocrit 36.3 % (42.0-52.0) L Mean Corpuscular Volume 81 FL (80-99) Mean Corpuscular Hemoglobin 27.8 PG (27.0-31.0) Mean Corpuscular Hemoglobin Concent 34.1 G/DL (32.0-36.0) Red Cell Distribution Width 13.3 % (11.6-14.8) Platelet Count 418 K/UL (150-450) Mean Platelet Volume 5.2 FL (6.5-10.1) L Neutrophils (%) (Auto) 64.2 % (45.0-75.0) Lymphocytes (%) (Auto) 18.6 % (20.0-45.0) L Monocytes (%) (Auto) 8.2 % (1.0-10.0) Eosinophils (%) (Auto) 6.8 % (0.0-3.0) H Basophils (%) (Auto) 2.2 % (0.0-2.0) H Sodium Level 146 MMOL/L (136-145) H Potassium Level 4.1 MMOL/L (3.5-5.1) Chloride Level 107 MMOL/L (98-107) Carbon Dioxide Level 30 MMOL/L (21-32) Anion Gap 10 mmol/L (5-15) Blood Urea Nitrogen 12 mg/dL (7-18) Creatinine 1.1 MG/DL (0.55-1.30) Estimat Glomerular Filtration Rate > 60 mL/min (>60) Glucose Level 89 MG/DL (74-106) Calcium Level 9.3 MG/DL (8.5-10.1) Current Medications Medications (Trade) Dose Ordered Sig/Aguila Route PRN Reason Start Time Stop Time Status Last Admin Dose Admin Acetaminophen (Tylenol) 650 mg Q4H PRN ORAL fever 05/20/19 00:00 06/19/19 00:00 Dextrose (Dextrose 50%) 25 ml Q30M PRN IV Hypoglycemia 05/20/19 00:00 06/19/19 00:00 Dextrose (Dextrose 50%) 50 ml Q30M PRN IV Hypoglycemia 05/20/19 00:00 06/19/19 00:00 Dextrose/Sodium Chloride 1,000 ml @ 100 mls/hr Q10H IV 05/20/19 16:20 06/19/19 16:19 05/24/19 10:41 Diphenhydramine HCl (Benadryl) 25 mg Q6H PRN ORAL Itching/Pruritis 05/20/19 00:00 06/19/19 00:00 Docusate Sodium (Colace) 100 mg TWICE A DAY ORAL 05/20/19 18:00 06/19/19 17:59 05/24/19 08:27 Duloxetine HCl (Cymbalta) 60 mg DAILY ORAL 05/25/19 09:00 6/18/20 08:59 Heparin Sodium (Porcine) (Heparin 5000 units/ml) 5,000 units EVERY 12 HOURS SUBQ 05/20/19 09:00 07/04/19 08:59 05/23/19 20:29 Hydromorphone HCl (Dilaudid) 2 mg Q3H PRN IVP 4-6 PAIN 05/24/19 09:15 05/27/19 10:29 Hydromorphone HCl (Dilaudid) 4 mg Q3H PRN IVP Severe Pain (Pain Scale 7-10) 05/20/19 16:45 05/27/19 16:44 05/24/19 12:07 Naloxone HCl (Narcan) 0.2 mg Q2M PRN IVP respritory depression 05/24/19 13:45 08/22/19 13:44 Nitroglycerin (Ntg) 0.4 mg Q5M X 3 DOSES PRN SL Prn Chest Pain 05/20/19 00:00 06/19/19 00:00 Ondansetron HCl (Zofran) 4 mg Q6H PRN IVP Nausea & Vomiting 05/20/19 00:00 06/19/19 00:00 05/23/19 13:05 Pantoprazole (Protonix) 40 mg DAILY IVP 05/20/19 09:00 06/19/19 08:59 05/24/19 08:27 Piperacillin Sod/ Tazobactam Sod 3.375 gm/Sodium Chloride 110 ml @ 27.5 mls/hr Q8H IVPB 05/20/19 10:00 05/29/19 09:59 05/24/19 10:41 Polyethylene Glycol (Miralax) 17 gm HSPRN PRN ORAL Constipation 05/20/19 00:00 06/19/19 00:00 Promethazine HCl 25 mg/Sodium Chloride 56 ml @ 112 mls/hr Q6H PRN IVPB nausea 05/22/19 14:45 06/21/19 14:44 05/23/19 14:08 Temazepam (Restoril) 15 mg HSPRN PRN ORAL Insomnia 05/20/19 00:00 05/27/19 00:00 Shemar Harding MD May 24, 2019 14:04
[2019-05-24 16:00] VITALS: BP 115/73
--- NOTE | 2019-05-24 16:31 | Internal Med Progress Note ---
Subjective Date of Service: May 24, 2019 Physician Name LashawnAtilio Attending Physician Genaro Ibarra MD Current Medications Medications (Trade) Dose Ordered Sig/Aguila Route PRN Reason Start Time Stop Time Status Last Admin Dose Admin Acetaminophen (Tylenol) 650 mg Q4H PRN ORAL fever 05/20/19 00:00 06/19/19 00:00 Dextrose (Dextrose 50%) 25 ml Q30M PRN IV Hypoglycemia 05/20/19 00:00 06/19/19 00:00 Dextrose (Dextrose 50%) 50 ml Q30M PRN IV Hypoglycemia 05/20/19 00:00 06/19/19 00:00 Dextrose/Sodium Chloride 1,000 ml @ 100 mls/hr Q10H IV 05/20/19 16:20 06/19/19 16:19 05/24/19 10:41 Diphenhydramine HCl (Benadryl) 25 mg Q6H PRN ORAL Itching/Pruritis 05/20/19 00:00 06/19/19 00:00 Docusate Sodium (Colace) 100 mg TWICE A DAY ORAL 05/20/19 18:00 06/19/19 17:59 05/24/19 08:27 Duloxetine HCl (Cymbalta) 60 mg DAILY ORAL 05/25/19 09:00 08/23/19 08:59 Heparin Sodium (Porcine) (Heparin 5000 units/ml) 5,000 units EVERY 12 HOURS SUBQ 05/20/19 09:00 07/04/19 08:59 05/23/19 20:29 Hydromorphone HCl (Dilaudid) 2 mg Q3H PRN IVP 4-6 PAIN 05/24/19 09:15 05/27/19 10:29 Hydromorphone HCl (Dilaudid) 4 mg Q3H PRN IVP Severe Pain (Pain Scale 7-10) 05/20/19 16:45 05/27/19 16:44 05/24/19 15:01 Naloxone HCl (Narcan) 0.2 mg Q2M PRN IVP respritory depression 05/24/19 13:45 08/22/19 13:44 Nitroglycerin (Ntg) 0.4 mg Q5M X 3 DOSES PRN SL Prn Chest Pain 05/20/19 00:00 06/19/19 00:00 Ondansetron HCl (Zofran) 4 mg Q6H PRN IVP Nausea & Vomiting 05/20/19 00:00 06/19/19 00:00 05/23/19 13:05 Pantoprazole (Protonix) 40 mg DAILY ORAL 05/25/19 09:00 06/24/19 08:59 Piperacillin Sod/ Tazobactam Sod 3.375 gm/Sodium Chloride 110 ml @ 27.5 mls/hr Q8H IVPB 05/20/19 10:00 05/29/19 09:59 05/24/19 10:41 Polyethylene Glycol (Miralax) 17 gm HSPRN PRN ORAL Constipation 05/20/19 00:00 06/19/19 00:00 Promethazine HCl 25 mg/Sodium Chloride 56 ml @ 112 mls/hr Q6H PRN IVPB nausea 05/22/19 14:45 06/21/19 14:44 05/23/19 14:08 Temazepam (Restoril) 15 mg HSPRN PRN ORAL Insomnia 05/20/19 00:00 05/27/19 00:00 Allergies: Coded Allergies: TRAMADOL (Unverified Allergy, Unknown, 04/24/19) seizure ROS Limited/Unobtainable: No Constitutional: Reports: no symptoms HEENT: Reports: no symptoms Cardiovascular: Reports: no symptoms Respiratory: Reports: no symptoms Gastrointestinal/Abdominal: Reports: nausea Genitourinary: Reports: no symptoms Neurologic/Psychiatric: Reports: no symptoms Subjective 38 YO M admitted with postop hemoorhage from perirectal abscess. Cover for Int Joshua-DR Ibarra Objective Last Vital Signs Date Time Temp Pulse Resp B/P (MAP) Pulse Ox O2 Delivery O2 Flow Rate FiO2 05/24/19 12:00 97.6 106 20 115/76 (89) 97 05/24/19 09:00 Room Air Laboratory Tests Test 05/24/19 04:50 White Blood Count 8.3 K/UL (4.8-10.8) Red Blood Count 4.45 M/UL (4.70-6.10) L Hemoglobin 12.4 G/DL (14.2-18.0) L Hematocrit 36.3 % (42.0-52.0) L Mean Corpuscular Volume 81 FL (80-99) Mean Corpuscular Hemoglobin 27.8 PG (27.0-31.0) Mean Corpuscular Hemoglobin Concent 34.1 G/DL (32.0-36.0) Red Cell Distribution Width 13.3 % (11.6-14.8) Platelet Count 418 K/UL (150-450) Mean Platelet Volume 5.2 FL (6.5-10.1) L Neutrophils (%) (Auto) 64.2 % (45.0-75.0) Lymphocytes (%) (Auto) 18.6 % (20.0-45.0) L Monocytes (%) (Auto) 8.2 % (1.0-10.0) Eosinophils (%) (Auto) 6.8 % (0.0-3.0) H Basophils (%) (Auto) 2.2 % (0.0-2.0) H Sodium Level 146 MMOL/L (136-145) H Potassium Level 4.1 MMOL/L (3.5-5.1) Chloride Level 107 MMOL/L (98-107) Carbon Dioxide Level 30 MMOL/L (21-32) Anion Gap 10 mmol/L (5-15) Blood Urea Nitrogen 12 mg/dL (7-18) Creatinine 1.1 MG/DL (0.55-1.30) Estimat Glomerular Filtration Rate > 60 mL/min (>60) Glucose Level 89 MG/DL (74-106) Calcium Level 9.3 MG/DL (8.5-10.1) Intake and Output 05/23/19 05/24/19 19:00 07:00 Intake Total 1166 ml Output Total 1100 ml 700 ml Balance 66 ml -700 ml Intake Oral 600 ml IV Total 566 ml Output Urine Total 1100 ml 700 ml Objective PHYSICAL EXAMINATION: GENERAL: The patient is thin-appearing male in moderate pain. HEENT: Eyes, pupils equal and responsive to light and accommodation. Extraocular movements are intact. NECK: Supple without lymphadenopathy. CHEST: Lungs are clear to auscultation bilaterally without wheezes or rales. CARDIOVASCULAR: Regular rate. S1 and S2 are normal without murmurs, rubs, or gallops. ABDOMEN: Soft, nontender, and nondistended. Positive bowel sounds. No evidence of hepatosplenomegaly. Currently, no rebound or guarding noted. EXTREMITIES: Negative for clubbing, cyanosis, or edema. RECTAL: Not performed. GENITAL: Not performed. NEUROLOGIC: Cranial nerves II through XII are grossly intact without focal deficits. Motor strength is 5/5 bilaterally intact. Deep tendon reflexes are 2+ plantar. Assessment/Plan Assessment/Plan ASSESSMENT: This is a 38-year-old male with: 1. Perirectal abscess. 2. Postoperative pain. 3. Postoperative hemorrhage. 4. Crohn disease. TREATMENT: 1. Perirectal abscess/postop pain/postop hemorrhage. A General Surgery consultation has been obtained with Dr. Brendan Melendez. We will follow recommendations of Surgery. The patient has been started empirically on Zosyn for perirectal abscess. A Gastroenterology consultation= Dr. Romeo Valentine. An Infectious Disease consultation=with Dr. Harding. 2. Crohn disease. As above, a Gastroenterology consultation was obtained with Dr. Romeo Valentine. No GI procedures planned Atilio Hardin MD May 24, 2019 16:31
--- NOTE | 2019-05-24 19:31 | NUR ---
HAND-OFF: Report given to mikie.
--- NOTE | 2019-05-24 19:32 | NUR ---
NURSE NOTES: Patient is in bed awake. On room air with no signs of SOB or distress. IV intact and patent.Bed locked and in the lowest position. Call light within reach. Will continue plan of care.
[2019-05-24 20:00] VITALS: BP 113/75
[2019-05-25] VITALS: BP 111/66
[2019-05-25] MEDS: Piperacillin/Tazobactam 3.375 GM in NS 110 ML IVPB SCH ×3 (02:02→18:38)
[2019-05-25 03:46] VITALS: BP 122/78
[2019-05-25] MEDS: D5 1/2NS 1,000 ML IV SCH ×2 (06:34→16:20)
[2019-05-25 06:36] LABS: BASOPHILS % (AUTO) 1.6 % (0.0-2.0); EOSINOPHILS % (AUTO) 6.1 % (0.0-3.0); HEMATOCRIT 36.1 % (42.0-52.0); HEMOGLOBIN 12.5 G/DL (14.2-18.0); LYMPHOCYTES % (AUTO) 15.7 % (20.0-45.0); MEAN CORPUSCULAR VOLUME 81 FL (80-99); MONOCYTES % (AUTO) 7.6 % (1.0-10.0); PLATELET COUNT 470 K/UL (150-450); RED BLOOD COUNT 4.44 M/UL (4.70-6.10); WHITE BLOOD COUNT 8.6 K/UL (4.8-10.8)
[2019-05-25 06:58] LABS: ANION GAP 11 mmol/L (5-15); BLOOD UREA NITROGEN 15 mg/dL (7-18); CALCIUM 9.4 MG/DL (8.5-10.1); CARBON DIOXIDE 29 MMOL/L (21-32); CHLORIDE 107 MMOL/L (98-107); SODIUM 147 MMOL/L (136-145)
--- NOTE | 2019-05-25 07:30 | NUR ---
NURSE NOTES: Patient is in bed awake and able to verbalize needs. Stable. C/o constant pain, will continue with pain management. Patient instructed to use call light for assistance, verbalized understanding. Patient is in bed in locked and lowest position with call light within reach. All needs met at this time. Will continue to monitor.
--- NOTE | 2019-05-25 07:36 | NUR ---
HAND-OFF: Report given to LYNN Andrew.
--- NOTE | 2019-05-25 07:44 | General Progress Note ---
Assessment/Plan Assessment/Plan: (1) Postoperative pain ICD Codes: G89.18 - Other acute postprocedural pain SNOMED: 209566529 (2) Intractable nausea and vomiting ICD Codes: R11.2 - Nausea with vomiting, unspecified SNOMED: 521357305 (3) Colitis (4) h/o CD s/p recent EGD and colonoscopy at [place] in last admission ? pain med seeking mariann anal care fu surg bowel regimen dc planning per primary team patient to fu with his surgeon as out patient Subjective ROS Limited/Unobtainable: Yes Allergies: Coded Allergies: TRAMADOL (Unverified Allergy, Unknown, 04/24/19) seizure Objective Last 24 Hour Vital Signs Date Time Temp Pulse Resp B/P (MAP) Pulse Ox O2 Delivery O2 Flow Rate FiO2 05/25/19 03:46 98.1 94 18 122/78 (93) 97 05/25/19 00:00 98.1 110 18 111/66 (81) 98 05/24/19 20:29 Room Air 05/24/19 20:00 97.9 108 18 113/75 (88) 99 05/24/19 16:00 97.8 113 19 115/73 (87) 97 05/24/19 12:00 97.6 106 20 115/76 (89) 97 05/24/19 09:00 Room Air 05/24/19 08:00 98.4 110 20 113/74 (87) 99 Intake and Output 05/24/19 05/25/19 19:00 07:00 Intake Total 787.5 ml 600 ml Output Total 1000 ml Balance 787.5 ml -400 ml Intake Oral 450 ml 600 ml IV Total 337.5 ml Output Urine Total 1000 ml Laboratory Tests 05/25/19 04:50: White Blood Count 8.6, Red Blood Count 4.44L, Hemoglobin 12.5L, Hematocrit 36.1L , Mean Corpuscular Volume 81, Mean Corpuscular Hemoglobin 28.1, Mean Corpuscular Hemoglobin Concent 34.6, Red Cell Distribution Width 13.0, Platelet Count 470H, Mean Platelet Volume 5.3L, Neutrophils (%) (Auto) 69.0, Lymphocytes (%) (Auto) 15.7L, Monocytes (%) (Auto) 7.6, Eosinophils (%) (Auto) 6.1H, Basophils (%) (Auto) 1.6, Sodium Level 147H, Potassium Level 4.0, Chloride Level 107, Carbon Dioxide Level 29, Anion Gap 11, Blood Urea Nitrogen 15, Creatinine 1.0, Estimat Glomerular Filtration Rate > 60, Glucose Level 92, Calcium Level 9.4 Height (Feet): 5 Height (Inches): 11.00 Weight (Pounds): 155 General Appearance: alert EENT: normal ENT inspection Neck: supple Cardiovascular: normal rate Respiratory/Chest: decreased breath sounds Abdomen: normal bowel sounds, non tender, soft Extremities: non-tender Romeo Valentine MD May 25, 2019 07:44
[2019-05-25 08:00] VITALS: BP 111/75
[2019-05-25] MEDS: Heparin 5000 units/ml inj SUBQ SCH ×3 (09:00→21:04)
[2019-05-25] MEDS: Docusate 100mg cap ORAL SCH ×2 (09:00→18:00)
--- NOTE | 2019-05-25 09:24 | NUR ---
CASE MANAGEMENT: REVIEW 05/23/19 SI: POST OP INTRACTABLE PAIN/ HEMORRHAGE . RECTAL BLEEDING . PERIRECTAL ABSCESS 98.1 94 18 122/78 97% ON RA H/H 12.5/36.1 NA+ 147 IS:IV ZOSYN TID IV D5@100ML/HR HEPARIN SQ BID IV DILAUDID Q3HR/PRN IV ZOFRAN Q6HR/PRN \: 3E MED SURG UNIT PLAN: WOUND CARE PATIENT NAUSEATED
--- NOTE | 2019-05-25 10:03 | General Progress Note ---
Assessment/Plan Assessment/Plan: (1) Abdominal pain (2) Crohn's Disease (3) Neuropathic pain Patient will be continued on the Dilaudid D/w Dr. Daily and he concurred. Subjective Date patient seen: May 25, 2019 Time patient seen: 09:30 - am Constitutional: Reports: no symptoms HEENT: Reports: no symptoms Cardiovascular: Reports: no symptoms Respiratory: Reports: no symptoms Gastrointestinal/Abdominal: Reports: abdominal pain Genitourinary: Reports: no symptoms Neurologic/Psychiatric: Reports: no symptoms Endocrine: Reports: no symptoms Hematologic/Lymphatic: Reports: no symptoms Allergies: Coded Allergies: TRAMADOL (Unverified Allergy, Unknown, 04/24/19) seizure Subjective Patient is in bed and continues to c/o severe pain which has been tolerated on the Dilaudid. He has no new complaints at this time. Objective Last 24 Hour Vital Signs Date Time Temp Pulse Resp B/P (MAP) Pulse Ox O2 Delivery O2 Flow Rate FiO2 05/25/19 03:46 98.1 94 18 122/78 (93) 97 05/25/19 00:00 98.1 110 18 111/66 (81) 98 05/24/19 20:29 Room Air 05/24/19 20:00 97.9 108 18 113/75 (88) 99 05/24/19 16:00 97.8 113 19 115/73 (87) 97 05/24/19 12:00 97.6 106 20 115/76 (89) 97 Intake and Output 05/24/19 05/25/19 19:00 07:00 Intake Total 787.5 ml 600 ml Output Total 1000 ml Balance 787.5 ml -400 ml Intake Oral 450 ml 600 ml IV Total 337.5 ml Output Urine Total 1000 ml Laboratory Tests 05/25/19 04:50: White Blood Count 8.6, Red Blood Count 4.44L, Hemoglobin 12.5L, Hematocrit 36.1L , Mean Corpuscular Volume 81, Mean Corpuscular Hemoglobin 28.1, Mean Corpuscular Hemoglobin Concent 34.6, Red Cell Distribution Width 13.0, Platelet Count 470H, Mean Platelet Volume 5.3L, Neutrophils (%) (Auto) 69.0, Lymphocytes (%) (Auto) 15.7L, Monocytes (%) (Auto) 7.6, Eosinophils (%) (Auto) 6.1H, Basophils (%) (Auto) 1.6, Sodium Level 147H, Potassium Level 4.0, Chloride Level 107, Carbon Dioxide Level 29, Anion Gap 11, Blood Urea Nitrogen 15, Creatinine 1.0, Estimat Glomerular Filtration Rate > 60, Glucose Level 92, Calcium Level 9.4 Height (Feet): 5 Height (Inches): 11.00 Weight (Pounds): 155 General Appearance: no apparent distress, alert EENT: PERRL/EOMI, normal ENT inspection Neck: non-tender, normal alignment Cardiovascular: normal rate, regular rhythm Respiratory/Chest: lungs clear, normal breath sounds Abdomen: tender Extremities: non-tender Edema: no edema noted Generalized Neurologic: alert, oriented x 3 Gagandeep Saleem May 25, 2019 10:03
--- NOTE | 2019-05-25 10:39 | Infectious Diseases Prog Note ---
Assessment/Plan Assessment/Plan ASSESSMENT: History of ulcerative colitis Perianal abscess/fistula, status post drain placement Leukocytosis, Sp Afebrile Ulcerative colitis History of perianal abscess/preanal fistula Depression. PLAN: continue patient on IV Zosyn # 6/10 , upon DC will change to oral Augmentin Monitor CBC. Monitor BMP. Monitor cultures. GI and General surgeon fup Subjective Allergies: Coded Allergies: TRAMADOL (Unverified Allergy, Unknown, 04/24/19) seizure Subjective no new complain + Objective Vital Signs Last 24 Hour Vital Signs Date Time Temp Pulse Resp B/P (MAP) Pulse Ox O2 Delivery O2 Flow Rate FiO2 05/25/19 09:00 Room Air 05/25/19 08:00 97.7 101 22 111/75 (87) 96 05/25/19 03:46 98.1 94 18 122/78 (93) 97 05/25/19 00:00 98.1 110 18 111/66 (81) 98 05/24/19 20:29 Room Air 05/24/19 20:00 97.9 108 18 113/75 (88) 99 05/24/19 16:00 97.8 113 19 115/73 (87) 97 05/24/19 12:00 97.6 106 20 115/76 (89) 97 Height (Feet): 5 Height (Inches): 11.00 Weight (Pounds): 155 HEENT: anicteric Respiratory/Chest: normal breath sounds Cardiovascular: normal rate Abdomen: soft, non tender, no organomegaly Laboratory Tests Test 05/25/19 04:50 White Blood Count 8.6 K/UL (4.8-10.8) Red Blood Count 4.44 M/UL (4.70-6.10) L Hemoglobin 12.5 G/DL (14.2-18.0) L Hematocrit 36.1 % (42.0-52.0) L Mean Corpuscular Volume 81 FL (80-99) Mean Corpuscular Hemoglobin 28.1 PG (27.0-31.0) Mean Corpuscular Hemoglobin Concent 34.6 G/DL (32.0-36.0) Red Cell Distribution Width 13.0 % (11.6-14.8) Platelet Count 470 K/UL (150-450) H Mean Platelet Volume 5.3 FL (6.5-10.1) L Neutrophils (%) (Auto) 69.0 % (45.0-75.0) Lymphocytes (%) (Auto) 15.7 % (20.0-45.0) L Monocytes (%) (Auto) 7.6 % (1.0-10.0) Eosinophils (%) (Auto) 6.1 % (0.0-3.0) H Basophils (%) (Auto) 1.6 % (0.0-2.0) Sodium Level 147 MMOL/L (136-145) H Potassium Level 4.0 MMOL/L (3.5-5.1) Chloride Level 107 MMOL/L (98-107) Carbon Dioxide Level 29 MMOL/L (21-32) Anion Gap 11 mmol/L (5-15) Blood Urea Nitrogen 15 mg/dL (7-18) Creatinine 1.0 MG/DL (0.55-1.30) Estimat Glomerular Filtration Rate > 60 mL/min (>60) Glucose Level 92 MG/DL (74-106) Calcium Level 9.4 MG/DL (8.5-10.1) Current Medications Medications (Trade) Dose Ordered Sig/Aguila Route PRN Reason Start Time Stop Time Status Last Admin Dose Admin Acetaminophen (Tylenol) 650 mg Q4H PRN ORAL fever 05/20/19 00:00 06/19/19 00:00 Dextrose (Dextrose 50%) 25 ml Q30M PRN IV Hypoglycemia 05/20/19 00:00 06/19/19 00:00 Dextrose (Dextrose 50%) 50 ml Q30M PRN IV Hypoglycemia 05/20/19 00:00 06/19/19 00:00 Dextrose/Sodium Chloride 1,000 ml @ 100 mls/hr Q10H IV 05/20/19 16:20 06/19/19 16:19 05/25/19 06:34 Diphenhydramine HCl (Benadryl) 25 mg Q6H PRN ORAL Itching/Pruritis 05/20/19 00:00 06/19/19 00:00 Docusate Sodium (Colace) 100 mg TWICE A DAY ORAL 05/20/19 18:00 06/19/19 17:59 05/24/19 08:27 Duloxetine HCl (Cymbalta) 60 mg DAILY ORAL 05/25/19 09:00 08/23/19 08:59 05/25/19 09:32 Heparin Sodium (Porcine) (Heparin 5000 units/ml) 5,000 units EVERY 12 HOURS SUBQ 05/20/19 09:00 07/04/19 08:59 05/23/19 20:29 Hydromorphone HCl (Dilaudid) 2 mg Q3H PRN IVP 4-6 PAIN 05/24/19 09:15 05/27/19 10:29 Hydromorphone HCl (Dilaudid) 4 mg Q3H PRN IVP Severe Pain (Pain Scale 7-10) 05/20/19 16:45 05/27/19 16:44 05/25/19 09:35 Naloxone HCl (Narcan) 0.2 mg Q2M PRN IVP respritory depression 05/24/19 13:45 08/22/19 13:44 Nitroglycerin (Ntg) 0.4 mg Q5M X 3 DOSES PRN SL Prn Chest Pain 05/20/19 00:00 06/19/19 00:00 Ondansetron HCl (Zofran) 4 mg Q6H PRN IVP Nausea & Vomiting 05/20/19 00:00 06/19/19 00:00 05/25/19 07:04 Pantoprazole (Protonix) 40 mg DAILY ORAL 05/25/19 09:00 06/24/19 08:59 05/25/19 09:32 Piperacillin Sod/ Tazobactam Sod 3.375 gm/Sodium Chloride 110 ml @ 27.5 mls/hr Q8H IVPB 05/20/19 10:00 05/29/19 09:59 05/25/19 09:32 Polyethylene Glycol (Miralax) 17 gm HSPRN PRN ORAL Constipation 05/20/19 00:00 06/19/19 00:00 Promethazine HCl 25 mg/Sodium Chloride 56 ml @ 112 mls/hr Q6H PRN IVPB nausea 05/22/19 14:45 06/21/19 14:44 05/23/19 14:08 Temazepam (Restoril) 15 mg HSPRN PRN ORAL Insomnia 05/20/19 00:00 05/27/19 00:00 Shemar Harding MD May 25, 2019 10:39
[2019-05-25 12:00] VITALS: BP 102/78
--- NOTE | 2019-05-25 13:24 | NUR ---
CASE MANAGEMENT: NOTE ASK FOR DC FROM CARE TEAM: DR. CORTES; DR. RODNEY; OCTAVIA MCCORMICK
[2019-05-25] MEDS ORDERED: AUGMENTIN 875-1 EAC1 ORAL (13:26)
--- NOTE | 2019-05-25 13:29 | Pulmonology Progress Note ---
Assessment/Plan Problems: (1) Intractable nausea and vomiting (2) Rectal bleeding (3) Postoperative pain (4) Colitis (5) History of Crohn's disease Assessment/Plan wound care iv abx, on zosyn pain management phenergen for nausea check electrolytes dvt prophylaxis. wants to go home tomorrow prescription done4 Subjective ROS Limited/Unobtainable: No Constitutional: Reports: no symptoms HEENT: Repors: no symptoms Respiratory: Reports: no symptoms Allergies: Coded Allergies: TRAMADOL (Unverified Allergy, Unknown, 04/24/19) seizure Objective Last 24 Hour Vital Signs Date Time Temp Pulse Resp B/P (MAP) Pulse Ox O2 Delivery O2 Flow Rate FiO2 05/25/19 12:00 98.3 119 20 102/78 (86) 96 05/25/19 09:00 Room Air 05/25/19 08:00 97.7 101 22 111/75 (87) 96 05/25/19 03:46 98.1 94 18 122/78 (93) 97 05/25/19 00:00 98.1 110 18 111/66 (81) 98 05/24/19 20:29 Room Air 05/24/19 20:00 97.9 108 18 113/75 (88) 99 05/24/19 16:00 97.8 113 19 115/73 (87) 97 Intake and Output 05/24/19 05/25/19 19:00 07:00 Intake Total 787.5 ml 600 ml Output Total 1000 ml Balance 787.5 ml -400 ml Intake Oral 450 ml 600 ml IV Total 337.5 ml Output Urine Total 1000 ml Objective bleeding less from rectum General Appearance: WD/WN HEENT: normocephalic, atraumatic Respiratory/Chest: chest wall non-tender, lungs clear Cardiovascular: normal peripheral pulses, normal rate Abdomen: normal bowel sounds, soft, non tender Genitourinary: normal external genitalia Extremities: no clubbing Skin: no lesions Laboratory Tests 05/25/19 04:50: White Blood Count 8.6, Red Blood Count 4.44L, Hemoglobin 12.5L, Hematocrit 36.1L , Mean Corpuscular Volume 81, Mean Corpuscular Hemoglobin 28.1, Mean Corpuscular Hemoglobin Concent 34.6, Red Cell Distribution Width 13.0, Platelet Count 470H, Mean Platelet Volume 5.3L, Neutrophils (%) (Auto) 69.0, Lymphocytes (%) (Auto) 15.7L, Monocytes (%) (Auto) 7.6, Eosinophils (%) (Auto) 6.1H, Basophils (%) (Auto) 1.6, Sodium Level 147H, Potassium Level 4.0, Chloride Level 107, Carbon Dioxide Level 29, Anion Gap 11, Blood Urea Nitrogen 15, Creatinine 1.0, Estimat Glomerular Filtration Rate > 60, Glucose Level 92, Calcium Level 9.4 Current Medications Medications (Trade) Dose Ordered Sig/Aguila Route PRN Reason Start Time Stop Time Status Last Admin Dose Admin Acetaminophen (Tylenol) 650 mg Q4H PRN ORAL fever 05/20/19 00:00 06/19/19 00:00 Dextrose (Dextrose 50%) 25 ml Q30M PRN IV Hypoglycemia 05/20/19 00:00 06/19/19 00:00 Dextrose (Dextrose 50%) 50 ml Q30M PRN IV Hypoglycemia 05/20/19 00:00 06/19/19 00:00 Dextrose/Sodium Chloride 1,000 ml @ 100 mls/hr Q10H IV 05/20/19 16:20 06/19/19 16:19 05/25/19 06:34 Diphenhydramine HCl (Benadryl) 25 mg Q6H PRN ORAL Itching/Pruritis 05/20/19 00:00 06/19/19 00:00 Docusate Sodium (Colace) 100 mg TWICE A DAY ORAL 05/20/19 18:00 06/19/19 17:59 05/24/19 08:27 Duloxetine HCl (Cymbalta) 30 mg DAILY ORAL 05/26/19 09:00 08/24/19 08:59 Heparin Sodium (Porcine) (Heparin 5000 units/ml) 5,000 units EVERY 12 HOURS SUBQ 05/20/19 09:00 07/04/19 08:59 05/23/19 20:29 Hydromorphone HCl (Dilaudid) 2 mg Q3H PRN IVP 4-6 PAIN 05/24/19 09:15 05/27/19 10:29 Hydromorphone HCl (Dilaudid) 4 mg Q3H PRN IVP Severe Pain (Pain Scale 7-10) 05/20/19 16:45 05/27/19 16:44 05/25/19 12:45 Naloxone HCl (Narcan) 0.2 mg Q2M PRN IVP respritory depression 05/24/19 13:45 08/22/19 13:44 Nitroglycerin (Ntg) 0.4 mg Q5M X 3 DOSES PRN SL Prn Chest Pain 05/20/19 00:00 06/19/19 00:00 Ondansetron HCl (Zofran) 4 mg Q6H PRN IVP Nausea & Vomiting 05/20/19 00:00 06/19/19 00:00 05/25/19 07:04 Oxycodone HCl (OxyCONTIN) 10 mg EVERY 12 HOURS ORAL 05/25/19 21:00 06/01/19 20:59 Oxycodone HCl (Roxicodone) 15 mg Q4H PRN ORAL For Pain 05/25/19 13:30 06/01/19 13:29 Pantoprazole (Protonix) 40 mg DAILY ORAL 05/25/19 09:00 06/24/19 08:59 05/25/19 09:32 Piperacillin Sod/ Tazobactam Sod 3.375 gm/Sodium Chloride 110 ml @ 27.5 mls/hr Q8H IVPB 05/20/19 10:00 05/29/19 09:59 05/25/19 09:32 Polyethylene Glycol (Miralax) 17 gm HSPRN PRN ORAL Constipation 05/20/19 00:00 06/19/19 00:00 Promethazine HCl 25 mg/Sodium Chloride 56 ml @ 112 mls/hr Q6H PRN IVPB nausea 05/22/19 14:45 06/21/19 14:44 05/23/19 14:08 Temazepam (Restoril) 15 mg HSPRN PRN ORAL Insomnia 05/20/19 00:00 05/27/19 00:00 Herrera Alcaraz MD May 25, 2019 13:29
[2019-05-25] MEDS ORDERED: oxyCODONE 15mg IR tab ORAL PRN (13:30)
--- NOTE | 2019-05-25 15:20 | Surgery Progress Note ---
Surgery Progress Note Subjective Symptoms: improved, tolerating diet, voiding well, passing flatus, BM Objective Last 24 Hour Vital Signs Date Time Temp Pulse Resp B/P (MAP) Pulse Ox O2 Delivery O2 Flow Rate FiO2 05/25/19 12:00 98.3 119 20 102/78 (86) 96 05/25/19 09:00 Room Air 05/25/19 08:00 97.7 101 22 111/75 (87) 96 05/25/19 03:46 98.1 94 18 122/78 (93) 97 05/25/19 00:00 98.1 110 18 111/66 (81) 98 05/24/19 20:29 Room Air 05/24/19 20:00 97.9 108 18 113/75 (88) 99 05/24/19 16:00 97.8 113 19 115/73 (87) 97 I&O Intake and Output 05/24/19 05/25/19 19:00 07:00 Intake Total 787.5 ml 600 ml Output Total 1000 ml Balance 787.5 ml -400 ml Intake Oral 450 ml 600 ml IV Total 337.5 ml Output Urine Total 1000 ml Dressing: dry Wound: clean Cardiovascular: RSR Respiratory: clear Abdomen: soft, non-tender, present bowel sounds Extremities: no edema, no tenderness, no cyanosis Laboratory Tests Test 05/25/19 04:50 White Blood Count 8.6 K/UL (4.8-10.8) Red Blood Count 4.44 M/UL (4.70-6.10) L Hemoglobin 12.5 G/DL (14.2-18.0) L Hematocrit 36.1 % (42.0-52.0) L Mean Corpuscular Volume 81 FL (80-99) Mean Corpuscular Hemoglobin 28.1 PG (27.0-31.0) Mean Corpuscular Hemoglobin Concent 34.6 G/DL (32.0-36.0) Red Cell Distribution Width 13.0 % (11.6-14.8) Platelet Count 470 K/UL (150-450) H Mean Platelet Volume 5.3 FL (6.5-10.1) L Neutrophils (%) (Auto) 69.0 % (45.0-75.0) Lymphocytes (%) (Auto) 15.7 % (20.0-45.0) L Monocytes (%) (Auto) 7.6 % (1.0-10.0) Eosinophils (%) (Auto) 6.1 % (0.0-3.0) H Basophils (%) (Auto) 1.6 % (0.0-2.0) Sodium Level 147 MMOL/L (136-145) H Potassium Level 4.0 MMOL/L (3.5-5.1) Chloride Level 107 MMOL/L (98-107) Carbon Dioxide Level 29 MMOL/L (21-32) Anion Gap 11 mmol/L (5-15) Blood Urea Nitrogen 15 mg/dL (7-18) Creatinine 1.0 MG/DL (0.55-1.30) Estimat Glomerular Filtration Rate > 60 mL/min (>60) Glucose Level 92 MG/DL (74-106) Calcium Level 9.4 MG/DL (8.5-10.1) Plan Problems: (1) Postoperative pain (2) Intractable nausea and vomiting (3) Colitis Assessment & Plan: Rectal white plastic seton identified with multiple sutures recently placed no signs of recurrent abscess no purulent drainage no significant erythema or induration mild oozing from open track no active bleeding Known history of Crohn's colitis under management of GI doctor. Known history of fistula and currently with seton placed by his surgeon. No recurrence of abscess fistula or other abnormality identified and currently under good management. Mild oozing normal given open wound. Seton appropriately placed. No acute surgical intervention indicated or necessary at this time. Pain management Antibiotics DC planning We will follow with recommendations thank you for let me participate in patient' s care (4) History of Crohn's disease (5) Rectal bleeding Assessment & Plan: Mild bleeding from the fistula tract and seton in place anticipated given current condition and seton and open wound. No active bleeding noted. No active infection noted. Seton appropriate position. Patient states he is using sitz bath and recommend to continue doing so okay to shower. Dressings for mild oozing. Follow-up with patient's colorectal surgeon outpatient upon discharge. local care with sitz bath, showers, and dressings prn keep seton in place d/c planning Brendan Melendez May 25, 2019 15:20
[2019-05-25 16:00] VITALS: BP 115/77
--- NOTE | 2019-05-25 19:46 | NUR ---
HAND-OFF: Report given to Erica BAILEY. Patient is stable.
--- NOTE | 2019-05-25 19:53 | NUR ---
Nurse Notes Report received by Mary. Pt awake alert oriented x4. Pt on room air no acute respiratory distress noted. Pt able to make needs known. ambulate independently to restroom. Pt has left wrist IV running @D5 1/2 NS @ 100ml/hr patent intact. no c/o of pain at this time. bed in lowest position call light in reach will continue to mointior throughout the the shift
[2019-05-25 20:00] VITALS: BP 94/64
[2019-05-25] MEDS: oxyCONTIN 10mg tab ORAL SCH (21:02)
[2019-05-25] MEDS ORDERED: D5 1/2NS 1000ml IV ONE (22:33)
--- NOTE | 2019-05-25 23:02 | Internal Med Progress Note ---
Subjective Physician Name Genaro Ibarra Attending Physician Genaro Ibarra MD Current Medications Medications (Trade) Dose Ordered Sig/Aguila Route PRN Reason Start Time Stop Time Status Last Admin Dose Admin Acetaminophen (Tylenol) 650 mg Q4H PRN ORAL fever 05/20/19 00:00 06/19/19 00:00 Dextrose (Dextrose 50%) 25 ml Q30M PRN IV Hypoglycemia 05/20/19 00:00 06/19/19 00:00 Dextrose (Dextrose 50%) 50 ml Q30M PRN IV Hypoglycemia 05/20/19 00:00 06/19/19 00:00 Dextrose/Sodium Chloride 1,000 ml @ 100 mls/hr Q10H IV 05/20/19 16:20 06/19/19 16:19 05/25/19 06:34 Diphenhydramine HCl (Benadryl) 25 mg Q6H PRN ORAL Itching/Pruritis 05/20/19 00:00 06/19/19 00:00 Docusate Sodium (Colace) 100 mg TWICE A DAY ORAL 05/20/19 18:00 06/19/19 17:59 05/24/19 08:27 Duloxetine HCl (Cymbalta) 30 mg DAILY ORAL 05/26/19 09:00 08/24/19 08:59 Heparin Sodium (Porcine) (Heparin 5000 units/ml) 5,000 units EVERY 12 HOURS SUBQ 05/20/19 09:00 07/04/19 08:59 05/23/19 20:29 Hydromorphone HCl (Dilaudid) 2 mg Q3H PRN IVP 4-6 PAIN 05/24/19 09:15 05/27/19 10:29 Hydromorphone HCl (Dilaudid) 4 mg Q3H PRN IVP Severe Pain (Pain Scale 7-10) 05/20/19 16:45 05/27/19 16:44 05/25/19 22:12 Naloxone HCl (Narcan) 0.2 mg Q2M PRN IVP respritory depression 05/24/19 13:45 08/22/19 13:44 Nitroglycerin (Ntg) 0.4 mg Q5M X 3 DOSES PRN SL Prn Chest Pain 05/20/19 00:00 06/19/19 00:00 Ondansetron HCl (Zofran) 4 mg Q6H PRN IVP Nausea & Vomiting 05/20/19 00:00 06/19/19 00:00 05/25/19 07:04 Oxycodone HCl (OxyCONTIN) 10 mg EVERY 12 HOURS ORAL 05/25/19 21:00 06/01/19 20:59 05/25/19 21:02 Oxycodone HCl (Roxicodone) 15 mg Q4H PRN ORAL For Pain 05/25/19 13:30 06/01/19 13:29 Pantoprazole (Protonix) 40 mg DAILY ORAL 05/25/19 09:00 06/24/19 08:59 05/25/19 09:32 Piperacillin Sod/ Tazobactam Sod 3.375 gm/Sodium Chloride 110 ml @ 27.5 mls/hr Q8H IVPB 05/20/19 10:00 05/29/19 09:59 05/25/19 18:38 Polyethylene Glycol (Miralax) 17 gm HSPRN PRN ORAL Constipation 05/20/19 00:00 06/19/19 00:00 Promethazine HCl 25 mg/Sodium Chloride 56 ml @ 112 mls/hr Q6H PRN IVPB nausea 05/22/19 14:45 06/21/19 14:44 05/23/19 14:08 Temazepam (Restoril) 15 mg HSPRN PRN ORAL Insomnia 05/20/19 00:00 05/27/19 00:00 Allergies: Coded Allergies: TRAMADOL (Unverified Allergy, Unknown, 04/24/19) seizure Subjective Awake, alert, responsive, No SOB or chest pain. C/O RLQ abdominal pain and anal pain. Objective Last Vital Signs Date Time Temp Pulse Resp B/P (MAP) Pulse Ox O2 Delivery O2 Flow Rate FiO2 05/25/19 20:00 98.6 102 19 94/64 (74) 98 05/25/19 09:00 Room Air Laboratory Tests Test 05/25/19 04:50 White Blood Count 8.6 K/UL (4.8-10.8) Red Blood Count 4.44 M/UL (4.70-6.10) L Hemoglobin 12.5 G/DL (14.2-18.0) L Hematocrit 36.1 % (42.0-52.0) L Mean Corpuscular Volume 81 FL (80-99) Mean Corpuscular Hemoglobin 28.1 PG (27.0-31.0) Mean Corpuscular Hemoglobin Concent 34.6 G/DL (32.0-36.0) Red Cell Distribution Width 13.0 % (11.6-14.8) Platelet Count 470 K/UL (150-450) H Mean Platelet Volume 5.3 FL (6.5-10.1) L Neutrophils (%) (Auto) 69.0 % (45.0-75.0) Lymphocytes (%) (Auto) 15.7 % (20.0-45.0) L Monocytes (%) (Auto) 7.6 % (1.0-10.0) Eosinophils (%) (Auto) 6.1 % (0.0-3.0) H Basophils (%) (Auto) 1.6 % (0.0-2.0) Sodium Level 147 MMOL/L (136-145) H Potassium Level 4.0 MMOL/L (3.5-5.1) Chloride Level 107 MMOL/L (98-107) Carbon Dioxide Level 29 MMOL/L (21-32) Anion Gap 11 mmol/L (5-15) Blood Urea Nitrogen 15 mg/dL (7-18) Creatinine 1.0 MG/DL (0.55-1.30) Estimat Glomerular Filtration Rate > 60 mL/min (>60) Glucose Level 92 MG/DL (74-106) Calcium Level 9.4 MG/DL (8.5-10.1) Intake and Output 05/24/19 05/25/19 19:00 07:00 Intake Total 787.5 ml 600 ml Output Total 1000 ml Balance 787.5 ml -400 ml Intake Oral 450 ml 600 ml IV Total 337.5 ml Output Urine Total 1000 ml Objective General: No acute distress, awake and alert HEENT: NCAT, sclera anicteric, PERRL, EOMI. Neck: Supple, no significant jugular venous distention, Lungs: Good inspiratory effort, no Wheeze or Rales. Heart: Regular rate and rhythm, normal S1/S2, no murmurs/gallops Abdomen: soft, nontender, nondistended. Normoactive bowel sounds. Extremities: No Cyanosis , clubbing or edema. Neuro: A&O x 3, Able to move all extremities Skin: warm, no rashes or lesions Psych: Normal mood and affect Assessment/Plan Assessment/Plan ASSESSMENT: This is a 38-year-old male with: 1. Perirectal abscess. 2. Postoperative pain. 3. Postoperative hemorrhage. 4. Crohn disease. TREATMENT: 1. Perirectal abscess/postop pain/postop hemorrhage. A General Surgery consultation has been obtained with Dr. Brendan Melendez. We will follow recommendations of Surgery. The patient has been started empirically on Zosyn for perirectal abscess. A Gastroenterology consultation= Dr. Romeo Valentine. An Infectious Disease consultation=with Dr. Harding. 2. Crohn disease. As above, a Gastroenterology consultation was obtained with Dr. Romeo Valentine. No GI procedures planned IV Zosyn # 6/10 , upon DC will change to oral Augmentin DC home soon. Genaro Ibarra MD May 25, 2019 23:02
[2019-05-26] VITALS: BP 102/62
[2019-05-26] MEDS: Piperacillin/Tazobactam 3.375 GM in NS 110 ML IVPB SCH ×3 (01:32→17:48)
[2019-05-26] MEDS: D5 1/2NS 1,000 ML IV SCH ×3 (02:21→21:44)
[2019-05-26 04:00] VITALS: BP 110/68
--- NOTE | 2019-05-26 05:20 | NUR ---
NURSE NOTES: Received report from Erica BAILEY. Pt is a/o x4. Breathing is even and unlabored at this time on room air. IV is intact and patient and IV fluid is running. Bed in lowest position call light in reach. Will continue to mointior.
--- NOTE | 2019-05-26 07:15 | NUR ---
HAND-OFF: Report given to Paulette BAILEY. Patient in stable condition.
[2019-05-26 08:00] VITALS: BP 107/71
--- NOTE | 2019-05-26 08:20 | NUR ---
NURSE NOTES: AWAKE /ALERT. C/O PAIN. SCALE 9/10. GIVEN DILAUDID 4MG IV ORDERED. IN NO DISTRESS.
[2019-05-26] MEDS: Docusate 100mg cap ORAL SCH ×2 (08:26→17:56)
[2019-05-26] MEDS: oxyCONTIN 10mg tab ORAL SCH (08:26)
[2019-05-26] MEDS: DULoxetine 30mg cap ORAL SCH (08:27)
[2019-05-26] MEDS: Heparin 5000 units/ml inj SUBQ SCH ×2 (08:27→21:00)
--- NOTE | 2019-05-26 09:22 | General Progress Note ---
Assessment/Plan Assessment/Plan: (1) Postoperative pain ICD Codes: G89.18 - Other acute postprocedural pain SNOMED: 976335846 (2) Intractable nausea and vomiting ICD Codes: R11.2 - Nausea with vomiting, unspecified SNOMED: 484096661 (3) Colitis (4) h/o CD s/p recent EGD and colonoscopy at [facility] in last admission ? pain med seeking mariann anal care fu surg bowel regimen dc planning per primary team patient to fu with his surgeon as out patient Subjective Allergies: Coded Allergies: TRAMADOL (Unverified Allergy, Unknown, 04/24/19) seizure Objective Last 24 Hour Vital Signs Date Time Temp Pulse Resp B/P (MAP) Pulse Ox O2 Delivery O2 Flow Rate FiO2 05/26/19 08:00 98.0 122 21 107/71 (83) 90 05/26/19 04:00 97.8 101 18 110/68 (82) 98 05/26/19 00:00 98.0 99 19 102/62 (75) 97 05/25/19 21:00 Room Air 05/25/19 20:00 98.6 102 19 94/64 (74) 98 05/25/19 16:00 98.1 125 20 115/77 (90) 96 05/25/19 12:00 98.3 119 20 102/78 (86) 96 Intake and Output 05/25/19 05/26/19 19:00 07:00 Intake Total 400 ml Output Total 1000 ml Balance -1000 ml 400 ml Intake Oral 200 ml IV Total 200 ml Output Urine Total 1000 ml # Voids 3 2 Height (Feet): 5 Height (Inches): 11.00 Weight (Pounds): 155 General Appearance: alert EENT: normal ENT inspection Neck: supple Cardiovascular: normal rate Respiratory/Chest: decreased breath sounds Abdomen: normal bowel sounds, non tender, soft Extremities: non-tender Romeo Valentine MD May 26, 2019 09:22
--- NOTE | 2019-05-26 10:10 | Infectious Diseases Prog Note ---
Assessment/Plan Assessment/Plan ASSESSMENT: History of ulcerative colitis Perianal abscess/fistula, status post drain placement Leukocytosis, Sp Afebrile Ulcerative colitis History of perianal abscess/preanal fistula Depression. PLAN: continue patient on IV Zosyn # 6/10 , upon DC will change to oral Augmentin Monitor CBC. Monitor BMP. Monitor cultures. GI and General surgeon fup Subjective Allergies: Coded Allergies: TRAMADOL (Unverified Allergy, Unknown, 04/24/19) seizure Subjective Afebrile No Leukocytosis Satting well on RA Pain controlled Objective Vital Signs Last 24 Hour Vital Signs Date Time Temp Pulse Resp B/P (MAP) Pulse Ox O2 Delivery O2 Flow Rate FiO2 05/26/19 08:00 98.0 122 21 107/71 (83) 90 05/26/19 04:00 97.8 101 18 110/68 (82) 98 05/26/19 00:00 98.0 99 19 102/62 (75) 97 05/25/19 21:00 Room Air 05/25/19 20:00 98.6 102 19 94/64 (74) 98 05/25/19 16:00 98.1 125 20 115/77 (90) 96 05/25/19 12:00 98.3 119 20 102/78 (86) 96 Height (Feet): 5 Height (Inches): 11.00 Weight (Pounds): 155 Current Medications Medications (Trade) Dose Ordered Sig/Aguila Route PRN Reason Start Time Stop Time Status Last Admin Dose Admin Acetaminophen (Tylenol) 650 mg Q4H PRN ORAL fever 05/20/19 00:00 06/19/19 00:00 Dextrose (Dextrose 50%) 25 ml Q30M PRN IV Hypoglycemia 05/20/19 00:00 06/19/19 00:00 Dextrose (Dextrose 50%) 50 ml Q30M PRN IV Hypoglycemia 05/20/19 00:00 06/19/19 00:00 Dextrose/Sodium Chloride 1,000 ml @ 100 mls/hr Q10H IV 05/20/19 16:20 06/19/19 16:19 05/26/19 02:21 Diphenhydramine HCl (Benadryl) 25 mg Q6H PRN ORAL Itching/Pruritis 05/20/19 00:00 06/19/19 00:00 Docusate Sodium (Colace) 100 mg TWICE A DAY ORAL 05/20/19 18:00 06/19/19 17:59 05/26/19 08:26 Duloxetine HCl (Cymbalta) 30 mg DAILY ORAL 05/26/19 09:00 08/24/19 08:59 05/26/19 08:27 Heparin Sodium (Porcine) (Heparin 5000 units/ml) 5,000 units EVERY 12 HOURS SUBQ 05/20/19 09:00 07/04/19 08:59 05/23/19 20:29 Hydromorphone HCl (Dilaudid) 2 mg Q3H PRN IVP 4-6 PAIN 05/24/19 09:15 05/27/19 10:29 Hydromorphone HCl (Dilaudid) 4 mg Q3H PRN IVP Severe Pain (Pain Scale 7-10) 05/20/19 16:45 05/27/19 16:44 05/26/19 08:00 Naloxone HCl (Narcan) 0.2 mg Q2M PRN IVP respritory depression 05/24/19 13:45 08/22/19 13:44 Nitroglycerin (Ntg) 0.4 mg Q5M X 3 DOSES PRN SL Prn Chest Pain 05/20/19 00:00 06/19/19 00:00 Ondansetron HCl (Zofran) 4 mg Q6H PRN IVP Nausea & Vomiting 05/20/19 00:00 06/19/19 00:00 05/25/19 07:04 Oxycodone HCl (OxyCONTIN) 10 mg EVERY 12 HOURS ORAL 05/25/19 21:00 06/01/19 20:59 05/26/19 08:26 Oxycodone HCl (Roxicodone) 15 mg Q4H PRN ORAL For Pain 05/25/19 13:30 06/01/19 13:29 Pantoprazole (Protonix) 40 mg DAILY ORAL 05/25/19 09:00 06/24/19 08:59 05/26/19 08:26 Piperacillin Sod/ Tazobactam Sod 3.375 gm/Sodium Chloride 110 ml @ 27.5 mls/hr Q8H IVPB 05/20/19 10:00 05/29/19 09:59 05/26/19 01:32 Polyethylene Glycol (Miralax) 17 gm HSPRN PRN ORAL Constipation 05/20/19 00:00 06/19/19 00:00 Promethazine HCl 25 mg/Sodium Chloride 56 ml @ 112 mls/hr Q6H PRN IVPB nausea 05/22/19 14:45 06/21/19 14:44 05/23/19 14:08 Temazepam (Restoril) 15 mg HSPRN PRN ORAL Insomnia 05/20/19 00:00 05/27/19 00:00 Earle Melchor MD May 26, 2019 10:10
--- NOTE | 2019-05-26 10:13 | Pulmonology Progress Note ---
Assessment/Plan Assessment/Plan ASSESSMENT leukocytosis -resolved perirectal abscess, s/p recent repair of perianal fistula tachycardia -resolved colitis Crohn disease rectal bleeding postop pain mild anemia ELIGIO probably due to dehydration -resolved PLAN OF CARE [facility] floor IVF, abx leuk resolved per surgery no need fro acute surgical interventions perianal care bowel regimen; HH remains stable pain management as per pain specialist dc plan today script for analgesic in chart case discussed and evaluated by supervising physician Subjective Allergies: Coded Allergies: TRAMADOL (Unverified Allergy, Unknown, 04/24/19) seizure Subjective still in pain no leukocytosis HH stable dc order written yesterday Objective Last 24 Hour Vital Signs Date Time Temp Pulse Resp B/P (MAP) Pulse Ox O2 Delivery O2 Flow Rate FiO2 05/26/19 08:00 98.0 122 21 107/71 (83) 90 05/26/19 04:00 97.8 101 18 110/68 (82) 98 05/26/19 00:00 98.0 99 19 102/62 (75) 97 05/25/19 21:00 Room Air 05/25/19 20:00 98.6 102 19 94/64 (74) 98 05/25/19 16:00 98.1 125 20 115/77 (90) 96 05/25/19 12:00 98.3 119 20 102/78 (86) 96 Intake and Output 05/25/19 05/26/19 19:00 07:00 Intake Total 400 ml Output Total 1000 ml Balance -1000 ml 400 ml Intake Oral 200 ml IV Total 200 ml Output Urine Total 1000 ml # Voids 3 2 General Appearance: no acute distress HEENT: normocephalic, atraumatic, mucous membranes moist Respiratory/Chest: lungs clear, normal breath sounds, no respiratory distress, no accessory muscle use Cardiovascular: normal rate, regular rhythm Abdomen: normal bowel sounds, other - soft, mild difused tenderness Extremities: no edema, pedal pulses normal Neurologic/Psychiatric: no motor/sensory deficits, alert, oriented x 3, responsive Musculoskeletal: normal muscle bulk Current Medications Medications (Trade) Dose Ordered Sig/Aguila Route PRN Reason Start Time Stop Time Status Last Admin Dose Admin Acetaminophen (Tylenol) 650 mg Q4H PRN ORAL fever 05/20/19 00:00 06/19/19 00:00 Dextrose (Dextrose 50%) 25 ml Q30M PRN IV Hypoglycemia 05/20/19 00:00 06/19/19 00:00 Dextrose (Dextrose 50%) 50 ml Q30M PRN IV Hypoglycemia 05/20/19 00:00 06/19/19 00:00 Dextrose/Sodium Chloride 1,000 ml @ 100 mls/hr Q10H IV 05/20/19 16:20 06/19/19 16:19 05/26/19 02:21 Diphenhydramine HCl (Benadryl) 25 mg Q6H PRN ORAL Itching/Pruritis 05/20/19 00:00 06/19/19 00:00 Docusate Sodium (Colace) 100 mg TWICE A DAY ORAL 05/20/19 18:00 06/19/19 17:59 05/26/19 08:26 Duloxetine HCl (Cymbalta) 30 mg DAILY ORAL 05/26/19 09:00 08/24/19 08:59 05/26/19 08:27 Heparin Sodium (Porcine) (Heparin 5000 units/ml) 5,000 units EVERY 12 HOURS SUBQ 05/20/19 09:00 07/04/19 08:59 05/23/19 20:29 Hydromorphone HCl (Dilaudid) 2 mg Q3H PRN IVP 4-6 PAIN 05/24/19 09:15 05/27/19 10:29 Hydromorphone HCl (Dilaudid) 4 mg Q3H PRN IVP Severe Pain (Pain Scale 7-10) 05/20/19 16:45 05/27/19 16:44 05/26/19 08:00 Naloxone HCl (Narcan) 0.2 mg Q2M PRN IVP respritory depression 05/24/19 13:45 08/22/19 13:44 Nitroglycerin (Ntg) 0.4 mg Q5M X 3 DOSES PRN SL Prn Chest Pain 05/20/19 00:00 06/19/19 00:00 Ondansetron HCl (Zofran) 4 mg Q6H PRN IVP Nausea & Vomiting 05/20/19 00:00 06/19/19 00:00 05/25/19 07:04 Oxycodone HCl (OxyCONTIN) 10 mg EVERY 12 HOURS ORAL 05/25/19 21:00 06/01/19 20:59 05/26/19 08:26 Oxycodone HCl (Roxicodone) 15 mg Q4H PRN ORAL For Pain 05/25/19 13:30 06/01/19 13:29 Pantoprazole (Protonix) 40 mg DAILY ORAL 05/25/19 09:00 06/24/19 08:59 05/26/19 08:26 Piperacillin Sod/ Tazobactam Sod 3.375 gm/Sodium Chloride 110 ml @ 27.5 mls/hr Q8H IVPB 05/20/19 10:00 05/29/19 09:59 05/26/19 01:32 Polyethylene Glycol (Miralax) 17 gm HSPRN PRN ORAL Constipation 05/20/19 00:00 06/19/19 00:00 Promethazine HCl 25 mg/Sodium Chloride 56 ml @ 112 mls/hr Q6H PRN IVPB nausea 05/22/19 14:45 06/21/19 14:44 05/23/19 14:08 Temazepam (Restoril) 15 mg HSPRN PRN ORAL Insomnia 05/20/19 00:00 05/27/19 00:00 Susan Easlye NP May 26, 2019 10:13
--- NOTE | 2019-05-26 11:45 | NUR ---
NURSE NOTES: PT REFUSING TO GO HOME. STATES HE HAS NOT SEEN HIS DOCTOR TO TALK ABOUT HIS PAIN MEDICINES HE HAS TO TAKE AT HOME. SAID HE'S ALSO ON OXYCODONE ER AT HOME. DR BRANNON CALLED AND HAS PRESCRIPTION FOR OXYCODONE IR. NO FURTHER ORDERS FOR PAIN .
[2019-05-26 12:00] VITALS: BP 117/78
--- NOTE | 2019-05-26 12:52 | NUR ---
NURSE NOTES: Patient not comfortable to go home and patient appeal to medicare. Case # [id number]. aware.
--- NOTE | 2019-05-26 13:00 | NUR ---
NURSE NOTES: PT APPEALLED HIS DISCHARGE WITH MEDICARE CASE #[id number] AND REQUESTING FOR HIS PAIN MEDICINES. DR BRANNON CALLED AND DISCONTINUED ALL IV AND PO PAIN MEDICINES. ORDERED TYLENOL 650MG PO NEEDED FOR PAIN.
--- NOTE | 2019-05-26 14:30 | Internal Med Progress Note ---
Subjective Date of Service: May 26, 2019 Physician Name LashawnAtilio Attending Physician Genaro Ibarra MD Current Medications Medications (Trade) Dose Ordered Sig/Aguila Route PRN Reason Start Time Stop Time Status Last Admin Dose Admin Acetaminophen (Tylenol) 650 mg Q4H PRN ORAL fever 05/20/19 00:00 06/19/19 00:00 Acetaminophen (Tylenol) 650 mg Q6H PRN ORAL pain 05/26/19 12:30 06/25/19 12:29 Dextrose (Dextrose 50%) 25 ml Q30M PRN IV Hypoglycemia 05/20/19 00:00 06/19/19 00:00 Dextrose (Dextrose 50%) 50 ml Q30M PRN IV Hypoglycemia 05/20/19 00:00 06/19/19 00:00 Dextrose/Sodium Chloride 1,000 ml @ 100 mls/hr Q10H IV 05/20/19 16:20 06/19/19 16:19 05/26/19 02:21 Diphenhydramine HCl (Benadryl) 25 mg Q6H PRN ORAL Itching/Pruritis 05/20/19 00:00 06/19/19 00:00 Docusate Sodium (Colace) 100 mg TWICE A DAY ORAL 05/20/19 18:00 06/19/19 17:59 05/26/19 08:26 Duloxetine HCl (Cymbalta) 30 mg DAILY ORAL 05/26/19 09:00 08/24/19 08:59 05/26/19 08:27 Heparin Sodium (Porcine) (Heparin 5000 units/ml) 5,000 units EVERY 12 HOURS SUBQ 05/20/19 09:00 07/04/19 08:59 05/23/19 20:29 Naloxone HCl (Narcan) 0.2 mg Q2M PRN IVP respritory depression 05/24/19 13:45 08/22/19 13:44 Nitroglycerin (Ntg) 0.4 mg Q5M X 3 DOSES PRN SL Prn Chest Pain 05/20/19 00:00 06/19/19 00:00 Ondansetron HCl (Zofran) 4 mg Q6H PRN IVP Nausea & Vomiting 05/20/19 00:00 06/19/19 00:00 05/25/19 07:04 Pantoprazole (Protonix) 40 mg DAILY ORAL 05/25/19 09:00 06/24/19 08:59 05/26/19 08:26 Piperacillin Sod/ Tazobactam Sod 3.375 gm/Sodium Chloride 110 ml @ 27.5 mls/hr Q8H IVPB 05/20/19 10:00 05/29/19 09:59 05/26/19 10:39 Polyethylene Glycol (Miralax) 17 gm HSPRN PRN ORAL Constipation 05/20/19 00:00 06/19/19 00:00 Promethazine HCl 25 mg/Sodium Chloride 56 ml @ 112 mls/hr Q6H PRN IVPB nausea 05/22/19 14:45 06/21/19 14:44 05/23/19 14:08 Temazepam (Restoril) 15 mg HSPRN PRN ORAL Insomnia 05/20/19 00:00 05/27/19 00:00 Allergies: Coded Allergies: TRAMADOL (Unverified Allergy, Unknown, 04/24/19) seizure ROS Limited/Unobtainable: No Constitutional: Reports: no symptoms HEENT: Reports: no symptoms Cardiovascular: Reports: no symptoms Respiratory: Reports: no symptoms Gastrointestinal/Abdominal: Reports: no symptoms Genitourinary: Reports: no symptoms Neurologic/Psychiatric: Reports: no symptoms Subjective 38 YO M admitted with postop hemoorhage from perirectal abscess. [facility]-DR Ibarra Objective Last Vital Signs Date Time Temp Pulse Resp B/P (MAP) Pulse Ox O2 Delivery O2 Flow Rate FiO2 05/26/19 12:00 98.6 128 20 117/78 (91) 97 05/26/19 09:00 Room Air Intake and Output 05/25/19 05/26/19 19:00 07:00 Intake Total 400 ml Output Total 1000 ml Balance -1000 ml 400 ml Intake Oral 200 ml IV Total 200 ml Output Urine Total 1000 ml # Voids 3 2 Objective PHYSICAL EXAMINATION: GENERAL: The patient is thin-appearing male in moderate pain. HEENT: Eyes, pupils equal and responsive to light and accommodation. Extraocular movements are intact. NECK: Supple without lymphadenopathy. CHEST: Lungs are clear to auscultation bilaterally without wheezes or rales. CARDIOVASCULAR: Regular rate. S1 and S2 are normal without murmurs, rubs, or gallops. ABDOMEN: Soft, nontender, and nondistended. Positive bowel sounds. No evidence of hepatosplenomegaly. Currently, no rebound or guarding noted. EXTREMITIES: Negative for clubbing, cyanosis, or edema. RECTAL: Not performed. GENITAL: Not performed. NEUROLOGIC: Cranial nerves II through XII are grossly intact without focal deficits. Motor strength is 5/5 bilaterally intact. Deep tendon reflexes are 2+ plantar. Assessment/Plan Assessment/Plan ASSESSMENT: This is a 38-year-old male with: 1. Perirectal abscess. 2. Postoperative pain. 3. Postoperative hemorrhage. 4. Crohn disease. TREATMENT: 1. Perirectal abscess/postop pain/postop hemorrhage. A General Surgery consultation has been obtained with Dr. Brendan Melendez. We will follow recommendations of Surgery. The patient has been started empirically on Zosyn for perirectal abscess. A Gastroenterology consultation= Dr. Romeo Valentine. An Infectious Disease consultation=with Dr. Harding. 2. Crohn disease. As above, a Gastroenterology consultation was obtained with Dr. Romeo Valentine. No GI procedures planned 3. D/C home today with oral Atilio Peraza MD May 26, 2019 14:30
--- NOTE | 2019-05-26 14:54 | NUR ---
NURSE NOTES: NOTED MINIMAL BLEEDING ON RECTAL AREA. 4X4 DRESSING APPLIED.
[2019-05-26 16:00] VITALS: BP 132/86
--- NOTE | 2019-05-26 16:48 | NUR ---
NURSE NOTES: BP 132/86. P 149. TRIED TO RECHECK V/S BUT REFUSED. OFFERED TYLENOL FOR PAIN BUT ASLO REFUSED. DR BRANNON CALLED. LEFT MESSAGE TO RETURN CALL.
--- NOTE | 2019-05-26 18:53 | NUR ---
NURSE NOTES: ASLEEP. DID NOT EAT HIS DINNER. TRAY STILL AT BEDSIDE. REFUSED MEDS. IN NO DISTRESS.
--- NOTE | 2019-05-26 19:12 | NUR ---
HAND-OFF: Report given to Azar LEAHY RN.
--- NOTE | 2019-05-26 19:47 | Surgery Progress Note ---
Surgery Progress Note Subjective Additional Comments Patient was planned for discharge today but states he did not want to leave. No nausea vomiting fever chills. Labs okay. Exam stable and unchanged and benign. Objective Last 24 Hour Vital Signs Date Time Temp Pulse Resp B/P (MAP) Pulse Ox O2 Delivery O2 Flow Rate FiO2 05/26/19 16:00 98.0 149 132/86 (101) 05/26/19 12:00 98.6 128 20 117/78 (91) 97 05/26/19 09:00 Room Air 05/26/19 08:56 97.8 05/26/19 08:30 97.8 05/26/19 08:00 98.0 122 21 107/71 (83) 90 05/26/19 04:00 97.8 101 18 110/68 (82) 98 05/26/19 00:00 98.0 99 19 102/62 (75) 97 05/25/19 21:00 Room Air 05/25/19 20:00 98.6 102 19 94/64 (74) 98 I&O Intake and Output 05/25/19 05/26/19 19:00 07:00 Intake Total 400 ml Output Total 1000 ml Balance -1000 ml 400 ml Intake Oral 200 ml IV Total 200 ml Output Urine Total 1000 ml # Voids 3 2 Dressing: dry Wound: clean Cardiovascular: RSR Respiratory: clear Abdomen: soft, flat, non-tender, present bowel sounds Extremities: no edema, no tenderness, no cyanosis Plan Problems: (1) Postoperative pain (2) Intractable nausea and vomiting (3) Colitis Assessment & Plan: Rectal white plastic seton identified with multiple sutures recently placed no signs of recurrent abscess no purulent drainage no significant erythema or induration mild oozing from open track no active bleeding Known history of Crohn's colitis under management of GI doctor. Known history of fistula and currently with seton placed by his surgeon. No recurrence of abscess fistula or other abnormality identified and currently under good management. Mild oozing normal given open wound. Seton appropriately placed. No acute surgical intervention indicated or necessary at this time. Pain management Antibiotics DC planning We will follow with recommendations thank you for let me participate in patient' s care (4) History of Crohn's disease (5) Rectal bleeding Assessment & Plan: Mild bleeding from the fistula tract and seton in place anticipated given current condition and seton and open wound. No active bleeding noted. No active infection noted. Seton appropriate position. Patient states he is using sitz bath and recommend to continue doing so okay to shower. Dressings for mild oozing. Follow-up with patient's colorectal surgeon outpatient upon discharge. local care with sitz bath, showers, and dressings prn keep seton in place d/c planning Additional Comments Okay to discharge from surgical standpoint. Outpatient follow-up with his colorectal surgeon for seton removal. Brendan Melendez May 26, 2019 19:47
--- NOTE | 2019-05-26 19:49 | NUR ---
NURSE NOTES: Received Report from RN MARTINE, pt is sleeping with no s/s of respiratory distress, pt has Lt wrist 24G with i.v fluids running , patten and asymptomatic, bed in low locked position and call light with in reach
--- NOTE | 2019-05-26 21:00 | NUR ---
NURSE NOTES: Pt refused heparin, sq , risks and benefits explained
[2019-05-27] MEDS: Piperacillin/Tazobactam 3.375 GM in NS 110 ML IVPB SCH ×4 (02:00→17:28)
--- NOTE | 2019-05-27 07:23 | NUR ---
HAND-OFF: Report given to LYNN Sun /jacqui Bryan.
--- NOTE | 2019-05-27 07:26 | General Progress Note ---
Assessment/Plan Assessment/Plan: (1) Postoperative pain ICD Codes: G89.18 - Other acute postprocedural pain SNOMED: 321506241 (2) Intractable nausea and vomiting ICD Codes: R11.2 - Nausea with vomiting, unspecified SNOMED: 994798591 (3) Colitis (4) h/o CD s/p recent EGD and colonoscopy at [place] in last admission ? pain med seeking mariann anal care fu surg bowel regimen dc planning per primary team patient to fu with his surgeon as out patient Subjective Allergies: Coded Allergies: TRAMADOL (Unverified Allergy, Unknown, 04/24/19) seizure Objective Last 24 Hour Vital Signs Date Time Temp Pulse Resp B/P (MAP) Pulse Ox O2 Delivery O2 Flow Rate FiO2 05/26/19 21:00 Room Air 05/26/19 16:00 98.0 149 132/86 (101) 05/26/19 12:00 98.6 128 20 117/78 (91) 97 05/26/19 09:00 Room Air 05/26/19 08:56 97.8 05/26/19 08:30 97.8 05/26/19 08:00 98.0 122 21 107/71 (83) 90 Intake and Output 05/26/19 05/27/19 19:00 07:00 Intake Total 1310 ml Output Total 600 ml 1000 ml Balance 710 ml -1000 ml Intake Oral 750 ml IV Total 560 ml Output Urine Total 600 ml 1000 ml # Voids 1 Height (Feet): 5 Height (Inches): 11.00 Weight (Pounds): 155 General Appearance: alert EENT: normal ENT inspection Neck: supple Cardiovascular: normal rate Respiratory/Chest: decreased breath sounds Abdomen: normal bowel sounds, non tender, soft Extremities: non-tender Romeo Valentine MD May 27, 2019 07:26
--- NOTE | 2019-05-27 07:30 | NUR ---
NURSE NOTES: Received report from Gwyn BAILEY. Patient is asleep during rounds, no acute distress noted, RR even and unlabored. IVF not running, per fire coordinator report patient is refusing IVF and refused IV antibiotic. Side rails up2, bed low and locked, call light within reach.
[2019-05-27] MEDS: D5 1/2NS 1,000 ML IV SCH ×2 (08:20→17:27)
[2019-05-27] MEDS ORDERED: Tubing IV Secondary IV ONE (08:42)
[2019-05-27] MEDS ORDERED: D5 1/2NS 1000ml IV ONE (08:42)
[2019-05-27] MEDS: DULoxetine 30mg cap ORAL SCH (09:00)
[2019-05-27] MEDS: Heparin 5000 units/ml inj SUBQ SCH ×2 (09:00→20:42)
[2019-05-27] MEDS: Docusate 100mg cap ORAL SCH ×2 (09:00→17:28)
--- NOTE | 2019-05-27 10:14 | Pulmonology Progress Note ---
Assessment/Plan Assessment/Plan ASSESSMENT leukocytosis -resolved perirectal abscess, s/p recent repair of perianal fistula tachycardia -resolved colitis Crohn disease rectal bleeding postop pain mild anemia ELIGIO probably due to dehydration -resolved PLAN OF CARE [facility] floor IVF, abx leuk resolved per surgery no need fro acute surgical interventions perianal care bowel regimen; HH remains stable pain management as per pain specialist dc plan script for analgesic in chart patient appealed case discussed and evaluated by supervising physician Subjective Allergies: Coded Allergies: TRAMADOL (Unverified Allergy, Unknown, 04/24/19) seizure Subjective still in pain no leukocytosis HH stable dc order written pt declined to go and appealed Objective Last 24 Hour Vital Signs Date Time Temp Pulse Resp B/P (MAP) Pulse Ox O2 Delivery O2 Flow Rate FiO2 05/26/19 21:00 Room Air 05/26/19 16:00 98.0 149 132/86 (101) 05/26/19 12:00 98.6 128 20 117/78 (91) 97 Intake and Output 05/26/19 05/27/19 19:00 07:00 Intake Total 1310 ml Output Total 600 ml 1000 ml Balance 710 ml -1000 ml Intake Oral 750 ml IV Total 560 ml Output Urine Total 600 ml 1000 ml # Voids 1 Objective HEENT: normocephalic, atraumatic, mucous membranes moist Respiratory/Chest: lungs clear, normal breath sounds, no respiratory distress, no accessory muscle use Cardiovascular: normal rate, regular rhythm Abdomen: normal bowel sounds, other - soft, mild diffused tenderness Extremities: no edema, pedal pulses normal Neurologic/Psychiatric: no motor/sensory deficits, alert, oriented x 3, responsive Musculoskeletal: normal muscle bulk Current Medications Medications (Trade) Dose Ordered Sig/Aguila Route PRN Reason Start Time Stop Time Status Last Admin Dose Admin Acetaminophen (Tylenol) 650 mg Q4H PRN ORAL fever 05/20/19 00:00 06/19/19 00:00 Acetaminophen (Tylenol) 650 mg Q6H PRN ORAL pain 05/26/19 12:30 06/25/19 12:29 Dextrose (Dextrose 50%) 25 ml Q30M PRN IV Hypoglycemia 05/20/19 00:00 06/19/19 00:00 Dextrose (Dextrose 50%) 50 ml Q30M PRN IV Hypoglycemia 05/20/19 00:00 06/19/19 00:00 Dextrose/Sodium Chloride 1,000 ml @ 100 mls/hr Q10H IV 05/20/19 16:20 06/19/19 16:19 05/26/19 21:44 Diphenhydramine HCl (Benadryl) 25 mg Q6H PRN ORAL Itching/Pruritis 05/20/19 00:00 06/19/19 00:00 Docusate Sodium (Colace) 100 mg TWICE A DAY ORAL 05/20/19 18:00 06/19/19 17:59 05/26/19 08:26 Duloxetine HCl (Cymbalta) 30 mg DAILY ORAL 05/26/19 09:00 08/24/19 08:59 05/26/19 08:27 Heparin Sodium (Porcine) (Heparin 5000 units/ml) 5,000 units EVERY 12 HOURS SUBQ 05/20/19 09:00 07/04/19 08:59 05/23/19 20:29 Naloxone HCl (Narcan) 0.2 mg Q2M PRN IVP respritory depression 05/24/19 13:45 08/22/19 13:44 Nitroglycerin (Ntg) 0.4 mg Q5M X 3 DOSES PRN SL Prn Chest Pain 05/20/19 00:00 06/19/19 00:00 Ondansetron HCl (Zofran) 4 mg Q6H PRN IVP Nausea & Vomiting 05/20/19 00:00 06/19/19 00:00 05/25/19 07:04 Pantoprazole (Protonix) 40 mg DAILY ORAL 05/25/19 09:00 06/24/19 08:59 05/26/19 08:26 Piperacillin Sod/ Tazobactam Sod 3.375 gm/Sodium Chloride 110 ml @ 27.5 mls/hr Q8H IVPB 05/20/19 10:00 05/29/19 09:59 05/26/19 10:39 Polyethylene Glycol (Miralax) 17 gm HSPRN PRN ORAL Constipation 05/20/19 00:00 06/19/19 00:00 Promethazine HCl 25 mg/Sodium Chloride 56 ml @ 112 mls/hr Q6H PRN IVPB nausea 05/22/19 14:45 06/21/19 14:44 05/23/19 14:08 Susan Easley NP May 27, 2019 10:14
--- NOTE | 2019-05-27 10:15 | NUR ---
NURSE NOTES: Patient offered all 0900 and 1000 antibiotic, patient refused all medications, refusing VS.
--- NOTE | 2019-05-27 12:17 | Surgery Progress Note ---
Surgery Progress Note Subjective Additional Comments states he is very upset that he is not getting pain medication anymore refusing all care except pain medication Objective Last 24 Hour Vital Signs Date Time Temp Pulse Resp B/P (MAP) Pulse Ox O2 Delivery O2 Flow Rate FiO2 05/27/19 09:00 Room Air 05/26/19 21:00 Room Air 05/26/19 16:00 98.0 149 132/86 (101) I&O Intake and Output 05/26/19 05/27/19 19:00 07:00 Intake Total 1310 ml Output Total 600 ml 1000 ml Balance 710 ml -1000 ml Intake Oral 750 ml IV Total 560 ml Output Urine Total 600 ml 1000 ml # Voids 1 Cardiovascular: RSR Respiratory: clear Abdomen: soft, flat, non-tender, present bowel sounds Extremities: no edema, no tenderness, no cyanosis Plan Problems: (1) Postoperative pain (2) Intractable nausea and vomiting (3) Colitis Assessment & Plan: Rectal white plastic seton identified with multiple sutures recently placed no signs of recurrent abscess no purulent drainage no significant erythema or induration mild oozing from open track no active bleeding Known history of Crohn's colitis under management of GI doctor. Known history of fistula and currently with seton placed by his surgeon. No recurrence of abscess fistula or other abnormality identified and currently under good management. Mild oozing normal given open wound. Seton appropriately placed. No acute surgical intervention indicated or necessary at this time. Pain management Antibiotics DC planning We will follow with recommendations thank you for let me participate in patient' s care (4) History of Crohn's disease (5) Rectal bleeding Assessment & Plan: Mild bleeding from the fistula tract and seton in place anticipated given current condition and seton and open wound. No active bleeding noted. No active infection noted. Seton appropriate position. Patient states he is using sitz bath and recommend to continue doing so okay to shower. Dressings for mild oozing. Follow-up with patient's colorectal surgeon outpatient upon discharge. local care with sitz bath, showers, and dressings prn keep seton in place d/c planning Additional Comments d/c Brendan Melendez May 27, 2019 12:17
--- NOTE | 2019-05-27 13:29 | General Progress Note ---
Assessment/Plan Assessment/Plan: (1) Abdominal pain (2) Crohn's Disease (3) Neuropathic pain Patient will started on Oxycontin 10mg PO 1 tab Q12h atc and Percocet 10/325mg PO 1 tab Q4H PRN severe pain so patient will transition from IV to po and so patient will not to go through withdrawal. For Discharge Rx will be sent to patients pharmacy of choice for Oxycontin 10mg 1 tab Q12H ATC 14 tabs and Percocet 10/325mg 1 tab Q6-8H PRN 20 tabs. Was advised to f/u with his PMD and GI specialist when discharged D/w Dr. Daily and he concurred. Subjective Date patient seen: May 27, 2019 Time patient seen: 01:15 - PM Constitutional: Reports: no symptoms HEENT: Reports: no symptoms Cardiovascular: Reports: no symptoms Respiratory: Reports: no symptoms Gastrointestinal/Abdominal: Reports: abdominal pain Genitourinary: Reports: no symptoms Neurologic/Psychiatric: Reports: no symptoms Endocrine: Reports: no symptoms Hematologic/Lymphatic: Reports: no symptoms Allergies: Coded Allergies: TRAMADOL (Unverified Allergy, Unknown, 04/24/19) seizure Subjective Patient reports that the pain has been severe, had been discharged however he refused to leave and has put in an appeal to insurance. He is refusing all scheduled medications. Director Sports had discontinued his Dilaudid yesterday and wrote an RX for Oxycontin IR for discharge. D/w Director Sports about starting him on Oxycontin and Percocet to transition the patient from IV to po medication so patient will no go through withdrawal while here in the hospital till discharge. Objective Last 24 Hour Vital Signs Date Time Temp Pulse Resp B/P (MAP) Pulse Ox O2 Delivery O2 Flow Rate FiO2 05/27/19 09:00 Room Air 05/26/19 21:00 Room Air 05/26/19 16:00 98.0 149 132/86 (101) Intake and Output 05/26/19 05/27/19 19:00 07:00 Intake Total 1310 ml Output Total 600 ml 1000 ml Balance 710 ml -1000 ml Intake Oral 750 ml IV Total 560 ml Output Urine Total 600 ml 1000 ml # Voids 1 Height (Feet): 5 Height (Inches): 11.00 Weight (Pounds): 155 General Appearance: no apparent distress, alert EENT: PERRL/EOMI, normal ENT inspection Neck: non-tender, normal alignment Cardiovascular: normal rate, regular rhythm Respiratory/Chest: lungs clear, normal breath sounds Abdomen: tender Extremities: non-tender Edema: no edema noted Generalized Neurologic: alert, oriented x 3 Skin: warm/dry Gagandeep Saleem May 27, 2019 13:29
[2019-05-27 13:55] VITALS: BP 116/75
--- NOTE | 2019-05-27 14:15 | NUR ---
RAPID RESPONSE: See Rapid Response sheet which remains on paper. BALL WARPER TENDER was called to patient's room for fall vs. sz. Upon arrival, patient was found to be AAO, visibly trembling. Patient states that he does not recall what occurred. There is blood on the pillow and upon investigating further, patient has an approximately 1 inch in length laceration on the back of his head. There is only blood on the pillow but no blood coming from the wound. The wound is not deep, looks superficial. Wound is questionable to both fall or sz given that patient did not appear to get out of bed, was not post ictal. No blood was found on any of the hard surfaces ie...bed rails. Patient's HR was 158. Pupils were checked and were 4 mm, dilated and slow to react but equal bilaterally. Patient was visibly distraught. When asked how patient was feeling patient stated he was "in pain." Patient was asked where his pain was and he stated that his pain was all over his body. Blood Gluc was checked and 116. EKG was done showing SVT. Head CT was ordered, Pain Management PA was called and pain meds were reinstated. It is suspected that patient is going through possible medical withdrawals. Patient did say that he was withdrawing from pain medication as previously suspected. Patient was on Dilauded IV that was DCd. Requested lumber cutter and Primary RN for IV access, administer pain meds per pain management and to obtain Head CT prior to transfer to [facility]. Patient is stable at this time. IF patients HR does not improve, please contact BALL WARPER TENDER Team. Also advised patient regarding compliance. Patient is NOT to refuse any meds, IV access or food trays. In order to continue to get what he needs, patient needs to continue to allow staff therapist to give 100% care per MD orders. Patient vocalized understanding and stated that he would comply with primary RN and BALL WARPER TENDER team present.
[2019-05-27 15:23] VITALS: BP 116/75
--- NOTE | 2019-05-27 15:31 | NUR ---
NURSE NOTES: STEAM POWER PLANT OPERATOR called at 1355 due to patient reporting to RN that he hit his head and was bleeding (see STEAM POWER PLANT OPERATOR documentation intervention). Dr. Ibarra was contacted at 1404, MD answered phone and was informed that patient was found to be bleeding from the back of his head and was reporting that he hit his head but did not know how, Dr. Ibarra stated "ok, monitor the patient", no further orders received. EKG and STAT CT were ordered per STEAM POWER PLANT OPERATOR protocol. Patient was transferred to telemetry floor for further monitoring per STEAM POWER PLANT OPERATOR protocol. Handoff given to Maci BAILEY at 1500, all belongings sent with patient. Upon transfer a small, black switchblade was found on the bedside table by DEVON Haley, patient denied self harm, switchblade taken from patient and given to security police officer Robert to be placed in the safe. Dr. Hardin was present upon transfer to telemetry floor and was notified of incident with patient and was also notified that a switchblade belonging to the patient was found at the bedside but patient denied self harm, MD is aware. Patient refused to allow RN's to go through his backpack upon transfer, patient's backpack was sent to safe with security police officer Robert.
--- NOTE | 2019-05-27 15:47 | Internal Med Progress Note ---
Subjective Date of Service: May 27, 2019 Physician Name LashawnAtilio Attending Physician Genaro Ibarra MD Current Medications Medications (Trade) Dose Ordered Sig/Aguila Route PRN Reason Start Time Stop Time Status Last Admin Dose Admin Acetaminophen (Tylenol) 650 mg Q4H PRN ORAL fever 05/20/19 00:00 06/19/19 00:00 Acetaminophen (Tylenol) 650 mg Q6H PRN ORAL pain 05/26/19 12:30 06/25/19 12:29 Dextrose (Dextrose 50%) 25 ml Q30M PRN IV Hypoglycemia 05/20/19 00:00 06/19/19 00:00 Dextrose (Dextrose 50%) 50 ml Q30M PRN IV Hypoglycemia 05/20/19 00:00 06/19/19 00:00 Dextrose/Sodium Chloride 1,000 ml @ 100 mls/hr Q10H IV 05/20/19 16:20 06/19/19 16:19 05/26/19 21:44 Diphenhydramine HCl (Benadryl) 25 mg Q6H PRN ORAL Itching/Pruritis 05/20/19 00:00 06/19/19 00:00 Docusate Sodium (Colace) 100 mg TWICE A DAY ORAL 05/20/19 18:00 06/19/19 17:59 05/26/19 08:26 Duloxetine HCl (Cymbalta) 30 mg DAILY ORAL 05/26/19 09:00 08/24/19 08:59 05/26/19 08:27 Heparin Sodium (Porcine) (Heparin 5000 units/ml) 5,000 units EVERY 12 HOURS SUBQ 05/20/19 09:00 07/04/19 08:59 05/23/19 20:29 Naloxone HCl (Narcan) 0.2 mg Q2M PRN IVP respritory depression 05/24/19 13:45 08/22/19 13:44 Nitroglycerin (Ntg) 0.4 mg Q5M X 3 DOSES PRN SL Prn Chest Pain 05/20/19 00:00 06/19/19 00:00 Ondansetron HCl (Zofran) 4 mg Q6H PRN IVP Nausea & Vomiting 05/20/19 00:00 06/19/19 00:00 05/25/19 07:04 Oxycodone HCl (OxyCONTIN) 10 mg Q12HR ORAL 05/27/19 21:00 06/03/19 20:59 Oxycodone/ Acetaminophen (Percocet 10/325) 1 tab Q4H PRN ORAL severe pain 05/27/19 14:15 06/03/19 14:14 05/27/19 14:27 Pantoprazole (Protonix) 40 mg DAILY ORAL 05/25/19 09:00 06/24/19 08:59 05/26/19 08:26 Piperacillin Sod/ Tazobactam Sod 3.375 gm/Sodium Chloride 110 ml @ 27.5 mls/hr Q8H IVPB 05/20/19 10:00 05/29/19 09:59 05/26/19 10:39 Polyethylene Glycol (Miralax) 17 gm HSPRN PRN ORAL Constipation 05/20/19 00:00 06/19/19 00:00 Promethazine HCl 25 mg/Sodium Chloride 56 ml @ 112 mls/hr Q6H PRN IVPB nausea 05/22/19 14:45 06/21/19 14:44 05/23/19 14:08 Allergies: Coded Allergies: TRAMADOL (Unverified Allergy, Unknown, 04/24/19) seizure ROS Limited/Unobtainable: No Constitutional: Reports: no symptoms HEENT: Reports: no symptoms Cardiovascular: Reports: no symptoms Respiratory: Reports: no symptoms Gastrointestinal/Abdominal: Reports: abdominal pain Genitourinary: Reports: no symptoms Neurologic/Psychiatric: Reports: no symptoms Subjective 38 YO M admitted with postop hemoorhage from perirectal abscess. Cover for Int Joshua-DR Ibarra Objective Last Vital Signs Date Time Temp Pulse Resp B/P (MAP) Pulse Ox O2 Delivery O2 Flow Rate FiO2 05/27/19 15:23 141 22 99 05/27/19 13:55 98.9 116/75 (89) 05/27/19 09:00 Room Air Intake and Output 05/26/19 05/27/19 19:00 07:00 Intake Total 1310 ml Output Total 600 ml 1000 ml Balance 710 ml -1000 ml Intake Oral 750 ml IV Total 560 ml Output Urine Total 600 ml 1000 ml # Voids 1 Objective PHYSICAL EXAMINATION: GENERAL: The patient is thin-appearing male in moderate pain. HEENT: Eyes, pupils equal and responsive to light and accommodation. Extraocular movements are intact. NECK: Supple without lymphadenopathy. CHEST: Lungs are clear to auscultation bilaterally without wheezes or rales. CARDIOVASCULAR: Regular rate. S1 and S2 are normal without murmurs, rubs, or gallops. ABDOMEN: Soft, nontender, and nondistended. Positive bowel sounds. No evidence of hepatosplenomegaly. Currently, no rebound or guarding noted. EXTREMITIES: Negative for clubbing, cyanosis, or edema. RECTAL: Not performed. GENITAL: Not performed. NEUROLOGIC: Cranial nerves II through XII are grossly intact without focal deficits. Motor strength is 5/5 bilaterally intact. Deep tendon reflexes are 2+ plantar. Assessment/Plan Assessment/Plan ASSESSMENT: This is a 38-year-old male with: 1. Perirectal abscess. 2. Postoperative pain. 3. Postoperative hemorrhage. 4. Crohn disease. TREATMENT: 1. Perirectal abscess/postop pain/postop hemorrhage. A General Surgery consultation has been obtained with Dr. Brendan Melendez. We will follow recommendations of Surgery. The patient has been started empirically on Zosyn for perirectal abscess. A Gastroenterology consultation= Dr. Romeo Valentine. An Infectious Disease consultation=with Dr. Harding. 2. Crohn disease. As above, a Gastroenterology consultation was obtained with Dr. Romeo Valentine. No GI procedures planned 3. D/C home with oral augmentin postponed-pharmacy closed Atilio Hardin MD May 27, 2019 15:47
--- NOTE | 2019-05-27 15:49 | Diagnostic Imaging Report ---
Indication: Headache Technique: Contiguous 5 mm thick transaxial imaging of the head obtained in a Siemens Sensation [address] scanner. Soft tissue and bone windows generated. Automatic Exposure Control was utilized. Total Dose length Product (DLP): 1072.2mGycm CT Dose Index Volume (CTDIvol): 53.4 mGy Comparison: none Findings: The size and configuration of the cortical sulci, basal cisterns, and ventricles are within normal limits for age. There is no mass effect, midline shift, or edema identified. There is no evidence of acute hemorrhage or abnormal intra-axial or extra-axial fluid collections. The bones and soft tissues are unremarkable. Impression: No mass effect, edema or acute bleed. [facility] has communicated the preliminary results to the Emergency Department. Their findings are largely concordant with this report. The CT scanner at [facility] is accredited by the [employer] and the scans are performed using dose optimization techniques as appropriate to a performed exam including Automatic Exposure control.
[2019-05-27 16:00] VITALS: BP 119/78
[2019-05-27 20:00] VITALS: BP 128/81
--- NOTE | 2019-05-27 20:10 | NUR ---
HAND-OFF: Report given to So Ri/ RN, pt in stable condition .
--- NOTE | 2019-05-27 20:11 | NUR ---
NURSE NOTES: received pt from Maci BAILEY., pt is awake and AOx4. pt is in RA O2sat is at 100%. right FA 22G D51/2 NS @ 100ml/hr is running. call light within reach. bed at the lowest position, alarmed, and locked. will continue to monitor pt with plan of care.
[2019-05-27] MEDS ORDERED: oxyCONTIN 10mg tab ORAL SCH (21:00)
[2019-05-28] VITALS: BP 122/75
[2019-05-28] MEDS: Piperacillin/Tazobactam 3.375 GM in NS 110 ML IVPB SCH ×3 (02:29→17:18)
[2019-05-28] MEDS: D5 1/2NS 1,000 ML IV SCH ×3 (03:20→16:21)
[2019-05-28 04:00] VITALS: BP 123/77
--- NOTE | 2019-05-28 07:16 | NUR ---
HAND-OFF: Report given to Zaki BAILEY., pt remains stable at this moment. endorsed plan of care.
[2019-05-28 07:36] LABS: BASOPHILS % (AUTO) 1.9 % (0.0-2.0); EOSINOPHILS % (AUTO) 4.3 % (0.0-3.0); HEMOGLOBIN 12.5 G/DL (14.2-18.0); LYMPHOCYTES % (AUTO) 15.7 % (20.0-45.0); MEAN CORPUSCULAR VOLUME 81 FL (80-99); MONOCYTES % (AUTO) 8.7 % (1.0-10.0); NEUTROPHILS % (AUTO) 69.5 % (45.0-75.0); PLATELET COUNT 466 K/UL (150-450); RED BLOOD COUNT 4.44 M/UL (4.70-6.10); WHITE BLOOD COUNT 10.2 K/UL (4.8-10.8)
--- NOTE | 2019-05-28 07:45 | NUR ---
NURSE NOTES: pt in bed and states that he hasn't been able to sleep. pt states he is still having pain. Pt alert Ox4. pt on monitor car operator, no chest pain or respiratory distress. bed is locked and lowest position, call light within reach. Will continue to monitor pt. pt has plans of DC today.
--- NOTE | 2019-05-28 07:53 | General Progress Note ---
Assessment/Plan Assessment/Plan: (1) Postoperative pain ICD Codes: G89.18 - Other acute postprocedural pain SNOMED: 549219607 (2) Intractable nausea and vomiting ICD Codes: R11.2 - Nausea with vomiting, unspecified SNOMED: 304441491 (3) Colitis (4) h/o CD s/p recent EGD and colonoscopy at [place] in last admission ? pain med seeking mariann anal care fu surg bowel regimen dc planning per primary team patient to fu with his surgeon as out patient Subjective ROS Limited/Unobtainable: Yes Allergies: Coded Allergies: TRAMADOL (Unverified Allergy, Unknown, 04/24/19) seizure Objective Last 24 Hour Vital Signs Date Time Temp Pulse Resp B/P (MAP) Pulse Ox O2 Delivery O2 Flow Rate FiO2 05/28/19 04:00 98.4 119 20 123/77 (92) 96 05/28/19 00:00 97.3 116 22 122/75 (91) 99 05/27/19 23:27 92 05/27/19 21:00 Room Air 05/27/19 20:00 98.6 146 18 128/81 (97) 99 05/27/19 19:51 115 05/27/19 16:00 116 05/27/19 16:00 98.2 124 18 119/78 (92) 99 05/27/19 15:23 141 22 99 05/27/19 13:55 98.9 141 20 116/75 (89) 99 05/27/19 09:00 Room Air Intake and Output 05/27/19 05/28/19 19:00 07:00 Intake Total 320 ml 555.0 ml Balance 320 ml 555.0 ml Intake Oral 320 ml IV Total 155.0 ml Other 400 ml # Voids 1 2 Laboratory Tests 05/28/19 06:19: White Blood Count 10.2, Red Blood Count 4.44L, Hemoglobin 12.5L, Hematocrit 36.0L, Mean Corpuscular Volume 81, Mean Corpuscular Hemoglobin 28.1, Mean Corpuscular Hemoglobin Concent 34.6, Red Cell Distribution Width 13.0, Platelet Count 466H, Mean Platelet Volume 5.6L, Neutrophils (%) (Auto) 69.5, Lymphocytes (%) (Auto) 15.7L, Monocytes (%) (Auto) 8.7, Eosinophils (%) (Auto) 4.3H, Basophils (%) (Auto) 1.9, Sodium Level [Pending], Potassium Level [Pending], Chloride Level [Pending], Carbon Dioxide Level [Pending], Blood Urea Nitrogen [ Pending], Creatinine [Pending], Estimat Glomerular Filtration Rate [Pending], Glucose Level [Pending], Calcium Level [Pending] Height (Feet): 5 Height (Inches): 11.00 Weight (Pounds): 155 General Appearance: alert EENT: normal ENT inspection Neck: supple Cardiovascular: normal rate Respiratory/Chest: decreased breath sounds Abdomen: normal bowel sounds, non tender, soft Extremities: non-tender Romeo Valentine MD May 28, 2019 07:53
[2019-05-28 08:00] VITALS: BP 103/82
--- NOTE | 2019-05-28 08:11 | Infectious Diseases Prog Note ---
Assessment/Plan Assessment/Plan ASSESSMENT: History of ulcerative colitis Perianal abscess/fistula, status post drain placement Leukocytosis, Sp Afebrile Ulcerative colitis History of perianal abscess/preanal fistula Depression. PLAN: continue patient on IV Zosyn # 8/10 , upon DC will change to oral Augmentin Monitor CBC. Monitor BMP. Monitor cultures. GI and General surgeon fup Subjective Allergies: Coded Allergies: TRAMADOL (Unverified Allergy, Unknown, 04/24/19) seizure Subjective afebrile Objective Vital Signs Last 24 Hour Vital Signs Date Time Temp Pulse Resp B/P (MAP) Pulse Ox O2 Delivery O2 Flow Rate FiO2 05/28/19 04:00 98.4 119 20 123/77 (92) 96 05/28/19 00:00 97.3 116 22 122/75 (91) 99 05/27/19 23:27 92 05/27/19 21:00 Room Air 05/27/19 20:00 98.6 146 18 128/81 (97) 99 05/27/19 19:51 115 05/27/19 16:00 116 05/27/19 16:00 98.2 124 18 119/78 (92) 99 05/27/19 15:23 141 22 99 05/27/19 13:55 98.9 141 20 116/75 (89) 99 05/27/19 09:00 Room Air Height (Feet): 5 Height (Inches): 11.00 Weight (Pounds): 155 HEENT: mucous membranes moist Respiratory/Chest: no respiratory distress Cardiovascular: regularly irregular Abdomen: no organomegaly Laboratory Tests Test 05/28/19 06:19 White Blood Count 10.2 K/UL (4.8-10.8) Red Blood Count 4.44 M/UL (4.70-6.10) L Hemoglobin 12.5 G/DL (14.2-18.0) L Hematocrit 36.0 % (42.0-52.0) L Mean Corpuscular Volume 81 FL (80-99) Mean Corpuscular Hemoglobin 28.1 PG (27.0-31.0) Mean Corpuscular Hemoglobin Concent 34.6 G/DL (32.0-36.0) Red Cell Distribution Width 13.0 % (11.6-14.8) Platelet Count 466 K/UL (150-450) H Mean Platelet Volume 5.6 FL (6.5-10.1) L Neutrophils (%) (Auto) 69.5 % (45.0-75.0) Lymphocytes (%) (Auto) 15.7 % (20.0-45.0) L Monocytes (%) (Auto) 8.7 % (1.0-10.0) Eosinophils (%) (Auto) 4.3 % (0.0-3.0) H Basophils (%) (Auto) 1.9 % (0.0-2.0) Sodium Level Pending Potassium Level Pending Chloride Level Pending Carbon Dioxide Level Pending Blood Urea Nitrogen Pending Creatinine Pending Estimat Glomerular Filtration Rate Pending Glucose Level Pending Calcium Level Pending Current Medications Medications (Trade) Dose Ordered Sig/Aguila Route PRN Reason Start Time Stop Time Status Last Admin Dose Admin Acetaminophen (Tylenol) 650 mg Q4H PRN ORAL fever 05/20/19 00:00 06/19/19 00:00 Acetaminophen (Tylenol) 650 mg Q6H PRN ORAL pain 05/26/19 12:30 06/25/19 12:29 Dextrose (Dextrose 50%) 25 ml Q30M PRN IV Hypoglycemia 05/20/19 00:00 06/19/19 00:00 Dextrose (Dextrose 50%) 50 ml Q30M PRN IV Hypoglycemia 05/20/19 00:00 06/19/19 00:00 Dextrose/Sodium Chloride 1,000 ml @ 100 mls/hr Q10H IV 05/20/19 16:20 06/19/19 16:19 05/28/19 03:20 Diphenhydramine HCl (Benadryl) 25 mg Q6H PRN ORAL Itching/Pruritis 05/20/19 00:00 06/19/19 00:00 Docusate Sodium (Colace) 100 mg TWICE A DAY ORAL 05/20/19 18:00 06/19/19 17:59 05/26/19 08:26 Duloxetine HCl (Cymbalta) 30 mg DAILY ORAL 05/26/19 09:00 08/24/19 08:59 05/26/19 08:27 Heparin Sodium (Porcine) (Heparin 5000 units/ml) 5,000 units EVERY 12 HOURS SUBQ 05/20/19 09:00 07/04/19 08:59 05/23/19 20:29 Hydromorphone HCl (Dilaudid) 2 mg Q3H PRN IVP Moderate Pain (Pain Scale 4-6) 05/27/19 15:45 06/03/19 15:44 Hydromorphone HCl (Dilaudid) 4 mg Q3H PRN IVP Severe Pain (Pain Scale 7-10) 05/27/19 15:45 06/03/19 15:44 05/28/19 06:39 Naloxone HCl (Narcan) 0.2 mg Q2M PRN IVP respritory depression 05/24/19 13:45 08/22/19 13:44 Nitroglycerin (Ntg) 0.4 mg Q5M X 3 DOSES PRN SL Prn Chest Pain 05/20/19 00:00 06/19/19 00:00 Ondansetron HCl (Zofran) 4 mg Q6H PRN IVP Nausea & Vomiting 05/20/19 00:00 06/19/19 00:00 05/25/19 07:04 Pantoprazole (Protonix) 40 mg DAILY ORAL 05/25/19 09:00 06/24/19 08:59 05/26/19 08:26 Piperacillin Sod/ Tazobactam Sod 3.375 gm/Sodium Chloride 110 ml @ 27.5 mls/hr Q8H IVPB 05/20/19 10:00 05/29/19 09:59 05/28/19 02:29 Polyethylene Glycol (Miralax) 17 gm HSPRN PRN ORAL Constipation 05/20/19 00:00 06/19/19 00:00 Promethazine HCl 25 mg/Sodium Chloride 56 ml @ 112 mls/hr Q6H PRN IVPB nausea 05/22/19 14:45 06/21/19 14:44 05/23/19 14:08 Shemar Harding MD May 28, 2019 08:11
[2019-05-28 08:16] LABS: ANION GAP 17 mmol/L (5-15); BLOOD UREA NITROGEN 14 mg/dL (7-18); CALCIUM 9.4 MG/DL (8.5-10.1); CARBON DIOXIDE 21 MMOL/L (21-32); CHLORIDE 106 MMOL/L (98-107); CREATININE 1.1 MG/DL (0.55-1.30); POTASSIUM 3.6 MMOL/L (3.5-5.1); SODIUM 144 MMOL/L (136-145)
--- NOTE | 2019-05-28 08:25 | NUR ---
NURSE NOTES: contacted tonnyt JACE, to check if pt can be transferred to [facility]. Per doct pt is ok to go home.
[2019-05-28] MEDS: Heparin 5000 units/ml inj SUBQ SCH ×2 (09:00→20:33)
[2019-05-28] MEDS: Docusate 100mg cap ORAL SCH ×3 (09:00→16:58)
--- NOTE | 2019-05-28 09:01 | NUR ---
CASE MANAGEMENT: REVIEW 05/28/19 SI: POST OP INTRACTABLE PAIN/ HEMORRHAGE . RECTAL BLEEDING . PERIRECTAL ABSCESS 96.9 102 18 103/82 96% ON RA H/H 12.5/36.0 ANION GAP 17 BG 123 IS:IV ZOSYN TID IV D5@100ML/HR HEPARIN SQ BID IV DILAUDID Q3HR/PRN IV ZOFRAN Q6HR/PRN \: 3E MED SURG UNIT PLAN: PATIENT WAS TO DISCHARGE TUESDAY; PATIENT APPEALED DISCHARGE CLINICALS BEING FAXED TO [facility]
--- NOTE | 2019-05-28 10:00 | NUR ---
NURSE NOTES: pt refusing medication until he gets, IV dilaudid.
--- NOTE | 2019-05-28 10:54 | NUR ---
*-* MEDICARE APPEAL *-* PATIENT HAS APPEALED HIS DISCHARGE ALL MEDICAL RECORDS HAVE BEEN FAXED TO: [id number] F; [phone]
[2019-05-28] MEDS: DULoxetine 30mg cap ORAL SCH (10:57)
--- NOTE | 2019-05-28 11:55 | NUR ---
RD ASSESSMENT & RECOMMENDATIONS SEE CARE ACTIVITY FOR COMPLETE ASSESSMENT DAILY ESTIMATED NEEDS: Needs based on GI 65.9kg 25-35 kcals/kg 4629-4448 total kcals 1-1.5 g protein/kg 66-99 g total protein 25-30 mL/kg 2461-4587 total fluid mLs NUTRITION DIAGNOSIS: Altered GI fxn r/t Crohns as evidenced by pt adm w/ h/o colitis and crohns, h/o wt loss, now @84% IBW. PO DIET RECOMMENDATIONS: SOFT diet ADDITIONAL RECOMMENDATIONS: 1) Obtain a standing scale wt 2) Ensure Enlive BID w/ meals 3) Monitor PO tolerance 4) Monitor lytes w/ active diarrhea
--- NOTE | 2019-05-28 14:55 | Surgery Progress Note ---
Surgery Progress Note Subjective Additional Comments tele CT head noted staets he feels much better today wants IV pain meds is considering going home Objective Last 24 Hour Vital Signs Date Time Temp Pulse Resp B/P (MAP) Pulse Ox O2 Delivery O2 Flow Rate FiO2 05/28/19 08:00 96.9 102 18 103/82 (89) 96 05/28/19 04:00 98.4 119 20 123/77 (92) 96 05/28/19 00:00 97.3 116 22 122/75 (91) 99 05/27/19 23:27 92 05/27/19 21:00 Room Air 05/27/19 20:00 98.6 146 18 128/81 (97) 99 05/27/19 19:51 115 05/27/19 16:00 116 05/27/19 16:00 98.2 124 18 119/78 (92) 99 05/27/19 15:23 141 22 99 I&O Intake and Output 05/27/19 05/28/19 19:00 07:00 Intake Total 320 ml 555.0 ml Balance 320 ml 555.0 ml Intake Oral 320 ml IV Total 155.0 ml Other 400 ml # Voids 1 2 Cardiovascular: RSR Respiratory: clear Abdomen: soft, flat, non-tender, present bowel sounds Extremities: no edema, no tenderness, no cyanosis Laboratory Tests Test 05/28/19 06:19 White Blood Count 10.2 K/UL (4.8-10.8) Red Blood Count 4.44 M/UL (4.70-6.10) L Hemoglobin 12.5 G/DL (14.2-18.0) L Hematocrit 36.0 % (42.0-52.0) L Mean Corpuscular Volume 81 FL (80-99) Mean Corpuscular Hemoglobin 28.1 PG (27.0-31.0) Mean Corpuscular Hemoglobin Concent 34.6 G/DL (32.0-36.0) Red Cell Distribution Width 13.0 % (11.6-14.8) Platelet Count 466 K/UL (150-450) H Mean Platelet Volume 5.6 FL (6.5-10.1) L Neutrophils (%) (Auto) 69.5 % (45.0-75.0) Lymphocytes (%) (Auto) 15.7 % (20.0-45.0) L Monocytes (%) (Auto) 8.7 % (1.0-10.0) Eosinophils (%) (Auto) 4.3 % (0.0-3.0) H Basophils (%) (Auto) 1.9 % (0.0-2.0) Sodium Level 144 MMOL/L (136-145) Potassium Level 3.6 MMOL/L (3.5-5.1) Chloride Level 106 MMOL/L (98-107) Carbon Dioxide Level 21 MMOL/L (21-32) Anion Gap 17 mmol/L (5-15) H Blood Urea Nitrogen 14 mg/dL (7-18) Creatinine 1.1 MG/DL (0.55-1.30) Estimat Glomerular Filtration Rate > 60 mL/min (>60) Glucose Level 123 MG/DL (74-106) H Calcium Level 9.4 MG/DL (8.5-10.1) Plan Problems: (1) Postoperative pain (2) Intractable nausea and vomiting Assessment & Plan: Findings: The size and configuration of the cortical sulci, basal cisterns, and ventricles are within normal limits for age. There is no mass effect, midline shift, or edema identified. There is no evidence of acute hemorrhage or abnormal intra- axial or extra-axial fluid collections. The bones and soft tissues are unremarkable. Impression: No mass effect, edema or acute bleed. (3) Colitis Assessment & Plan: Rectal white plastic seton identified with multiple sutures recently placed no signs of recurrent abscess no purulent drainage no significant erythema or induration mild oozing from open track no active bleeding Known history of Crohn's colitis under management of GI doctor. Known history of fistula and currently with seton placed by his surgeon. No recurrence of abscess fistula or other abnormality identified and currently under good management. Mild oozing normal given open wound. Seton appropriately placed. No acute surgical intervention indicated or necessary at this time. Pain management Antibiotics DC planning We will follow with recommendations thank you for let me participate in patient' s care (4) History of Crohn's disease (5) Rectal bleeding Assessment & Plan: Mild bleeding from the fistula tract and seton in place anticipated given current condition and seton and open wound. No active bleeding noted. No active infection noted. Seton appropriate position. Patient states he is using sitz bath and recommend to continue doing so okay to shower. Dressings for mild oozing. Follow-up with patient's colorectal surgeon outpatient upon discharge. local care with sitz bath, showers, and dressings prn keep seton in place d/c planning Brendan Melendez May 28, 2019 14:55
--- NOTE | 2019-05-28 15:08 | General Progress Note ---
Assessment/Plan Assessment/Plan: (1) Abdominal pain (2) Crohn's Disease (3) Neuropathic pain Patient will be continued on Dilaudid D/w Dr. Daily and he concurred. Subjective Date patient seen: May 28, 2019 Time patient seen: 02:30 - am Allergies: Coded Allergies: TRAMADOL (Unverified Allergy, Unknown, 04/24/19) seizure Subjective Constitutional: Reports: no symptoms HEENT: Reports: no symptoms Cardiovascular: Reports: no symptoms Respiratory: Reports: no symptoms Gastrointestinal/Abdominal: Reports: abdominal pain Genitourinary: Reports: no symptoms Neurologic/Psychiatric: Reports: no symptoms Endocrine: Reports: no symptoms Hematologic/Lymphatic: Reports: no symptoms SUBJECTIVE: Patient continues to c/o severe pain. Oxycontin and Percocet were discontinued and restarted on Dilaudid 2-4mg IV Q3H PRN Mod-severe pain due to patients pain. Objective Last 24 Hour Vital Signs Date Time Temp Pulse Resp B/P (MAP) Pulse Ox O2 Delivery O2 Flow Rate FiO2 05/28/19 08:00 96.9 102 18 103/82 (89) 96 05/28/19 04:00 98.4 119 20 123/77 (92) 96 05/28/19 00:00 97.3 116 22 122/75 (91) 99 05/27/19 23:27 92 05/27/19 21:00 Room Air 05/27/19 20:00 98.6 146 18 128/81 (97) 99 05/27/19 19:51 115 05/27/19 16:00 116 05/27/19 16:00 98.2 124 18 119/78 (92) 99 05/27/19 15:23 141 22 99 Intake and Output 05/27/19 05/28/19 19:00 07:00 Intake Total 320 ml 555.0 ml Balance 320 ml 555.0 ml Intake Oral 320 ml IV Total 155.0 ml Other 400 ml # Voids 1 2 Laboratory Tests 05/28/19 06:19: White Blood Count 10.2, Red Blood Count 4.44L, Hemoglobin 12.5L, Hematocrit 36.0L, Mean Corpuscular Volume 81, Mean Corpuscular Hemoglobin 28.1, Mean Corpuscular Hemoglobin Concent 34.6, Red Cell Distribution Width 13.0, Platelet Count 466H, Mean Platelet Volume 5.6L, Neutrophils (%) (Auto) 69.5, Lymphocytes (%) (Auto) 15.7L, Monocytes (%) (Auto) 8.7, Eosinophils (%) (Auto) 4.3H, Basophils (%) (Auto) 1.9, Sodium Level 144, Potassium Level 3.6, Chloride Level 106, Carbon Dioxide Level 21, Anion Gap 17H, Blood Urea Nitrogen 14, Creatinine 1.1, Estimat Glomerular Filtration Rate > 60, Glucose Level 123H, Calcium Level 9.4 Height (Feet): 5 Height (Inches): 11.00 Weight (Pounds): 155 Objective General Appearance: no apparent distress, alert EENT: PERRL/EOMI, normal ENT inspection Neck: non-tender, normal alignment Cardiovascular: normal rate, regular rhythm Respiratory/Chest: lungs clear, normal breath sounds Abdomen: tender Extremities: non-tender Edema: no edema noted Generalized Neurologic: alert, oriented x 3 Skin: warm/dry Gagandeep Saleem May 28, 2019 15:08
--- NOTE | 2019-05-28 15:35 | NUR ---
NURSE NOTES: Patient brought to unit by Zaki BAILEY from telemetry unit. Patient is awake and alert x 4. Patient noted to be on room air. Denies shortness of breath and chest pain. Patient has no complaints of pain at this time. 22 kaitlynn IV noted in right forearm with fluids and antibiotics running per MD orders. Patient skin clean, dry, and intact. Endorsed that patient is able to ambulate independently. Endorsed that patient refuses to take heparin and Colace. Endorsed that MD is aware. Patient verbalized he will use call light if he needs help. Patient belongings list reviewed. Patient noted to have $165.00 in estrada in wallet. Original amount was $166.00. Patient stated he used $1.00. Patient aware of current estrada amount. Patient's backpack was brought down to security safe for safety purposes. Patient is aware. Tomford sunglasses not noted to be with belongings. Patient stated that they are "likely in the backpack, I am not concerned". Patient has three discharge medications that were brought down to pharmacy by Juan BAILEY. Refer to chart for receipt. Patient was to be discharged this past weekend, patient currently appealing discharge. Plan is to continue IV antibiotics and continue to give PRN pain medication via IV. Bed locked and in lowest position. Call light within reach. Will continue to follow plan of care.
[2019-05-28 16:00] VITALS: BP 124/72
[2019-05-28] MEDS ORDERED: Naloxone 0.4mg/ml Inj IVP PRN (16:00)
[2019-05-28] MEDS ORDERED: Nitroglycerin Subl 0.4mg tab SL PRN (16:00)
[2019-05-28] MEDS ORDERED: DiphenhydrAMINE 25mg Tab ORAL PRN (16:30)
--- NOTE | 2019-05-28 17:29 | Pulmonology Progress Note ---
Assessment/Plan Problems: (1) Intractable nausea and vomiting (2) Rectal bleeding (3) Postoperative pain (4) Colitis (5) History of Crohn's disease Assessment/Plan wound care iv abx, on zosyn pain management phenergen for nausea check electrolytes dvt prophylaxis. wants to go home tomorrow prescription done4 Subjective ROS Limited/Unobtainable: No Constitutional: Reports: no symptoms HEENT: Repors: no symptoms Allergies: Coded Allergies: TRAMADOL (Unverified Allergy, Unknown, 04/24/19) seizure Objective Last 24 Hour Vital Signs Date Time Temp Pulse Resp B/P (MAP) Pulse Ox O2 Delivery O2 Flow Rate FiO2 05/28/19 16:00 98.0 110 18 124/72 (89) 96 05/28/19 09:00 Room Air 05/28/19 08:00 96.9 102 18 103/82 (89) 96 05/28/19 04:00 98.4 119 20 123/77 (92) 96 05/28/19 00:00 97.3 116 22 122/75 (91) 99 05/27/19 23:27 92 05/27/19 21:00 Room Air 05/27/19 20:00 98.6 146 18 128/81 (97) 99 05/27/19 19:51 115 Intake and Output 05/27/19 05/28/19 19:00 07:00 Intake Total 320 ml 555.0 ml Balance 320 ml 555.0 ml Intake Oral 320 ml IV Total 155.0 ml Other 400 ml # Voids 1 2 Objective General Appearance: WD/WN HEENT: normocephalic, atraumatic Respiratory/Chest: chest wall non-tender, lungs clear Breasts: no masses Cardiovascular: normal peripheral pulses Abdomen: normal bowel sounds, soft, non tender Genitourinary: normal external genitalia Extremities: no cyanosis Skin: no rash Neurologic/Psychiatric: personal lines account manager II-XII grossly normal Laboratory Tests 05/28/19 06:19: White Blood Count 10.2, Red Blood Count 4.44L, Hemoglobin 12.5L, Hematocrit 36.0L, Mean Corpuscular Volume 81, Mean Corpuscular Hemoglobin 28.1, Mean Corpuscular Hemoglobin Concent 34.6, Red Cell Distribution Width 13.0, Platelet Count 466H, Mean Platelet Volume 5.6L, Neutrophils (%) (Auto) 69.5, Lymphocytes (%) (Auto) 15.7L, Monocytes (%) (Auto) 8.7, Eosinophils (%) (Auto) 4.3H, Basophils (%) (Auto) 1.9, Sodium Level 144, Potassium Level 3.6, Chloride Level 106, Carbon Dioxide Level 21, Anion Gap 17H, Blood Urea Nitrogen 14, Creatinine 1.1, Estimat Glomerular Filtration Rate > 60, Glucose Level 123H, Calcium Level 9.4 Current Medications Medications (Trade) Dose Ordered Sig/Aguila Route PRN Reason Start Time Stop Time Status Last Admin Dose Admin Acetaminophen (Tylenol) 650 mg Q4H PRN ORAL fever 05/28/19 16:00 06/19/19 00:00 Acetaminophen (Tylenol) 650 mg Q6H PRN ORAL pain 05/28/19 18:30 06/25/19 12:29 Dextrose (Dextrose 50%) 25 ml Q30M PRN IV Hypoglycemia 05/28/19 16:00 06/19/19 00:00 Dextrose (Dextrose 50%) 50 ml Q30M PRN IV Hypoglycemia 05/28/19 16:00 06/19/19 00:00 Dextrose/Sodium Chloride 1,000 ml @ 100 mls/hr Q10H IV 05/28/19 16:21 06/19/19 16:20 Diphenhydramine HCl (Benadryl) 25 mg Q6H PRN ORAL Itching/Pruritis 05/28/19 16:30 06/19/19 16:29 Docusate Sodium (Colace) 100 mg TWICE A DAY ORAL 05/28/19 18:00 06/19/19 17:59 Duloxetine HCl (Cymbalta) 60 mg DAILY ORAL 05/29/19 09:00 08/27/19 08:59 Heparin Sodium (Porcine) (Heparin 5000 units/ml) 5,000 units EVERY 12 HOURS SUBQ 05/28/19 21:00 07/04/19 08:59 Hydromorphone HCl (Dilaudid) 2 mg Q3H PRN IVP Moderate Pain (Pain Scale 4-6) 05/28/19 16:30 06/03/19 16:29 Hydromorphone HCl (Dilaudid) 4 mg Q3H PRN IVP Severe Pain (Pain Scale 7-10) 05/28/19 17:30 06/03/19 17:29 Naloxone HCl (Narcan) 0.2 mg Q2M PRN IVP respritory depression 05/28/19 16:00 08/22/19 13:44 Nitroglycerin (Ntg) 0.4 mg Q5M X 3 DOSES PRN SL Prn Chest Pain 05/28/19 16:00 06/19/19 00:00 Ondansetron HCl (Zofran) 4 mg Q6H PRN IVP Nausea & Vomiting 05/28/19 18:00 06/19/19 00:00 Pantoprazole (Protonix) 40 mg DAILY ORAL 05/29/19 09:00 06/24/19 08:59 Piperacillin Sod/ Tazobactam Sod 3.375 gm/Sodium Chloride 110 ml @ 27.5 mls/hr Q8H IVPB 05/28/19 18:00 05/29/19 09:59 05/28/19 17:18 Polyethylene Glycol (Miralax) 17 gm HSPRN PRN ORAL Constipation 05/28/19 21:00 06/27/19 20:59 Promethazine HCl 25 mg/Sodium Chloride 56 ml @ 112 mls/hr Q6H PRN IVPB nausea 05/28/19 20:45 06/21/19 14:44 Herrera Gamez MD May 28, 2019 17:29
[2019-05-28] MEDS ORDERED: Promethazine HCl 25 MG in NS 55 ML IVPB PRN (18:00)
--- NOTE | 2019-05-28 18:59 | Internal Med Progress Note ---
Subjective Date of Service: May 28, 2019 Physician Name LashawnAtilio Attending Physician Genaro Ibarra MD Current Medications Medications (Trade) Dose Ordered Sig/Aguila Route PRN Reason Start Time Stop Time Status Last Admin Dose Admin Acetaminophen (Tylenol) 650 mg Q4H PRN ORAL fever 05/28/19 16:00 06/19/19 00:00 Acetaminophen (Tylenol) 650 mg Q6H PRN ORAL pain 05/28/19 18:30 06/25/19 12:29 Dextrose (Dextrose 50%) 25 ml Q30M PRN IV Hypoglycemia 05/28/19 16:00 06/19/19 00:00 Dextrose (Dextrose 50%) 50 ml Q30M PRN IV Hypoglycemia 05/28/19 16:00 06/19/19 00:00 Dextrose/Sodium Chloride 1,000 ml @ 100 mls/hr Q10H IV 05/28/19 16:21 06/19/19 16:20 05/28/19 16:21 Diphenhydramine HCl (Benadryl) 25 mg Q6H PRN ORAL Itching/Pruritis 05/28/19 16:30 06/19/19 16:29 Docusate Sodium (Colace) 100 mg TWICE A DAY ORAL 05/28/19 18:00 06/19/19 17:59 Duloxetine HCl (Cymbalta) 60 mg DAILY ORAL 05/29/19 09:00 08/27/19 08:59 Heparin Sodium (Porcine) (Heparin 5000 units/ml) 5,000 units EVERY 12 HOURS SUBQ 05/28/19 21:00 07/04/19 08:59 Hydromorphone HCl (Dilaudid) 2 mg Q3H PRN IVP Moderate Pain (Pain Scale 4-6) 05/28/19 16:30 06/03/19 16:29 Hydromorphone HCl (Dilaudid) 4 mg Q3H PRN IVP Severe Pain (Pain Scale 7-10) 05/28/19 17:30 06/03/19 17:29 05/28/19 17:52 Naloxone HCl (Narcan) 0.2 mg Q2M PRN IVP respritory depression 05/28/19 16:00 08/22/19 13:44 Nitroglycerin (Ntg) 0.4 mg Q5M X 3 DOSES PRN SL Prn Chest Pain 05/28/19 16:00 06/19/19 00:00 Ondansetron HCl (Zofran) 4 mg Q6H PRN IVP Nausea & Vomiting 05/28/19 18:00 06/19/19 00:00 Pantoprazole (Protonix) 40 mg DAILY ORAL 05/29/19 09:00 06/24/19 08:59 Piperacillin Sod/ Tazobactam Sod 3.375 gm/Sodium Chloride 110 ml @ 27.5 mls/hr Q8H IVPB 05/28/19 18:00 05/29/19 09:59 05/28/19 17:18 Polyethylene Glycol (Miralax) 17 gm HSPRN PRN ORAL Constipation 05/28/19 21:00 06/27/19 20:59 Promethazine HCl 25 mg/Sodium Chloride 56 ml @ 112 mls/hr Q6H PRN IVPB nausea 05/28/19 18:00 06/21/19 17:59 Allergies: Coded Allergies: TRAMADOL (Unverified Allergy, Unknown, 04/24/19) seizure ROS Limited/Unobtainable: No Constitutional: Reports: no symptoms HEENT: Reports: no symptoms Cardiovascular: Reports: no symptoms Respiratory: Reports: no symptoms Gastrointestinal/Abdominal: Reports: no symptoms Genitourinary: Reports: no symptoms Neurologic/Psychiatric: Reports: no symptoms Subjective 38 YO M admitted with postop hemorrhage from perirectal abscess. Cover for Int Joshua-DR Ibarra Objective Last Vital Signs Date Time Temp Pulse Resp B/P (MAP) Pulse Ox O2 Delivery O2 Flow Rate FiO2 05/28/19 16:00 98.0 110 18 124/72 (89) 96 05/28/19 09:00 Room Air Laboratory Tests Test 05/28/19 06:19 White Blood Count 10.2 K/UL (4.8-10.8) Red Blood Count 4.44 M/UL (4.70-6.10) L Hemoglobin 12.5 G/DL (14.2-18.0) L Hematocrit 36.0 % (42.0-52.0) L Mean Corpuscular Volume 81 FL (80-99) Mean Corpuscular Hemoglobin 28.1 PG (27.0-31.0) Mean Corpuscular Hemoglobin Concent 34.6 G/DL (32.0-36.0) Red Cell Distribution Width 13.0 % (11.6-14.8) Platelet Count 466 K/UL (150-450) H Mean Platelet Volume 5.6 FL (6.5-10.1) L Neutrophils (%) (Auto) 69.5 % (45.0-75.0) Lymphocytes (%) (Auto) 15.7 % (20.0-45.0) L Monocytes (%) (Auto) 8.7 % (1.0-10.0) Eosinophils (%) (Auto) 4.3 % (0.0-3.0) H Basophils (%) (Auto) 1.9 % (0.0-2.0) Sodium Level 144 MMOL/L (136-145) Potassium Level 3.6 MMOL/L (3.5-5.1) Chloride Level 106 MMOL/L (98-107) Carbon Dioxide Level 21 MMOL/L (21-32) Anion Gap 17 mmol/L (5-15) H Blood Urea Nitrogen 14 mg/dL (7-18) Creatinine 1.1 MG/DL (0.55-1.30) Estimat Glomerular Filtration Rate > 60 mL/min (>60) Glucose Level 123 MG/DL (74-106) H Calcium Level 9.4 MG/DL (8.5-10.1) Intake and Output 05/27/19 05/28/19 19:00 07:00 Intake Total 320 ml 555.0 ml Balance 320 ml 555.0 ml Intake Oral 320 ml IV Total 155.0 ml Other 400 ml # Voids 1 2 Objective PHYSICAL EXAMINATION: GENERAL: The patient is thin-appearing male in moderate pain. HEENT: Eyes, pupils equal and responsive to light and accommodation. Extraocular movements are intact. NECK: Supple without lymphadenopathy. CHEST: Lungs are clear to auscultation bilaterally without wheezes or rales. CARDIOVASCULAR: Regular rate. S1 and S2 are normal without murmurs, rubs, or gallops. ABDOMEN: Soft, nontender, and nondistended. Positive bowel sounds. No evidence of hepatosplenomegaly. Currently, no rebound or guarding noted. EXTREMITIES: Negative for clubbing, cyanosis, or edema. RECTAL: Not performed. GENITAL: Not performed. NEUROLOGIC: Cranial nerves II through XII are grossly intact without focal deficits. Motor strength is 5/5 bilaterally intact. Deep tendon reflexes are 2+ plantar. Assessment/Plan Assessment/Plan ASSESSMENT: This is a 38-year-old male with: 1. Perirectal abscess. 2. Postoperative pain. 3. Postoperative hemorrhage. 4. Crohn disease. TREATMENT: 1. Perirectal abscess/postop pain/postop hemorrhage. A General Surgery consultation has been obtained with Dr. Brendan Melendez. We will follow recommendations of Surgery. The patient has been started empirically on Zosyn for perirectal abscess. A Gastroenterology consultation= Dr. Romeo Valentine. An Infectious Disease consultation=with Dr. Harding. 2. Crohn disease. As above, a Gastroenterology consultation was obtained with Dr. Romeo Valentine. No GI procedures planned 3. D/C home with oral augmentin postponed-pharmacy closed 4. Await determination of Medicare appeal Atilio Hardin MD May 28, 2019 18:59
--- NOTE | 2019-05-28 19:21 | NUR ---
HAND-OFF: Report given to Shanta BAILEY.
[2019-05-28 20:00] VITALS: BP 121/81
--- NOTE | 2019-05-28 20:00 | NUR ---
NURSE NOTES: Received patient awake in bed, AOx4, able to verbalize needs. IV access patent, running IVF maintenance at 100ml/hr. Patient ambulatory. Bed low and locked, patient wearing non slip socks. Will administer pain medication as ordered by MD.
[2019-05-28] MEDS ORDERED: Miralax 17gm pkt ORAL PRN (21:00)
[2019-05-29] VITALS: BP 133/92
--- NOTE | 2019-05-29 01:14 | Consultation ---
DATE OF CONSULTATION: 05/28/2019 CONSULTING PHYSICIAN: James Edwards M.D. HISTORY OF PRESENT ILLNESS: This is a 38-year-old male with a history of major depressive disorder, history of Crohn disease, and rectal colitis who has been admitted to the hospital for medical stabilization. Psychiatry was consulted. I was called by Dr. Hardin via text message to see this patient for depression and danger to self. The patient is presenting with depressed mood and anhedonia. He is already on Cymbalta 30 mg in the morning. The patient requested the dosage to be increased. The patient's anhedonia, worthlessness, hopelessness, and anxiety have improved. The patient is not endorsing any suicidal or homicidal ideation. No psychotic or manic symptoms noted. PAST PSYCHIATRIC HISTORY: Major depressive disorder and anxiety disorder, on Cymbalta. ALLERGIES: Tramadol. SUBSTANCE ABUSE HISTORY: No known history of illicit drug use or alcohol. MENTAL STATUS EXAMINATION: The patient is alert and oriented times self, place, and situation. Mood is depressed. Affect is blunted, congruent with mood. Thought process, linear and goal oriented. Thought content, there is no suicidal or homicidal ideation. Cognition is intact. Insight and judgment are fair. ASSESSMENT: 1. Major depressive disorder . 2. Anxiety disorder. PLAN: 1. We will continue current medications. 2. Provide the patient with reality orientation and supportive therapy. James Edwards M.D. DR: ANDRA JOB#: [id number] CC:
[2019-05-29] MEDS: Piperacillin/Tazobactam 3.375 GM in NS 110 ML IVPB SCH (01:21)
[2019-05-29 04:00] VITALS: BP 130/86
[2019-05-29] MEDS: D5 1/2NS 1,000 ML IV SCH ×3 (05:45→21:13)
[2019-05-29 06:31] LABS: BASOPHILS % (AUTO) 2.1 % (0.0-2.0); EOSINOPHILS % (AUTO) 5.3 % (0.0-3.0); HEMATOCRIT 37.2 % (42.0-52.0); HEMOGLOBIN 13.1 G/DL (14.2-18.0); LYMPHOCYTES % (AUTO) 17.3 % (20.0-45.0); MEAN CORPUSCULAR VOLUME 81 FL (80-99); MONOCYTES % (AUTO) 7.8 % (1.0-10.0); NEUTROPHILS % (AUTO) 67.6 % (45.0-75.0); PLATELET COUNT 440 K/UL (150-450); RED BLOOD COUNT 4.59 M/UL (4.70-6.10); WHITE BLOOD COUNT 8.2 K/UL (4.8-10.8)
[2019-05-29 06:50] LABS: ANION GAP 13 mmol/L (5-15); BLOOD UREA NITROGEN 13 mg/dL (7-18); CALCIUM 9.6 MG/DL (8.5-10.1); CARBON DIOXIDE 24 MMOL/L (21-32); CHLORIDE 107 MMOL/L (98-107); POTASSIUM 4.1 MMOL/L (3.5-5.1); SODIUM 144 MMOL/L (136-145)
--- NOTE | 2019-05-29 07:07 | NUR ---
HAND-OFF: Report given to LYNN Martinez.
--- NOTE | 2019-05-29 07:08 | NUR ---
NURSE NOTES: Report received from Shanta. Patient is awake and alert x 4. Patient currently on room air. Patient denies shortness of breath. Patient denies chest pain. Patient has no complaints at this time. Patient noted to have 22 kaitlynn in right forearm with IV fluids running per MD orders. Will continue to monitor and control patient's pain. Was endorsed that patient is currently appealing discharge. Bed locked and in lowest position. Call light in reach. Will continue to follow plan of care.
[2019-05-29 08:00] VITALS: BP 115/73
[2019-05-29] MEDS: Docusate 100mg cap ORAL SCH ×2 (08:38→18:00)
[2019-05-29] MEDS: Heparin 5000 units/ml inj SUBQ SCH ×2 (08:39→21:00)
--- NOTE | 2019-05-29 08:57 | General Progress Note ---
Assessment/Plan Assessment/Plan: (1) Postoperative pain ICD Codes: G89.18 - Other acute postprocedural pain SNOMED: 307250368 (2) Intractable nausea and vomiting ICD Codes: R11.2 - Nausea with vomiting, unspecified SNOMED: 713277167 (3) Colitis (4) h/o CD s/p recent EGD and colonoscopy at [place] in last admission ? pain med seeking mariann anal care fu surg bowel regimen dc planning per primary team patient to fu with his surgeon as out patient Subjective Allergies: Coded Allergies: TRAMADOL (Unverified Allergy, Unknown, 04/24/19) seizure Objective Last 24 Hour Vital Signs Date Time Temp Pulse Resp B/P (MAP) Pulse Ox O2 Delivery O2 Flow Rate FiO2 05/29/19 06:13 98.4 05/29/19 04:00 98.4 106 18 130/86 (101) 99 05/29/19 00:00 98.1 106 18 133/92 (106) 96 05/28/19 22:14 Room Air 05/28/19 20:00 98.1 109 18 121/81 (94) 96 05/28/19 16:00 98.0 110 18 124/72 (89) 96 05/28/19 09:00 Room Air Intake and Output 05/28/19 05/29/19 19:00 07:00 Intake Total 27.5 ml 480 ml Balance 27.5 ml 480 ml Intake Oral 480 ml IV Total 27.5 ml # Voids 3 Laboratory Tests 05/29/19 05:45: White Blood Count 8.2, Red Blood Count 4.59L, Hemoglobin 13.1L, Hematocrit 37.2L , Mean Corpuscular Volume 81, Mean Corpuscular Hemoglobin 28.6, Mean Corpuscular Hemoglobin Concent 35.3, Red Cell Distribution Width 13.0, Platelet Count 440, Mean Platelet Volume 5.6L, Neutrophils (%) (Auto) 67.6, Lymphocytes ( %) (Auto) 17.3L, Monocytes (%) (Auto) 7.8, Eosinophils (%) (Auto) 5.3H, Basophils (%) (Auto) 2.1H, Sodium Level 144, Potassium Level 4.1, Chloride Level 107, Carbon Dioxide Level 24, Anion Gap 13, Blood Urea Nitrogen 13, Creatinine 1.0, Estimat Glomerular Filtration Rate > 60, Glucose Level 85, Calcium Level 9.6 Height (Feet): 5 Height (Inches): 11.00 Weight (Pounds): 155 General Appearance: alert EENT: normal ENT inspection Neck: supple Cardiovascular: normal rate Respiratory/Chest: decreased breath sounds Abdomen: normal bowel sounds, non tender, soft Extremities: non-tender Romeo Valentine MD May 29, 2019 08:57
--- NOTE | 2019-05-29 11:50 | General Progress Note ---
Assessment/Plan Assessment/Plan: (1) Abdominal pain (2) Crohn's Disease (3) Neuropathic pain Patient will be continued on Dilaudid We recommend patient to be restarted on the Oxycontin and Percocet in anticipation for discharge. D/w Dr. Daily and he concurred. Subjective Date patient seen: May 29, 2019 Time patient seen: 11:00 - am Allergies: Coded Allergies: TRAMADOL (Unverified Allergy, Unknown, 04/24/19) seizure Subjective Constitutional: Reports: no symptoms HEENT: Reports: no symptoms Cardiovascular: Reports: no symptoms Respiratory: Reports: no symptoms Gastrointestinal/Abdominal: Reports: abdominal pain Genitourinary: Reports: no symptoms Neurologic/Psychiatric: Reports: no symptoms Endocrine: Reports: no symptoms Hematologic/Lymphatic: Reports: no symptoms SUBJECTIVE: Patient is in bed and continues to c/o abdominal pain which has been tolerated on the Dilaudid. 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 Has no new complaints at this time. Objective Last 24 Hour Vital Signs Date Time Temp Pulse Resp B/P (MAP) Pulse Ox O2 Delivery O2 Flow Rate FiO2 05/29/19 09:00 Room Air 05/29/19 08:00 97.7 110 18 115/73 (87) 96 05/29/19 06:13 98.4 05/29/19 04:00 98.4 106 18 130/86 (101) 99 05/29/19 00:00 98.1 106 18 133/92 (106) 96 05/28/19 22:14 Room Air 05/28/19 20:00 98.1 109 18 121/81 (94) 96 05/28/19 16:00 98.0 110 18 124/72 (89) 96 Intake and Output 05/28/19 05/29/19 19:00 07:00 Intake Total 27.5 ml 480 ml Balance 27.5 ml 480 ml Intake Oral 480 ml IV Total 27.5 ml # Voids 3 Laboratory Tests 05/29/19 05:45: White Blood Count 8.2, Red Blood Count 4.59L, Hemoglobin 13.1L, Hematocrit 37.2L , Mean Corpuscular Volume 81, Mean Corpuscular Hemoglobin 28.6, Mean Corpuscular Hemoglobin Concent 35.3, Red Cell Distribution Width 13.0, Platelet Count 440, Mean Platelet Volume 5.6L, Neutrophils (%) (Auto) 67.6, Lymphocytes ( %) (Auto) 17.3L, Monocytes (%) (Auto) 7.8, Eosinophils (%) (Auto) 5.3H, Basophils (%) (Auto) 2.1H, Sodium Level 144, Potassium Level 4.1, Chloride Level 107, Carbon Dioxide Level 24, Anion Gap 13, Blood Urea Nitrogen 13, Creatinine 1.0, Estimat Glomerular Filtration Rate > 60, Glucose Level 85, Calcium Level 9.6 Height (Feet): 5 Height (Inches): 11.00 Weight (Pounds): 155 Objective General Appearance: no apparent distress, alert EENT: PERRL/EOMI, normal ENT inspection Neck: non-tender, normal alignment Cardiovascular: normal rate, regular rhythm Respiratory/Chest: lungs clear, normal breath sounds Abdomen: tender Extremities: non-tender Edema: no edema noted Generalized Neurologic: alert, oriented x 3 Skin: warm/dry Gagandeep Saleem May 29, 2019 11:50
[2019-05-29 12:00] VITALS: BP 115/73
--- NOTE | 2019-05-29 12:25 | Infectious Diseases Prog Note ---
Assessment/Plan Assessment/Plan ASSESSMENT: History of ulcerative colitis Perianal abscess/fistula, status post drain placement Leukocytosis, Sp Afebrile Ulcerative colitis History of perianal abscess/preanal fistula Depression. PLAN: continue patient on IV Zosyn # 9/10 , upon DC , may DC cont of AB Rx Monitor CBC. Monitor BMP. Monitor cultures. GI and General surgeon fup Subjective Allergies: Coded Allergies: TRAMADOL (Unverified Allergy, Unknown, 04/24/19) seizure Subjective afebrile Objective Vital Signs Last 24 Hour Vital Signs Date Time Temp Pulse Resp B/P (MAP) Pulse Ox O2 Delivery O2 Flow Rate FiO2 05/29/19 09:00 Room Air 05/29/19 08:00 97.7 110 18 115/73 (87) 96 05/29/19 06:13 98.4 05/29/19 04:00 98.4 106 18 130/86 (101) 99 05/29/19 00:00 98.1 106 18 133/92 (106) 96 05/28/19 22:14 Room Air 05/28/19 20:00 98.1 109 18 121/81 (94) 96 05/28/19 16:00 98.0 110 18 124/72 (89) 96 Height (Feet): 5 Height (Inches): 11.00 Weight (Pounds): 155 HEENT: anicteric Respiratory/Chest: no respiratory distress Cardiovascular: regular rhythm Abdomen: soft, non tender Laboratory Tests Test 05/29/19 05:45 White Blood Count 8.2 K/UL (4.8-10.8) Red Blood Count 4.59 M/UL (4.70-6.10) L Hemoglobin 13.1 G/DL (14.2-18.0) L Hematocrit 37.2 % (42.0-52.0) L Mean Corpuscular Volume 81 FL (80-99) Mean Corpuscular Hemoglobin 28.6 PG (27.0-31.0) Mean Corpuscular Hemoglobin Concent 35.3 G/DL (32.0-36.0) Red Cell Distribution Width 13.0 % (11.6-14.8) Platelet Count 440 K/UL (150-450) Mean Platelet Volume 5.6 FL (6.5-10.1) L Neutrophils (%) (Auto) 67.6 % (45.0-75.0) Lymphocytes (%) (Auto) 17.3 % (20.0-45.0) L Monocytes (%) (Auto) 7.8 % (1.0-10.0) Eosinophils (%) (Auto) 5.3 % (0.0-3.0) H Basophils (%) (Auto) 2.1 % (0.0-2.0) H Sodium Level 144 MMOL/L (136-145) Potassium Level 4.1 MMOL/L (3.5-5.1) Chloride Level 107 MMOL/L (98-107) Carbon Dioxide Level 24 MMOL/L (21-32) Anion Gap 13 mmol/L (5-15) Blood Urea Nitrogen 13 mg/dL (7-18) Creatinine 1.0 MG/DL (0.55-1.30) Estimat Glomerular Filtration Rate > 60 mL/min (>60) Glucose Level 85 MG/DL (74-106) Calcium Level 9.6 MG/DL (8.5-10.1) Current Medications Medications (Trade) Dose Ordered Sig/Aguila Route PRN Reason Start Time Stop Time Status Last Admin Dose Admin Acetaminophen (Tylenol) 650 mg Q4H PRN ORAL fever 05/28/19 16:00 06/19/19 00:00 Acetaminophen (Tylenol) 650 mg Q6H PRN ORAL pain 05/28/19 18:30 06/25/19 12:29 Dextrose (Dextrose 50%) 25 ml Q30M PRN IV Hypoglycemia 05/28/19 16:00 06/19/19 00:00 Dextrose (Dextrose 50%) 50 ml Q30M PRN IV Hypoglycemia 05/28/19 16:00 06/19/19 00:00 Dextrose/Sodium Chloride 1,000 ml @ 100 mls/hr Q10H IV 05/28/19 16:21 06/19/19 16:20 05/29/19 11:28 Diphenhydramine HCl (Benadryl) 25 mg Q6H PRN ORAL Itching/Pruritis 05/28/19 16:30 06/19/19 16:29 Docusate Sodium (Colace) 100 mg TWICE A DAY ORAL 05/28/19 18:00 06/19/19 17:59 Duloxetine HCl (Cymbalta) 60 mg DAILY ORAL 05/29/19 09:00 6/22/20 08:59 05/29/19 08:41 Heparin Sodium (Porcine) (Heparin 5000 units/ml) 5,000 units EVERY 12 HOURS SUBQ 05/28/19 21:00 07/04/19 08:59 Hydromorphone HCl (Dilaudid) 2 mg Q3H PRN IVP Moderate Pain (Pain Scale 4-6) 05/28/19 16:30 06/03/19 16:29 Hydromorphone HCl (Dilaudid) 4 mg Q3H PRN IVP Severe Pain (Pain Scale 7-10) 05/28/19 17:30 06/03/19 17:29 05/29/19 11:56 Naloxone HCl (Narcan) 0.2 mg Q2M PRN IVP respritory depression 05/28/19 16:00 08/22/19 13:44 Nitroglycerin (Ntg) 0.4 mg Q5M X 3 DOSES PRN SL Prn Chest Pain 05/28/19 16:00 06/19/19 00:00 Ondansetron HCl (Zofran) 4 mg Q6H PRN IVP Nausea & Vomiting 05/28/19 18:00 06/19/19 00:00 Pantoprazole (Protonix) 40 mg DAILY ORAL 05/29/19 09:00 06/24/19 08:59 05/29/19 08:41 Polyethylene Glycol (Miralax) 17 gm HSPRN PRN ORAL Constipation 05/28/19 21:00 06/27/19 20:59 Promethazine HCl 25 mg/Sodium Chloride 56 ml @ 112 mls/hr Q6H PRN IVPB nausea 05/28/19 18:00 06/21/19 17:59 Shemar Harding MD May 29, 2019 12:25
--- NOTE | 2019-05-29 13:38 | Surgery Progress Note ---
Surgery Progress Note Subjective Symptoms: improved, tolerating diet, passing flatus Objective Last 24 Hour Vital Signs Date Time Temp Pulse Resp B/P (MAP) Pulse Ox O2 Delivery O2 Flow Rate FiO2 05/29/19 12:00 98.0 90 18 115/73 (87) 96 05/29/19 09:00 Room Air 05/29/19 08:00 97.7 110 18 115/73 (87) 96 05/29/19 06:13 98.4 05/29/19 04:00 98.4 106 18 130/86 (101) 99 05/29/19 00:00 98.1 106 18 133/92 (106) 96 05/28/19 22:14 Room Air 05/28/19 20:00 98.1 109 18 121/81 (94) 96 05/28/19 16:00 98.0 110 18 124/72 (89) 96 I&O Intake and Output 05/28/19 05/29/19 19:00 07:00 Intake Total 27.5 ml 480 ml Balance 27.5 ml 480 ml Intake Oral 480 ml IV Total 27.5 ml # Voids 3 Cardiovascular: RSR Respiratory: clear Abdomen: soft, non-tender, present bowel sounds Extremities: no edema, no tenderness, no cyanosis Laboratory Tests Test 05/29/19 05:45 White Blood Count 8.2 K/UL (4.8-10.8) Red Blood Count 4.59 M/UL (4.70-6.10) L Hemoglobin 13.1 G/DL (14.2-18.0) L Hematocrit 37.2 % (42.0-52.0) L Mean Corpuscular Volume 81 FL (80-99) Mean Corpuscular Hemoglobin 28.6 PG (27.0-31.0) Mean Corpuscular Hemoglobin Concent 35.3 G/DL (32.0-36.0) Red Cell Distribution Width 13.0 % (11.6-14.8) Platelet Count 440 K/UL (150-450) Mean Platelet Volume 5.6 FL (6.5-10.1) L Neutrophils (%) (Auto) 67.6 % (45.0-75.0) Lymphocytes (%) (Auto) 17.3 % (20.0-45.0) L Monocytes (%) (Auto) 7.8 % (1.0-10.0) Eosinophils (%) (Auto) 5.3 % (0.0-3.0) H Basophils (%) (Auto) 2.1 % (0.0-2.0) H Sodium Level 144 MMOL/L (136-145) Potassium Level 4.1 MMOL/L (3.5-5.1) Chloride Level 107 MMOL/L (98-107) Carbon Dioxide Level 24 MMOL/L (21-32) Anion Gap 13 mmol/L (5-15) Blood Urea Nitrogen 13 mg/dL (7-18) Creatinine 1.0 MG/DL (0.55-1.30) Estimat Glomerular Filtration Rate > 60 mL/min (>60) Glucose Level 85 MG/DL (74-106) Calcium Level 9.6 MG/DL (8.5-10.1) Plan Problems: (1) Postoperative pain (2) Intractable nausea and vomiting Assessment & Plan: Findings: The size and configuration of the cortical sulci, basal cisterns, and ventricles are within normal limits for age. There is no mass effect, midline shift, or edema identified. There is no evidence of acute hemorrhage or abnormal intra- axial or extra-axial fluid collections. The bones and soft tissues are unremarkable. Impression: No mass effect, edema or acute bleed. (3) Colitis Assessment & Plan: Rectal white plastic seton identified with multiple sutures recently placed no signs of recurrent abscess no purulent drainage no significant erythema or induration mild oozing from open track no active bleeding Known history of Crohn's colitis under management of GI doctor. Known history of fistula and currently with seton placed by his surgeon. No recurrence of abscess fistula or other abnormality identified and currently under good management. Mild oozing normal given open wound. Seton appropriately placed. No acute surgical intervention indicated or necessary at this time. Pain management Antibiotics DC planning We will follow with recommendations thank you for let me participate in patient' s care (4) History of Crohn's disease (5) Rectal bleeding Assessment & Plan: Mild bleeding from the fistula tract and seton in place anticipated given current condition and seton and open wound. No active bleeding noted. No active infection noted. Seton appropriate position. Patient states he is using sitz bath and recommend to continue doing so okay to shower. Dressings for mild oozing. Follow-up with patient's colorectal surgeon outpatient upon discharge. local care with sitz bath, showers, and dressings prn keep seton in place d/c planning Brendan Melendez May 29, 2019 13:38
[2019-05-29 16:00] VITALS: BP 127/81
--- NOTE | 2019-05-29 16:11 | NUR ---
*-* MEDICARE APPEAL *-* RECEIVED A CALL FROM BELEN [facility] STATING THE DOCTOR WHOM REVIEW THE CASE AGREES WITH TERMINATION OF SERVICE. AARON HAS INFORMED PATIENT HE HAS LOST HIS APPEAL AND IS LIABLE OF 05/30/19.
--- NOTE | 2019-05-29 17:23 | Internal Med Progress Note ---
Subjective Date of Service: May 29, 2019 Physician Name Atilio Hardin Attending Physician Genaro Ibarra MD Current Medications Medications (Trade) Dose Ordered Sig/Aguila Route PRN Reason Start Time Stop Time Status Last Admin Dose Admin Acetaminophen (Tylenol) 650 mg Q4H PRN ORAL fever 05/28/19 16:00 06/19/19 00:00 Acetaminophen (Tylenol) 650 mg Q6H PRN ORAL pain 05/28/19 18:30 06/25/19 12:29 Dextrose (Dextrose 50%) 25 ml Q30M PRN IV Hypoglycemia 05/28/19 16:00 06/19/19 00:00 Dextrose (Dextrose 50%) 50 ml Q30M PRN IV Hypoglycemia 05/28/19 16:00 06/19/19 00:00 Dextrose/Sodium Chloride 1,000 ml @ 100 mls/hr Q10H IV 05/28/19 16:21 06/19/19 16:20 05/29/19 11:28 Diphenhydramine HCl (Benadryl) 25 mg Q6H PRN ORAL Itching/Pruritis 05/28/19 16:30 06/19/19 16:29 Docusate Sodium (Colace) 100 mg TWICE A DAY ORAL 05/28/19 18:00 06/19/19 17:59 Duloxetine HCl (Cymbalta) 60 mg DAILY ORAL 05/29/19 09:00 08/27/19 08:59 05/29/19 08:41 Heparin Sodium (Porcine) (Heparin 5000 units/ml) 5,000 units EVERY 12 HOURS SUBQ 05/28/19 21:00 07/04/19 08:59 Hydromorphone HCl (Dilaudid) 2 mg Q3H PRN IVP Moderate Pain (Pain Scale 4-6) 05/28/19 16:30 06/03/19 16:29 Hydromorphone HCl (Dilaudid) 4 mg Q3H PRN IVP Severe Pain (Pain Scale 7-10) 05/28/19 17:30 06/03/19 17:29 05/29/19 14:57 Naloxone HCl (Narcan) 0.2 mg Q2M PRN IVP respritory depression 05/28/19 16:00 08/22/19 13:44 Nitroglycerin (Ntg) 0.4 mg Q5M X 3 DOSES PRN SL Prn Chest Pain 05/28/19 16:00 06/19/19 00:00 Ondansetron HCl (Zofran) 4 mg Q6H PRN IVP Nausea & Vomiting 05/28/19 18:00 06/19/19 00:00 Pantoprazole (Protonix) 40 mg DAILY ORAL 05/29/19 09:00 06/24/19 08:59 05/29/19 08:41 Polyethylene Glycol (Miralax) 17 gm HSPRN PRN ORAL Constipation 05/28/19 21:00 06/27/19 20:59 Promethazine HCl 25 mg/Sodium Chloride 56 ml @ 112 mls/hr Q6H PRN IVPB nausea 05/28/19 18:00 06/21/19 17:59 Allergies: Coded Allergies: TRAMADOL (Unverified Allergy, Unknown, 04/24/19) seizure ROS Limited/Unobtainable: No Constitutional: Reports: no symptoms HEENT: Reports: no symptoms Cardiovascular: Reports: no symptoms Respiratory: Reports: no symptoms Gastrointestinal/Abdominal: Reports: abdominal pain Genitourinary: Reports: no symptoms Neurologic/Psychiatric: Reports: no symptoms Subjective 38 YO M admitted with postop hemorrhage from perirectal abscess. Cover for Int Joshua-DR Ibarra Objective Last Vital Signs Date Time Temp Pulse Resp B/P (MAP) Pulse Ox O2 Delivery O2 Flow Rate FiO2 05/29/19 12:00 98.0 90 18 115/73 (87) 96 05/29/19 09:00 Room Air Laboratory Tests Test 05/29/19 05:45 White Blood Count 8.2 K/UL (4.8-10.8) Red Blood Count 4.59 M/UL (4.70-6.10) L Hemoglobin 13.1 G/DL (14.2-18.0) L Hematocrit 37.2 % (42.0-52.0) L Mean Corpuscular Volume 81 FL (80-99) Mean Corpuscular Hemoglobin 28.6 PG (27.0-31.0) Mean Corpuscular Hemoglobin Concent 35.3 G/DL (32.0-36.0) Red Cell Distribution Width 13.0 % (11.6-14.8) Platelet Count 440 K/UL (150-450) Mean Platelet Volume 5.6 FL (6.5-10.1) L Neutrophils (%) (Auto) 67.6 % (45.0-75.0) Lymphocytes (%) (Auto) 17.3 % (20.0-45.0) L Monocytes (%) (Auto) 7.8 % (1.0-10.0) Eosinophils (%) (Auto) 5.3 % (0.0-3.0) H Basophils (%) (Auto) 2.1 % (0.0-2.0) H Sodium Level 144 MMOL/L (136-145) Potassium Level 4.1 MMOL/L (3.5-5.1) Chloride Level 107 MMOL/L (98-107) Carbon Dioxide Level 24 MMOL/L (21-32) Anion Gap 13 mmol/L (5-15) Blood Urea Nitrogen 13 mg/dL (7-18) Creatinine 1.0 MG/DL (0.55-1.30) Estimat Glomerular Filtration Rate > 60 mL/min (>60) Glucose Level 85 MG/DL (74-106) Calcium Level 9.6 MG/DL (8.5-10.1) Intake and Output 05/28/19 05/29/19 19:00 07:00 Intake Total 27.5 ml 580 ml Balance 27.5 ml 580 ml Intake Oral 480 ml IV Total 27.5 ml 100 ml # Voids 3 Objective PHYSICAL EXAMINATION: GENERAL: The patient is thin-appearing male in moderate pain. HEENT: Eyes, pupils equal and responsive to light and accommodation. Extraocular movements are intact. NECK: Supple without lymphadenopathy. CHEST: Lungs are clear to auscultation bilaterally without wheezes or rales. CARDIOVASCULAR: Regular rate. S1 and S2 are normal without murmurs, rubs, or gallops. ABDOMEN: Soft, nontender, and nondistended. Positive bowel sounds. No evidence of hepatosplenomegaly. Currently, no rebound or guarding noted. EXTREMITIES: Negative for clubbing, cyanosis, or edema. RECTAL: Not performed. GENITAL: Not performed. NEUROLOGIC: Cranial nerves II through XII are grossly intact without focal deficits. Motor strength is 5/5 bilaterally intact. Deep tendon reflexes are 2+ plantar. Assessment/Plan Assessment/Plan ASSESSMENT: This is a 38-year-old male with: 1. Perirectal abscess. 2. Postoperative pain. 3. Postoperative hemorrhage. 4. Crohn disease. TREATMENT: 1. Perirectal abscess/postop pain/postop hemorrhage. A General Surgery consultation has been obtained with Dr. Brendan Melendez. We will follow recommendations of Surgery. The patient has been started empirically on Zosyn for perirectal abscess. A Gastroenterology consultation= Dr. Romeo Valentine. An Infectious Disease consultation=with Dr. Harding. 2. Crohn disease. As above, a Gastroenterology consultation was obtained with Dr. Romeo Valentine. No GI procedures planned 3. D/C home with oral augmentin today-Medicare appeal denied-see discharge planning note Atilio Hardin MD May 29, 2019 17:23
--- NOTE | 2019-05-29 19:31 | NUR ---
HAND-OFF: Report given to Sonia. Endorsed that patient is to be discharged home tomorrow. Patient in stable condition.
--- NOTE | 2019-05-29 19:48 | NUR ---
NURSE NOTES: Received patient awake, alert, verbal, resting in bed, comfortable.
--- NOTE | 2019-05-29 19:50 | Pulmonology Progress Note ---
Assessment/Plan Problems: (1) Intractable nausea and vomiting (2) Rectal bleeding (3) Postoperative pain (4) Colitis (5) History of Crohn's disease Assessment/Plan wound care pain management phenergen for nausea check electrolytes dvt prophylaxis. prescription done Subjective ROS Limited/Unobtainable: No Constitutional: Reports: no symptoms HEENT: Repors: no symptoms Respiratory: Reports: no symptoms Allergies: Coded Allergies: TRAMADOL (Unverified Allergy, Unknown, 04/24/19) seizure Objective Last 24 Hour Vital Signs Date Time Temp Pulse Resp B/P (MAP) Pulse Ox O2 Delivery O2 Flow Rate FiO2 05/29/19 16:00 98.0 95 18 127/81 (96) 98 05/29/19 12:00 98.0 90 18 115/73 (87) 96 05/29/19 09:00 Room Air 05/29/19 08:00 97.7 110 18 115/73 (87) 96 05/29/19 06:13 98.4 05/29/19 04:00 98.4 106 18 130/86 (101) 99 05/29/19 00:00 98.1 106 18 133/92 (106) 96 05/28/19 22:14 Room Air 05/28/19 20:00 98.1 109 18 121/81 (94) 96 Intake and Output 05/28/19 05/29/19 19:00 07:00 Intake Total 27.5 ml 580 ml Balance 27.5 ml 580 ml Intake Oral 480 ml IV Total 27.5 ml 100 ml # Voids 3 Objective General Appearance: WD/WN HEENT: normocephalic, atraumatic Respiratory/Chest: chest wall non-tender, lungs clear Breasts: no masses Cardiovascular: normal peripheral pulses Abdomen: normal bowel sounds, soft, non tender Genitourinary: normal external genitalia Extremities: no cyanosis Skin: no rash Neurologic/Psychiatric: radiation engineer II-XII grossly normal Laboratory Tests 05/29/19 05:45: White Blood Count 8.2, Red Blood Count 4.59L, Hemoglobin 13.1L, Hematocrit 37.2L , Mean Corpuscular Volume 81, Mean Corpuscular Hemoglobin 28.6, Mean Corpuscular Hemoglobin Concent 35.3, Red Cell Distribution Width 13.0, Platelet Count 440, Mean Platelet Volume 5.6L, Neutrophils (%) (Auto) 67.6, Lymphocytes ( %) (Auto) 17.3L, Monocytes (%) (Auto) 7.8, Eosinophils (%) (Auto) 5.3H, Basophils (%) (Auto) 2.1H, Sodium Level 144, Potassium Level 4.1, Chloride Level 107, Carbon Dioxide Level 24, Anion Gap 13, Blood Urea Nitrogen 13, Creatinine 1.0, Estimat Glomerular Filtration Rate > 60, Glucose Level 85, Calcium Level 9.6 Current Medications Medications (Trade) Dose Ordered Sig/Aguila Route PRN Reason Start Time Stop Time Status Last Admin Dose Admin Acetaminophen (Tylenol) 650 mg Q4H PRN ORAL fever 05/28/19 16:00 06/19/19 00:00 Acetaminophen (Tylenol) 650 mg Q6H PRN ORAL pain 05/28/19 18:30 06/25/19 12:29 Dextrose (Dextrose 50%) 25 ml Q30M PRN IV Hypoglycemia 05/28/19 16:00 06/19/19 00:00 Dextrose (Dextrose 50%) 50 ml Q30M PRN IV Hypoglycemia 05/28/19 16:00 06/19/19 00:00 Dextrose/Sodium Chloride 1,000 ml @ 100 mls/hr Q10H IV 05/28/19 16:21 06/19/19 16:20 05/29/19 11:28 Diphenhydramine HCl (Benadryl) 25 mg Q6H PRN ORAL Itching/Pruritis 05/28/19 16:30 06/19/19 16:29 Docusate Sodium (Colace) 100 mg TWICE A DAY ORAL 05/28/19 18:00 06/19/19 17:59 Duloxetine HCl (Cymbalta) 60 mg DAILY ORAL 05/29/19 09:00 08/27/19 08:59 05/29/19 08:41 Heparin Sodium (Porcine) (Heparin 5000 units/ml) 5,000 units EVERY 12 HOURS SUBQ 05/28/19 21:00 07/04/19 08:59 Hydromorphone HCl (Dilaudid) 2 mg Q3H PRN IVP Moderate Pain (Pain Scale 4-6) 05/28/19 16:30 06/03/19 16:29 Hydromorphone HCl (Dilaudid) 4 mg Q3H PRN IVP Severe Pain (Pain Scale 7-10) 05/28/19 17:30 06/03/19 17:29 05/29/19 18:12 Naloxone HCl (Narcan) 0.2 mg Q2M PRN IVP respritory depression 05/28/19 16:00 08/22/19 13:44 Nitroglycerin (Ntg) 0.4 mg Q5M X 3 DOSES PRN SL Prn Chest Pain 05/28/19 16:00 06/19/19 00:00 Ondansetron HCl (Zofran) 4 mg Q6H PRN IVP Nausea & Vomiting 05/28/19 18:00 06/19/19 00:00 Pantoprazole (Protonix) 40 mg DAILY ORAL 05/29/19 09:00 06/24/19 08:59 05/29/19 08:41 Polyethylene Glycol (Miralax) 17 gm HSPRN PRN ORAL Constipation 05/28/19 21:00 06/27/19 20:59 Promethazine HCl 25 mg/Sodium Chloride 56 ml @ 112 mls/hr Q6H PRN IVPB nausea 05/28/19 18:00 06/21/19 17:59 Herrera Alcaraz MD May 29, 2019 19:50
[2019-05-29 20:21] VITALS: BP 101/78
--- NOTE | 2019-05-29 23:15 | Progress Note ---
DATE: 05/29/2019 SUBJECTIVE: The patient presents with depressed mood, low energy, anhedonia, and worthlessness. He is very pleasant and is cooperative with the examination. No behavior issues noted. Compliant with medications. MENTAL STATUS EXAMINATION: The patient is alert and oriented times, self, place, and situation. Mood is neutral. Affect is flat. Thought process is concrete. Thought content, no suicidal or homicidal ideation. ASSESSMENT: Major depressive disorder. PLAN: 1. Continue the Cymbalta 60 mg. 2. Provide the patient with reality orientation and supportive therapy. James Edwards M.D. DR: JESICA JOB#: [id number] CC:
[2019-05-30 00:20] VITALS: BP 115/77
[2019-05-30 04:14] VITALS: BP 110/77
[2019-05-30] MEDS: D5 1/2NS 1,000 ML IV SCH (06:09)
--- NOTE | 2019-05-30 07:03 | NUR ---
HAND-OFF: Report given to Juan Casanova RN.
--- NOTE | 2019-05-30 07:04 | NUR ---
NURSE NOTES: Report received from Sonia. Patient is awake and alert x 4. Patient currently on room air. Patient denies shortness of breath. Patient denies chest pain. Patient has no complaints at this time. Patient noted to have 22 kaitlynn in right forearm with IV fluids running per MD orders. Will continue to monitor and control patient's pain. Was endorsed that patient is to be discharged home today. Bed locked and in lowest position. Call light in reach. Will continue to follow plan of care.
[2019-05-30 08:00] VITALS: BP 123/83
[2019-05-30] MEDS: Docusate 100mg cap ORAL SCH (09:00)
[2019-05-30] MEDS: Heparin 5000 units/ml inj SUBQ SCH (09:00)
--- NOTE | 2019-05-30 09:12 | General Progress Note ---
Assessment/Plan Assessment/Plan: (1) Postoperative pain ICD Codes: G89.18 - Other acute postprocedural pain SNOMED: 508633859 (2) Intractable nausea and vomiting ICD Codes: R11.2 - Nausea with vomiting, unspecified SNOMED: 176549553 (3) Colitis (4) h/o CD s/p recent EGD and colonoscopy at [facility] in last admission ? pain med seeking mariann anal care fu surg bowel regimen dc planning per primary team patient to fu with his surgeon as out patient Subjective ROS Limited/Unobtainable: No Allergies: Coded Allergies: TRAMADOL (Unverified Allergy, Unknown, 04/24/19) seizure Objective Last 24 Hour Vital Signs Date Time Temp Pulse Resp B/P (MAP) Pulse Ox O2 Delivery O2 Flow Rate FiO2 05/30/19 06:40 97.8 05/30/19 04:14 97.8 111 18 110/77 (88) 96 05/30/19 00:20 97.7 107 18 115/77 (90) 93 05/29/19 20:21 97.8 113 16 101/78 (86) 96 05/29/19 20:07 Room Air 05/29/19 16:00 98.0 95 18 127/81 (96) 98 05/29/19 12:00 98.0 90 18 115/73 (87) 96 Intake and Output 05/29/19 05/30/19 19:00 07:00 Intake Total 1500 ml 1200 ml Balance 1500 ml 1200 ml Intake Oral 600 ml IV Total 900 ml 1200 ml # Voids 4 Height (Feet): 5 Height (Inches): 11.00 Weight (Pounds): 150 General Appearance: alert EENT: normal ENT inspection Neck: supple Cardiovascular: normal rate Respiratory/Chest: decreased breath sounds Abdomen: normal bowel sounds, non tender, soft Extremities: non-tender Romeo Valenitne MD May 30, 2019 09:12
[2019-05-30] MEDS ORDERED: HYDROcodone/Acetamin 10/325 tab ORAL PRN (10:00)
--- NOTE | 2019-05-30 10:22 | Surgery Progress Note ---
Surgery Progress Note Subjective Symptoms: improved, tolerating diet, voiding well, passing flatus, BM, pain decreased Additional Comments has train ticket for this afternoon. states feels much better Objective Last 24 Hour Vital Signs Date Time Temp Pulse Resp B/P (MAP) Pulse Ox O2 Delivery O2 Flow Rate FiO2 05/30/19 09:00 Room Air 05/30/19 08:00 97.8 100 18 123/83 (96) 98 05/30/19 06:40 97.8 05/30/19 04:14 97.8 111 18 110/77 (88) 96 05/30/19 00:20 97.7 107 18 115/77 (90) 93 05/29/19 20:21 97.8 113 16 101/78 (86) 96 05/29/19 20:07 Room Air 05/29/19 16:00 98.0 95 18 127/81 (96) 98 05/29/19 12:00 98.0 90 18 115/73 (87) 96 I&O Intake and Output 05/29/19 05/30/19 19:00 07:00 Intake Total 1500 ml 1200 ml Balance 1500 ml 1200 ml Intake Oral 600 ml IV Total 900 ml 1200 ml # Voids 4 Dressing: dry Wound: clean Cardiovascular: RSR Respiratory: clear Abdomen: soft, non-tender, present bowel sounds Extremities: no edema, no tenderness, no cyanosis Plan Problems: (1) Postoperative pain (2) Intractable nausea and vomiting Assessment & Plan: Findings: The size and configuration of the cortical sulci, basal cisterns, and ventricles are within normal limits for age. There is no mass effect, midline shift, or edema identified. There is no evidence of acute hemorrhage or abnormal intra- axial or extra-axial fluid collections. The bones and soft tissues are unremarkable. Impression: No mass effect, edema or acute bleed. (3) Colitis Assessment & Plan: Rectal white plastic seton identified with multiple sutures recently placed no signs of recurrent abscess no purulent drainage no significant erythema or induration mild oozing from open track no active bleeding Known history of Crohn's colitis under management of GI doctor. Known history of fistula and currently with seton placed by his surgeon. No recurrence of abscess fistula or other abnormality identified and currently under good management. Mild oozing normal given open wound. Seton appropriately placed. No acute surgical intervention indicated or necessary at this time. Pain management Antibiotics DC planning We will follow with recommendations thank you for let me participate in patient' s care (4) History of Crohn's disease (5) Rectal bleeding Assessment & Plan: Mild bleeding from the fistula tract and seton in place anticipated given current condition and seton and open wound. No active bleeding noted. No active infection noted. Seton appropriate position. Patient states he is using sitz bath and recommend to continue doing so okay to shower. Dressings for mild oozing. Follow-up with patient's colorectal surgeon outpatient upon discharge. local care with sitz bath, showers, and dressings prn keep seton in place d/c planning Additional Comments d/c home today f/u in [place] with colorectal surgeon for fistula / seton Brendan Melendez May 30, 2019 10:22
--- NOTE | 2019-05-30 10:27 | Internal Med Progress Note ---
Subjective Date of Service: May 30, 2019 Physician Name LashawnAtilio Attending Physician Genaro Ibarra MD Current Medications Medications (Trade) Dose Ordered Sig/[place] Route PRN Reason Start Time Stop Time Status Last Admin Dose Admin Acetaminophen (Tylenol) 650 mg Q4H PRN ORAL fever 05/28/19 16:00 06/19/19 00:00 Acetaminophen (Tylenol) 650 mg Q6H PRN ORAL pain 05/28/19 18:30 06/25/19 12:29 Acetaminophen/ Hydrocodone Bitart ([place] 10/325) 1 tab Q6H PRN ORAL Severe Pain (Pain Scale 7-10) 05/30/19 10:00 06/06/19 09:59 Dextrose (Dextrose 50%) 25 ml Q30M PRN IV Hypoglycemia 05/28/19 16:00 06/19/19 00:00 Dextrose (Dextrose 50%) 50 ml Q30M PRN IV Hypoglycemia 05/28/19 16:00 06/19/19 00:00 Diphenhydramine HCl (Benadryl) 25 mg Q6H PRN ORAL Itching/Pruritis 05/28/19 16:30 06/19/19 16:29 Docusate Sodium (Colace) 100 mg TWICE A DAY ORAL 05/28/19 18:00 06/19/19 17:59 Duloxetine HCl (Cymbalta) 60 mg DAILY ORAL 05/29/19 09:00 08/27/19 08:59 05/30/19 09:19 Heparin Sodium (Porcine) (Heparin 5000 units/ml) 5,000 units EVERY 12 HOURS SUBQ 05/28/19 21:00 07/04/19 08:59 Naloxone HCl (Narcan) 0.2 mg Q2M PRN IVP respritory depression 05/28/19 16:00 08/22/19 13:44 Nitroglycerin (Ntg) 0.4 mg Q5M X 3 DOSES PRN SL Prn Chest Pain 05/28/19 16:00 06/19/19 00:00 Ondansetron HCl (Zofran) 4 mg Q6H PRN IVP Nausea & Vomiting 05/28/19 18:00 06/19/19 00:00 Pantoprazole (Protonix) 40 mg DAILY ORAL 05/29/19 09:00 06/24/19 08:59 05/30/19 09:19 Polyethylene Glycol (Miralax) 17 gm HSPRN PRN ORAL Constipation 05/28/19 21:00 06/27/19 20:59 Promethazine HCl 25 mg/Sodium Chloride 56 ml @ 112 mls/hr Q6H PRN IVPB nausea 05/28/19 18:00 06/21/19 17:59 Allergies: Coded Allergies: TRAMADOL (Unverified Allergy, Unknown, 04/24/19) seizure ROS Limited/Unobtainable: No Constitutional: Reports: no symptoms HEENT: Reports: no symptoms Cardiovascular: Reports: no symptoms Respiratory: Reports: no symptoms Gastrointestinal/Abdominal: Reports: no symptoms Genitourinary: Reports: no symptoms Neurologic/Psychiatric: Reports: no symptoms Subjective 38 YO M admitted with postop hemorrhage from perirectal abscess. Cover for Int Med-DR Ibarra Objective Last Vital Signs Date Time Temp Pulse Resp B/P (MAP) Pulse Ox O2 Delivery O2 Flow Rate FiO2 05/30/19 09:00 Room Air 05/30/19 08:00 97.8 100 18 123/83 (96) 98 Intake and Output 05/29/19 05/30/19 19:00 07:00 Intake Total 1500 ml 1200 ml Balance 1500 ml 1200 ml Intake Oral 600 ml IV Total 900 ml 1200 ml # Voids 4 Objective PHYSICAL EXAMINATION: GENERAL: The patient is thin-appearing male in moderate pain. HEENT: Eyes, pupils equal and responsive to light and accommodation. Extraocular movements are intact. NECK: Supple without lymphadenopathy. CHEST: Lungs are clear to auscultation bilaterally without wheezes or rales. CARDIOVASCULAR: Regular rate. S1 and S2 are normal without murmurs, rubs, or gallops. ABDOMEN: Soft, nontender, and nondistended. Positive bowel sounds. No evidence of hepatosplenomegaly. Currently, no rebound or guarding noted. EXTREMITIES: Negative for clubbing, cyanosis, or edema. RECTAL: Not performed. GENITAL: Not performed. NEUROLOGIC: Cranial nerves II through XII are grossly intact without focal deficits. Motor strength is 5/5 bilaterally intact. Deep tendon reflexes are 2+ plantar. Assessment/Plan Assessment/Plan ASSESSMENT: This is a 38-year-old male with: 1. Perirectal abscess. 2. Postoperative pain. 3. Postoperative hemorrhage. 4. Crohn disease. TREATMENT: 1. Perirectal abscess/postop pain/postop hemorrhage. A General Surgery consultation has been obtained with Dr. Brendan Melendez. We will follow recommendations of Surgery. The patient has been started empirically on Zosyn for perirectal abscess. A Gastroenterology consultation= Dr. Romeo Valentine. An Infectious Disease consultation=with Dr. Harding. 2. Crohn disease. As above, a Gastroenterology consultation was obtained with Dr. Romeo Valentine. No GI procedures planned 3. D/C home with oral augmentin today-Medicare appeal denied-see discharge planning note Atilio Hardin MD May 30, 2019 10:27
[2019-05-30 12:00] VITALS: BP 115/84
--- NOTE | 2019-05-30 13:34 | NUR ---
NURSE NOTES: Juan BAILEY attempted to discharge patient. Brought patient belongings. Patient dressed. Juan BAILEY reviewed prescribed pain medication with patient. Patient stated that this was not the pain medication that was discussed with him by the doctors. Arlet Nurse Life Agent made aware. Arlet Nurse Life Agent spoke with patient and educated patient that these are the pain medications that the care team had decided for him. Educated patient that to go to primary care for new prescription. Further educated patient to return to emergency department if cannot tolerate pain. Patient continued to refuse to leave. [employer] called. Juna BAILEY re educated patient why he was leaving. Patient removed IV himself. Patient accepted discharge packet but declined to sign paper work. Patient took prescribed medication. Patient escorted out by security. Care to end at this time for patient.
--- NOTE | 2019-05-30 21:00 | Progress Note ---
DATE: 05/30/2019 SUBJECTIVE: The patient is doing well. Depression is improved. However, he is still depressed, anhedonia, worthlessness, hopelessness, and decreased energy. MENTAL STATUS EXAMINATION: Alert and oriented times self, place, and situation. Mood is neutral. Affect is flat. Thought process is concrete. Thought content, no suicidal or homicidal ideation. ASSESSMENT: Major depressive disorder. PLAN: 1. Cymbalta 60 mg in the morning. 2. Provide the patient with reality orientation and supportive therapy. James Edwards M.D. DR: JADEN JOB#: [id number] CC:
--- NOTE | 2019-05-31 09:24 | Discharge Summary ---
Discharge Summary Discharge Summary _ DATE OF ADMISSION: 05/20/2019 DATE OF DISCHARGE: 05/30/2019 DISCHARGED BY: Dr. Ibarra REASON FOR ADMISSION: 38 years old male with past medical history of Crohn's disease, presented to emergency department with rectal pain and bleeding. This week patient had a placement of seton drain and repair of perianal fistula , which was done in [place]. Patient presented with increased pain and rectal bleeding. No fever or chills. No drainage or discharge. Upon evaluation patient was tachycardic with heart rate 144. Laboratory work-up revealed leukocytosis WBC 15.3, hemoglobin 13.1, hematocrit 36.7, platelet count 397. Stable electrolytes. BUN 28, creatinine 1.1. AST 24, ALT 42. Lipase 140. Urinalysis revealed no evidence of urinary tract infection. Surgeon was consulted. Patient received IV fluids with improvement in tachycardia. Patient started on empiric antibiotics. Patient received analgesia. Patient subsequently admitted for further management. CONSULTANTS: astronaut mission specialist Dr. Alcaraz ID specialist Dr. Harding GI specialist Dr. Valentine surgery Dr. Melendez psychiatrist pain specialist Dr. Daily [facility] COURSE: Patient admitted to medical surgical floor. Patient initially was kept n.p.o. , on IV fluids. Pain management was addressed as per pain specialist recommendation. Heart rate was closely monitored. Tachycardia resolved with IV hydration. Antiemetic provided as needed. DVT and GI prophylaxis provided. Patient was continued on empiric antibiotic as per ID specialist recommendation. Blood cultures were negative. Leukocytosis resolved. ID specialist recommended discharge patient on oral antibiotic to complete the course. Surgeon closely followed. Per surgeon no signs of recurrent abscess, no purulent drainage, no significant erythema or induration. Mild oozing from open track . No active bleeding. No recurrence of abscess, fistula or other abnormality identified on the exam. No acute surgical intervention was indicated or necessary at this time as per surgeon. Surgeon recommended local care with sitz bath , shower and dressing as needed. Keep seton drain in place. Patient will need to follow-up with his colorectal surgeon in [place] . Hemoglobin and hematocrit were closely monitored with goal to keep hemoglobin above 7. Hemoglobin and hematocrit remained at the baseline ; prior to discharge hemoglobin 13.1 , hematocrit 27.2. Bowel regimen instituted. Patient had recent EGD and colonoscopy at [place]. Continue with perianal care . Patient possibly had pain seeking behavior. GI specialist recommended cautious use of narcotics. Psychiatrist followed. Patient started on Cymbalta. Renal parameters and electrolytes were closely monitored. Electrolytes corrected as needed. Nephrotoxins were avoided. Acute kidney injury was likely due to dehydration secondary to vomiting episodes. Acute kidney injury resolved ; prior to discharge : BUN 13, creatinine 1.0 Patient clinically stabilized. Patient was able to tolerate diet. Laboratory work remained stable. All specialists cleared patient for discharge. Discharge order initially was written 05/25/2019. However , patient declined to go home and appealed to Medicare. Medicare appeal was denied. Patient was discharged home on oral Augmentin to complete the course of antibiotics as per ID specialist recommendation. FINAL DIAGNOSES: Perirectal abscess, status post recent repair of perianal fistula with drain placement Intractable nausea and vomiting Rectal bleeding, postoperatively Colitis Crohn's disease Neuropathic pain Abdominal pain Postoperative pain Mild anemia Acute kidney injury, likely due to dehydration resolved Leukocytosis -resolved Tachycardia- resolved Major depressive disorder DISCHARGE MEDICATIONS: See Medication Reconciliation list. DISCHARGE INSTRUCTIONS: Patient was discharged home. Follow-up with a colorectal surgeon . Complete antibiotic as advised. Susan Easley NP May 31, 2019 09:24
== END 2019-05-30 14:15 | disposition home or self-care (01) | DRG 920 ==
LOC: EMR 22:45 → 3E 05-20 01:15 → EDBEDREQ 05-20 02:06 → 3E 05-20 05:02 → 2E 05-27 15:24 → 4E 05-28 15:28
DX: K91.840 Postprocedural hemorrhage of a digestive system organ or structure following a digestive system procedure (principal); K61.1 Rectal abscess; K50.90 Crohn's disease, unspecified, without complications; N17.9 Acute kidney failure, unspecified; G89.18 Other acute postprocedural pain; E86.0 Dehydration; Z88.6 Allergy status to analgesic agent; Y83.8 Other surgical procedures as the cause of abnormal reaction of the patient, or of later complication, without mention of misadventure at the time of the procedure; K52.9 Noninfective gastroenteritis and colitis, unspecified; G62.9 Polyneuropathy, unspecified; D64.9 Anemia, unspecified; R00.0 Tachycardia, unspecified; F32.9 Major depressive disorder, single episode, unspecified; R11.2 Nausea with vomiting, unspecified
CPT/HCPCS: 36415; 70450; 80048; 80053; 81003; 82150; 82962; 83690; 85025; 85651; 85730; 86140; 87040; 93005; 96374; 96376; 99291; J2405; J7030

== ENCOUNTER 2019-06-02 20:58 | Emergency (ER) | payer MEDICARE ==
[~2019-06-02] VITALS: Ht 180.3 cm; Wt 59.0 kg
[~2019-06-02 20:58] MED LIST changes: +AUGMENTIN 875-1 EAC1 ORAL; +CYMBALTA30 MG ORAL; +OXYCODONE IR15 MG ORAL; +OXYCONTIN10 MG ORAL
[2019-06-02] MEDS ORDERED: Morphine Sulfate 4mg/ml Inj (IV USE ONLY) IVP ONE (21:15)
--- NOTE | 2019-06-02 21:22 | Emergency Room Report ---
History of Present Illness General Chief Complaint: Pain Source: Patient Present Illness HPI This a 38-year-old history of Crohn disease. He also history of chronic pain and has been in the hospital multiple times. He usually is in [place] but he claimed that he is here for work. He was recently admitted for over a week secondary to intractable abdominal pain with nausea vomiting and diarrhea. He presents with chief complaint of abdominal pain with nausea vomiting and diarrhea. Also complained of increasing rectal bleeding. This is a chronic issue for him. Again he was just discharged 2 days ago. He said he has not had any pain medication. Denies any fever chills. Pain is 10 out of 10. Nothing made it better. Nothing made it worse. Denies any other complaint. Allergies: Coded Allergies: TRAMADOL (Unverified Allergy, Unknown, 04/24/19) seizure COVID-19 Screening Contact w/high risk pt: No Recent Travel to affected area: No Experienced COVID-19 symptoms?: No Patient History Past Medical History: see triage record, old chart reviewed Past Surgical History: other Pertinent Family History: none Social History: Denies: smoking Immunizations: other Reviewed Nursing Documentation: PMH: Agreed; PSxH: Agreed Nursing Documentation-PMH Hx Cardiac Problems: No Hx Cancer: No Hx Gastrointestinal Problems: Yes Hx Neurological Problems: No Review of Systems Eye: Denies: eye pain, blurred vision ENT: Denies: ear pain, nose congestion, throat swelling Respiratory: Denies: cough, shortness of breath Cardiovascular: Denies: chest pain, palpitations Gastrointestinal: Reports: abdominal pain, diarrhea, nausea, vomiting Musculoskeletal: Denies: back pain, joint pain Skin: Denies: rash Neurological: Denies: headache, numbness Endocrine: Denies: increased thirst, increased urine Hematologic/Lymphatic: Denies: easy bruising All Other Systems: negative except mentioned in HPI Physical Exam Vital Signs Date Time Temp Pulse Resp B/P (MAP) Pulse Ox O2 Delivery O2 Flow Rate FiO2 06/02/19 21:00 98.2 112 19 139/90 (106) 99 Room Air Vitals with tachycardia Sp02 EP Interpretation: reviewed, normal General Appearance: well appearing, no apparent distress, alert Head: normocephalic, atraumatic Eyes: bilateral eye PERRL, bilateral eye EOMI ENT: hearing grossly normal, normal pharynx Neck: full range of motion, supple, no meningismus Respiratory: chest non-tender, lungs clear, normal breath sounds Cardiovascular #1: regular rate, rhythm, no murmur Gastrointestinal: normal bowel sounds, no mass, no organomegaly, no bruit, non- distended, tenderness - Diffuse tenderness Musculoskeletal: back normal, normal range of motion, gait/station normal Psychiatric: mood/affect normal Medical Decision Making Diagnostic Impression: Primary Impression: Abdominal pain Qualified Codes: R10.84 - Generalized abdominal pain Additional Impressions: Intractable nausea and vomiting Opiate withdrawal Opiate dependence Qualified Codes: F11.20 - Opioid dependence, uncomplicated ER Course Patient with history of Crohn's presents with intractable abdominal pain with nausea and vomiting and diarrhea. I suspect this is secondary to opiate withdrawal. On the [employer] system, he has multiple visits to different hospitals and multiple different pain medication from different providers. If labs are unremarkable, will discharge home. Told patient that I will give him a dose of pain medication here. Otherwise unless there are severe abnormality as far as anemia or severe dehydration, patient is stable to be discharged home. He will need to follow-up with his pain specialist in [place]. Patient studies been vomiting and diarrhea and rectal bleeding for the last 6 couple of days. No vomiting here. Urine showed no ketones. Specific gravity is actually in the low side. His heart rate improve with pain medication. I suspect this is drug-seeking behavior and opioid dependence and withdrawal symptoms. I see no acute process that require admission. Patient claimed that he is here for work. 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 Last Vital Signs Date Time Temp Pulse Resp B/P (MAP) Pulse Ox O2 Delivery O2 Flow Rate FiO2 06/02/19 21:00 98.2 112 19 139/90 (106) 99 Room Air Status: improved Disposition: HOME, SELF-CARE Condition: Stable Scripts Ondansetron (Zofran) 4 Mg Tablet 4 MG ORAL Q8H PRN for Nausea & Vomiting, #10 TAB 0 Refills Prov: Zeferino Flores MD 06/02/19 Hydrocodone/Acetaminophen 5-325* (HYDROCODONE/ACETAMINOPHEN 5-325*) 1 Each Tablet 1 TAB ORAL Q6H PRN for For Pain, #10 TAB 0 Refills Prov: Zeferino Flores MD 06/02/19 Additional Instructions: Follow-up with your doctor in [place] 1 to 2 days. Return if symptoms worsen. Increase fluids. Zeferino Flores MD Jun 02, 2019 21:22
--- NOTE | 2019-06-02 21:45 | NUR ---
ED Nurse Note: Recieved pt from home, here with c/o sever abd pain from chrons disease, pt was recently discharged from here on 4 day hospital admission for same s/s, been home 3 days and here with same, pt states he nevere felt better even when discharged from here, states pain at 9/10 with nausea, pt has severe hand and generalized tremors, very diaphoretic, speaking very fast and immediately asking for 4mg of dilaudid, pt states MD gave h im those doses while admitted and that is what he needs, pt appears to be having withdrawl symptoms but denies, pt gowned, cardiac monitoring difficult due to severe diaphoresis.
[2019-06-02 21:52] LABS: BASOPHILS % (AUTO) 2.5 % (0.0-2.0); EOSINOPHILS % (AUTO) 1.2 % (0.0-3.0); HEMATOCRIT 40.8 % (42.0-52.0); HEMOGLOBIN 13.6 G/DL (14.2-18.0); LYMPHOCYTES % (AUTO) 19.1 % (20.0-45.0); MEAN CORPUSCULAR VOLUME 82 FL (80-99); MONOCYTES % (AUTO) 9.3 % (1.0-10.0); NEUTROPHILS % (AUTO) 67.9 % (45.0-75.0); PLATELET COUNT 648 K/UL (150-450); RED BLOOD COUNT 4.98 M/UL (4.70-6.10); RED CELL DISTRIBUTION WIDTH 14.1 % (11.6-14.8); WHITE BLOOD COUNT 12.1 K/UL (4.8-10.8)
[2019-06-02 22:23] LABS: ANION GAP 18 mmol/L (5-15); BLOOD UREA NITROGEN 7 mg/dL (7-18); CALCIUM 9.8 MG/DL (8.5-10.1); CARBON DIOXIDE 18 MMOL/L (21-32); CHLORIDE 104 MMOL/L (98-107); POTASSIUM 3.7 MMOL/L (3.5-5.1); SODIUM 140 MMOL/L (136-145)
[2019-06-02 22:34] LABS: APPEARANCE,URINE CLEAR; BILIRUBIN, URINE NEGATIVE (NEGATIVE); COLOR,URINE PALE YELLOW; GLUCOSE, URINE (UA) NEGATIVE (NEGATIVE); KETONES,URINE NEGATIVE (NEGATIVE); LEUKOCYTE ESTERASE ,URINE NEGATIVE (NEGATIVE); NITRITE,URINE NEGATIVE (NEGATIVE); PH,URINE 7 (4.5-8.0); PROTEIN,URINE NEGATIVE (NEGATIVE); UROBILINOGEN,URINE NORMAL MG/DL (0.0-1.0)
[2019-06-02 22:45] VITALS: BP 139/90
[2019-06-02] MEDS ORDERED: HYDROmorphone 1mg/ml Carpuject IM ONE (22:45)
[2019-06-02] MEDS ORDERED: HYDROCODON-ACE1 EA15 ORAL (22:52)
[2019-06-02] MEDS ORDERED: ZOFRAN4 MG ORAL (22:53)
--- NOTE | 2019-06-02 23:00 | NUR ---
ER DISCHARGE NOTE: Patient is cleared to be discharged per ERMD, pt is aox4, on room air, with stable vital signs. pt was given dc and prescription instructions, pt was able to verbalize understanding, pt id band and iv site removed without complications. pt is able to ambulate with steady gait. pt took all belongings.
[2019-06-02 23:05] VITALS: BP 139/90
== END 2019-06-02 23:05 | disposition home or self-care (01) ==
LOC: EMR 21:25
DX: R10.84 Generalized abdominal pain (principal); R11.2 Nausea with vomiting, unspecified; F11.23 Opioid dependence with withdrawal; Z88.6 Allergy status to analgesic agent; K62.5 Hemorrhage of anus and rectum
CPT/HCPCS: 36415; 80048; 80307; 81003; 85025; 96361; 96372; 96374; 96375; 99284; J1170; J2270; J2405; J7030

== ENCOUNTER 2020-05-18 20:14 | Inpatient (IN) | payer MEDICARE, MEDICAID ==
[~2020-05-18] VITALS: Ht 175.3 cm; Wt 68.0 kg
[~2020-05-18 20:14] MED LIST changes: +HYDROCODON-ACE1 EA15 ORAL; +ZOFRAN4 MG ORAL
--- NOTE | 2020-05-18 20:29 | NUR ---
ED Nurse Note: c/o of abdominal pain x2-3 days, nausea and vomiting, and an anal fissure that is causing pain, AOx4, ambulatory vitals stable, hx of crohns disease
--- NOTE | 2020-05-18 20:44 | Emergency Room Report ---
History of Present Illness General Chief Complaint: Abdominal Pain Source: Patient Present Illness HPI Patient is a 39-year-old male presents for increased nausea and vomiting for 1 day. Reports having prior history of Crohn's disease and states has had previous bowel resection. He states he had previously been taking Remicade and is currently followed by GI in [place]. 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 Multiple episodes of nonbilious nonbloody emesis. Associated diarrhea with some reported blood. States he had previously had appendectomy as well as bowel resection. He is normally followed at [facility] in [place]. Denies any fever. Reports having fistula which had intermittently been closed. Denies any current steroid use. States he is normally on medications for anxiety as well as OxyContin. States he took pain medication earlier in the day. 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 Patient History Past Medical History: see triage record Reviewed Nursing Documentation: PMH: Agreed; PSxH: Agreed Nursing Documentation-PMH Hx Cardiac Problems: No Hx Cancer: No Hx Gastrointestinal Problems: Yes Hx Neurological Problems: No Review of Systems All Other Systems: negative except mentioned in HPI Physical Exam Vital Signs Date Time Temp Pulse Resp B/P (MAP) Pulse Ox O2 Delivery O2 Flow Rate FiO2 05/18/20 20:21 97.7 100 20 120/77 (91) 100 Room Air Sp02 EP Interpretation: reviewed, normal General Appearance: normal inspection, well appearing, no apparent distress, alert, GCS 15, non-toxic, Chronically Ill Head: atraumatic ENT: normal ENT inspection, hearing grossly normal, normal voice Neck: normal inspection, full range of motion, supple, no bony tend Respiratory: normal inspection, lungs clear, normal breath sounds, no respiratory distress, no retraction, no wheezing Cardiovascular #1: regular rate, rhythm, no edema Gastrointestinal: normal inspection, normal bowel sounds, non tender, soft, no guarding, no hernia Genitourinary: no CVA tenderness Musculoskeletal: normal inspection, back normal, normal range of motion Neurologic: alert, motor strength/tone normal, round boner III-XII nml as tested, oriented x3, responsive, speech normal, normal inspection Psychiatric: normal inspection, judgement/insight normal, mood/affect normal Skin: no rash Medical Decision Making Diagnostic Impression: Primary Impression: Abdominal pain Additional Impressions: Colitis Acute renal failure History of Crohn's disease ER Course Patient presents for increased abdominal pain. Differential diagnosis include was not limited to Crohn's disease, anemia, electrolyte abnormality, opiate withdrawal, dehydration, obstruction among others. Patient has had multiple episodes of similar symptoms in the past. He states he previously been on steroids. Patient appears to be somewhat psychomotor agitated. Patient reports having recently taken pain medications today. Patient was given IV steroids.Patient was started on IV fluids. Dr. Genaro Ibarra was contacted for inpatient management due to patient's acute renal insufficiency and increased nausea and vomiting. Labs Test 05/18/20 21:03 05/19/20 05:10 05/19/20 13:50 Prothrombin Time 11.6 SEC (9.30-11.50) Prothromb Time International Ratio 1.1 (0.9-1.1) Activated Partial Thromboplast Time 24 SEC (23-33) White Blood Count 11.7 K/UL (4.8-10.8) Red Blood Count 5.09 M/UL (4.70-6.10) Hemoglobin 12.4 G/DL (14.2-18.0) Hematocrit 40.2 % (42.0-52.0) Mean Corpuscular Volume 79 FL (80-99) Mean Corpuscular Hemoglobin 24.4 PG (27.0-31.0) Mean Corpuscular Hemoglobin Concent 30.9 G/DL (32.0-36.0) Red Cell Distribution Width 16.1 % (11.6-14.8) Platelet Count 453 K/UL (150-450) Mean Platelet Volume 7.3 FL (6.5-10.1) Neutrophils (%) (Auto) % (45.0-75.0) Lymphocytes (%) (Auto) % (20.0-45.0) Monocytes (%) (Auto) % (1.0-10.0) Eosinophils (%) (Auto) % (0.0-3.0) Basophils (%) (Auto) % (0.0-2.0) Differential Total Cells Counted 100 Neutrophils % (Manual) 93 % (45-75) Lymphocytes % (Manual) 5 % (20-45) Monocytes % (Manual) 2 % (1-10) Eosinophils % (Manual) 0 % (0-3) Basophils % (Manual) 0 % (0-2) Band Neutrophils 0 % (0-8) Toxic Granulation Occasional Platelet Estimate Increased Platelet Morphology Normal Erythrocyte Sedimentation Rate 8 MM/HR (0-15) Sodium Level 139 MMOL/L (136-145) Potassium Level 5.2 MMOL/L (3.5-5.1) Chloride Level 103 MMOL/L (98-107) Carbon Dioxide Level 25 MMOL/L (21-32) Anion Gap 11 mmol/L (5-15) Blood Urea Nitrogen 26 mg/dL (7-18) Creatinine 1.8 MG/DL (0.55-1.30) Estimat Glomerular Filtration Rate 42.4 mL/min (>60) Glucose Level 115 MG/DL (74-106) Calcium Level 9.0 MG/DL (8.5-10.1) Phosphorus Level 4.7 MG/DL (2.5-4.9) Magnesium Level 2.1 MG/DL (1.8-2.4) Total Bilirubin 0.4 MG/DL (0.2-1.0) Aspartate Amino Transf (AST/SGOT) 12 U/L (15-37) Alanine Aminotransferase (ALT/SGPT) 23 U/L (12-78) Alkaline Phosphatase 112 U/L (46-116) C-Reactive Protein, Quantitative < 0.4 mg/dL (0.00-0.90) Total Protein 7.9 G/DL (6.4-8.2) Albumin 4.0 G/DL (3.4-5.0) Globulin 3.9 g/dL Albumin/Globulin Ratio 1.0 (1.0-2.7) Urine Color Pale yellow Urine Appearance Clear Urine pH 6 (4.5-8.0) Urine Specific [place] 1.020 (1.005-1.035) Urine Protein Negative (NEGATIVE) Urine Glucose (UA) Negative (NEGATIVE) Urine Ketones Negative (NEGATIVE) Urine Blood Negative (NEGATIVE) Urine Nitrite Negative (NEGATIVE) Urine Bilirubin Negative (NEGATIVE) Urine Urobilinogen Normal MG/DL (0.0-1.0) Urine Leukocyte Esterase Negative (NEGATIVE) Urine RBC 0 /HPF (0 - 0) Urine WBC 0-2 /HPF (0 - 0) Urine Squamous Epithelial Cells None /LPF (NONE/OCC) Urine Uric Acid Crystals Few /LPF (NONE) Urine Bacteria None /HPF (NONE) Urine Random Sodium 37 mmol/L (20-110) Urine Opiates Screen Positive (NEGATIVE) Urine Barbiturates Screen Negative (NEGATIVE) Phencyclidine (PCP) Screen Negative (NEGATIVE) Urine Amphetamines Screen Negative (NEGATIVE) Urine Benzodiazepines Screen Negative (NEGATIVE) Urine Cocaine Screen Positive (NEGATIVE) Urine Marijuana (THC) Screen Positive (NEGATIVE) Last Vital Signs Date Time Temp Pulse Resp B/P (MAP) Pulse Ox O2 Delivery O2 Flow Rate FiO2 05/18/20 20:21 97.7 100 20 120/77 (91) 100 Room Air Status: unchanged Disposition: ADMITTED INPATIENT Condition: Serious Referrals: NON PHYSICIAN (PCP) Sukh Perkins MD May 18, 2020 20:44
[2020-05-18] MEDS ORDERED: Dicyclomine HCl 10mg/5ml oral soln ORAL ONE (20:45)
[2020-05-18] MEDS ORDERED: Solu-MEDROL 125mg Inj IVP ONE (20:45)
[2020-05-18] MEDS ORDERED: Morphine Sulfate 4mg/ml Inj IVP ONE ×2 (20:45→22:30)
[2020-05-18 21:15] VITALS: BP 129/79
[2020-05-18 21:21] LABS: BASOPHILS % (AUTO) 2.4 % (0.0-2.0); EOSINOPHILS % (AUTO) 0.4 % (0.0-3.0); HEMATOCRIT 47.2 % (42.0-52.0); HEMOGLOBIN 14.8 G/DL (14.2-18.0); LYMPHOCYTES % (AUTO) 13.2 % (20.0-45.0); MEAN CORPUSCULAR VOLUME 77 FL (80-99); MONOCYTES % (AUTO) 9.2 % (1.0-10.0); NEUTROPHILS % (AUTO) 74.8 % (45.0-75.0); PLATELET COUNT 578 K/UL (150-450); RED BLOOD COUNT 6.16 M/UL (4.70-6.10); RED CELL DISTRIBUTION WIDTH 17.5 % (11.6-14.8); WHITE BLOOD COUNT 16.3 K/UL (4.8-10.8)
[2020-05-18 21:23] LABS: CALCIUM 9.8 MG/DL (8.5-10.1); CREATININE 2.6 MG/DL (0.55-1.30); POTASSIUM 4.8 MMOL/L (3.5-5.1)
[2020-05-18 21:28] LABS: ALBUMIN 4.9 G/DL (3.4-5.0); ALBUMIN/GLOBULIN RATIO 1.1 (1.0-2.7); BILIRUBIN,TOTAL 0.5 MG/DL (0.2-1.0)
[2020-05-18 21:30] LABS: INR 1.1 (0.9-1.1)
--- NOTE | 2020-05-18 22:07 | NUR ---
Patient in bed in comfortable position and stable condition. All vitals signs were taken and reported. Urine and blood were collected and sent them to the lab. All medications were administered without adverse reaction. Patient continuous attached to the monitor.
[2020-05-18] MEDS ORDERED: Piperacillin/Tazobactam 3.375 GM in NS 110 ML IVPB ONE (22:30)
--- NOTE | 2020-05-19 | NUR ---
Patient in bed alert and stable. Respiration even and unlabored. Vitals signs taken and normal. No pain or discomfort verbalized. Safety, Fall and comfort measures in place. Will continue monitoring the patient during the sift.
--- NOTE | 2020-05-19 00:31 | NUR ---
Pte was admitted to the floor room number 403 report given to the nurse valladares. All belongs were packaged and sent them with the pte. Pacient left ER in stable condition.
[2020-05-19] MEDS ORDERED: HYDROcodone/Acetamin 5/325 tab ORAL PRN (00:45)
[2020-05-19] MEDS ORDERED: D5 1/2NS 1,000 ML IV SCH (00:45)
--- NOTE | 2020-05-19 01:03 | NUR ---
NURSE NOTES: Received report from [facility]. Pt arrived @ 0020 via wheelchair. AAO x 4, on RA. Pt c/o abd pain 09/13. IV site intact and patent. Vitals 99.3F, 134/97BP, 105HR, 95% O2. Orientation given to the facility and room. Pt able to make needs known. All belongings reviewed. Admission order received from Dr. Ibarra and carried out. Bed locked, lowest position, call light within reach, alarm on. Will continue to monitor.
[2020-05-19 04:00] VITALS: BP 133/79
[2020-05-19] MEDS: Morphine Sulfate 2mg/ml Inj IVP PRN ×2 (04:21→09:26)
[2020-05-19] MEDS: Piperacillin/Tazobactam 3.375 GM in NS 110 ML IVPB SCH ×3 (05:50→21:17)
--- NOTE | 2020-05-19 06:26 | NUR ---
NURSE NOTES: Pt said morphine is not working for pain. Wants to change dose or time frequency. Left message Dr. Ibarra and awaiting for call back.
--- NOTE | 2020-05-19 06:27 | NUR ---
NURSE HAND-OFF: Important Events on Shift:admission, abd pain Patient Status: Diet: clear liq Pending Orders: us renal Pending Results/Labs: Pending MD notification: Latest Vital Signs: Temperature 98.8 , Pulse 97 , B/P 133 /79 , Respiratory Rate 20 , O2 SAT 97 , Room Air, O2 Flow Rate . Vital Sign Comment: [] Latest James Fall Score: 20 Fall Risk: Low Risk Safety Measures: Call light Within Reach, Bed Alarm Zone 1, Side Rails Side Rails x2, Bed position Low and Locked. Fall Precautions: Sol Shrestha Patient Fall Education Addendum: 05/19/20 at 0742 by ATUL SALVADOR RN RN report given to Latonya
[2020-05-19 06:30] LABS: HEMATOCRIT 40.2 % (42.0-52.0); HEMOGLOBIN 12.4 G/DL (14.2-18.0); MEAN CORPUSCULAR VOLUME 79 FL (80-99); PLATELET COUNT 453 K/UL (150-450); RED BLOOD COUNT 5.09 M/UL (4.70-6.10); RED CELL DISTRIBUTION WIDTH 16.1 % (11.6-14.8); WHITE BLOOD COUNT 11.7 K/UL (4.8-10.8)
[2020-05-19 06:53] LABS: ALANINE AMINOTRANSFERASE 23 U/L (12-78); ALKALINE PHOSPHATASE 112 U/L (46-116); ANION GAP 11 mmol/L (5-15); ASPARTATE AMINO TRANSFERASE 12 U/L (15-37); BILIRUBIN,TOTAL 0.4 MG/DL (0.2-1.0); BLOOD UREA NITROGEN 26 mg/dL (7-18); CARBON DIOXIDE 25 MMOL/L (21-32); CHLORIDE 103 MMOL/L (98-107); CREATININE 1.8 MG/DL (0.55-1.30); PHOSPHORUS 4.7 MG/DL (2.5-4.9); POTASSIUM 5.2 MMOL/L (3.5-5.1); SODIUM 139 MMOL/L (136-145)
[2020-05-19 08:00] VITALS: BP 107/60
--- NOTE | 2020-05-19 08:08 | NUR ---
NURSE NOTES: Patient awake and alert and oriented,respirations unlabored.IV fluids infusing as ordered. ,patient on clear liquids.Call light within reach.
--- NOTE | 2020-05-19 08:44 | NUR ---
NURSE NOTES: Notified Dr. Ibarra of k+ level of 5.2 still awaiting any new orders. Patient currently stable at this time.
[2020-05-19] MEDS: DULoxetine 30mg cap ORAL SCH (09:21)
[2020-05-19] MEDS ORDERED: Hydromorphone 0.5mg/0.5ml inj IVP PRN (11:00)
--- NOTE | 2020-05-19 11:44 | Consultation ---
Consult Note Consult Note I am asked to evaluate the patient at the request of Dr. Ibarra for renal failure Chief Complaint: Abdominal Pain Patient is a 39-year-old male presents for increased nausea and vomiting for 1 day. Reports having prior history of Crohn's disease and states has had previous bowel resection. He states he had previously been taking Remicade and is currently followed by GI in [place]. 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 Multiple episodes of nonbilious nonbloody emesis. Associated diarrhea with some reported blood. States he had previously had appendectomy as well as bowel resection. He is normally followed at [facility] in [place]. Denies any fever. Reports having fistula which had intermittently been closed. Denies any current steroid use. States he is normally on medications for anxiety as well as OxyContin. States he took pain medication earlier in the day. 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 Crohn disease, diagnosed at age 13. 2. Perirectal abscess drainage as above. 3. Colorectal fistulotomy in 2019. 4. History of perirectal abscess and subsequent colorectal fistula. PAST SURGICAL HISTORY: Significant for: 1. Hemicolectomy in 2016. 2. Perirectal abscess drainage with fistulotomy in 2019. CURRENT MEDICATIONS: Patient has been off Remicade for the past 6 months. ALLERGIES: 1. Tramadol. 2. Sertraline. SOCIAL HISTORY: Patient is single and lives alone. Patient denies tobacco or alcohol use. PHYSICAL EXAMINATION: VITAL SIGNS: Temperature 97.7, respirations 20, pulse 100, blood pressure 120/77. GENERAL: Patient is well-developed, well-nourished male, in no apparent distress. HEENT: Eyes, pupils are equal and responsive to light and accommodation. Extraocular movements are intact. NECK: Supple. No lymphadenopathy. CHEST: Lungs are clear to auscultation bilaterally without wheezes or rales. CARDIOVASCULAR: Regular rhythm and rate. S1, S2 are normal without murmurs, rubs, or gallops. ABDOMEN: Soft, nondistended with decreased bowel sounds. Pain to palpation in the right lower quadrant. No evidence of rebound or guarding noted. EXTREMITIES: Negative for clubbing, cyanosis, or edema. RECTAL/GENITAL: Not performed. NEUROLOGIC: Cranial nerves II through XII are grossly intact without focal deficits. Motor strength is 5/5 bilaterally. Deep tendon reflexes are 2+ plantar. LABORATORY STUDIES: WBC 16.3, hemoglobin 14.8, hematocrit 47.2, platelets 578,000. Sodium 142, potassium 4.8, chloride 105, CO2 25, BUN 30, creatinine 2.6, glucose 82. . Assessment/Plan Acute on chronic renal failure Dehydration GI pathology, history of Crohn's disease Anemia Urine studies Urine for tox screen IV hydration Anemia workup Monitor renal parameters and electrolytes Per consultants Teddy Molina MD May 19, 2020 11:44
[2020-05-19 12:00] VITALS: BP 111/70
[2020-05-19] MEDS: D5NS 1,000 ML IV SCH (12:43)
--- NOTE | 2020-05-19 13:53 | General Progress Note ---
Subjective ROS Limited/Unobtainable: Yes Allergies: Coded Allergies: SERTRALINE (Verified Allergy, Unknown, 05/18/20) TRAMADOL (Unverified Allergy, Unknown, 04/24/19) seizure Objective Last 24 Hour Vital Signs Date Time Temp Pulse Resp B/P (MAP) Pulse Ox O2 Delivery O2 Flow Rate FiO2 05/19/20 12:00 97.5 86 20 111/70 (84) 98 05/19/20 09:00 Room Air 05/19/20 08:00 98.5 80 20 107/60 (76) 99 05/19/20 04:00 98.8 97 20 133/79 (97) 97 05/19/20 01:08 Room Air 05/19/20 00:21 98.2 89 18 132/87 99 Room Air 05/18/20 21:15 98.2 80 22 129/79 100 Room Air 05/18/20 20:52 100 22 Room Air 05/18/20 20:21 97.7 100 20 120/77 (91) 100 Room Air Intake and Output 05/18/20 05/19/20 19:00 07:00 Intake Total 1580 ml Balance 1580 ml Intake Oral 480 ml IV Total 1100 ml # Bowel Movements 1 Laboratory Tests 05/18/20 21:03: White Blood Count 16.3H, Red Blood Count 6.16H, Hemoglobin 14.8, Hematocrit 47.2, Mean Corpuscular Volume 77L, Mean Corpuscular Hemoglobin 24.0L, Mean Corpuscular Hemoglobin Concent 31.4L, Red Cell Distribution Width 17.5H, Platelet Count 578H, Mean Platelet Volume 6.8, Neutrophils (%) (Auto) 74.8, Lymphocytes (%) (Auto) 13.2L, Monocytes (%) (Auto) 9.2, Eosinophils (%) (Auto) 0.4, Basophils (%) (Auto) 2.4H, Prothrombin Time 11.6H, Prothromb Time International Ratio 1.1, Activated Partial Thromboplast Time 24, Sodium Level 142, Potassium Level 4.8, Chloride Level 105, Carbon Dioxide Level 21, Anion Gap 16H, Blood Urea Nitrogen 30H, Creatinine 2.6H, Estimat Glomerular Filtration Rate 27.8, Glucose Level 82, Calcium Level 9.8, Magnesium Level 2.4, Total Bilirubin 0.5, Aspartate Amino Transf (AST/SGOT) 22, Alanine Aminotransferase (ALT/SGPT) 26, Alkaline Phosphatase 134H, Total Protein 9.4H, Albumin 4.9, Globulin 4.5, Albumin/Globulin Ratio 1.1 05/19/20 05:10: White Blood Count 11.7H, Red Blood Count 5.09, Hemoglobin 12.4L, Hematocrit 40.2L, Mean Corpuscular Volume 79L, Mean Corpuscular Hemoglobin 24.4L, Mean Corpuscular Hemoglobin Concent 30.9L, Red Cell Distribution Width 16.1H, Platelet Count 453H, Mean Platelet Volume 7.3, Neutrophils (%) (Auto) , Lymphocytes (%) (Auto) , Monocytes (%) (Auto) , Eosinophils (%) (Auto) , Basophils (%) (Auto) , Sodium Level 139, Potassium Level 5.2H, Chloride Level 103, Carbon Dioxide Level 25, Anion Gap 11, Blood Urea Nitrogen 26H, Creatinine 1.8H, Estimat Glomerular Filtration Rate 42.4, Glucose Level 115H, Calcium Level 9.0, Magnesium Level 2.1, Total Bilirubin 0.4, Aspartate Amino Transf (AST/SGOT) 12L, Alanine Aminotransferase (ALT/SGPT) 23, Alkaline Phosphatase 112, Total Protein 7.9, Albumin 4.0, Globulin 3.9, Albumin/Globulin Ratio 1.0, Differential Total Cells Counted 100, Neutrophils % (Manual) 93H, Lymphocytes % (Manual) 5L, Monocytes % (Manual) 2, Eosinophils % (Manual) 0, Basophils % (Manual) 0, Band Neutrophils 0, Toxic Granulation Occasional, Platelet Estimate IncreasedH, Platelet Morphology Normal, Erythrocyte Sedimentation Rate 8, Phosphorus Level 4.7, C-Reactive Protein, Quantitative < 0.4 Height (Feet): 5 Height (Inches): 11.00 Weight (Pounds): 155 General Appearance: no apparent distress EENT: normal ENT inspection Neck: supple Cardiovascular: normal rate Respiratory/Chest: decreased breath sounds Abdomen: normal bowel sounds, non tender, soft Extremities: non-tender Assessment/Plan Assessment/Plan: UC ? flare off meds plan colonoscopy tomorrow ESR/CRP Romeo Valentine MD May 19, 2020 13:53
[2020-05-19 14:21] LABS: APPEARANCE,URINE CLEAR; BILIRUBIN, URINE NEGATIVE (NEGATIVE); COLOR,URINE PALE YELLOW; GLUCOSE, URINE (UA) NEGATIVE (NEGATIVE); KETONES,URINE NEGATIVE (NEGATIVE); LEUKOCYTE ESTERASE ,URINE NEGATIVE (NEGATIVE); NITRITE,URINE NEGATIVE (NEGATIVE); PH,URINE 6 (4.5-8.0); PROTEIN,URINE NEGATIVE (NEGATIVE); UROBILINOGEN,URINE NORMAL MG/DL (0.0-1.0)
--- NOTE | 2020-05-19 14:43 | Diagnostic Imaging Report ---
Indication: Abdominal pain Technique: Grayscale and duplex images of the kidneys, retroperitoneum, and bladder were obtained. Comparison: none Findings: Right kidney measures 9.5 cm in length. Left kidney measures 9.4 cm in length. Both kidneys demonstrate normal echogenicity. No hydronephrosis. No focal abnormality. Normal inferior vena cava. Bladder is normal. Post void residual volume is 1 mL Impression: negative.
--- NOTE | 2020-05-19 14:45 | Consultation ---
History of Present Illness General Date patient seen: May 19, 2020 Reason for Hospitalization: Abdominal Pain Present Illness HPI This is a pleasant 39-year-old male well known to me from prior admissions who presents for increased nausea and vomiting for 1 day. Reports having prior history of Crohn's disease and states has had previous bowel resection laparoscopic prior. He states he had previously been taking Remicade and is currently followed by GI in [place]. 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 Multiple episodes of nonbilious nonbloody emesis. Associated diarrhea with some reported blood. States he had previously had appendectomy as well as bowel rese ction. He is normally followed at [facility] in [place]. Denies any fever. Reports having fistula which had intermittently been closed. Denies any current steroid use. States he is normally on medications for anxiety as well as OxyContin. States he took pain medication earlier in the day. surgery called to evaluate and assist with care. Allergies: Coded Allergies: SERTRALINE (Verified Allergy, Unknown, 05/18/20) TRAMADOL (Unverified Allergy, Unknown, 04/24/19) seizure COVID-19 Screening Contact w/high risk pt: No Recent Travel to affected area: No Experienced COVID-19 symptoms?: No Medication History Scheduled Duloxetine Hcl* (Cymbalta*), 60 MG ORAL DAILY, (Reported) [Mesalamine], 800 MG ORAL THREE TIMES A DAY Scheduled PRN Hydrocodone/Acetaminophen 5-325* (Hydrocodone/Acetaminophen 5-325*), 1 TAB ORAL Q6H PRN for For Pain Ondansetron (Zofran), 4 MG ORAL Q8H PRN for Nausea & Vomiting Miscellaneous Medications [remicade infusion], (Reported) Patient History History Provided By: Patient, Medical Record, PMD Healthcare decision maker Resuscitation status Advanced Directive on File Past Medical/Surgical History Past Medical/Surgical History: (1) Abdominal pain (2) Rectal bleeding (3) Intractable nausea and vomiting (4) Colitis (5) History of Crohn's disease Review of Systems Review of Symptoms General ROS: no weight loss or fever Psychological ROS: no depression or mood changes, no memory loss Ophthalmic ROS: no visual changes or eye irritation ENT ROS: no nasal congestion, hearing loss, dizziness Allergy and Immunology ROS: no allergic symptoms or urticaria Hematological and Lymphatic ROS: no swollen glands, unusual bleeding or bruising Endocrine ROS: no polyuria, polydipsia, weight changes, temperature intolerance Respiratory ROS: no cough, shortness of breath, or wheezing Cardiovascular ROS: no chest pain or dyspnea on exertion Gastrointestinal ROS: + abdominal pain, bright red blood in stool. Musculoskeletal ROS: no myalgias or arthralgias Neurological ROS: no TIA or stroke symptoms Dermatological ROS: no new or changing skin lesions, rashes or pruritis Physical Exam Physical Exam General appearance: alert, cooperative, no distress, appears stated age Head: Normocephalic, without obvious abnormality, atraumatic Eyes: conjunctivae/corneas clear. PERRL, EOM's intact. Fundi benign Throat: Lips, mucosa, and tongue normal. Teeth and gums normal Neck: supple, symmetrical, trachea midline, no adenopathy, thyroid: not enlarged, symmetric, no tenderness/mass/nodules, no carotid bruit and no JVD Lungs: clear to auscultation bilaterally Heart: regular rate and rhythm, S1, S2 normal, no murmur, click, rub or gallop Abdomen: soft, non-tender. Bowel sounds normal. No masses, no organomegaly Extremities: extremities normal, atraumatic, no cyanosis or edema Pulses: 2+ and symmetric Skin: Skin color, texture, turgor normal. No rashes or lesions Neurologic: Grossly normal Last 24 Hour Vital Signs Date Time Temp Pulse Resp B/P (MAP) Pulse Ox O2 Delivery O2 Flow Rate FiO2 05/19/20 12:00 97.5 86 20 111/70 (84) 98 05/19/20 09:00 Room Air 05/19/20 08:00 98.5 80 20 107/60 (76) 99 05/19/20 04:00 98.8 97 20 133/79 (97) 97 05/19/20 01:08 Room Air 05/19/20 00:21 98.2 89 18 132/87 99 Room Air 05/18/20 21:15 98.2 80 22 129/79 100 Room Air 05/18/20 20:52 100 22 Room Air 05/18/20 20:21 97.7 100 20 120/77 (91) 100 Room Air Intake and Output 05/18/20 05/19/20 19:00 07:00 Intake Total 1580 ml Balance 1580 ml Intake Oral 480 ml IV Total 1100 ml # Bowel Movements 1 Laboratory Tests Test 3/14/21 21:03 05/19/20 05:10 05/19/20 13:50 White Blood Count 16.3 K/UL (4.8-10.8) H 11.7 K/UL (4.8-10.8) H Red Blood Count 6.16 M/UL (4.70-6.10) H 5.09 M/UL (4.70-6.10) Hemoglobin 14.8 G/DL (14.2-18.0) 12.4 G/DL (14.2-18.0) L Hematocrit 47.2 % (42.0-52.0) 40.2 % (42.0-52.0) L Mean Corpuscular Volume 77 FL (80-99) L 79 FL (80-99) L Mean Corpuscular Hemoglobin 24.0 PG (27.0-31.0) L 24.4 PG (27.0-31.0) L Mean Corpuscular Hemoglobin Concent 31.4 G/DL (32.0-36.0) L 30.9 G/DL (32.0-36.0) L Red Cell Distribution Width 17.5 % (11.6-14.8) H 16.1 % (11.6-14.8) H Platelet Count 578 K/UL (150-450) H 453 K/UL (150-450) H Mean Platelet Volume 6.8 FL (6.5-10.1) 7.3 FL (6.5-10.1) Neutrophils (%) (Auto) 74.8 % (45.0-75.0) % (45.0-75.0) Lymphocytes (%) (Auto) 13.2 % (20.0-45.0) L % (20.0-45.0) Monocytes (%) (Auto) 9.2 % (1.0-10.0) % (1.0-10.0) Eosinophils (%) (Auto) 0.4 % (0.0-3.0) % (0.0-3.0) Basophils (%) (Auto) 2.4 % (0.0-2.0) H % (0.0-2.0) Prothrombin Time 11.6 SEC (9.30-11.50) H Prothromb Time International Ratio 1.1 (0.9-1.1) Activated Partial Thromboplast Time 24 SEC (23-33) Sodium Level 142 MMOL/L (136-145) 139 MMOL/L (136-145) Potassium Level 4.8 MMOL/L (3.5-5.1) 5.2 MMOL/L (3.5-5.1) H Chloride Level 105 MMOL/L (98-107) 103 MMOL/L (98-107) Carbon Dioxide Level 21 MMOL/L (21-32) 25 MMOL/L (21-32) Anion Gap 16 mmol/L (5-15) H 11 mmol/L (5-15) Blood Urea Nitrogen 30 mg/dL (7-18) H 26 mg/dL (7-18) H Creatinine 2.6 MG/DL (0.55-1.30) H 1.8 MG/DL (0.55-1.30) H Estimat Glomerular Filtration Rate 27.8 mL/min (>60) 42.4 mL/min (>60) Glucose Level 82 MG/DL (74-106) 115 MG/DL (74-106) H Calcium Level 9.8 MG/DL (8.5-10.1) 9.0 MG/DL (8.5-10.1) Magnesium Level 2.4 MG/DL (1.8-2.4) 2.1 MG/DL (1.8-2.4) Total Bilirubin 0.5 MG/DL (0.2-1.0) 0.4 MG/DL (0.2-1.0) Aspartate Amino Transf (AST/SGOT) 22 U/L (15-37) 12 U/L (15-37) L Alanine Aminotransferase (ALT/SGPT) 26 U/L (12-78) 23 U/L (12-78) Alkaline Phosphatase 134 U/L (46-116) H 112 U/L (46-116) Total Protein 9.4 G/DL (6.4-8.2) H 7.9 G/DL (6.4-8.2) Albumin 4.9 G/DL (3.4-5.0) 4.0 G/DL (3.4-5.0) Globulin 4.5 g/dL 3.9 g/dL Albumin/Globulin Ratio 1.1 (1.0-2.7) 1.0 (1.0-2.7) Differential Total Cells Counted 100 Neutrophils % (Manual) 93 % (45-75) H Lymphocytes % (Manual) 5 % (20-45) L Monocytes % (Manual) 2 % (1-10) Eosinophils % (Manual) 0 % (0-3) Basophils % (Manual) 0 % (0-2) Band Neutrophils 0 % (0-8) Toxic Granulation Occasional Platelet Estimate Increased H Platelet Morphology Normal Erythrocyte Sedimentation Rate 8 MM/HR (0-15) Phosphorus Level 4.7 MG/DL (2.5-4.9) C-Reactive Protein, Quantitative < 0.4 mg/dL (0.00-0.90) Urine Color Pale yellow Urine Appearance Clear Urine pH 6 (4.5-8.0) Urine Specific [place] 1.020 (1.005-1.035) Urine Protein Negative (NEGATIVE) Urine Glucose (UA) Negative (NEGATIVE) Urine Ketones Negative (NEGATIVE) Urine Blood Negative (NEGATIVE) Urine Nitrite Negative (NEGATIVE) Urine Bilirubin Negative (NEGATIVE) Urine Urobilinogen Normal MG/DL (0.0-1.0) Urine Leukocyte Esterase Negative (NEGATIVE) Urine RBC Pending Urine WBC Pending Urine Squamous Epithelial Cells Pending Urine Bacteria Pending Urine Random Sodium 37 mmol/L (20-110) Urine Opiates Screen Positive (NEGATIVE) H Urine Barbiturates Screen Negative (NEGATIVE) Phencyclidine (PCP) Screen Negative (NEGATIVE) Urine Amphetamines Screen Negative (NEGATIVE) Urine Benzodiazepines Screen Negative (NEGATIVE) Urine Cocaine Screen Positive (NEGATIVE) H Urine Marijuana (THC) Screen Positive (NEGATIVE) H Height (Feet): 5 Height (Inches): 11.00 Weight (Pounds): 155 Medications Current Medications Medications (Trade) Dose Ordered Sig/[place] Route PRN Reason Start Time Stop Time Status Last Admin Dose Admin Acetaminophen (Tylenol) 650 mg Q6H PRN ORAL Mild Pain (Pain Scale 1-3) 05/19/20 00:45 06/18/20 00:44 Acetaminophen (Tylenol) 650 mg Q6H PRN ORAL Temp >100.5 05/19/20 00:45 06/18/20 00:44 Acetaminophen/ Hydrocodone Bitart ([place] 5/325) 1 tab Q6H PRN ORAL Moderate Pain (Pain Scale 4-6) 05/19/20 00:45 05/26/20 00:44 Dextrose/Sodium Chloride 1,000 ml @ 100 mls/hr Q10H IV 05/19/20 11:45 06/18/20 11:44 05/19/20 12:43 Duloxetine HCl (Cymbalta) 60 mg DAILY ORAL 05/19/20 09:00 08/17/20 08:59 05/19/20 09:21 Hydromorphone HCl (Dilaudid) 0.5 mg Q4H PRN IVP Severe Pain (Pain Scale 7-10) 05/19/20 11:00 05/26/20 10:59 05/19/20 14:16 Ondansetron HCl (Zofran) 4 mg Q4H PRN IVP Nausea & Vomiting 05/19/20 00:45 06/18/20 00:44 Pantoprazole (Protonix) 40 mg EVERY 12 HOURS ORAL 05/19/20 21:00 06/18/20 20:59 Piperacillin Sod/ Tazobactam Sod 3.375 gm/Sodium Chloride 110 ml @ 27.5 mls/hr EVERY 8 HOURS IVPB 05/19/20 06:00 05/24/20 05:59 05/19/20 14:07 Polyethylene Glycol/ Electrolytes (Golytely) 4,000 ml ONCE ORAL 05/19/20 16:00 05/19/20 23:59 Assessment/Plan Problem List: (1) Rectal bleeding ICD Codes: K62.5 - Hemorrhage of anus and rectum SNOMED: 70826821 (2) Abdominal pain Assessment & Plan: 39 year old male with hx of Crohn's s/p right hemicolectomy lap prior presented with acute flare. states onset of pain 1 day prior to admission. sever 12/14. currently improved with pain meds. has been trying to take his meds. abd exam soft nt/nd bs+ imaging okay for diet abx iv fluids dehydration no acute surgical intervention at this time treat medically does not seem obstructed or strictured. will follow with exam and recs thank you ICD Codes: R10.9 - Unspecified abdominal pain SNOMED: 55934249 (3) Intractable nausea and vomiting ICD Codes: R11.2 - Nausea with vomiting, unspecified SNOMED: 853076264 (4) Colitis ICD Codes: K52.9 - Noninfective gastroenteritis and colitis, unspecified SNOMED: 46473594 (5) History of Crohn's disease ICD Codes: Z87.19 - Personal history of other diseases of the digestive system SNOMED: 136442571655564 Brendan Melendez May 19, 2020 14:45
[2020-05-19] MEDS ORDERED: Golytely 4L ORAL SCH (16:00)
[2020-05-19 17:18] VITALS: BP 126/79
--- NOTE | 2020-05-19 18:54 | History & Physical ---
History and Physical History & Physicial Dictated for Int Med-Dr Ibarra no. [id number] Atilio Hardin MD May 19, 2020 18:54
[2020-05-19] MEDS ORDERED: HYDROmorphone 1mg/ml Carpuject IVP PRN (18:59)
--- NOTE | 2020-05-19 19:44 | History and Physical Report ---
DATE OF ADMISSION: 05/18/2020 CHIEF COMPLAINT: Patient is a 39-year-old male with history of Crohn disease and colorectal fistula who presents with a chief complaint of abdominal pain and nausea and vomiting. HISTORY OF PRESENT ILLNESS: Patient was admitted to [facility] in May 2019. Patient has a history of Crohn disease. Patient is status post colon resection and perianal fistula repair. Patient states history of present illness began approximately 3 days ago. Patient began to experience drainage from the perirectal fistula. Patient then began to develop nausea and vomiting 3 days ago. Patient is now unable to tolerate solids or liquids. Patient also began to experience severe right lower quadrant abdominal pain. Patient was evaluated in the emergency room. Patient is admitted with probable colorectal fistula abscesses. REVIEW OF SYSTEMS: CONSTITUTIONAL: Patient denies weight loss or gain. Patient denies fevers or chills. HEENT: Patient denies ear or throat pain. Patient denies headache. CARDIOVASCULAR: Patient denies palpitations or chest pain. CHEST: Patient denies wheezing or shortness of breath. ABDOMINAL: Patient complains of right lower quadrant pain as above. Patient complains of nausea and vomiting as above. Patient complains of drainage from the perirectal fistula. GENITOURINARY: Patient denies dysuria or increased frequency of urination. NEUROMUSCULAR: Patient denies seizures or generalized weakness. PAST MEDICAL HISTORY: Significant for: 1. Crohn disease, diagnosed at age 13. 2. Perirectal abscess drainage as above. 3. Colorectal fistulotomy in 2019. 4. History of perirectal abscess and subsequent colorectal fistula. PAST SURGICAL HISTORY: Significant for: 1. Hemicolectomy in 2015. 2. Perirectal abscess drainage with fistulotomy in 2019. CURRENT MEDICATIONS: Patient has been off Remicade for the past 6 months. ALLERGIES: 1. Tramadol. 2. Sertraline. SOCIAL HISTORY: Patient is single and lives alone. Patient denies tobacco or alcohol use. PHYSICAL EXAMINATION: VITAL SIGNS: Temperature 97.7, respirations 20, pulse 100, blood pressure 120/77. GENERAL: Patient is well-developed, well-nourished male, in no apparent distress. HEENT: Eyes, pupils are equal and responsive to light and accommodation. Extraocular movements are intact. NECK: Supple. No lymphadenopathy. CHEST: Lungs are clear to auscultation bilaterally without wheezes or rales. CARDIOVASCULAR: Regular rhythm and rate. S1, S2 are normal without murmurs, rubs, or gallops. ABDOMEN: Soft, nondistended with decreased bowel sounds. Pain to palpation in the right lower quadrant. No evidence of rebound or guarding noted. EXTREMITIES: Negative for clubbing, cyanosis, or edema. RECTAL/GENITAL: Not performed. NEUROLOGIC: Cranial nerves II through XII are grossly intact without focal deficits. Motor strength is 5/5 bilaterally. Deep tendon reflexes are 2+ plantar. LABORATORY STUDIES: WBC 16.3, hemoglobin 14.8, hematocrit 47.2, platelets 578,000. Sodium 142, potassium 4.8, chloride 105, CO2 25, BUN 30, creatinine 2.6, glucose 82. ASSESSMENT: This is a 39-year-old male. 1. Right lower abdominal pain. 2. Nausea and vomiting. 3. 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 4. Crohn disease. 5. Acute renal failure. TREATMENT: 1. Right abdominal pain/nausea/vomiting/Crohn's disease. A Gastroenterology consultation has been obtained with Dr. Romeo Valentine. Patient is scheduled for colonoscopy on 05/20/2020. Follow recommendations of Gastroenterology. 2. Perirectal fistula. A General Surgery consultation has been obtained with Dr. Melendez. Patient has been placed empirically on intravenous Zosyn. 3. Right lower quadrant abdominal pain. This is probably secondary to Crohn disease. Patient is requesting intravenous Dilaudid at this time. 4. Renal failure. A Nephrology consultation has been obtained with Dr. Teddy Molina. Atilio Hardin M.D. DR: KAYDEN JOB#: [id number] CC:
--- NOTE | 2020-05-19 19:52 | NUR ---
NURSE NOTES: Patient in bed, alert and oriented x2, still drinking prep for procedure tomorrow, no BM yet per patient. Still complaining of pain. Instructed on NPO @ [place]. Call light and needs in reach. Bed in lowest and lock engaged. Will continue to monitor.
[2020-05-19 20:00] VITALS: BP 128/83
--- NOTE | 2020-05-19 20:59 | NUR ---
NURSE NOTES: Reminded patient to take more of his golytely before midnight. Per patient, he knows what his doing and been doing the procedure many times in his life , he knows the preparation very well.
[2020-05-20] VITALS (11 sets, daily range): BP systolic 106–146; BP diastolic 69–84
[2020-05-20] MEDS: D5NS 1,000 ML IV SCH ×3 (00:33→16:56)
--- NOTE | 2020-05-20 04:59 | NUR ---
NURSE NOTES: Stool specimen collected for culture and sent to the lab.
[2020-05-20] MEDS: Piperacillin/Tazobactam 3.375 GM in NS 110 ML IVPB SCH ×3 (05:01→21:34)
--- NOTE | 2020-05-20 07:10 | NUR ---
NURSE HAND-OFF: Important Events on Shift: pain mgt, npo, bm Patient Status: Diet: NPO Pending Orders: colonoscopy Pending Results/Labs: Pending MD notification: Latest Vital Signs: Temperature 97.7 , Pulse 89 , B/P 137 /74 , Respiratory Rate 20 , O2 SAT 99 , Room Air, O2 Flow Rate . Vital Sign Comment: Latest James Fall Score: 20 Fall Risk: Low Risk Safety Measures: Call light Within Reach, Bed Alarm Zone 1, Side Rails Side Rails x2, Bed position Low and Locked. Fall Precautions: Yellow Socks Patient Fall Education Report given to LYNN Hanks.
--- NOTE | 2020-05-20 07:45 | NUR ---
NURSE NOTES: Patient awake and alert and oriented,respirations unlabored.IV fluids infusing as ordered.Patient NPO for schedule Colonoscopy today.Call light within reach.
[2020-05-20] MEDS: DULoxetine 30mg cap ORAL SCH (09:00)
[2020-05-20 10:12] LABS: BASOPHILS % (AUTO) 1.4 % (0.0-2.0); EOSINOPHILS % (AUTO) 1.1 % (0.0-3.0); HEMATOCRIT 33.8 % (42.0-52.0); HEMOGLOBIN 10.7 G/DL (14.2-18.0); LYMPHOCYTES % (AUTO) 23.3 % (20.0-45.0); MEAN CORPUSCULAR VOLUME 79 FL (80-99); MONOCYTES % (AUTO) 8.6 % (1.0-10.0); NEUTROPHILS % (AUTO) 65.7 % (45.0-75.0); PLATELET COUNT 267 K/UL (150-450); RED BLOOD COUNT 4.29 M/UL (4.70-6.10); RED CELL DISTRIBUTION WIDTH 15.9 % (11.6-14.8); WHITE BLOOD COUNT 7.7 K/UL (4.8-10.8)
--- NOTE | 2020-05-20 10:12 | NUR ---
RD ASSESSMENT & RECOMMENDATIONS SEE CARE ACTIVITY FOR COMPLETE ASSESSMENT DAILY ESTIMATED NEEDS: Needs based on GI 67.8kg 25-35 kcals/kg 7637-1680 total kcals 1-1.5 g protein/kg 68-102 g total protein 25-30 mL/kg 2009-1007 total fluid mLs NUTRITION DIAGNOSIS: Altered GI fxn r/t Crohns as evidenced by pt adm w/ h/o Crohns, bowel resection, adm w/ acute flair N/V, pending colonoscopy, @87% IBW. CURRENT DIET:NPO / GI procedure PO DIET RECOMMENDATIONS: CLD -> advance to low fiber / soft diet as able ADDITIONAL RECOMMENDATIONS: 1) Obtain a standing scale wt 2) Ensure Clear TID w/ meals 3) Monitor PO tolerance when diet resumes 4) Monitor lytes w/ active diarrhea 5) Follow up w/ renal labs, need for renal diet restrictions
[2020-05-20] MEDS ORDERED: LORazepam Inj 2mg/ml 1ml IV PRN (10:15)
[2020-05-20] MEDS ORDERED: Ketorolac 30mg Inj IV PRN ×2 (10:15)
[2020-05-20] MEDS ORDERED: Labetalol 5mg/ml 20ml vial IV PRN (10:15)
[2020-05-20] MEDS ORDERED: Midazolam 2mg/2ml Inj IVP PRN (10:15)
[2020-05-20] MEDS ORDERED: DiphenhydrAMINE 50mg/ml Inj IVP PRN (10:15)
[2020-05-20] MEDS ORDERED: fentaNYL 100 mcg/2 mL IV PRN (10:15)
[2020-05-20] MEDS ORDERED: Atropine Sulfate 0.4mg/ml inj IVP PRN (10:15)
[2020-05-20] MEDS ORDERED: LR 1000ml 1,000 ML IVLG SCH (10:15)
--- NOTE | 2020-05-20 10:19 | Anethesia Preoperative Eval ---
Anesthesia Pre-op PMH/ROS General Date of Evaluation: May 20, 2020 Time of Evaluation: 11:56 Anesthesiologist: Chad ASA Score: ASA 3 Mallampati Score Class I : Soft palate, uvula, fauces, pillars visible Class II: Soft palate, uvula, fauces visible Class III: Soft palate, base of uvula visible Class IV: Only hard plate visible Mallampati Classification: Class II Surgeon: Meme Diagnosis: Acd Pain Surgical Procedure: Colonoscopy Anesthesia History: none Family History: no anesthesia problems Allergies: Coded Allergies: SERTRALINE (Verified Allergy, Unknown, 05/18/20) TRAMADOL (Unverified Allergy, Unknown, 04/24/19) seizure Medications: see eMAR Patient NPO?: Yes Past Medical History Cardiovascular: Reports: HTN Gastrointestinal/Genitourinary: Reports: other - Colitis, Crohns Disease Neurologic/Psychiatric: Reports: depression/anxiety PSxH Narrative: Rectal Sx, Bowel Resection, Appendectomy Anesthesia Pre-op Phys. Exam Physician Exam Last Vital Signs Date Time Temp Pulse Resp B/P (MAP) Pulse Ox O2 Delivery O2 Flow Rate FiO2 05/20/20 08:00 97.6 91 19 127/81 (96) 98 05/19/20 21:00 Room Air Constitutional: NAD Neurologic: CN 2-12 intact Cardiovascular: RRR Respiratory: CTA Gastrointestinal: S/NT/ND Airway Exam Mallampati Score: Class II MO: full ROM: full Teeth: intact Anesthesia Pre-op A/P Labs Hematology Test 05/20/20 09:55 White Blood Count Pending Red Blood Count Pending Hemoglobin Pending Hematocrit Pending Mean Corpuscular Volume Pending Mean Corpuscular Hemoglobin Pending Mean Corpuscular Hemoglobin Concent Pending Red Cell Distribution Width Pending Platelet Count Pending Mean Platelet Volume Pending Neutrophils (%) (Auto) Pending Lymphocytes (%) (Auto) Pending Monocytes (%) (Auto) Pending Eosinophils (%) (Auto) Pending Basophils (%) (Auto) Pending Chemistry Test 05/20/20 09:55 Sodium Level Pending Potassium Level Pending Chloride Level Pending Carbon Dioxide Level Pending Blood Urea Nitrogen Pending Creatinine Pending Estimat Glomerular Filtration Rate Pending Glucose Level Pending Uric Acid Pending Calcium Level Pending Phosphorus Level Pending Magnesium Level Pending Iron Level Pending Unsaturated Iron Binding Pending Ferritin Pending Total Bilirubin Pending Gamma Glutamyl Transpeptidase Pending Aspartate Amino Transf (AST/SGOT) Pending Alanine Aminotransferase (ALT/SGPT) Pending Alkaline Phosphatase Pending C-Reactive Protein, Quantitative Pending Pro-B-Type Natriuretic Peptide Pending Total Protein Pending Albumin Pending Globulin Pending Triglycerides Level Pending Cholesterol Level Pending LDL Cholesterol Pending HDL Cholesterol Pending Cholesterol/HDL Ratio Pending Vitamin B12 Level Pending Vitamin D 25-Hydroxy Pending 25-Hydroxy Vitamin D2 Pending 25-Hydroxy Vitamin D3 Pending Folate Pending Thyroid Stimulating Hormone (TSH) Pending Risk Assessment & Plan Assessment: ASA 3 Plan: TIVA Status Change Before Surgery: Herb Ayala MD May 20, 2020 10:19
--- NOTE | 2020-05-20 10:21 | Immediate Post-Op Evaluation ---
Immediate Post-Op Evalulation Immediate Post-Op Evalulation Procedure: Colonoscopy Date of Evaluation: May 20, 2020 Time of Evaluation: 13:09 IV Fluids: 300 LR Blood Products: 0 Estimated Blood Loss: 3 Urinary Output: 0 Blood Pressure Systolic: 106 Blood Pressure Diastolic: 78 Pulse Rate: 79 Respiratory Rate: 16 O2 Sat by Pulse Oximetry: 100 Temperature (Fahrenheit): 97.5 Pain Score (1-10): 2 Nausea: No Vomiting: No Complications 0 Patient Status: awake, reacts, patent, none Hydration Status: adequate Herb Bonilla MD May 20, 2020 10:21
--- NOTE | 2020-05-20 10:22 | 48 Hour Post Anesthesia Eval ---
Post Anesthesia Evaluation Procedure: Colonoscopy Date of Evaluation: May 20, 2020 Time of Evaluation: 15:34 Blood Pressure Systolic: 126 0: 92 Pulse Rate: 83 Respiratory Rate: 18 Temperature (Fahrenheit): 98 O2 Sat by Pulse Oximetry: 100 Airway: patent Nausea: No Vomiting: No Pain Intensity: 2 Hydration Status: adequate Cardiopulmonary Status: Stable Mental Status/LOC: patient returned to baseline Follow-up Care/Observations: 0 Post-Anesthesia Complications: 0 Follow-up care needed: ready to discharge Herb Bonilla MD May 20, 2020 10:22
[2020-05-20 10:42] LABS: % IRON SATURATION 26 % (15-50); ALANINE AMINOTRANSFERASE 17 U/L (12-78); ALBUMIN 3.3 G/DL (3.4-5.0); ALBUMIN/GLOBULIN RATIO 1.1 (1.0-2.7); ALKALINE PHOSPHATASE 80 U/L (46-116); ANION GAP 6 mmol/L (5-15); ASPARTATE AMINO TRANSFERASE 15 U/L (15-37); BILIRUBIN,TOTAL 0.5 MG/DL (0.2-1.0); BLOOD UREA NITROGEN 13 mg/dL (7-18); CALCIUM 8.3 MG/DL (8.5-10.1); CARBON DIOXIDE 28 MMOL/L (21-32); CHLORIDE 111 MMOL/L (98-107); CHOLESTEROL 179 MG/DL (< 200); CREATININE 1.4 MG/DL (0.55-1.30); FERRITIN 36 NG/ML (8-388); HDL CHOLESTEROL 40 MG/DL (40-60); IRON 88 ug/dL (50-175); POTASSIUM 3.8 MMOL/L (3.5-5.1); SODIUM 145 MMOL/L (136-145); TOTAL IRON BINDING CAPACITY 338 ug/dL (250-450); TRIGLYCERIDES 129 MG/DL (30-150)
--- NOTE | 2020-05-20 10:51 | Surgery Progress Note ---
Surgery Progress Note Subjective Additional Comments scope today states pain present still no n/v/f/c is hungry Objective Last 24 Hour Vital Signs Date Time Temp Pulse Resp B/P (MAP) Pulse Ox O2 Delivery O2 Flow Rate FiO2 05/20/20 09:00 Room Air 05/20/20 08:00 97.6 91 19 127/81 (96) 98 05/20/20 04:00 97.7 20 137/74 (95) 99 05/20/20 00:00 97.4 89 18 146/69 (94) 100 05/19/20 21:00 Room Air 05/19/20 20:00 97.8 100 20 128/83 (98) 100 05/19/20 17:18 98.0 101 20 126/79 (95) 98 05/19/20 12:00 97.5 86 20 111/70 (84) 98 I&O Intake and Output 05/19/20 05/20/20 19:00 07:00 Intake Total 1905.0 ml 1037.5 ml Output Total 1450 ml Balance 455.0 ml 1037.5 ml Intake Oral 720 ml IV Total 1185.0 ml 1037.5 ml Output Urine Total 1450 ml # Voids 3 2 # Bowel Movements 3 Cardiovascular: RSR Respiratory: clear Abdomen: soft, tenderness, present bowel sounds, non-distended Extremities: no edema, no tenderness, no cyanosis Laboratory Tests Test 05/19/20 13:50 05/20/20 09:55 Urine Color Pale yellow Urine Appearance Clear Urine pH 6 (4.5-8.0) Urine Specific [place] 1.020 (1.005-1.035) Urine Protein Negative (NEGATIVE) Urine Glucose (UA) Negative (NEGATIVE) Urine Ketones Negative (NEGATIVE) Urine Blood Negative (NEGATIVE) Urine Nitrite Negative (NEGATIVE) Urine Bilirubin Negative (NEGATIVE) Urine Urobilinogen Normal MG/DL (0.0-1.0) Urine Leukocyte Esterase Negative (NEGATIVE) Urine RBC 0 /HPF (0 - 0) Urine WBC 0-2 /HPF (0 - 0) Urine Squamous Epithelial Cells None /LPF (NONE/OCC) Urine Uric Acid Crystals Few /LPF (NONE) H Urine Bacteria None /HPF (NONE) Urine Random Sodium 37 mmol/L (20-110) Urine Opiates Screen Positive (NEGATIVE) H Urine Barbiturates Screen Negative (NEGATIVE) Phencyclidine (PCP) Screen Negative (NEGATIVE) Urine Amphetamines Screen Negative (NEGATIVE) Urine Benzodiazepines Screen Negative (NEGATIVE) Urine Cocaine Screen Positive (NEGATIVE) H Urine Marijuana (THC) Screen Positive (NEGATIVE) H White Blood Count 7.7 K/UL (4.8-10.8) Red Blood Count 4.29 M/UL (4.70-6.10) L Hemoglobin 10.7 G/DL (14.2-18.0) L Hematocrit 33.8 % (42.0-52.0) L Mean Corpuscular Volume 79 FL (80-99) L Mean Corpuscular Hemoglobin 25.0 PG (27.0-31.0) L Mean Corpuscular Hemoglobin Concent 31.7 G/DL (32.0-36.0) L Red Cell Distribution Width 15.9 % (11.6-14.8) H Platelet Count 267 K/UL (150-450) Mean Platelet Volume 6.8 FL (6.5-10.1) Neutrophils (%) (Auto) 65.7 % (45.0-75.0) Lymphocytes (%) (Auto) 23.3 % (20.0-45.0) Monocytes (%) (Auto) 8.6 % (1.0-10.0) Eosinophils (%) (Auto) 1.1 % (0.0-3.0) Basophils (%) (Auto) 1.4 % (0.0-2.0) Sodium Level 145 MMOL/L (136-145) Potassium Level 3.8 MMOL/L (3.5-5.1) Chloride Level 111 MMOL/L (98-107) H Carbon Dioxide Level 28 MMOL/L (21-32) Anion Gap 6 mmol/L (5-15) Blood Urea Nitrogen 13 mg/dL (7-18) Creatinine 1.4 MG/DL (0.55-1.30) H Estimat Glomerular Filtration Rate 56.7 mL/min (>60) Glucose Level 92 MG/DL (74-106) Uric Acid Pending Calcium Level 8.3 MG/DL (8.5-10.1) L Phosphorus Level Pending Magnesium Level Pending Iron Level 88 ug/dL (50-175) Total Iron Binding Capacity 338 ug/dL (250-450) Percent Iron Saturation 26 % (15-50) Unsaturated Iron Binding 250 ug/dL (112-346) Ferritin 36 NG/ML (8-388) Total Bilirubin 0.5 MG/DL (0.2-1.0) Gamma Glutamyl Transpeptidase Pending Aspartate Amino Transf (AST/SGOT) 15 U/L (15-37) Alanine Aminotransferase (ALT/SGPT) 17 U/L (12-78) Alkaline Phosphatase 80 U/L (46-116) C-Reactive Protein, Quantitative Pending Pro-B-Type Natriuretic Peptide Pending Total Protein 6.2 G/DL (6.4-8.2) L Albumin 3.3 G/DL (3.4-5.0) L Globulin 2.9 g/dL Albumin/Globulin Ratio 1.1 (1.0-2.7) Triglycerides Level 129 MG/DL (30-150) Cholesterol Level 179 MG/DL (< 200) LDL Cholesterol 115 mg/dL (<100) H HDL Cholesterol 40 MG/DL (40-60) Cholesterol/HDL Ratio 4.5 (3.3-4.4) H Vitamin B12 Level Pending Vitamin D 25-Hydroxy Pending 25-Hydroxy Vitamin D2 Pending 25-Hydroxy Vitamin D3 Pending Folate Pending Thyroid Stimulating Hormone (TSH) 2.167 uiU/mL (0.358-3.740) Plan Problems: (1) Rectal bleeding (2) Abdominal pain Assessment & Plan: 39 year old male with hx of Crohn's s/p right hemicolectomy lap prior presented with acute flare. states onset of pain 1 day prior to admission. sever 10/10. currently improved with pain meds. has been trying to take his meds. abd exam soft nt/nd bs+ imaging okay for diet abx iv fluids dehydration no acute surgical intervention at this time treat medically does not seem obstructed or strictured. will follow with exam and recs thank you DAILY ESTIMATED NEEDS: Needs based on GI 67.8kg 25-35 kcals/kg 8021-4663 total kcals 1-1.5 g protein/kg 68-102 g total protein 25-30 mL/kg 3765-0012 total fluid mLs NUTRITION DIAGNOSIS: Altered GI fxn r/t Crohns as evidenced by pt adm w/ h/o Crohns, bowel resection, adm w/ acute flair N/V, pending colonoscopy, @87% IBW. CURRENT DIET:NPO / GI procedure PO DIET RECOMMENDATIONS: CLD -> advance to low fiber / soft diet as able ADDITIONAL RECOMMENDATIONS: 1) Obtain a standing scale wt 2) Ensure Clear TID w/ meals 3) Monitor PO tolerance when diet resumes 4) Monitor lytes w/ active diarrhea 5) Follow up w/ renal labs, need for renal diet restrictions (3) Intractable nausea and vomiting (4) Colitis (5) History of Crohn's disease Brendan Melendez May 20, 2020 10:51
[2020-05-20 11:16] LABS: GAMMA GLUTAMYL TRANSPEPTIDASE 17 U/L (5-85); PHOSPHORUS 3.4 MG/DL (2.5-4.9)
[2020-05-20] MEDS ORDERED: LR 1000ml ONE (11:56)
[2020-05-20] MEDS ORDERED: Lidocaine 1% MPF 10mg/ml 5ml ONE (11:56)
--- NOTE | 2020-05-20 11:56 | Pre-Procedure Note/Attestation ---
Pre-Procedure Note/Attestation Complete Prior to Procedure Planned Procedure: not applicable Procedure Narrative: colonoscopy Indications for Procedure Pre-Operative Diagnosis: colitis Attestation I attest that I discussed the nature of the procedure; its benefits; risks and complications; and alternatives (and the risks and benefits of such alternatives), prior to the procedure, with the patient (or the patient's legal traffic workforce representative). I attest that, if there was a reasonable possibility of needing a blood trans fusion, the patient (or the patient's legal traffic workforce representative) was given the [facility] standardized written summary, pursuant to the Trell Swati Blood Safety Act ([place] Health and Safety Code # 1645, as amended). I attest that I re-evaluated the patient just prior to the surgery and that there has been no change in the patient's H&P, except as documented below: Romeo Valentine MD May 20, 2020 11:56
[2020-05-20] MEDS ORDERED: NS 500ML IVPB ONE (12:25)
--- NOTE | 2020-05-20 12:30 | Endoscopy Procedure Note ---
Endoscopy Procedure Note General Indication for Procedure: colitis Procedures Performed: colonoscopy Operative Findings/Diagnosis: hemorrhoids Specimen: yes Pt Tolerated Procedure Well: Yes Estimated Blood Loss: none Anesthesia Anesthesiologist: jeanie Anesthesia: MAC Inserted Devices Implant(s) used?: No GI Core Measures 50 yrs or older w/o bx or poly: Not Applicable 10yrs. F/U recommended: Not Applicable Romeo Valentine MD May 20, 2020 12:30
--- NOTE | 2020-05-20 14:18 | Nephrology Progress Note ---
Assessment/Plan Problem List: (1) ELIGIO (acute kidney injury) (2) Dehydration (3) Anemia (4) History of Crohn's disease (5) Intractable nausea and vomiting (6) Poly-drug misuser Assessment Acute on chronic renal failure Dehydration GI pathology, history of Crohn's disease Anemia Plan May 20: Serum creatinine lower. Urine positive for marijuana cocaine and opiates. Labs reviewed. Electrolyte within normal limit. Continue per GI. Previously: Urine studies Urine for tox screen IV hydration Anemia workup Monitor renal parameters and electrolytes Per consultants Subjective ROS Limited/Unobtainable: No Constitutional: Reports: malaise Objective Objective Last 24 Hour Vital Signs Date Time Temp Pulse Resp B/P (MAP) Pulse Ox O2 Delivery O2 Flow Rate FiO2 05/20/20 13:20 97.4 83 18 128/79 98 Room Air 05/20/20 13:15 81 16 132/84 99 Room Air 05/20/20 13:00 80 13 110/78 100 Simple Mask 6 05/20/20 12:55 79 11 110/74 100 Simple Mask 6 05/20/20 12:55 83 18 100 05/20/20 12:54 79 16 100 05/20/20 12:53 97.5 82 12 106/78 100 Simple Mask 6 05/20/20 09:00 Room Air 05/20/20 08:00 97.6 91 19 127/81 (96) 98 05/20/20 04:00 97.7 20 137/74 (95) 99 05/20/20 00:00 97.4 89 18 146/69 (94) 100 05/19/20 21:00 Room Air 05/19/20 20:00 97.8 100 20 128/83 (98) 100 05/19/20 17:18 98.0 101 20 126/79 (95) 98 Intake and Output 05/19/20 05/20/20 19:00 07:00 Intake Total 1905.0 ml 1037.5 ml Output Total 1450 ml Balance 455.0 ml 1037.5 ml Intake Oral 720 ml IV Total 1185.0 ml 1037.5 ml Output Urine Total 1450 ml # Voids 3 2 # Bowel Movements 3 Current Medications Medications (Trade) Dose Ordered Sig/[place] Route PRN Reason Start Time Stop Time Status Last Admin Dose Admin Acetaminophen (Tylenol) 650 mg Q6H PRN ORAL Mild Pain (Pain Scale 1-3) 05/19/20 00:45 06/18/20 00:44 Acetaminophen (Tylenol) 650 mg Q6H PRN ORAL Temp >100.5 05/19/20 00:45 06/18/20 00:44 Dextrose/Sodium Chloride 1,000 ml @ 100 mls/hr Q10H IV 05/19/20 11:45 06/18/20 11:44 05/20/20 00:33 Duloxetine HCl (Cymbalta) 60 mg DAILY ORAL 05/19/20 09:00 08/17/20 08:59 05/19/20 09:21 Hydromorphone HCl (Dilaudid) 1 mg Q4H PRN IVP Moderate Pain (Pain Scale 4-6) 05/19/20 18:59 05/26/20 18:58 05/19/20 20:32 Hydromorphone HCl (Dilaudid) 2 mg Q4H PRN IVP Severe Pain (Pain Scale 7-10) 05/19/20 18:59 05/26/20 18:58 05/20/20 09:25 Ondansetron HCl (Zofran) 4 mg Q4H PRN IVP Nausea & Vomiting 05/19/20 00:45 06/18/20 00:44 Pantoprazole (Protonix) 40 mg EVERY 12 HOURS ORAL 05/19/20 21:00 06/18/20 20:59 05/19/20 20:32 Piperacillin Sod/ Tazobactam Sod 3.375 gm/Sodium Chloride 110 ml @ 27.5 mls/hr EVERY 8 HOURS IVPB 05/19/20 06:00 05/24/20 05:59 05/20/20 05:01 Laboratory Tests 05/20/20 09:55: White Blood Count 7.7, Red Blood Count 4.29L, Hemoglobin 10.7L, Hematocrit 33.8L , Mean Corpuscular Volume 79L, Mean Corpuscular Hemoglobin 25.0L, Mean Corpuscular Hemoglobin Concent 31.7L, Red Cell Distribution Width 15.9H, Platelet Count 267, Mean Platelet Volume 6.8, Neutrophils (%) (Auto) 65.7, Lymphocytes (%) (Auto) 23.3, Monocytes (%) (Auto) 8.6, Eosinophils (%) (Auto) 1.1, Basophils (%) (Auto) 1.4, Sodium Level 145, Potassium Level 3.8, Chloride Level 111H, Carbon Dioxide Level 28, Anion Gap 6, Blood Urea Nitrogen 13, Creatinine 1.4H, Estimat Glomerular Filtration Rate 56.7, Glucose Level 92, Uric Acid 3.5, Calcium Level 8.3L, Phosphorus Level 3.4, Magnesium Level 2.1, Iron Level 88, Total Iron Binding Capacity 338, Percent Iron Saturation 26, Unsaturated Iron Binding 250, Ferritin 36, Total Bilirubin 0.5, Gamma Glutamyl Transpeptidase 17, Aspartate Amino Transf (AST/SGOT) 15, Alanine Aminotransferase (ALT/SGPT) 17, Alkaline Phosphatase 80, C-Reactive Protein, Quantitative < 0.4, Pro-B-Type Natriuretic Peptide 116, Total Protein 6.2L, Albumin 3.3L, Globulin 2.9, Albumin/Globulin Ratio 1.1, Triglycerides Level 129, Cholesterol Level 179, LDL Cholesterol 115H, HDL Cholesterol 40, Cholesterol/HDL Ratio 4.5H, Vitamin B12 Level 403, Vitamin D 25-Hydroxy [Pending], 25-Hydroxy V itamin D2 [Pending], 25-Hydroxy Vitamin D3 [Pending], Folate 14.2, Thyroid Stimulating Hormone (TSH) 2.167 Height (Feet): 5 Height (Inches): 9 Weight (Pounds): 150 General Appearance: no apparent distress Cardiovascular: normal rate Respiratory/Chest: decreased breath sounds Abdomen: distended Teddy Molina MD May 20, 2020 14:18
--- NOTE | 2020-05-20 15:29 | Procedure Note ---
DATE OF PROCEDURE: 05/20/2020 SURGEON: Romeo Valentine MD. PROCEDURE: Colonoscopy with biopsy. ANESTHESIA: Per Dr. Bonilla. INSTRUMENT: Olympus adult flexible colonoscope. INDICATION: Colitis. REASON FOR PROCEDURE: The procedure, risks, benefits, and possible consequences, including hemorrhage, aspiration, perforation and infection, and alternative treatments, were explained to the patient/legal guardian by Dr. Romeo Valentine and the patient/legal guardian understood and accepted these risks. PROCEDURE IN DETAIL: After informed consent was obtained and the patient was adequately sedated, first rectal exam was performed, which was positive for internal hemorrhoids. Then the scope was advanced from the rectum into the anastomosis. Quality of prep was good. The patient had no active evidence of colitis at this time, also ileum looked okay. Also, no evidence of any ulcerations or bleeding. Random biopsy from right colon was obtained. The patient tolerated the procedure very well without any complications. SUMMARY OF FINDINGS: 1. No evidence of any active colitis. The patient had a right hemicolectomy. 2. Status post random biopsy of the right and left colon. 3. Internal hemorrhoids. RECOMMENDATIONS: Resume diet. Follow pathology. Okay for discharge from GI standpoint. Romeo Valentine M.D. DR: RANDY JOB#: [id number] CC:
--- NOTE | 2020-05-20 18:00 | NUR ---
NURSE NOTES: Patient resting,tolerated diet,IV fluids continue to infuse as ordered.Call light within reach.
--- NOTE | 2020-05-20 18:14 | Internal Med Progress Note ---
Subjective Date of Service: May 20, 2020 Physician Name Atilio Hardin Attending Physician Genaro Ibarra MD Current Medications Medications (Trade) Dose Ordered Sig/[place] Route PRN Reason Start Time Stop Time Status Last Admin Dose Admin Acetaminophen (Tylenol) 650 mg Q6H PRN ORAL Mild Pain (Pain Scale 1-3) 05/19/20 00:45 06/18/20 00:44 Acetaminophen (Tylenol) 650 mg Q6H PRN ORAL Temp >100.5 05/19/20 00:45 06/18/20 00:44 Dextrose/Sodium Chloride 1,000 ml @ 100 mls/hr Q10H IV 05/19/20 11:45 06/18/20 11:44 05/20/20 16:56 Duloxetine HCl (Cymbalta) 60 mg DAILY ORAL 05/19/20 09:00 08/17/20 08:59 05/19/20 09:21 Hydromorphone HCl (Dilaudid) 1 mg Q4H PRN IVP Moderate Pain (Pain Scale 4-6) 05/19/20 18:59 05/26/20 18:58 05/19/20 20:32 Hydromorphone HCl (Dilaudid) 2 mg Q4H PRN IVP Severe Pain (Pain Scale 7-10) 05/19/20 18:59 05/26/20 18:58 05/20/20 14:31 Ondansetron HCl (Zofran) 4 mg Q4H PRN IVP Nausea & Vomiting 05/19/20 00:45 06/18/20 00:44 Pantoprazole (Protonix) 40 mg EVERY 12 HOURS ORAL 05/19/20 21:00 06/18/20 20:59 05/19/20 20:32 Piperacillin Sod/ Tazobactam Sod 3.375 gm/Sodium Chloride 110 ml @ 27.5 mls/hr EVERY 8 HOURS IVPB 05/19/20 06:00 05/24/20 05:59 05/20/20 14:45 Allergies: Coded Allergies: SERTRALINE (Verified Allergy, Unknown, 05/18/20) TRAMADOL (Unverified Allergy, Unknown, 04/24/19) seizure ROS Limited/Unobtainable: No Constitutional: Reports: no symptoms HEENT: Reports: no symptoms Cardiovascular: Reports: no symptoms Respiratory: Reports: no symptoms Gastrointestinal/Abdominal: Reports: abdominal pain Genitourinary: Reports: no symptoms Neurologic/Psychiatric: Reports: no symptoms Subjective 39 YO M with history of Crohn's disease admitted with nausea, vomiting and abdominal pain. Cover for [facility]-Dr Ibarra. S/P colonoscopy 05/20/20 Objective Last Vital Signs Date Time Temp Pulse Resp B/P (MAP) Pulse Ox O2 Delivery O2 Flow Rate FiO2 05/20/20 16:00 97.8 109 20 118/78 (91) 98 05/20/20 13:20 Room Air 05/20/20 13:00 6 Laboratory Tests Test 05/20/20 09:55 White Blood Count 7.7 K/UL (4.8-10.8) Red Blood Count 4.29 M/UL (4.70-6.10) L Hemoglobin 10.7 G/DL (14.2-18.0) L Hematocrit 33.8 % (42.0-52.0) L Mean Corpuscular Volume 79 FL (80-99) L Mean Corpuscular Hemoglobin 25.0 PG (27.0-31.0) L Mean Corpuscular Hemoglobin Concent 31.7 G/DL (32.0-36.0) L Red Cell Distribution Width 15.9 % (11.6-14.8) H Platelet Count 267 K/UL (150-450) Mean Platelet Volume 6.8 FL (6.5-10.1) Neutrophils (%) (Auto) 65.7 % (45.0-75.0) Lymphocytes (%) (Auto) 23.3 % (20.0-45.0) Monocytes (%) (Auto) 8.6 % (1.0-10.0) Eosinophils (%) (Auto) 1.1 % (0.0-3.0) Basophils (%) (Auto) 1.4 % (0.0-2.0) Sodium Level 145 MMOL/L (136-145) Potassium Level 3.8 MMOL/L (3.5-5.1) Chloride Level 111 MMOL/L (98-107) H Carbon Dioxide Level 28 MMOL/L (21-32) Anion Gap 6 mmol/L (5-15) Blood Urea Nitrogen 13 mg/dL (7-18) Creatinine 1.4 MG/DL (0.55-1.30) H Estimat Glomerular Filtration Rate 56.7 mL/min (>60) Glucose Level 92 MG/DL (74-106) Uric Acid 3.5 MG/DL (2.6-7.2) Calcium Level 8.3 MG/DL (8.5-10.1) L Phosphorus Level 3.4 MG/DL (2.5-4.9) Magnesium Level 2.1 MG/DL (1.8-2.4) Iron Level 88 ug/dL (50-175) Total Iron Binding Capacity 338 ug/dL (250-450) Percent Iron Saturation 26 % (15-50) Unsaturated Iron Binding 250 ug/dL (112-346) Ferritin 36 NG/ML (8-388) Total Bilirubin 0.5 MG/DL (0.2-1.0) Gamma Glutamyl Transpeptidase 17 U/L (5-85) Aspartate Amino Transf (AST/SGOT) 15 U/L (15-37) Alanine Aminotransferase (ALT/SGPT) 17 U/L (12-78) Alkaline Phosphatase 80 U/L (46-116) C-Reactive Protein, Quantitative < 0.4 mg/dL (0.00-0.90) Pro-B-Type Natriuretic Peptide 116 pg/mL (0-125) Total Protein 6.2 G/DL (6.4-8.2) L Albumin 3.3 G/DL (3.4-5.0) L Globulin 2.9 g/dL Albumin/Globulin Ratio 1.1 (1.0-2.7) Triglycerides Level 129 MG/DL (30-150) Cholesterol Level 179 MG/DL (< 200) LDL Cholesterol 115 mg/dL (<100) H HDL Cholesterol 40 MG/DL (40-60) Cholesterol/HDL Ratio 4.5 (3.3-4.4) H Vitamin B12 Level 403 PG/ML (193-986) Vitamin D 25-Hydroxy Pending 25-Hydroxy Vitamin D2 Pending 25-Hydroxy Vitamin D3 Pending Folate 14.2 NG/ML (8.6-58.9) Thyroid Stimulating Hormone (TSH) 2.167 uiU/mL (0.358-3.740) Microbiology Date/Time Source Procedure Growth Status 05/19/20 15:25 Nasopharynx SARS-CoV-2 Antigen (Rapid)([facility]) - Final Complete Intake and Output 05/19/20 05/20/20 19:00 07:00 Intake Total 1905.0 ml 1037.5 ml Output Total 1450 ml Balance 455.0 ml 1037.5 ml Intake Oral 720 ml IV Total 1185.0 ml 1037.5 ml Output Urine Total 1450 ml # Voids 3 2 # Bowel Movements 3 Objective PHYSICAL EXAMINATION: GENERAL: Patient is well-developed, well-nourished male, in no apparent distress. HEENT: Eyes, pupils are equal and responsive to light and accommodation. Extraocular movements are intact. NECK: Supple. No lymphadenopathy. CHEST: Lungs are clear to auscultation bilaterally without wheezes or rales. CARDIOVASCULAR: Regular rhythm and rate. S1, S2 are normal without murmurs, rubs, or gallops. ABDOMEN: Soft, nondistended with decreased bowel sounds. Pain to palpation in the right lower quadrant. No evidence of rebound or guarding noted. EXTREMITIES: Negative for clubbing, cyanosis, or edema. RECTAL/GENITAL: Not performed. NEUROLOGIC: Cranial nerves II through XII are grossly intact without focal deficits. Motor strength is 5/5 bilaterally. Deep tendon reflexes are 2+ plantar. Assessment/Plan Assessment/Plan ASSESSMENT: This is a 39-year-old male. 1. Right lower abdominal pain. 2. Nausea and vomiting. 3. 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 4. Crohn disease. 5. Acute renal failure. TREATMENT: 1. Right abdominal pain/nausea/vomiting/Crohn's disease. Gastroenterology consultation = Dr. Romeo Valentine. Patient S/P colonoscopy on 05/20/2020. Follow recommendations of Gastroenterology. 2. Perirectal fistula. General Surgery consultation = Dr. Melendez. ABX=Zosyn. 3. Right lower quadrant abdominal pain. This is probably secondary to Crohn disease. Continue intravenous Dilaudid. 4. Renal failure. Nephrology consultation = Dr. Teddy Molina. Atilio Hardin MD May 20, 2020 18:14
[2020-05-20] MEDS ORDERED: HYDROmorphone 1mg/ml Carpuject IVP PRN (18:30)
--- NOTE | 2020-05-20 19:24 | NUR ---
NURSE HAND-OFF: Chary BAILEY Important Events on Shift:[colonoscopy done today 05/20] Patient Status: [uneventful] Diet: [Regular ] Pending Orders: [] Pending Results/Labs:[] Pending MD notification:[] Latest Vital Signs: Temperature 97.8 , Pulse 109 , B/P 118 /78 , Respiratory Rate 20 , O2 SAT 98 , Room Air, O2 Flow Rate 6 . Vital Sign Comment: [] Latest James Fall Score: 20 Fall Risk: Low Risk Safety Measures: Call light Within Reach, Bed Alarm Zone 1, Side Rails Side Rails x2, Bed position Low and Locked. Fall Precautions: Yellow Socks Patient Fall Education Report given to [].
--- NOTE | 2020-05-20 19:48 | NUR ---
NURSE NOTES: Received patient in bed, awake, alert, oriented x4, able to make his needs known, ambulates with steady gate. IV site is clean dry and intact, call light is within reach, bed is lowered, locked, alarm is on, will continue to monitor for comfort and safety.
[2020-05-21 00:03] VITALS: BP 137/78
[2020-05-21] MEDS: D5NS 1,000 ML IV SCH (03:36)
[2020-05-21] MEDS: Piperacillin/Tazobactam 3.375 GM in NS 110 ML IVPB SCH ×3 (05:17→21:30)
[2020-05-21 06:29] LABS: BASOPHILS % (AUTO) 0.7 % (0.0-2.0); EOSINOPHILS % (AUTO) 1.4 % (0.0-3.0); HEMATOCRIT 34.2 % (42.0-52.0); HEMOGLOBIN 10.7 G/DL (14.2-18.0); LYMPHOCYTES % (AUTO) 21.6 % (20.0-45.0); MEAN CORPUSCULAR VOLUME 80 FL (80-99); MONOCYTES % (AUTO) 7.6 % (1.0-10.0); NEUTROPHILS % (AUTO) 68.7 % (45.0-75.0); PLATELET COUNT 283 K/UL (150-450); RED CELL DISTRIBUTION WIDTH 15.9 % (11.6-14.8); WHITE BLOOD COUNT 8.2 K/UL (4.8-10.8)
[2020-05-21 06:31] LABS: ANION GAP 4 mmol/L (5-15); BLOOD UREA NITROGEN 9 mg/dL (7-18); CALCIUM 8.5 MG/DL (8.5-10.1); CARBON DIOXIDE 31 MMOL/L (21-32); CHLORIDE 109 MMOL/L (98-107); CREATININE 1.3 MG/DL (0.55-1.30); POTASSIUM 4.2 MMOL/L (3.5-5.1); SODIUM 144 MMOL/L (136-145)
--- NOTE | 2020-05-21 07:13 | NUR ---
NURSE HAND-OFF: Important Events on Shift: uneventful Patient Status: full code Diet: regular Pending Orders: Pending Results/Labs: Pending MD notification: Latest Vital Signs: Temperature 98.7 , Pulse 74 , B/P 137 /78 , Respiratory Rate 18 , O2 SAT 98 , Room Air, O2 Flow Rate 6 . Vital Sign Comment: Latest James Fall Score: 20 Fall Risk: Low Risk Safety Measures: Call light Within Reach, Bed Alarm Zone 1, Side Rails Side Rails x2, Bed position Low and Locked. Fall Precautions: Yellow Socks Patient Fall Education Report given to Chloe Townsend RN
--- NOTE | 2020-05-21 07:38 | NUR ---
NURSE NOTES: Pt received from Christine BAILEY. Pt in bed resting, call light within reach, bed low and locked. Alert and talkative. No complaint of pain at this time.
[2020-05-21 07:59] VITALS: BP 118/71
[2020-05-21] MEDS: DULoxetine 30mg cap ORAL SCH (08:16)
--- NOTE | 2020-05-21 09:25 | General Progress Note ---
Subjective ROS Limited/Unobtainable: Yes Allergies: Coded Allergies: SERTRALINE (Verified Allergy, Unknown, 05/18/20) TRAMADOL (Unverified Allergy, Unknown, 04/24/19) seizure Objective Last 24 Hour Vital Signs Date Time Temp Pulse Resp B/P (MAP) Pulse Ox O2 Delivery O2 Flow Rate FiO2 05/21/20 07:59 98.7 91 18 118/71 (87) 98 05/21/20 04:22 98.7 05/21/20 00:03 98.7 74 18 137/78 (97) 98 05/21/20 00:02 97.8 05/20/20 21:17 Room Air 05/20/20 20:03 97.8 05/20/20 19:53 97.8 78 20 135/74 (94) 98 05/20/20 16:00 97.8 109 20 118/78 (91) 98 05/20/20 14:31 98.1 97 18 130/78 (95) 99 05/20/20 13:20 97.4 83 18 128/79 98 Room Air 05/20/20 13:15 81 16 132/84 99 Room Air 05/20/20 13:00 80 13 110/78 100 Simple Mask 6 05/20/20 12:55 79 11 110/74 100 Simple Mask 6 05/20/20 12:55 83 18 100 05/20/20 12:54 79 16 100 05/20/20 12:53 97.5 82 12 106/78 100 Simple Mask 6 Intake and Output 05/20/20 05/21/20 19:00 07:00 Intake Total 1735 ml 960 ml Output Total 300 ml 2000 ml Balance 1435 ml -1040 ml Intake Oral 960 ml IV Total 775 ml Other 960 ml Output Urine Total 300 ml 2000 ml Estimated Blood Loss 0 ml Laboratory Tests 05/20/20 09:55: White Blood Count 7.7, Red Blood Count 4.29L, Hemoglobin 10.7L, Hematocrit 33.8L , Mean Corpuscular Volume 79L, Mean Corpuscular Hemoglobin 25.0L, Mean Corpuscular Hemoglobin Concent 31.7L, Red Cell Distribution Width 15.9H, Platelet Count 267, Mean Platelet Volume 6.8, Neutrophils (%) (Auto) 65.7, Lymphocytes (%) (Auto) 23.3, Monocytes (%) (Auto) 8.6, Eosinophils (%) (Auto) 1.1, Basophils (%) (Auto) 1.4, Sodium Level 145, Potassium Level 3.8, Chloride Level 111H, Carbon Dioxide Level 28, Anion Gap 6, Blood Urea Nitrogen 13, Creatinine 1.4H, Estimat Glomerular Filtration Rate 56.7, Glucose Level 92, Uric Acid 3.5, Calcium Level 8.3L, Phosphorus Level 3.4, Magnesium Level 2.1, Iron Level 88, Total Iron Binding Capacity 338, Percent Iron Saturation 26, Unsaturated Iron Binding 250, Ferritin 36, Total Bilirubin 0.5, Gamma Glutamyl Transpeptidase 17, Aspartate Amino Transf (AST/SGOT) 15, Alanine Aminotransferase (ALT/SGPT) 17, Alkaline Phosphatase 80, C-Reactive Protein, Quantitative < 0.4, Pro-B-Type Natriuretic Peptide 116, Total Protein 6.2L, Albumin 3.3L, Globulin 2.9, Albumin/Globulin Ratio 1.1, Triglycerides Level 129, Cholesterol Level 179, LDL Cholesterol 115H, HDL Cholesterol 40, Cholesterol/HDL Ratio 4.5H, Vitamin B12 Level 403, Vitamin D 25-Hydroxy [Pending], 25-Hydroxy Vitamin D2 [Pending], 25-Hydroxy Vitamin D3 [Pending], Folate 14.2, Thyroid Stimulating Hormone (TSH) 2.167 05/21/20 05:32: White Blood Count 8.2, Red Blood Count 4.30L, Hemoglobin 10.7L, Hematocrit 34.2L , Mean Corpuscular Volume 80, Mean Corpuscular Hemoglobin 24.9L, Mean Corpuscular Hemoglobin Concent 31.3L, Red Cell Distribution Width 15.9H, Platelet Count 283, Mean Platelet Volume 7.3, Neutrophils (%) (Auto) 68.7, Lymphocytes (%) (Auto) 21.6, Monocytes (%) (Auto) 7.6, Eosinophils (%) (Auto) 1.4, Basophils (%) (Auto) 0.7, Sodium Level 144, Potassium Level 4.2, Chloride Level 109H, Carbon Dioxide Level 31, Anion Gap 4L, Blood Urea Nitrogen 9, Creatinine 1.3, Estimat Glomerular Filtration Rate > 60, Glucose Level 81, Calcium Level 8.5 Height (Feet): 5 Height (Inches): 9 Weight (Pounds): 150 General Appearance: alert EENT: normal ENT inspection Neck: supple Cardiovascular: normal rate Respiratory/Chest: lungs clear Abdomen: normal bowel sounds, non tender, soft Extremities: non-tender Assessment/Plan Assessment/Plan: UC ? flare off meds s/p colonoscopy no active flare on reg diet ok for dc GI stand point Romeo Valentine MD May 21, 2020 09:25
--- NOTE | 2020-05-21 11:30 | Nephrology Progress Note ---
Assessment/Plan Problem List: (1) ELIGIO (acute kidney injury) (2) Dehydration (3) Anemia (4) History of Crohn's disease (5) Intractable nausea and vomiting (6) Poly-drug misuser Assessment Acute on chronic renal failure Dehydration GI pathology, history of Crohn's disease Anemia Plan May 21: Renal parameters within normal limits. IV fluid discontinued. On trial of regular diet. May 20: Serum creatinine lower. Urine positive for marijuana cocaine and opiates. Labs reviewed. Electrolyte within normal limit. Continue per GI. Previously: Urine studies Urine for tox screen IV hydration Anemia workup Monitor renal parameters and electrolytes Per consultants Subjective ROS Limited/Unobtainable: No Constitutional: Reports: malaise Objective Objective Last 24 Hour Vital Signs Date Time Temp Pulse Resp B/P (MAP) Pulse Ox O2 Delivery O2 Flow Rate FiO2 05/21/20 09:00 Room Air 05/21/20 08:47 98.7 05/21/20 07:59 98.7 91 18 118/71 (87) 98 05/21/20 04:22 98.7 05/21/20 00:03 98.7 74 18 137/78 (97) 98 05/21/20 00:02 97.8 05/20/20 21:17 Room Air 05/20/20 20:03 97.8 05/20/20 19:53 97.8 78 20 135/74 (94) 98 05/20/20 16:00 97.8 109 20 118/78 (91) 98 05/20/20 14:31 98.1 97 18 130/78 (95) 99 05/20/20 13:20 97.4 83 18 128/79 98 Room Air 05/20/20 13:15 81 16 132/84 99 Room Air 05/20/20 13:00 80 13 110/78 100 Simple Mask 6 05/20/20 12:55 79 11 110/74 100 Simple Mask 6 05/20/20 12:55 83 18 100 05/20/20 12:54 79 16 100 05/20/20 12:53 97.5 82 12 106/78 100 Simple Mask 6 Intake and Output 05/20/20 05/21/20 19:00 07:00 Intake Total 1735 ml 960 ml Output Total 300 ml 2000 ml Balance 1435 ml -1040 ml Intake Oral 960 ml IV Total 775 ml Other 960 ml Output Urine Total 300 ml 2000 ml Estimated Blood Loss 0 ml Current Medications Medications (Trade) Dose Ordered Sig/Aguila Route PRN Reason Start Time Stop Time Status Last Admin Dose Admin Acetaminophen (Tylenol) 650 mg Q6H PRN ORAL Mild Pain (Pain Scale 1-3) 05/19/20 00:45 06/18/20 00:44 Acetaminophen (Tylenol) 650 mg Q6H PRN ORAL Temp >100.5 05/19/20 00:45 06/18/20 00:44 Duloxetine HCl (Cymbalta) 60 mg DAILY ORAL 05/19/20 09:00 08/17/20 08:59 05/21/20 08:16 Hydromorphone HCl (Dilaudid) 2 mg Q4H PRN IVP Moderate Pain (Pain Scale 4-6) 05/21/20 10:15 05/26/20 18:58 Hydromorphone HCl (Dilaudid) 4 mg Q4H PRN IVP Severe Pain (Pain Scale 7-10) 05/20/20 18:30 05/26/20 18:58 05/21/20 08:17 Ondansetron HCl (Zofran) 4 mg Q4H PRN IVP Nausea & Vomiting 05/19/20 00:45 06/18/20 00:44 Pantoprazole (Protonix) 40 mg EVERY 12 HOURS ORAL 05/19/20 21:00 06/18/20 20:59 05/21/20 08:16 Piperacillin Sod/ Tazobactam Sod 3.375 gm/Sodium Chloride 110 ml @ 27.5 mls/hr EVERY 8 HOURS IVPB 05/19/20 06:00 05/24/20 05:59 05/21/20 05:17 Laboratory Tests 05/21/20 05:32: White Blood Count 8.2, Red Blood Count 4.30L, Hemoglobin 10.7L, Hematocrit 34.2L , Mean Corpuscular Volume 80, Mean Corpuscular Hemoglobin 24.9L, Mean Corpuscular Hemoglobin Concent 31.3L, Red Cell Distribution Width 15.9H, Nayely telet Count 283, Mean Platelet Volume 7.3, Neutrophils (%) (Auto) 68.7, Lymphocytes (%) (Auto) 21.6, Monocytes (%) (Auto) 7.6, Eosinophils (%) (Auto) 1.4, Basophils (%) (Auto) 0.7, Sodium Level 144, Potassium Level 4.2, Chloride Level 109H, Carbon Dioxide Level 31, Anion Gap 4L, Blood Urea Nitrogen 9, Creatinine 1.3, Estimat Glomerular Filtration Rate > 60, Glucose Level 81, Calcium Level 8.5 Height (Feet): 5 Height (Inches): 9 Weight (Pounds): 150 General Appearance: no apparent distress, lethargic Cardiovascular: tachycardia - Slightly Respiratory/Chest: decreased breath sounds Abdomen: distended Teddy Molina MD May 21, 2020 11:30
[2020-05-21 11:56] VITALS: BP 118/77
--- NOTE | 2020-05-21 12:24 | Internal Med Progress Note ---
Subjective Date of Service: May 21, 2020 Physician Name Hardin,Atilio Attending Physician Genaro Ibarra MD Current Medications Medications (Trade) Dose Ordered Sig/[place]guila Route PRN Reason Start Time Stop Time Status Last Admin Dose Admin Acetaminophen (Tylenol) 650 mg Q6H PRN ORAL Mild Pain (Pain Scale 1-3) 05/19/20 00:45 06/18/20 00:44 Acetaminophen (Tylenol) 650 mg Q6H PRN ORAL Temp >100.5 05/19/20 00:45 06/18/20 00:44 Duloxetine HCl (Cymbalta) 60 mg DAILY ORAL 05/19/20 09:00 08/17/20 08:59 05/21/20 08:16 Hydromorphone HCl (Dilaudid) 2 mg Q4H PRN IVP Moderate Pain (Pain Scale 4-6) 05/21/20 10:15 05/26/20 18:58 Hydromorphone HCl (Dilaudid) 4 mg Q4H PRN IVP Severe Pain (Pain Scale 7-10) 05/20/20 18:30 05/26/20 18:58 05/21/20 08:17 Ondansetron HCl (Zofran) 4 mg Q4H PRN IVP Nausea & Vomiting 05/19/20 00:45 06/18/20 00:44 Pantoprazole (Protonix) 40 mg EVERY 12 HOURS ORAL 05/19/20 21:00 06/18/20 20:59 05/21/20 08:16 Piperacillin Sod/ Tazobactam Sod 3.375 gm/Sodium Chloride 110 ml @ 27.5 mls/hr EVERY 8 HOURS IVPB 05/19/20 06:00 05/24/20 05:59 05/21/20 05:17 Allergies: Coded Allergies: SERTRALINE (Verified Allergy, Unknown, 05/18/20) TRAMADOL (Unverified Allergy, Unknown, 04/24/19) seizure ROS Limited/Unobtainable: No Constitutional: Reports: no symptoms HEENT: Reports: no symptoms Cardiovascular: Reports: no symptoms Respiratory: Reports: no symptoms Gastrointestinal/Abdominal: Reports: abdominal pain Genitourinary: Reports: no symptoms Neurologic/Psychiatric: Reports: no symptoms Subjective 39 YO M with history of Crohn's disease admitted with nausea, vomiting and abdominal pain. Cover for Int Med-Dr Ibarra. S/P colonoscopy 05/20/20. Tolerating regular diet Objective Last Vital Signs Date Time Temp Pulse Resp B/P (MAP) Pulse Ox O2 Delivery O2 Flow Rate FiO2 05/21/20 11:56 98.0 88 20 118/77 (91) 97 05/21/20 09:00 Room Air 05/20/20 13:00 6 Laboratory Tests Test 05/21/20 05:32 White Blood Count 8.2 K/UL (4.8-10.8) Red Blood Count 4.30 M/UL (4.70-6.10) L Hemoglobin 10.7 G/DL (14.2-18.0) L Hematocrit 34.2 % (42.0-52.0) L Mean Corpuscular Volume 80 FL (80-99) Mean Corpuscular Hemoglobin 24.9 PG (27.0-31.0) L Mean Corpuscular Hemoglobin Concent 31.3 G/DL (32.0-36.0) L Red Cell Distribution Width 15.9 % (11.6-14.8) H Platelet Count 283 K/UL (150-450) Mean Platelet Volume 7.3 FL (6.5-10.1) Neutrophils (%) (Auto) 68.7 % (45.0-75.0) Lymphocytes (%) (Auto) 21.6 % (20.0-45.0) Monocytes (%) (Auto) 7.6 % (1.0-10.0) Eosinophils (%) (Auto) 1.4 % (0.0-3.0) Basophils (%) (Auto) 0.7 % (0.0-2.0) Sodium Level 144 MMOL/L (136-145) Potassium Level 4.2 MMOL/L (3.5-5.1) Chloride Level 109 MMOL/L (98-107) H Carbon Dioxide Level 31 MMOL/L (21-32) Anion Gap 4 mmol/L (5-15) L Blood Urea Nitrogen 9 mg/dL (7-18) Creatinine 1.3 MG/DL (0.55-1.30) Estimat Glomerular Filtration Rate > 60 mL/min (>60) Glucose Level 81 MG/DL (74-106) Calcium Level 8.5 MG/DL (8.5-10.1) Microbiology Date/Time Source Procedure Growth Status 05/19/20 15:25 Nasopharynx SARS-CoV-2 Antigen (Rapid)([facility]) - Final Complete Intake and Output 05/20/20 05/21/20 19:00 07:00 Intake Total 1735 ml 960 ml Output Total 300 ml 2000 ml Balance 1435 ml -1040 ml Intake Oral 960 ml IV Total 775 ml Other 960 ml Output Urine Total 300 ml 2000 ml Estimated Blood Loss 0 ml Objective PHYSICAL EXAMINATION: GENERAL: Patient is well-developed, well-nourished male, in no apparent distress. HEENT: Eyes, pupils are equal and responsive to light and accommodation. Extraocular movements are intact. NECK: Supple. No lymphadenopathy. CHEST: Lungs are clear to auscultation bilaterally without wheezes or rales. CARDIOVASCULAR: Regular rhythm and rate. S1, S2 are normal without murmurs, rubs, or gallops. ABDOMEN: Soft, nondistended with decreased bowel sounds. Pain to palpation in the right lower quadrant. No evidence of rebound or guarding noted. EXTREMITIES: Negative for clubbing, cyanosis, or edema. RECTAL/GENITAL: Not performed. NEUROLOGIC: Cranial nerves II through XII are grossly intact without focal deficits. Motor strength is 5/5 bilaterally. Deep tendon reflexes are 2+ plantar. Assessment/Plan Assessment/Plan ASSESSMENT: This is a 39-year-old male. 1. Right lower abdominal pain. 2. Nausea and vomiting. 3. 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 4. Crohn disease. 5. Acute renal failure. TREATMENT: 1. Right abdominal pain/nausea/vomiting/Crohn's disease. Gastroenterology consultation = Dr. Romeo Valentine. Patient S/P colonoscopy on 05/20/2020. Follow recommendations of Gastroenterology. 2. Perirectal fistula. General Surgery consultation = Dr. Melendez. ABX=Zosyn. 3. Right lower quadrant abdominal pain. This is probably secondary to Crohn disease. Continue intravenous Dilaudid. 4. Renal failure. Nephrology consultation = Dr. Teddy Molina. 5. Discharge planning Atilio Hardin MD May 21, 2020 12:24
[2020-05-21 16:00] VITALS: BP 136/85
--- NOTE | 2020-05-21 19:44 | NUR ---
NURSE HAND-OFF: Important Events on Shift:[no remarkable events] Patient Status: [full code] Diet: [r] Pending Orders: [] Pending Results/Labs:[] Pending MD notification:[] Latest Vital Signs: Temperature 98.2 , Pulse 94 , B/P 136 /85 , Respiratory Rate 18 , O2 SAT 97 , Room Air, O2 Flow Rate 6 . Vital Sign Comment: [] Latest James Fall Score: 20 Fall Risk: Low Risk Safety Measures: Call light Within Reach, Bed Alarm Zone 1, Side Rails Side Rails x2, Bed position Low and Locked. Fall Precautions: Yellow Socks Patient Fall Education Report given to [Kye BAILEY].
--- NOTE | 2020-05-21 19:45 | NUR ---
NURSE NOTES: Received patient in no apparent distress. A&OX4. IV site patent and intact. Bed in lowest position. Call light within reach. Will continue to monitor.
[2020-05-21 20:00] VITALS: BP 142/87
--- NOTE | 2020-05-21 22:10 | Surgery Progress Note ---
Surgery Progress Note Subjective Symptoms: pain same Additional Comments late entry as seen this AM improved no complaints ambulatory diet okay Objective Last 24 Hour Vital Signs Date Time Temp Pulse Resp B/P (MAP) Pulse Ox O2 Delivery O2 Flow Rate FiO2 05/21/20 18:22 98.2 05/21/20 16:00 98.2 94 18 136/85 (102) 97 05/21/20 14:03 98.0 05/21/20 11:56 98.0 88 20 118/77 (91) 97 05/21/20 09:00 Room Air 05/21/20 08:47 98.7 05/21/20 07:59 98.7 91 18 118/71 (87) 98 05/21/20 04:22 98.7 05/21/20 00:03 98.7 74 18 137/78 (97) 98 05/21/20 00:02 97.8 I&O Intake and Output 05/20/20 05/21/20 19:00 07:00 Intake Total 1735 ml 960 ml Output Total 300 ml 2000 ml Balance 1435 ml -1040 ml Intake Oral 960 ml IV Total 775 ml Other 960 ml Output Urine Total 300 ml 2000 ml Estimated Blood Loss 0 ml Cardiovascular: RSR Respiratory: clear Abdomen: soft, flat, tenderness, present bowel sounds, non-distended Extremities: no edema, no tenderness, no cyanosis Laboratory Tests Test 05/21/20 05:32 White Blood Count 8.2 K/UL (4.8-10.8) Red Blood Count 4.30 M/UL (4.70-6.10) L Hemoglobin 10.7 G/DL (14.2-18.0) L Hematocrit 34.2 % (42.0-52.0) L Mean Corpuscular Volume 80 FL (80-99) Mean Corpuscular Hemoglobin 24.9 PG (27.0-31.0) L Mean Corpuscular Hemoglobin Concent 31.3 G/DL (32.0-36.0) L Red Cell Distribution Width 15.9 % (11.6-14.8) H Platelet Count 283 K/UL (150-450) Mean Platelet Volume 7.3 FL (6.5-10.1) Neutrophils (%) (Auto) 68.7 % (45.0-75.0) Lymphocytes (%) (Auto) 21.6 % (20.0-45.0) Monocytes (%) (Auto) 7.6 % (1.0-10.0) Eosinophils (%) (Auto) 1.4 % (0.0-3.0) Basophils (%) (Auto) 0.7 % (0.0-2.0) Sodium Level 144 MMOL/L (136-145) Potassium Level 4.2 MMOL/L (3.5-5.1) Chloride Level 109 MMOL/L (98-107) H Carbon Dioxide Level 31 MMOL/L (21-32) Anion Gap 4 mmol/L (5-15) L Blood Urea Nitrogen 9 mg/dL (7-18) Creatinine 1.3 MG/DL (0.55-1.30) Estimat Glomerular Filtration Rate > 60 mL/min (>60) Glucose Level 81 MG/DL (74-106) Calcium Level 8.5 MG/DL (8.5-10.1) Plan Problems: (1) Rectal bleeding (2) Abdominal pain Assessment & Plan: 39 year old male with hx of Crohn's s/p right hemicolectomy lap prior presented with acute flare. states onset of pain 1 day prior to admission. sever 12/14. currently improved with pain meds. has been trying to take his meds. abd exam soft nt/nd bs+ imaging okay for diet abx iv fluids dehydration no acute surgical intervention at this time treat medically does not seem obstructed or strictured. will follow with exam and recs thank you DAILY ESTIMATED NEEDS: Needs based on GI 67.8kg 25-35 kcals/kg 9336-9646 total kcals 1-1.5 g protein/kg 68-102 g total protein 25-30 mL/kg 3806-6344 total fluid mLs NUTRITION DIAGNOSIS: Altered GI fxn r/t Crohns as evidenced by pt adm w/ h/o Crohns, bowel resection, adm w/ acute flair N/V, pending colonoscopy, @87% IBW. CURRENT DIET:NPO / GI procedure PO DIET RECOMMENDATIONS: CLD -> advance to low fiber / soft diet as able ADDITIONAL RECOMMENDATIONS: 1) Obtain a standing scale wt 2) Ensure Clear TID w/ meals 3) Monitor PO tolerance when diet resumes 4) Monitor lytes w/ active diarrhea 5) Follow up w/ renal labs, need for renal diet restrictions (3) Intractable nausea and vomiting (4) Colitis (5) History of Crohn's disease Brendan Melendez May 21, 2020 22:10
[2020-05-22] VITALS: BP 135/85
[2020-05-22 04:00] VITALS: BP 128/88
[2020-05-22 05:48] LABS: BASOPHILS % (AUTO) 1.4 % (0.0-2.0); EOSINOPHILS % (AUTO) 2.4 % (0.0-3.0); HEMATOCRIT 38.3 % (42.0-52.0); LYMPHOCYTES % (AUTO) 19.2 % (20.0-45.0); MEAN CORPUSCULAR VOLUME 78 FL (80-99); MONOCYTES % (AUTO) 7.6 % (1.0-10.0); NEUTROPHILS % (AUTO) 69.4 % (45.0-75.0); PLATELET COUNT 276 K/UL (150-450); RED BLOOD COUNT 4.89 M/UL (4.70-6.10); RED CELL DISTRIBUTION WIDTH 15.5 % (11.6-14.8); WHITE BLOOD COUNT 9.9 K/UL (4.8-10.8)
[2020-05-22 06:11] LABS: ALANINE AMINOTRANSFERASE 19 U/L (12-78); ALBUMIN 3.7 G/DL (3.4-5.0); ALBUMIN/GLOBULIN RATIO 1.1 (1.0-2.7); ALKALINE PHOSPHATASE 90 U/L (46-116); ANION GAP 7 mmol/L (5-15); ASPARTATE AMINO TRANSFERASE 13 U/L (15-37); BILIRUBIN,TOTAL 0.3 MG/DL (0.2-1.0); BLOOD UREA NITROGEN 10 mg/dL (7-18); CALCIUM 9.1 MG/DL (8.5-10.1); CARBON DIOXIDE 30 MMOL/L (21-32); CHLORIDE 105 MMOL/L (98-107); CREATININE 1.3 MG/DL (0.55-1.30); PHOSPHORUS 4.3 MG/DL (2.5-4.9); POTASSIUM 3.9 MMOL/L (3.5-5.1); SODIUM 142 MMOL/L (136-145)
[2020-05-22] MEDS: Piperacillin/Tazobactam 3.375 GM in NS 110 ML IVPB SCH ×3 (06:42→22:03)
--- NOTE | 2020-05-22 07:38 | NUR ---
NURSE HAND-OFF: Important Events on Shift: Patient Status: Diet: regular Pending Orders: Collect stool for c-diff Pending Results/Labs: Pending MD notification: Latest Vital Signs: Temperature 98.2 , Pulse 86 , B/P 128 /88 , Respiratory Rate 18 , O2 SAT 97 , Room Air, O2 Flow Rate 6 . Vital Sign Comment: Latest James Fall Score: 20 Fall Risk: Low Risk Safety Measures: Call light Within Reach, Bed Alarm Zone 1, Side Rails Side Rails x2, Bed position Low and Locked. Fall Precautions: Yellow Socks Patient Fall Education Report given to Yecenia BAILEY.
--- NOTE | 2020-05-22 07:39 | NUR ---
NURSE NOTES: Hand-off report received by LYNN Fishman. Patient in stable condition, breathing even and unlabored on room air, able to make needs known, alert and oriented x4. Bed in lowest and locked position, bed alarm on, call light within reach, fall precautions followed and patient educated, side rails upx2.
[2020-05-22 08:00] VITALS: BP 130/81
[2020-05-22] MEDS: DULoxetine 30mg cap ORAL SCH (08:07)
--- NOTE | 2020-05-22 10:21 | NUR ---
RD ASSESSMENT & RECOMMENDATIONS SEE CARE ACTIVITY FOR COMPLETE ASSESSMENT DAILY ESTIMATED NEEDS: Needs based on GI 67.8kg 25-35 kcals/kg 5574-3257 total kcals 1-1.5 g protein/kg 68-102 g total protein 25-30 mL/kg 1603-0829 total fluid mLs NUTRITION DIAGNOSIS: Altered GI fxn r/t Crohns as evidenced by pt adm w/ h/o Crohns, bowel resection, adm w/ acute flair N/V, pending colonoscopy, @87% IBW. CURRENT DIET:Now Regular PO DIET RECOMMENDATIONS: CLD -> advance to low fiber / soft diet as able ADDITIONAL RECOMMENDATIONS: 1) Obtain a standing scale wt 2) Ensure Clear TID w/ meals 3) Monitor PO tolerance when diet resumes- 75-100% intake 4) Monitor lytes w/ active diarrhea 5) Follow up w/ renal labs, need for renal diet restrictions
[2020-05-22 12:00] VITALS: BP 137/82
--- NOTE | 2020-05-22 12:15 | Nephrology Progress Note ---
Assessment/Plan Problem List: (1) ELIGIO (acute kidney injury) (2) Dehydration (3) Anemia (4) History of Crohn's disease (5) Intractable nausea and vomiting (6) Poly-drug misuser Assessment Acute on chronic renal failure Dehydration GI pathology, history of Crohn's disease Anemia Plan May 22: Renal parameters within normal limit. Tolerating p.o. well. Continue per consultants. Med list reviewed. May 21: Renal parameters within normal limits. IV fluid discontinued. On trial of regular diet. May 20: Serum creatinine lower. Urine positive for marijuana cocaine and opiates. Labs reviewed. Electrolyte within normal limit. Continue per GI. Previously: Urine studies Urine for tox screen IV hydration Anemia workup Monitor renal parameters and electrolytes Per consultants Subjective ROS Limited/Unobtainable: No Constitutional: Reports: malaise Objective Objective Last 24 Hour Vital Signs Date Time Temp Pulse Resp B/P (MAP) Pulse Ox O2 Delivery O2 Flow Rate FiO2 05/22/20 08:00 98.0 95 19 130/81 (97) 95 05/22/20 04:00 98.2 86 18 128/88 (101) 97 05/22/20 00:00 98.0 89 18 135/85 (102) 98 05/21/20 21:00 Room Air 05/21/20 20:00 97.8 91 18 142/87 (105) 98 05/21/20 18:22 98.2 05/21/20 16:00 98.2 94 18 136/85 (102) 97 05/21/20 14:03 98.0 Intake and Output 05/21/20 05/22/20 19:00 07:00 Intake Total 1420 ml 710.0 ml Output Total 800 ml 1900 ml Balance 620 ml -1190.0 ml Intake Oral 1420 ml 600 ml IV Total 110.0 ml Output Urine Total 800 ml 1900 ml Current Medications Medications (Trade) Dose Ordered Sig/[place] Route PRN Reason Start Time Stop Time Status Last Admin Dose Admin Acetaminophen (Tylenol) 650 mg Q6H PRN ORAL Mild Pain (Pain Scale 1-3) 05/19/20 00:45 06/18/20 00:44 Acetaminophen (Tylenol) 650 mg Q6H PRN ORAL Temp >100.5 05/19/20 00:45 06/18/20 00:44 Duloxetine HCl (Cymbalta) 60 mg DAILY ORAL 05/19/20 09:00 08/17/20 08:59 05/22/20 08:07 Hydromorphone HCl (Dilaudid) 2 mg Q4H PRN IVP Moderate Pain (Pain Scale 4-6) 05/21/20 10:15 05/26/20 18:58 Hydromorphone HCl (Dilaudid) 4 mg Q4H PRN IVP Severe Pain (Pain Scale 7-10) 05/20/20 18:30 05/26/20 18:58 05/22/20 11:32 Ondansetron HCl (Zofran) 4 mg Q4H PRN IVP Nausea & Vomiting 05/19/20 00:45 06/18/20 00:44 Pantoprazole (Protonix) 40 mg EVERY 12 HOURS ORAL 05/19/20 21:00 06/18/20 20:59 05/22/20 08:07 Piperacillin Sod/ Tazobactam Sod 3.375 gm/Sodium Chloride 110 ml @ 27.5 mls/hr EVERY 8 HOURS IVPB 05/19/20 06:00 05/24/20 05:59 05/22/20 14:08 Laboratory Tests 05/22/20 04:55: White Blood Count 9.9, Red Blood Count 4.89, Hemoglobin 12.0L, Hematocrit 38.3L, Mean Corpuscular Volume 78L, Mean Corpuscular Hemoglobin 24.5L, Mean Corpuscular Hemoglobin Concent 31.3L, Red Cell Distribution Width 15.5H, Platelet Count 276, Mean Platelet Volume 7.3, Neutrophils (%) (Auto) 69.4, Lymphocytes (%) (Auto) 19.2L, Monocytes (%) (Auto) 7.6, Eosinophils (%) (Auto) 2.4, Basophils (%) (Auto) 1.4, Sodium Level 142, Potassium Level 3.9, Chloride Level 105, Carbon Dioxide Level 30, Anion Gap 7, Blood Urea Nitrogen 10, Creatinine 1.3, Estimat Glomerular Filtration Rate > 60, Glucose Level 92, Uric Acid 3.3, Calcium Level 9.1, Phosphorus Level 4.3, Magnesium Level 2.2, Total Bilirubin 0.3, Aspartate Amino Transf (AST/SGOT) 13L, Alanine Aminotransferase (ALT/SGPT) 19, Alkaline Phosphatase 90, C-Reactive Protein, Quantitative < 0.4, Total Protein 7.2, Albumin 3.7, Globulin 3.5, Albumin/Globulin Ratio 1.1 Height (Feet): 5 Height (Inches): 9 Weight (Pounds): 150 General Appearance: no apparent distress Cardiovascular: tachycardia Respiratory/Chest: decreased breath sounds Abdomen: soft Teddy Molina MD May 22, 2020 12:15
--- NOTE | 2020-05-22 12:39 | Surgery Progress Note ---
Surgery Progress Note Subjective Symptoms: improved, pain same, tolerating diet, voiding well, passing flatus, BM Objective Last 24 Hour Vital Signs Date Time Temp Pulse Resp B/P (MAP) Pulse Ox O2 Delivery O2 Flow Rate FiO2 05/22/20 12:02 98.0 05/22/20 08:00 98.0 95 19 130/81 (97) 95 05/22/20 04:00 98.2 86 18 128/88 (101) 97 05/22/20 00:00 98.0 89 18 135/85 (102) 98 05/21/20 21:00 Room Air 05/21/20 20:00 97.8 91 18 142/87 (105) 98 05/21/20 18:22 98.2 05/21/20 16:00 98.2 94 18 136/85 (102) 97 05/21/20 14:03 98.0 I&O Intake and Output 05/21/20 05/22/20 19:00 07:00 Intake Total 1420 ml 710.0 ml Output Total 800 ml 1900 ml Balance 620 ml -1190.0 ml Intake Oral 1420 ml 600 ml IV Total 110.0 ml Output Urine Total 800 ml 1900 ml Cardiovascular: RSR Respiratory: clear Abdomen: soft, flat, non-tender, present bowel sounds, non-distended Extremities: no edema, no tenderness, no cyanosis Laboratory Tests Test 05/22/20 04:55 White Blood Count 9.9 K/UL (4.8-10.8) Red Blood Count 4.89 M/UL (4.70-6.10) Hemoglobin 12.0 G/DL (14.2-18.0) L Hematocrit 38.3 % (42.0-52.0) L Mean Corpuscular Volume 78 FL (80-99) L Mean Corpuscular Hemoglobin 24.5 PG (27.0-31.0) L Mean Corpuscular Hemoglobin Concent 31.3 G/DL (32.0-36.0) L Red Cell Distribution Width 15.5 % (11.6-14.8) H Platelet Count 276 K/UL (150-450) Mean Platelet Volume 7.3 FL (6.5-10.1) Neutrophils (%) (Auto) 69.4 % (45.0-75.0) Lymphocytes (%) (Auto) 19.2 % (20.0-45.0) L Monocytes (%) (Auto) 7.6 % (1.0-10.0) Eosinophils (%) (Auto) 2.4 % (0.0-3.0) Basophils (%) (Auto) 1.4 % (0.0-2.0) Sodium Level 142 MMOL/L (136-145) Potassium Level 3.9 MMOL/L (3.5-5.1) Chloride Level 105 MMOL/L (98-107) Carbon Dioxide Level 30 MMOL/L (21-32) Anion Gap 7 mmol/L (5-15) Blood Urea Nitrogen 10 mg/dL (7-18) Creatinine 1.3 MG/DL (0.55-1.30) Estimat Glomerular Filtration Rate > 60 mL/min (>60) Glucose Level 92 MG/DL (74-106) Uric Acid 3.3 MG/DL (2.6-7.2) Calcium Level 9.1 MG/DL (8.5-10.1) Phosphorus Level 4.3 MG/DL (2.5-4.9) Magnesium Level 2.2 MG/DL (1.8-2.4) Total Bilirubin 0.3 MG/DL (0.2-1.0) Aspartate Amino Transf (AST/SGOT) 13 U/L (15-37) L Alanine Aminotransferase (ALT/SGPT) 19 U/L (12-78) Alkaline Phosphatase 90 U/L (46-116) C-Reactive Protein, Quantitative < 0.4 mg/dL (0.00-0.90) Total Protein 7.2 G/DL (6.4-8.2) Albumin 3.7 G/DL (3.4-5.0) Globulin 3.5 g/dL Albumin/Globulin Ratio 1.1 (1.0-2.7) Plan Problems: (1) Rectal bleeding (2) Abdominal pain Assessment & Plan: 39 year old male with hx of Crohn's s/p right hemicolectomy lap prior presented with acute flare. states onset of pain 1 day prior to a dmission. sever 12/14. currently improved with pain meds. has been trying to take his meds. abd exam soft nt/nd bs+ imaging okay for diet abx iv fluids dehydration no acute surgical intervention at this time treat medically does not seem obstructed or strictured. will follow with exam and recs thank you DAILY ESTIMATED NEEDS: Needs based on GI 67.8kg 25-35 kcals/kg 4259-5893 total kcals 1-1.5 g protein/kg 68-102 g total protein 25-30 mL/kg 9136-2899 total fluid mLs NUTRITION DIAGNOSIS: Altered GI fxn r/t Crohns as evidenced by pt adm w/ h/o Crohns, bowel resection, adm w/ acute flair N/V, pending colonoscopy, @87% IBW. CURRENT DIET:NPO / GI procedure PO DIET RECOMMENDATIONS: CLD -> advance to low fiber / soft diet as able ADDITIONAL RECOMMENDATIONS: 1) Obtain a standing scale wt 2) Ensure Clear TID w/ meals 3) Monitor PO tolerance when diet resumes 4) Monitor lytes w/ active diarrhea 5) Follow up w/ renal labs, need for renal diet restrictions (3) Intractable nausea and vomiting (4) Colitis (5) History of Crohn's disease Brendan Melendez May 22, 2020 12:39
--- NOTE | 2020-05-22 13:06 | General Progress Note ---
Subjective ROS Limited/Unobtainable: Yes Allergies: Coded Allergies: SERTRALINE (Verified Allergy, Unknown, 05/18/20) TRAMADOL (Unverified Allergy, Unknown, 04/24/19) seizure Objective Last 24 Hour Vital Signs Date Time Temp Pulse Resp B/P (MAP) Pulse Ox O2 Delivery O2 Flow Rate FiO2 05/22/20 12:02 98.0 05/22/20 08:00 98.0 95 19 130/81 (97) 95 05/22/20 04:00 98.2 86 18 128/88 (101) 97 05/22/20 00:00 98.0 89 18 135/85 (102) 98 05/21/20 21:00 Room Air 05/21/20 20:00 97.8 91 18 142/87 (105) 98 05/21/20 18:22 98.2 05/21/20 16:00 98.2 94 18 136/85 (102) 97 05/21/20 14:03 98.0 Intake and Output 05/21/20 05/22/20 19:00 07:00 Intake Total 1420 ml 710.0 ml Output Total 800 ml 1900 ml Balance 620 ml -1190.0 ml Intake Oral 1420 ml 600 ml IV Total 110.0 ml Output Urine Total 800 ml 1900 ml Laboratory Tests 05/22/20 04:55: White Blood Count 9.9, Red Blood Count 4.89, Hemoglobin 12.0L, Hematocrit 38.3L, Mean Corpuscular Volume 78L, Mean Corpuscular Hemoglobin 24.5L, Mean Corpuscular Hemoglobin Concent 31.3L, Red Cell Distribution Width 15.5H, Platelet Count 276, Mean Platelet Volume 7.3, Neutrophils (%) (Auto) 69.4, Lymphocytes (%) (Auto) 19.2L, Monocytes (%) (Auto) 7.6, Eosinophils (%) (Auto) 2.4, Basophils (%) (Auto) 1.4, Sodium Level 142, Potassium Level 3.9, Chloride Level 105, Carbon Dioxide Level 30, Anion Gap 7, Blood Urea Nitrogen 10, Creatinine 1.3, Estimat Glomerular Filtration Rate > 60, Glucose Level 92, Uric Acid 3.3, Calcium Level 9.1, Phosphorus Level 4.3, Magnesium Level 2.2, Total Bilirubin 0.3, Aspartate Amino Transf (AST/SGOT) 13L, Alanine Aminotransferase (ALT/SGPT) 19, Alkaline Phosphatase 90, C-Reactive Protein, Quantitative < 0.4, Total Protein 7.2, Albumin 3.7, Globulin 3.5, Albumin/Globulin Ratio 1.1 Height (Feet): 5 Height (Inches): 9 Weight (Pounds): 150 General Appearance: no apparent distress EENT: normal ENT inspection Neck: supple Cardiovascular: normal rate Respiratory/Chest: decreased breath sounds Abdomen: normal bowel sounds, non tender, soft Extremities: non-tender Assessment/Plan Assessment/Plan: UC ? flare off meds s/p colonoscopy no active flare on reg diet ok for dc GI stand point Romeo Valentine MD May 22, 2020 13:06
--- NOTE | 2020-05-22 13:45 | NUR ---
NURSE NOTES: Requested from Dr. Ibarra stool softener, awaiting callback.
--- NOTE | 2020-05-22 14:27 | Internal Med Progress Note ---
Subjective Physician Name Genaro Ibarra Attending Physician Genaro Ibarra MD Current Medications Medications (Trade) Dose Ordered Sig/Aguila Route PRN Reason Start Time Stop Time Status Last Admin Dose Admin Acetaminophen (Tylenol) 650 mg Q6H PRN ORAL Mild Pain (Pain Scale 1-3) 05/19/20 00:45 06/18/20 00:44 Acetaminophen (Tylenol) 650 mg Q6H PRN ORAL Temp >100.5 05/19/20 00:45 06/18/20 00:44 Duloxetine HCl (Cymbalta) 60 mg DAILY ORAL 05/19/20 09:00 08/17/20 08:59 05/22/20 08:07 Hydromorphone HCl (Dilaudid) 2 mg Q4H PRN IVP Moderate Pain (Pain Scale 4-6) 05/21/20 10:15 05/26/20 18:58 Hydromorphone HCl (Dilaudid) 4 mg Q4H PRN IVP Severe Pain (Pain Scale 7-10) 05/20/20 18:30 05/26/20 18:58 05/22/20 11:32 Ondansetron HCl (Zofran) 4 mg Q4H PRN IVP Nausea & Vomiting 05/19/20 00:45 06/18/20 00:44 Pantoprazole (Protonix) 40 mg EVERY 12 HOURS ORAL 05/19/20 21:00 06/18/20 20:59 05/22/20 08:07 Piperacillin Sod/ Tazobactam Sod 3.375 gm/Sodium Chloride 110 ml @ 27.5 mls/hr EVERY 8 HOURS IVPB 05/19/20 06:00 05/24/20 05:59 05/22/20 14:08 Allergies: Coded Allergies: SERTRALINE (Verified Allergy, Unknown, 05/18/20) TRAMADOL (Unverified Allergy, Unknown, 04/24/19) seizure Subjective awake, alert, responsive, NAD, C/O abdominal pain. Objective Last Vital Signs Date Time Temp Pulse Resp B/P (MAP) Pulse Ox O2 Delivery O2 Flow Rate FiO2 05/22/20 12:02 98.0 05/22/20 12:00 92 18 137/82 (100) 96 05/21/20 21:00 Room Air 05/20/20 13:00 6 Laboratory Tests Test 05/22/20 04:55 White Blood Count 9.9 K/UL (4.8-10.8) Red Blood Count 4.89 M/UL (4.70-6.10) Hemoglobin 12.0 G/DL (14.2-18.0) L Hematocrit 38.3 % (42.0-52.0) L Mean Corpuscular Volume 78 FL (80-99) L Mean Corpuscular Hemoglobin 24.5 PG (27.0-31.0) L Mean Corpuscular Hemoglobin Concent 31.3 G/DL (32.0-36.0) L Red Cell Distribution Width 15.5 % (11.6-14.8) H Platelet Count 276 K/UL (150-450) Mean Platelet Volume 7.3 FL (6.5-10.1) Neutrophils (%) (Auto) 69.4 % (45.0-75.0) Lymphocytes (%) (Auto) 19.2 % (20.0-45.0) L Monocytes (%) (Auto) 7.6 % (1.0-10.0) Eosinophils (%) (Auto) 2.4 % (0.0-3.0) Basophils (%) (Auto) 1.4 % (0.0-2.0) Sodium Level 142 MMOL/L (136-145) Potassium Level 3.9 MMOL/L (3.5-5.1) Chloride Level 105 MMOL/L (98-107) Carbon Dioxide Level 30 MMOL/L (21-32) Anion Gap 7 mmol/L (5-15) Blood Urea Nitrogen 10 mg/dL (7-18) Creatinine 1.3 MG/DL (0.55-1.30) Estimat Glomerular Filtration Rate > 60 mL/min (>60) Glucose Level 92 MG/DL (74-106) Uric Acid 3.3 MG/DL (2.6-7.2) Calcium Level 9.1 MG/DL (8.5-10.1) Phosphorus Level 4.3 MG/DL (2.5-4.9) Magnesium Level 2.2 MG/DL (1.8-2.4) Total Bilirubin 0.3 MG/DL (0.2-1.0) Aspartate Amino Transf (AST/SGOT) 13 U/L (15-37) L Alanine Aminotransferase (ALT/SGPT) 19 U/L (12-78) Alkaline Phosphatase 90 U/L (46-116) C-Reactive Protein, Quantitative < 0.4 mg/dL (0.00-0.90) Total Protein 7.2 G/DL (6.4-8.2) Albumin 3.7 G/DL (3.4-5.0) Globulin 3.5 g/dL Albumin/Globulin Ratio 1.1 (1.0-2.7) Microbiology Date/Time Source Procedure Growth Status 05/19/20 15:25 Nasopharynx SARS-CoV-2 Antigen (Rapid)([facility]) - Final Complete Intake and Output 05/21/20 05/22/20 19:00 07:00 Intake Total 1420 ml 710.0 ml Output Total 800 ml 1900 ml Balance 620 ml -1190.0 ml Intake Oral 1420 ml 600 ml IV Total 110.0 ml Output Urine Total 800 ml 1900 ml Objective General: No acute distress, awake and alert HEENT: NCAT, sclera anicteric, PERRL, EOMI. Neck: Supple, no significant jugular venous distention, Lungs: Good inspiratory effort, no accessory muscle use, clear to auscultation bilaterally, no Wheeze or Rales. Heart: Regular rate and rhythm, normal S1/S2, no murmurs/gallops Abdomen: soft, Less Right side tenderness, nondistended. Normoactive bowel sounds. / Rectal: Refused and deferred. Extremities: No Cyanosis , clubbing or edema. Neuro: A&O x 3, Able to move all extremities Skin: warm, no rashes or lesions Psych: Normal mood and affect Assessment/Plan Assessment/Plan ASSESSMENT: This is a 39-year-old male. 1. Right lower abdominal pain. 2. Intractable Nausea and vomiting. 3. 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 4. Crohn disease. 5. Acute renal failure. 6. Anemia. TREATMENT: 1. Right abdominal pain/nausea/vomiting/Crohn's disease. Gastroenterology consultation = Dr. Romeo Valentine. 2. Perirectal fistula. General Surgery consultation = Dr. Melendez. ABX=Zosyn. 3. Right lower quadrant abdominal pain. This is probably secondary to Crohn disease. Continue intravenous Dilaudid. 4. Renal failure. Nephrology consultation = Dr. Teddy Molina. 5. Discharge planning in AM. Colonoscopy: (05/20/2020) SUMMARY OF FINDINGS: 1. No evidence of any active colitis. The patient had a right hemicolectomy. 2. Status post random biopsy of the right and left colon. 3. Internal hemorrhoids. Genaro Ibarra MD May 22, 2020 14:27
[2020-05-22 16:00] VITALS: BP 131/79
[2020-05-22] MEDS: Docusate 100mg cap ORAL SCH (18:54)
--- NOTE | 2020-05-22 19:30 | NUR ---
NURSE NOTES: Patient awake in bed, alert and oriented x4, with complaint of chronic severe pain. Will medicate as ordered. On room no SOB noted. Call light and needs in reach. Bed in lowest and lock engaged. Will continue plan of care.
--- NOTE | 2020-05-22 19:30 | NUR ---
NURSE HAND-OFF: Important Events on Shift: docusate sodium ordered to prevent impaction, no emesis noted Patient Status: stable condition, full code, alert and oriented x4 throughout shift, abdomen soft and non-tender Diet: regular, tolerated food well, intake adequate Pending Orders: [] Pending Results/Labs:[] Pending MD notification:[] Latest Vital Signs: Temperature 98.0 , Pulse 90 , B/P 131 /79 , Respiratory Rate 19 , O2 SAT 100 , Room Air, O2 Flow Rate 6 . Vital Sign Comment: [] Latest James Fall Score: 20 Fall Risk: Low Risk Safety Measures: Call light Within Reach, Bed Alarm Zone 1, Side Rails Side Rails x2, Bed position Low and Locked. Fall Precautions: Yellow Socks Patient Fall Education Report given to LYNN Sigala.
[2020-05-22 20:00] VITALS: BP 111/67
[2020-05-23] VITALS: BP 124/75
[2020-05-23 04:00] VITALS: BP 106/73
[2020-05-23] MEDS: Piperacillin/Tazobactam 3.375 GM in NS 110 ML IVPB SCH (05:39)
[2020-05-23] MEDS ORDERED: HYDROmorphone 2mg tab ORAL PRN (07:00)
--- NOTE | 2020-05-23 07:16 | NUR ---
NURSE HAND-OFF: Important Events on Shift: pain mgt Patient Status: Diet: Pending Orders: Pending Results/Labs: Pending MD notification: Latest Vital Signs: Temperature 97.9 , Pulse 92 , B/P 106 /73 , Respiratory Rate 20 , O2 SAT 97 , Room Air, O2 Flow Rate 6 . Vital Sign Comment: Latest James Fall Score: 20 Fall Risk: Low Risk Safety Measures: Call light Within Reach, Bed Alarm Zone 1, Side Rails Side Rails x2, Bed position Low and Locked. Fall Precautions: Yellow Socks Patient Fall Education Report given to LYNN Keene.
--- NOTE | 2020-05-23 07:17 | NUR ---
NURSE NOTES: Received hand-off report from LYNN Sigala. Patient in stable condition, breathing even and unlabored on room air, alert and oriented to baseline (x4), denies feeling of constipation, abd non-tender and soft to palpation, still no bowel movement for c. diff collection upon questioning and report from PM nurse. Bed in lowest and locked position, bed alarm on, call light within reach, side rails upx2, fall prevention precaution education provided.
--- NOTE | 2020-05-23 07:20 | NUR ---
NURSE NOTES: Received a verbal discharge order to home by Dr. Ibarra. Noted and will carry out.
--- NOTE | 2020-05-23 07:30 | NUR ---
NURSE NOTES: Notified Dr. Ibarra to clarify whether any prescription would be given for this patient, Dr. Ibarra stated, "no new meds."
[2020-05-23 08:00] VITALS: BP 121/93
[2020-05-23] MEDS: DULoxetine 30mg cap ORAL SCH (08:20)
[2020-05-23] MEDS: Docusate 100mg cap ORAL SCH (08:20)
--- NOTE | 2020-05-23 08:22 | NUR ---
NURSE NOTES: Patient stated, "I do not want to go home without any medications, I want oxycodone." I clarified the pain he was feeling and offered dilaudid PO.
--- NOTE | 2020-05-23 11:22 | General Progress Note ---
Subjective ROS Limited/Unobtainable: Yes Allergies: Coded Allergies: SERTRALINE (Verified Allergy, Unknown, 05/18/20) TRAMADOL (Unverified Allergy, Unknown, 04/24/19) seizure Objective Last 24 Hour Vital Signs Date Time Temp Pulse Resp B/P (MAP) Pulse Ox O2 Delivery O2 Flow Rate FiO2 05/23/20 09:00 Room Air 05/23/20 08:00 98.5 95 19 121/93 (102) 97 05/23/20 04:00 97.9 92 20 106/73 (84) 97 05/23/20 00:00 97.1 85 20 124/75 (91) 97 05/22/20 20:52 Room Air 05/22/20 20:00 97.3 94 20 111/67 (82) 98 05/22/20 16:13 98.0 05/22/20 16:00 97.8 90 19 131/79 (96) 100 05/22/20 12:02 98.0 05/22/20 12:00 98.6 92 18 137/82 (100) 96 Intake and Output 05/22/20 05/23/20 19:00 07:00 Intake Total 600 ml Output Total 800 ml Balance 600 ml -800 ml Other 600 ml Output Urine Total 800 ml # Voids 2 Height (Feet): 5 Height (Inches): 9 Weight (Pounds): 150 General Appearance: no apparent distress EENT: normal ENT inspection Neck: supple Cardiovascular: normal rate Respiratory/Chest: decreased breath sounds Abdomen: hypoactive bowel sounds Extremities: normal inspection Assessment/Plan Assessment/Plan: UC ? flare off meds s/p colonoscopy no active flare on reg diet ok for dc GI stand point Romeo Valentine MD May 23, 2020 11:22
[2020-05-23 12:00] VITALS: BP 120/86
--- NOTE | 2020-05-23 12:05 | Nephrology Progress Note ---
Assessment/Plan Problem List: (1) ELIGIO (acute kidney injury) (2) Dehydration (3) Anemia (4) History of Crohn's disease (5) Intractable nausea and vomiting (6) Poly-drug misuser Assessment Acute on chronic renal failure Dehydration GI pathology, history of Crohn's disease Anemia Plan May 23: Status quo. No labs drawn today. Stable from renal standpoint of view. May 22: Renal parameters within normal limit. Tolerating p.o. well. Continue per consultants. Med list reviewed. May 21: Renal parameters within normal limits. IV fluid discontinued. On trial of regular diet. May 20: Serum creatinine lower. Urine positive for marijuana cocaine and opiates. Labs reviewed. Electrolyte within normal limit. Continue per GI. Previously: Urine studies Urine for tox screen IV hydration Anemia workup Monitor renal parameters and electrolytes Per consultants Subjective ROS Limited/Unobtainable: No Constitutional: Reports: malaise, weakness - 2 Objective Objective Last 24 Hour Vital Signs Date Time Temp Pulse Resp B/P (MAP) Pulse Ox O2 Delivery O2 Flow Rate FiO2 05/23/20 09:00 Room Air 05/23/20 08:00 98.5 95 19 121/93 (102) 97 05/23/20 04:00 97.9 92 20 106/73 (84) 97 05/23/20 00:00 97.1 85 20 124/75 (91) 97 05/22/20 20:52 Room Air 05/22/20 20:00 97.3 94 20 111/67 (82) 98 05/22/20 16:13 98.0 05/22/20 16:00 97.8 90 19 131/79 (96) 100 05/22/20 12:02 98.0 05/22/20 12:00 98.6 92 18 137/82 (100) 96 Intake and Output 05/22/20 05/23/20 19:00 07:00 Intake Total 600 ml Output Total 800 ml Balance 600 ml -800 ml Other 600 ml Output Urine Total 800 ml # Voids 2 Current Medications Medications (Trade) Dose Ordered Sig/Aguila Route PRN Reason Start Time Stop Time Status Last Admin Dose Admin Acetaminophen (Tylenol) 650 mg Q6H PRN ORAL Mild Pain (Pain Scale 1-3) 05/19/20 00:45 06/18/20 00:44 Acetaminophen (Tylenol) 650 mg Q6H PRN ORAL Temp >100.5 05/19/20 00:45 06/18/20 00:44 Docusate Sodium (Colace) 100 mg TWICE A DAY ORAL 05/23/20 18:00 06/22/20 17:59 Duloxetine HCl (Cymbalta) 60 mg DAILY ORAL 05/19/20 09:00 08/17/20 08:59 05/23/20 08:20 Hydromorphone HCl (Dilaudid) 2 mg Q4H PRN ORAL For Pain 05/23/20 07:00 05/30/20 06:59 Ondansetron HCl (Zofran) 4 mg Q4H PRN IVP Nausea & Vomiting 05/19/20 00:45 06/18/20 00:44 Pantoprazole (Protonix) 40 mg EVERY 12 HOURS ORAL 05/19/20 21:00 06/18/20 20:59 05/23/20 08:20 Polyethylene Glycol (Miralax) 17 gm BEDTIME ORAL 05/23/20 21:00 06/22/20 20:59 No labs drawn today Height (Feet): 5 Height (Inches): 9 Weight (Pounds): 150 General Appearance: no apparent distress Cardiovascular: tachycardia Abdomen: distended Teddy Molina MD May 23, 2020 12:05
--- NOTE | 2020-05-23 12:12 | Surgery Progress Note ---
Surgery Progress Note Subjective Additional Comments no acute events states no bm yet eating little pain same Objective Last 24 Hour Vital Signs Date Time Temp Pulse Resp B/P (MAP) Pulse Ox O2 Delivery O2 Flow Rate FiO2 05/23/20 09:00 Room Air 05/23/20 08:00 98.5 95 19 121/93 (102) 97 05/23/20 04:00 97.9 92 20 106/73 (84) 97 05/23/20 00:00 97.1 85 20 124/75 (91) 97 05/22/20 20:52 Room Air 05/22/20 20:00 97.3 94 20 111/67 (82) 98 05/22/20 16:13 98.0 05/22/20 16:00 97.8 90 19 131/79 (96) 100 I&O Intake and Output 05/22/20 05/23/20 19:00 07:00 Intake Total 600 ml Output Total 800 ml Balance 600 ml -800 ml Other 600 ml Output Urine Total 800 ml # Voids 2 Cardiovascular: RSR Respiratory: clear Abdomen: soft, non-tender, present bowel sounds, non-distended Extremities: no edema, no tenderness, no cyanosis Plan Problems: (1) Rectal bleeding (2) Abdominal pain Assessment & Plan: 39 year old male with hx of Crohn's s/p right hemicolectomy lap prior presented with acute flare. states onset of pain 1 day prior to admission. sever 10/10. currently improved with pain meds. has been trying to take his meds. abd exam soft nt/nd bs+ imaging okay for diet abx iv fluids dehydration no acute surgical intervention at this time treat medically does not seem obstructed or strictured. will follow with exam and recs thank you DAILY ESTIMATED NEEDS: Needs based on GI 67.8kg 25-35 kcals/kg 7240-8908 total kcals 1-1.5 g protein/kg 68-102 g total protein 25-30 mL/kg 5601-5530 total fluid mLs NUTRITION DIAGNOSIS: Altered GI fxn r/t Crohns as evidenced by pt adm w/ h/o Crohns, bowel resection, adm w/ acute flair N/V, pending colonoscopy, @87% IBW. CURRENT DIET:NPO / GI procedure PO DIET RECOMMENDATIONS: CLD -> advance to low fiber / soft diet as able ADDITIONAL RECOMMENDATIONS: 1) Obtain a standing scale wt 2) Ensure Clear TID w/ meals 3) Monitor PO tolerance when diet resumes 4) Monitor lytes w/ active diarrhea 5) Follow up w/ renal labs, need for renal diet restrictions (3) Intractable nausea and vomiting (4) Colitis (5) History of Crohn's disease Brendan Melendez May 23, 2020 12:12
--- NOTE | 2020-05-23 13:04 | NUR ---
NURSE NOTES: Patient agreed to taking dilaudid PO after Dr. Ibarra refused again to add any new form of IV medication and prescription medications to be sent home with. Patient complains of abdominal pain r/t Crohn's disease on right side of abdomen. Abdomen is soft and non-tender upon palpation, no bleeding noted, denies dark tarry stools and denies any abnormalities in bowel movement.
--- NOTE | 2020-05-23 14:17 | Internal Med Progress Note ---
Subjective Physician Name Genaro Ibarra Attending Physician Genaro Ibarra MD Current Medications Medications (Trade) Dose Ordered Sig/Aguila Route PRN Reason Start Time Stop Time Status Last Admin Dose Admin Acetaminophen (Tylenol) 650 mg Q6H PRN ORAL Mild Pain (Pain Scale 1-3) 05/19/20 00:45 06/18/20 00:44 Acetaminophen (Tylenol) 650 mg Q6H PRN ORAL Temp >100.5 05/19/20 00:45 06/18/20 00:44 Docusate Sodium (Colace) 100 mg TWICE A DAY ORAL 05/23/20 18:00 06/22/20 17:59 Duloxetine HCl (Cymbalta) 60 mg DAILY ORAL 05/19/20 09:00 08/17/20 08:59 05/23/20 08:20 Hydromorphone HCl (Dilaudid) 2 mg Q4H PRN ORAL For Pain 05/23/20 07:00 05/30/20 06:59 05/23/20 13:04 Ondansetron HCl (Zofran) 4 mg Q4H PRN IVP Nausea & Vomiting 05/19/20 00:45 06/18/20 00:44 Pantoprazole (Protonix) 40 mg EVERY 12 HOURS ORAL 05/19/20 21:00 06/18/20 20:59 05/23/20 08:20 Polyethylene Glycol (Miralax) 17 gm BEDTIME ORAL 05/23/20 21:00 06/22/20 20:59 Allergies: Coded Allergies: SERTRALINE (Verified Allergy, Unknown, 05/18/20) TRAMADOL (Unverified Allergy, Unknown, 04/24/19) seizure Subjective awake, alert, responsive, NAD, C/O abdominal pain. Objective Last Vital Signs Date Time Temp Pulse Resp B/P (MAP) Pulse Ox O2 Delivery O2 Flow Rate FiO2 05/23/20 13:34 98.5 05/23/20 12:00 90 20 120/86 (97) 97 05/23/20 09:00 Room Air 05/20/20 13:00 6 Intake and Output 05/22/20 05/23/20 19:00 07:00 Intake Total 600 ml Output Total 800 ml Balance 600 ml -800 ml Other 600 ml Output Urine Total 800 ml # Voids 2 Objective General: No acute distress, awake and alert HEENT: NCAT, sclera anicteric, PERRL, EOMI. Neck: Supple, no significant jugular venous distention, Lungs: Good inspiratory effort, no accessory muscle use, clear to auscultation bilaterally, no Wheeze or Rales. Heart: Regular rate and rhythm, normal S1/S2, no murmurs/gallops Abdomen: soft, Less Right side tenderness, nondistended. Normoactive bowel sounds. / Rectal: Refused and deferred. Extremities: No Cyanosis , clubbing or edema. Neuro: A&O x 3, Able to move all extremities Skin: warm, no rashes or lesions Psych: Normal mood and affect Assessment/Plan Assessment/Plan ASSESSMENT: This is a 39-year-old male. 1. Right lower abdominal pain. 2. Intractable Nausea and vomiting. 3. 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 4. Crohn disease. 5. Acute renal failure. 6. Anemia. TREATMENT: 1. Right abdominal pain/nausea/vomiting/Crohn's disease. Gastroenterology consultation = Dr. Romeo Valentien. 2. Perirectal fistula. General Surgery consultation = Dr. Melendez. ABX=DC Zosyn. 3. Right lower quadrant abdominal pain. This is probably secondary to Crohn disease. Continue intravenous Dilaudid. 4. Renal failure. Nephrology consultation = Dr. Teddy Molina. 5. Discharge planning today. patient has drug-seeking behavior and kept asking for Dilaudid IV. Colonoscopy: (05/20/2020) SUMMARY OF FINDINGS: 1. No evidence of any active colitis. The patient had a right hemicolectomy. 2. Status post random biopsy of the right and left colon. 3. Internal hemorrhoids. Genaro Ibarra MD May 23, 2020 14:17
--- NOTE | 2020-05-23 14:40 | NUR ---
NURSE NOTES: Patient medical instructions given to patient (drug toxicity, smoking cessation, drug toxicity/overdose, abdominal pain, ELIGIO, nausea and vomiting, Crohn disease), patient signed patient belongings list after all belongings have been accounted for, IV on left hand 22g removed, gauze and tape place on site, no bleeding or s/s infection or induration noted. Skin is intact throughout. Patient v/s WNL and patient stable, alert and oriented x4, breathing even and unlabored.
--- NOTE | 2020-05-23 14:45 | NUR ---
NURSE NOTES: Patient discharged safely without incident.
--- NOTE | 2020-05-23 15:03 | NUR ---
NURSE NOTES: Patient belongings list, discharged preparation list, and patient signature page signed and placed in patient chart.
[2020-05-23] MEDS ORDERED: Docusate 100mg cap ORAL SCH (18:00)
[2020-05-23] MEDS ORDERED: Miralax 17gm pkt ORAL SCH (21:00)
--- NOTE | 2020-05-27 10:45 | Discharge Summary ---
Discharge Summary Discharge Summary _ Date of admission: 05/18/2020 Date of discharge: 05/23/[address] Medina History of Present Illness and Brief Hospital Course Mr. Murrell is a 39-year-old male with past medical history of Crohn's disease status post bowel resection, who presented to ED for nausea and vomiting x1 day. Patient also complained of multiple episodes of nonbilious nonbloody emesis associated with diarrhea. Initial laboratory studies were remarkable for elevated BUN and creatinine. Patient was started on IV steroid, and IV fluids. Patient was admitted to the hospital given his acute renal insufficiency and increased nausea and vomiting. His urine was positive for marijuana, cocaine, and opiates. Patient reported that he is normally on medications for anxiety as well as OxyContin. Patient underwent colonoscopy which revealed internal hemorrhoids but no evidence of any active colitis. The biopsy of the left and right colon resulted in benign colonic mucosa, and no evidence of inflammation, granulomas, parasites, dysplasia or malignancy. He began tolerating diet. Patient still complained of consistent abdominal pain and continue to ask for Dilaudid IV for pain control. Patient was medically stable for discharge and was discharged home on 05/23/2020. Consultants: Surgery Dr. Melendez Nephrology Dr. [place] Gastroenterology Dr. Valentine Discharge Condition Stable Discharge Activity As tolerated Discharge Diet Regular Final diagnoses Rectal bleeding Internal hemorrhoids Acute kidney injury Dehydration Anemia History of Crohn's disease Polydrug misuser I have been assigned to dictate discharge summary for this account. I was not involved in the patient's management Carlos Davis May 27, 2020 10:45
== END 2020-05-23 14:45 | disposition home or self-care (01) | DRG 378 ==
LOC: EMR 20:30 → 4E 21:46 → EDBEDREQ 22:47
PROC: 0DBF8ZX Excision of Right Large Intestine, Via Natural or Artificial Opening Endoscopic, Diagnostic (ICD-10-PCS; principal; 2020-05-20 12:32)
PROC: 0DBG8ZX Excision of Left Large Intestine, Via Natural or Artificial Opening Endoscopic, Diagnostic (ICD-10-PCS; principal; 2020-05-20 12:32)
DX: K92.2 Gastrointestinal hemorrhage, unspecified (principal); N17.9 Acute kidney failure, unspecified; R10.9 Unspecified abdominal pain; Z87.19 Personal history of other diseases of the digestive system; E86.0 Dehydration; N18.9 Chronic kidney disease, unspecified; K64.8 Other hemorrhoids; Z90.49 Acquired absence of other specified parts of digestive tract; Z88.6 Allergy status to analgesic agent; Z88.8 Allergy status to other drugs, medicaments and biological substances; F41.9 Anxiety disorder, unspecified; F19.10 Other psychoactive substance abuse, uncomplicated; D64.9 Anemia, unspecified
CPT/HCPCS: 36415; 76770; 80048; 80053; 80061; 80307; 81001; 82306; 82607; 82728; 82746; 82977; 83540; 83550; 83735; 83880; 84100; 84300; 84443; 84550; 85007; 85025; 85610; 85651; 85730; 86140; 87045; 94003; 94150; 96361; 96365; 96375; 96376; 99285; J2405; J7030